=== PATIENT | female | born 1945 | race Caucasian/White ===

== ENCOUNTER 2017-12-23 11:19 | Inpatient (IN) ==
--- OUTSIDE RECORDS SUMMARY | 2017-12-23 11:42 | External Medical Summary | Continuity of Care Document ---
:1945 Author Organization [facility] Phone Unavailable Care Team Providers Name Role Phone AYAZ BLANCAS M.D. Unavailable Insurance Providers Guarantor Amy Kirk Address [address] [place] [address] Payer s Medicare Policy Number [id number] Subscriber's Name Amy Kirk Relationship 01 Self / Same As Patient Effective Date 10 Payer [employer] Plan 65 [employer] Policy Number [id number] Subscriber's Name Amy Kirk Relationship 01 Self / Same As Patient Group Number [id number] Effective Date 09 Problems Active Problems Medical Problem Onset Date Status Bronchitis Unknown Acute CAD (coronary artery disease) 01/19/2015 Acute CORON ATHEROSCLER NOS TYPE VESSEL, [place] OR GRAFT 02/19/2011 Cough Unknown Acute DIAB MADDY WO COMPL, TYPE II OR UNSPEC TYPE, NOT UNCNTRLD 02/19/2011 Degenerative disc disease, lumbar Unknown Acute Dehydration Unknown Acute Facet arthropathy, lumbar Unknown Acute Foraminal stenosis of lumbosacral region Unknown Chronic Hx of coronary artery disease Unknown Acute Hx of coronary artery disease Unknown Acute Hx of diabetes mellitus Unknown Acute Hyperlipemia 01/19/2015 Acute Hypotension Unknown Acute Hypothyroidism, unspecified 02/19/2011 Lumbar spinal stenosis Unknown Acute Nausea & vomiting Unknown Acute OTH SCREEN MAMMO-MALIGN NEOPLASM OF BREAST 11/17/2013 Acute OTH SCREEN MAMMO-MALIGN NEOPLASM OF BREAST 10/18/2014 Acute ROUTINE MEDICAL EXAM Unknown Acute Sacroiliac dysfunction Unknown Acute Sinusitis Unknown Acute Spondylolisthesis at L4-L5 level Unknown Acute Type II diabetes mellitus, uncontrolled 10/13/2014 Acute Unstable angina Unknown Acute Medications Current Home Medications Medication Dose Units Route Directions Days Qty Instructions Start Date Amlodipine 2.5 Mg Oral Daily 30 02/18/ Besylate 2.5 Mg 11 Tab Aspirin (Aspirin 1 Tab Oral Daily ) 81 Mg Tab 14 Clopidogrel 75 Mg Oral Daily 30 02/18/ Bisulfate 11 (Plavix) 75 Mg Tab Glucose Blood 1 Strips Miscellaneous Twice A Day 50 dx: 250.00 11/12/ (Truetest Strips 14 Strips) Comfort Insulin Glargine 67 Unit Subcutaneously Bedtime 1 Pack 11/15/ (Lantus Solostar 17 Nf) 100 Unit/Ml Soln Insulin Lispro 40 Units Subcutaneously Daily 12 06/17/ (Human) (Humalog Units 16 Kwikpen) 100 Unit/Ml Inj Isosorbide 60 Mg Oral Twice A Day 90 07/15/ Mononitrate 13 (Imdur) 60 Mg Tab Levothyroxine 1 Tab Oral Daily 30 10/09/ Sodium Tablet 17 (Levothroid) 75 Mcg Tab Losartan 1 Tab Oral Daily 30 01/04/ Potassium 14 (Cozaar) 50 Mg Tab Meloxicam 7.5 Mg 7.5 Mg Oral Daily 30 Take on full 04/19/ Tab stomach 13 Metoclopramide 10 Mg Oral Every 8 15 10/12/ Hcl (Reglan) 10 Hours As Tablet 16 Mg Tab Needed for Nausea Metoprolol 25 Mg Oral Twice A Day 180 04/01/ Tartrate 25 Mg Tablet 16 Tab Nitroglycerin 1 Tab Sublingual As Needed 25 02/18/ (Nitroquick) 0.4 11 Mg Sub Ondansetron Hcl 4 Mg Oral Every 4 15 10/10/ (Zofran) 4 Mg Hours As Tablet 16 Tab Needed as needed for Nausea And/Or Vomiting Pantoprazole 40 Mg Oral Daily 34 02/18/ Sodium 40 Mg Tab 11 Simvastatin 40 40 Mg Oral Daily 90 07/08/ Mg Tab Tablet 16 Past Home Medications Medication Directions Ordered Status Amlodipine Besylate 2.5 Mg Tab, 2.5 Daily 07/11/10 Discontinued Mg Oral Amoxicillin/Clavulanate [place] Twice A Day 08/24/12 Discontinued (Augmentin 875 Mg) 875 Mg Tab, 875 Mg Oral Amoxicillin/Clavulanate [place] Twice A Day 07/30/12 Discontinued (Augmentin 875 Mg) 875 Mg Tab, 875 Mg Oral Aspirin (Aspir-81) 81 Mg Tab, 81 Mg Daily 05/19/09 Discontinued Oral Azithromycin (Zithromax) 250 Mg Tab, Daily 08/10/15 Discontinued 500 Mg Oral Azithromycin (Zithromax) 250 Mg Tab, As Directed 02/06/15 Discontinued 250 Mg Oral Azithromycin (Zithromax Z-Fantasma) 1 Tab As Directed 06/11/12 Discontinued Tab, 250 Mg Oral Benzonatate (Tessalon Perles) 200 Mg Three Times A Day 08/10/15 Discontinued Cap, 200 Mg Oral Ciprofloxacin Hcl (Cipro) 500 Mg Twice A Day 04/10/15 Discontinued Tab, 500 Mg Oral Ciprofloxacin Hcl (Cipro) 500 Mg Twice A Day 03/13/12 Discontinued Tab, 500 Mg Oral Clopidogrel Bisulfate (Plavix) 75 Mg Daily 05/26/09 Discontinued Tab, Oral Doxycycline Hyclate 100 Mg Cap, 100 Twice A Day 07/03/12 Discontinued Mg Oral Doxycycline Hyclate 100 Mg Cap, 100 Twice A Day 11/27/11 Discontinued Mg Oral Doxycycline Hyclate 100 Mg Cap, 100 Twice A Day 11/19/11 Discontinued Mg Oral Doxycycline Hyclate 100 Mg Cap, 100 Twice A Day 08/23/11 Discontinued Mg Oral Fluconazole (Diflucan) 100 Mg Tab, Daily 09/15/12 Discontinued 100 Mg Oral Fluticasone Propionate (Flonase Daily 12/13/11 Discontinued 0.05% Nasal [place]) 16 Gm Naspr, 2 [place] Nasal Glucose Blood (Truetest Strips) Comfort, Twice A Day 11/12/13 Discontinued 1 Strips Miscellaneous Hydrocodone-Acetaminophen ([place]) 1 Every 4 Hours As Needed 03/13/16 Discontinued Tab Tab, 1 Tab Oral Hydrocodone-Acetaminophen ([place]) 1 Every 4 Hours As Needed 02/16/16 Discontinued Tab Tab, 1 Tab Oral Hydrocodone-Acetaminophen ([place]) 1 Every 4 Hours As Needed 01/30/16 Discontinued Tab Tab, 1 Tab Oral Hydrocodone-Acetaminophen ([place]) 1 Every 4 Hours As Needed 01/09/16 Discontinued Tab Tab, 1 Tab Oral Hydrocodone-Acetaminophen ([place]) 1 Every 4 Hours As Needed 12/14/15 Discontinued Tab Tab, 1 Tab Oral Hydrocodone-Acetaminophen ([place]) 1 Every 4 Hours As Needed 09/22/15 Discontinued Tab Tab, 1 Tab Oral Hydrocodone-Acetaminophen (Lortab Four Times Daily 06/04/09 Discontinued 5/500) Tab, 5 Mg Oral Influenza Virus Vaccine (Fluzone) Onetime 04/30/12 Discontinued 0.5 Ml Inj, 0.5 Ml Intramuscular Influenza Virus Vaccine (Fluzone) Onetime 05/24/11 Discontinued 0.5 Ml Inj, 0.5 Ml Intramuscular Insulin Aspart (Novolog) 100 Mg/Ml 07/11/10 Discontinued Inj, Insulin Aspart, Human Analog Three Times Daily Before 02/18/11 Discontinued (Insulin Novolog) 100 Unit/1 Ml Inj, Meals 12 Un Intramuscular Insulin Glargine (Insulin Lantus) Bedtime 06/10/16 Discontinued 100 Unit/Ml Inj, 65 Un Intramuscular Insulin Glargine (Insulin Lantus) Bedtime 06/19/15 Discontinued 100 Unit/Ml Inj, 65 Un Intramuscular Insulin Glargine (Insulin Lantus) Bedtime 06/23/14 Discontinued 100 Unit/Ml Inj, 65 Un Intramuscular Insulin Glargine (Insulin Lantus) Bedtime 06/07/13 Discontinued 100 Unit/Ml Inj, 65 Un Intramuscular Insulin Glargine (Insulin Lantus) Bedtime 05/07/13 Discontinued 100 Unit/Ml Inj, 65 Un Intramuscular Insulin Glargine (Insulin Lantus) Bedtime 04/08/13 Discontinued 100 Unit/Ml Inj, 65 Un Intramuscular Insulin Glargine (Insulin Lantus) Bedtime 03/11/12 Discontinued 100 Unit/Ml Inj, 65 Un Intramuscular Insulin Glargine (Insulin Lantus) Bedtime 02/10/12 Discontinued 100 Unit/Ml Inj, 65 Un Intramuscular Insulin Glargine (Insulin Lantus) Bedtime 09/25/11 Discontinued 100 Unit/Ml Inj, 65 Un Intramuscular Insulin Glargine (Insulin Lantus) Bedtime 02/18/11 Discontinued 100 Unit/Ml Inj, 55 Un Intramuscular Insulin Glargine (Lantus) 100 Mg/Ml Bedtime 05/19/09 Discontinued Inj, 55 Units Subcutaneously Insulin Isophane (Human) (Novolin N Daily 01/19/13 Discontinued U-100 Penfill) Penfill Inj, 40 Units Subcutaneously Insulin Isophane (Human) (Novolin N Daily 11/06/12 Discontinued U-100 Penfill) Penfill Inj, 40 Units Subcutaneously Insulin Isophane (Human) (Novolin N Daily 11/06/12 Discontinued U-100 Penfill) Penfill Inj, 40 Units Subcutaneously Insulin Lispro (Human) (Humalog) 100 Daily 03/28/14 Discontinued Mg/Ml Inj, 40 Mg Subcutaneously Insulin Lispro (Human) (Humalog Daily 05/19/15 Discontinued Kwikpen) 100 Mg/Ml Inj, 40 Units Subcutaneously Insulin Lispro (Human) (Humalog) 100 Daily 07/15/13 Discontinued Mg/Ml Inj, 40 Mg Subcutaneously Isosorbide Mononitrate (Imdur) 30 Mg Twice A Day 06/23/13 Discontinued Tab, 30 Mg Oral Isosorbide Mononitrate (Imdur) 30 Mg Twice A Day 06/17/12 Discontinued Tab, 30 Mg Oral Isosorbide Mononitrate (Imdur) 30 Mg Twice A Day 02/19/11 Discontinued Tab, 30 Mg Oral Isosorbide Mononitrate (Imdur) 30 Mg Daily 07/11/10 Discontinued Tab, 30 Mg Oral Isosorbide Mononitrate (Imdur-Er Daily 02/18/11 Discontinued *Nf*) 30 Mg Tabcr, 30 Mg Oral Levofloxacin (Levaquin) 750 Mg Tab, Daily 07/24/15 Discontinued 750 Mg Oral Levofloxacin (Levaquin) 500 Mg Tab, Daily 06/13/15 Discontinued 500 Mg Oral Levofloxacin (Levaquin) 500 Mg Tab, Daily 02/13/15 Discontinued 500 Mg Oral Levofloxacin (Levaquin) 500 Mg Tab, Daily 11/21/14 Discontinued 500 Mg Oral Levofloxacin (Levaquin) 500 Mg Tab, Daily 08/22/14 Discontinued 500 Mg Oral Levofloxacin (Levaquin) 500 Mg Tab, Daily 09/06/13 Discontinued 500 Mg Oral Levofloxacin (Levaquin) 500 Mg Tab, Daily 09/25/11 Discontinued 500 Mg Oral Levofloxacin (Levaquin) 500 Mg Tab, Daily 09/20/11 Discontinued 500 Mg Oral Levothyroxine Sodium (Levothroid) 75 Daily 09/28/15 Discontinued Mcg Tab, 1 Tab Oral Levothyroxine Sodium (Levothroid) 75 Daily 08/16/14 Discontinued Mcg Tab, 1 Tab Oral Levothyroxine Sodium (Levothroid) 75 Daily 07/07/13 Discontinued Mcg Tab, 1 Tab Oral Levothyroxine Sodium (Levothroid) 75 Daily 06/26/12 Discontinued Mcg Tab, 1 Tab Oral Levothyroxine Sodium (Levothroid) 75 Daily 06/24/11 Discontinued Mcg Tab, 1 Tab Oral Levothyroxine Sodium (Levothroid) 75 Daily 05/19/09 Discontinued Mcg Tab, 75 Mcg Oral Levothyroxine Sodium (Levothroid) 75 Daily 02/18/11 Discontinued Mcg Tab, 75 Mcg Oral Losartan Potassium (Cozaar) 50 Mg Daily 12/14/12 Discontinued Tab, 1 Tab Oral Losartan Potassium (Cozaar) 50 Mg Daily 11/13/12 Discontinued Tab, 1 Tab Oral Losartan Potassium (Cozaar) 50 Mg Daily 11/12/11 Discontinued Tab, 1 Tab Oral Losartan Potassium (Cozaar) 50 Mg Daily 09/17/11 Discontinued Tab, 1 Tab Oral Methylprednisolone (Medrol Dosepak) Asdirected 07/31/15 Discontinued 4 Mg Fantasma, 4 Mg Oral Methylprednisolone (Medrol Dosepak) Asdirected 08/05/12 Discontinued 4 Mg Fantasma, 4 Mg Oral Methylprednisolone Acetate Onetime 08/10/15 Discontinued (Depo-Medrol) 80 Mg/Ml Inj, 80 Mg Intramuscular Methylprednisolone Acetate Onetime 08/10/15 Discontinued (Depo-Medrol) 40 Mg/Ml Inj, 40 Mg Intramuscular Methylprednisolone Acetate Onetime 02/13/15 Discontinued (Depo-Medrol) 40 Mg/Ml Inj, 40 Mg Intramuscular Methylprednisolone Acetate Onetime 02/13/15 Discontinued (Depo-Medrol) 80 Mg/Ml Inj, 80 Mg Intramuscular Methylprednisolone Acetate Onetime 08/19/12 Discontinued (Depo-Medrol) 40 Mg/Ml Inj, 40 Mg Intramuscular Methylprednisolone Acetate Onetime 08/19/12 Discontinued (Depo-Medrol) 80 Mg/Ml Inj, 80 Mg Intramuscular Metoprolol Tartrate (Lopressor) 25 Twice A Day 02/18/11 Discontinued Mg Tab, 25 Mg Oral Metoprolol Tartrate (Lopressor) 50 Twice A Day 06/04/09 Discontinued Mg Tab, 25 Mg Oral Minocycline Hcl 100 Mg Cap, 100 Mg Twice A Day 07/17/15 Discontinued Oral Miscellaneous (Test Strips) Misc, 1 Three Times A Day 03/13/12 Discontinued Mis Finger Stick Olmesartan Medoxomil (Benicar) 20 Mg Daily 02/26/11 Discontinued Tab, 20 Mg Oral Olmesartan Medoxomil (Benicar) 20 Mg Daily 05/19/09 Discontinued Tab, 20 Mg Oral Oxycodone W/ Acetaminophen Every 4 Hours Prn 07/11/10 Discontinued (Percocet) 1 Tab Tab, 1 - 2 Tab Oral Pantoprazole Sodium (Protonix) 40 Mg Daily 06/04/09 Discontinued Tab, 40 Mg Oral Prednisone 10 Mg Tab, 10 Mg Oral As Directed 11/27/11 Discontinued Prednisone 10 Mg Tab, 10 Mg Oral As Directed 09/25/11 Discontinued Promethazine Hcl/Codeine Four Times Daily 08/05/12 Discontinued (Promethazine/Codeine 6.25/10 Per 5ML) 1 Ml Syp, 5 - 10 Ml Oral Promethazine/Codeine (Phenergan Every 4 Hours As Needed as 02/13/15 Discontinued W/Codeine) 120 Ml Syrp, 5 Ml Oral needed for Cough Ranitidine Hcl (Zantac) 150 Mg Cap, Twice A Day 06/04/09 Discontinued 150 Mg Oral Simvastatin 40 Mg Tab, 40 Mg Oral Daily 07/14/15 Discontinued Simvastatin 40 Mg Tab, 40 Mg Oral Daily 06/15/14 Discontinued Simvastatin 40 Mg Tab, 40 Mg Oral Daily 06/07/13 Discontinued Simvastatin 40 Mg Tab, 40 Mg Oral Daily 03/10/13 Discontinued Simvastatin 40 Mg Tab, 40 Mg Oral Daily 03/02/12 Discontinued Simvastatin 40 Mg Tab, 40 Mg Oral Daily 12/04/11 Discontinued Simvastatin 40 Mg Tab, 40 Mg Oral Daily 02/18/11 Discontinued Simvastatin (Zocor) 40 Mg Tab, 40 Mg Bedtime 06/04/09 Discontinued Oral Valsartan (Diovan) 80 Mg Tab, 80 Mg Daily 06/24/11 Discontinued Oral Valsartan (Diovan) 80 Mg Tab, 80 Mg Daily 05/07/11 Discontinued Oral Social History Social History Problem Response Recorded Date/Time Onset Date Status Hx Alcohol Use No 12/27/2011 8:39am Not Applicable Not Applicable Hx Tobacco Use No 05/24/2011 9:00am Not Applicable Not Applicable Smoking Status Former smoker 10/12/2015 7:23pm Not Applicable Not Applicable Query Response Start Date Stop Date Smoking Status Former smoker Hospital Discharge Instructions No hospital discharge instructions. Plan of Care Discharge Date 11/21/16 8:51am Instructions/Education Provided Instructions from visit on: 07/30/16 Lab results reviewed and a copy given to patient. She will continue to work towards maintaining better sugar control but it sounds like this is are this started happening.Continue current medications.We will followup in 4 months with a prior fasting lipid panel, CMP, hemoglobin A1c, free T4, TSH. Prescriptions See Medication Section Functional Status No functional status results. Allergies, Adverse Reactions, Alerts No known allergies. 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Cut Order Hand Reason Number Influenza 05/24/11 Administered 1 [id number] SANOFI Vaccine, Inactivated Influenza 04/30/12 Administered 2 [id number] [employer] Pasteur Vaccine, Inactivated Influenza 06/01/14 Administered 3 Vaccine, Inactivated Influenza 06/01/15 Administered 4 Vaccine, Inactivated Influenza 05/13/16 Administered 5 Vaccine, Inactivated Zoster Vaccine 02/01/15 Administered 1 Vital Signs Acute Vital Signs Vital Response Date/Time Blood Pressure 138/78 mm Hg 05/23/2016 12:28pm Blood Pressure Mean 58 mm Hg 10/13/2015 3:21am Temperature (Fahrenheit) 98.0 degrees F (96.0 - 99.9) 10/12/2015 7:23pm Temperature (Calculated Celsius) 36.19162 degrees C 10/12/2015 7:23pm Temperature Source Oral 10/12/2015 7:23pm Pulse Pulse Rate (adult) 91 bpm (60 - 100) 05/23/2016 12:28pm Pulse Rate: ED 72 bpm 10/13/2015 3:21am Respiratory Rate 16 breaths per minute (10 - 20) 10/13/2015 3:21am Height (Feet) 5 ft 10/12/2015 7:23pm Height (Inches) 4 in. 10/12/2015 7:23pm Weight (Pounds) 225 lbs 10/12/2015 7:23pm Ambulatory Vital Signs Vital Response Date/Time Height 5 ft 4 in 09/19/2016 10:16am Weight 228 lbs 09/19/2016 10:16am Blood Pressure 141/75 mm Hg 09/19/2016 10:16am Pulse Rate 73 bpm 09/19/2016 10:16am Body Surface Area 2.21 m2 09/19/2016 10:16am Body Mass Index 39.1 kg/m2 09/19/2016 10:16am Pulse Oximetry Pulse Oximetry 09/19/2016 10:16am Results Laboratory Results Test Name Result Units Flags Reference Collection Result Comments Date/Time Date/Time Prothrombin Time 10.3 SECONDS 9.0-12.0 07/17/2014 07/17/2014 7:30pm 8:03pm Prothromb Time 0.96 L 2.0-3.0 07/17/2014 07/17/2014 International 7:30pm 8:03pm Ratio Activated Partial 30.1 SECONDS 24.0-37.0 07/17/2014 07/17/2014 Thromboplast Time 7:30pm 8:03pm White Blood Count 11.8 K/uL H 5.0-10.0 10/12/2015 10/12/2015 7:25pm 7:48pm Red Blood Count 4.34 M/uL 4.20-5.40 10/12/2015 10/12/2015 7:25pm 7:48pm Hemoglobin 13.9 g/dL 12.0-16.0 10/12/2015 10/12/2015 7:25pm 7:48pm Hematocrit 39.7 % 38.0-47.0 10/12/2015 10/12/2015 7:25pm 7:48pm Mean Corpuscular 91.5 fL 82.0-100.0 10/12/2015 10/12/2015 Volume 7:25pm 7:48pm Mean Corpuscular 32.0 pg 26.0-33.0 10/12/2015 10/12/2015 Hemoglobin 7:25pm 7:48pm Mean Corpuscular 35.0 g/dL 31.0-36.0 10/12/2015 10/12/2015 Hemoglobin Concent 7:25pm 7:48pm Red Cell 13.7 % 11.5-14.5 10/12/2015 10/12/2015 Distribution Width 7:25pm 7:48pm RDW Standard 46.5 fL H 36.4-46.3 10/12/2015 10/12/2015 Deviation 7:25pm 7:48pm Platelet Count 306 K/uL 130-400 10/12/2015 10/12/2015 7:25pm 7:48pm Mean Platelet 9.3 fL 7.0-11.0 10/12/2015 10/12/2015 Volume 7:25pm 7:48pm Neutrophils (%) 62.7 % 42.0-75.0 10/12/2015 10/12/2015 (Auto) 7:25pm 7:48pm Lymphocytes (%) 29.4 % 16.0-44.0 10/12/2015 10/12/2015 (Auto) 7:25pm 7:48pm Monocytes (%) 6.4 % 2.0-9.0 10/12/2015 10/12/2015 (Auto) 7:25pm 7:48pm Eosinophils (%) 0.7 % 0-7.0 10/12/2015 10/12/2015 (Auto) 7:25pm 7:48pm Basophils (%) 0.3 % 0-1 10/12/2015 10/12/2015 (Auto) 7:25pm 7:48pm Immature 0.5 % 0-0.5 10/12/2015 10/12/2015 Granulocyte % 7:25pm 7:48pm (Auto) Nucleated Red 0.0 /100WBC 0-0 10/12/2015 10/12/2015 Blood Cells % 7:25pm 7:48pm Neutrophils # 7.4 K/uL 1.9-8.0 10/12/2015 10/12/2015 (Auto) 7:25pm 7:48pm Lymphocytes # 3.5 K/uL 0.9-5.2 10/12/2015 10/12/2015 (Auto) 7:25pm 7:48pm Monocytes # (Auto) 0.8 K/uL 0.16-1.0 10/12/2015 10/12/2015 7:25pm 7:48pm Eosinophils # 0.1 K/uL 0-0.8 10/12/2015 10/12/2015 (Auto) 7:25pm 7:48pm Basophils # (Auto) 0.0 K/uL 0-0.2 10/12/2015 10/12/2015 7:25pm 7:48pm Immature 0.06 K/uL 0-0.40 10/12/2015 10/12/2015 Granulocyte # 7:25pm 7:48pm (Auto) Nucleated Red 0.00 K/uL 0.0-0.012 10/12/2015 10/12/2015 Blood Cells # 7:25pm 7:48pm Random Glucose 155 mg/dL H 65-115 10/12/2015 10/12/2015 7:25pm 8:10pm Blood Urea 36 mg/dL H 8-25 10/12/2015 10/12/2015 Nitrogen 7:25pm 8:10pm Creatinine 1.43 mg/dL 0.9-1.6 10/12/2015 10/12/2015 7:25pm 8:10pm Glomerular 36.28 mL/min 10/12/2015 10/12/2015 MULTIPLY RESULT BY 1.210 IF THE PATIENT IS -MALAWIAN
Filtration Rate 7:25pm 8:10pm Units are mL/min/1.73 m2
Calc
> 60 Normal kidney function
30-59 Moderately decreased kidney function
15-29 Severely decreased kidney function
<15 End-stage kidney failure
BUN/Creatinine 25.2 10/12/2015 10/12/2015 Ratio 7:25pm 8:10pm Sodium Level 136 mEq/L 133-145 10/12/2015 10/12/2015 7:25pm 8:10pm Potassium Level 3.5 mEq/L 3.5-5.1 10/12/2015 10/12/2015 7:25pm 8:10pm Chloride Level 105 mEq/L 98-116 10/12/2015 10/12/2015 7:25pm 8:10pm Carbon Dioxide 21 mEq/L L 22-34 10/12/2015 10/12/2015 Level 7:25pm 8:10pm Anion Gap 13.5 H 6-13 10/12/2015 10/12/2015 7:25pm 8:10pm Calcium Level 8.9 mg/dL 8.2-10.6 10/12/2015 10/12/2015 7:25pm 8:10pm Total Protein 6.5 gm/dL 6.0-8.4 10/12/2015 10/12/2015 7:25pm 8:10pm Albumin 3.4 gm/dL 3.2-5.0 10/12/2015 10/12/2015 7:25pm 8:10pm Globulin 3.1 gm/dL H 2.0-3.0 10/12/2015 10/12/2015 7:25pm 8:10pm Albumin/Globulin 1.1 L 1.4-2.4 10/12/2015 10/12/2015 Ratio 7:25pm 8:10pm Total Bilirubin 0.7 mg/dL 0.1-1.3 10/12/2015 10/12/2015 7:25pm 8:10pm Alkaline 73 U/L 35-125 10/12/2015 10/12/2015 Phosphatase 7:25pm 8:10pm Aspartate Amino 30 U/L 5-40 10/12/2015 10/12/2015 Transf (AST/SGOT) 7:25pm 8:10pm Alanine 28 U/L 5-40 10/12/2015 10/12/2015 Aminotransferase 7:25pm 8:10pm (ALT/SGPT) Troponin I 0.02 ng/mL 0.0-0.02 10/12/2015 10/12/2015 7:25pm 8:10pm Lipase 29 U/L 8-57 10/12/2015 10/12/2015 7:25pm 8:10pm Free Thyroxine 1.27 ng/dL 0.82-1.77 03/27/2016 03/28/2016 (T4) Calculated 8:15am 7:20am Thyroid 2.970 uIU/mL 0.450-4.50 03/27/2016 03/28/2016 Performed at: DA - [facility] [place]
Stimulating 0 8:15am 7:20am [address] [phone]
Hormone (TSH) Vice President And Portfolio Manager: MUMTAZ Remy MD, Phone: [phone]
White Blood Count 7.2 x10E3/uL 3.4-10.8 03/27/2016 03/28/2016 8:15am 6:20am Red Blood Count 4.30 x10E6/uL 3.77-5.28 03/27/2016 03/28/2016 8:15am 6:20am Hemoglobin 13.5 g/dL 11.1-15.9 03/27/2016 03/28/2016 8:15am 6:20am Hematocrit 41.0 % 34.0-46.6 03/27/2016 03/28/2016 8:15am 6:20am Mean Corpuscular 95 fL 79-97 03/27/2016 03/28/2016 Volume 8:15am 6:20am Mean Corpuscular 31.4 pg 26.6-33.0 03/27/2016 03/28/2016 Hemoglobin 8:15am 6:20am Mean Corpuscular 32.9 g/dL 31.5-35.7 03/27/2016 03/28/2016 Hemoglobin Concent 8:15am 6:20am Red Cell 14.4 % 12.3-15.4 03/27/2016 03/28/2016 Distribution Width 8:15am 6:20am Platelet Count 267 x10E3/uL 150-379 03/27/2016 03/28/2016 8:15am 6:20am Neutrophils % 53 % . 03/27/2016 03/28/2016 (Send Out) 8:15am 6:20am Lymphocytes 37 % . 03/27/2016 03/28/2016 8:15am 6:20am Monocytes 7 % . 03/27/2016 03/28/2016 8:15am 6:20am Eosinophils 3 % . 03/27/2016 03/28/2016 8:15am 6:20am Basophils 0 % . 03/27/2016 03/28/2016 8:15am 6:20am Absolute 3.8 x10E3/uL 1.4-7.0 03/27/2016 03/28/2016 Neutrophils (auto) 8:15am 6:20am Absolute 2.7 x10E3/uL 0.7-3.1 03/27/2016 03/28/2016 Lymphocytes (auto) 8:15am 6:20am Absolute Monocytes 0.5 x10E3/uL 0.1-0.9 03/27/2016 03/28/2016 (auto) 8:15am 6:20am Absolute 0.2 x10E3/uL 0.0-0.4 03/27/2016 03/28/2016 Eosinophils (auto) 8:15am 6:20am Absolute Basophils 0.0 x10E3/uL 0.0-0.2 03/27/2016 03/28/2016 (auto) 8:15am 6:20am Immature 0 % . 03/27/2016 03/28/2016 Granulocytes 8:15am 6:20am Absolute Immature 0.0 x10E3/uL 0.0-0.1 03/27/2016 03/28/2016 [facility]
Granulocyte (auto 8:15am 6:20am [id number], [place], [place] [id number]
Vice President And Portfolio Manager: MUMTAZ Remy MD, Phone: [phone]
Urine Microalbumin 16.7 ug/mL Not Estab. 03/27/2016 03/28/2016 [facility]
8:15am 9:11am [address] [address], [place], [place] [phone];
Vice President And Portfolio Manager: MUMTAZ Remy MD, Phone: [phone]
Urine Specific 1.019 1.005-1.03 03/27/2016 03/28/2016 [place] 0 8:15am 7:20am Urine pH 5.5 5.0-7.5 03/27/2016 03/28/2016 8:15am 7:20am Urine Color Yellow Yellow 03/27/2016 03/28/2016 8:15am 7:20am Urine Appearance Clear Clear 03/27/2016 03/28/2016 8:15am 7:20am Urine Leukocyte Negative Negative 03/27/2016 03/28/2016 Esterase 8:15am 7:20am Urine Protein Negative 03/27/2016 03/28/2016 Reference 8:15am 7:20am Range: Negative/Tra ce
Urine Glucose Negative Negative 03/27/2016 03/28/2016 8:15am 7:20am Urine Ketones Negative Negative 03/27/2016 03/28/2016 8:15am 7:20am Urine Occult Blood Trace H Negative 03/27/2016 03/28/2016 8:15am 7:20am Urine Bilirubin Negative Negative 03/27/2016 03/28/2016 8:15am 7:20am Urine Urobilinogen 0.2 mg/dL 0.2-1.0 03/27/2016 03/28/2016 8:15am 7:20am Urine Nitrite Negative Negative 03/27/2016 03/28/2016 8:15am 7:20am Direct Microscopic See below: . 03/27/2016 03/28/2016 Microscopic Examination (LAB 8:15am 7:20am was indicated and was performed.&# 13;
Urine Microscopic 0-5 /hpf 0 - 5 03/27/2016 03/28/2016 WBC 8:15am 9:11am Urine Microscopic 0-2 /hpf 0 - 2 03/27/2016 03/28/2016 RBC 8:15am 9:11am Urine Epithelial 0-10 /hpf 0 - 10 03/27/2016 03/28/2016 Cells 8:15am 9:11am Urine Mucus Present Not Estab. 03/27/2016 03/28/2016 8:15am 9:11am Urine Bacteria None seen None 03/27/2016 03/28/2016 seen/Few 8:15am 9:11am URINALYSIS REFLEX This . 03/27/2016 03/28/2016 specimen 8:15am 9:11am will not reflex to a Urine Culture.&# 13;
Hemoglobin A1c 8.9 % H 4.8-5.6 07/25/2016 07/27/2016 Performed at: DA - [facility]
8:10am 3:26am [address] [address], [place], [place] [phone]&# 13;
Vice President And Portfolio Manager: MUMTAZ Remy MD, Phone: [phone]
Glucose Level 124 mg/dL H 65-99 07/25/2016 07/26/2016 8:10am 8:12am Blood Urea 19 mg/dL 8-07/25/2016 07/26/2016 Nitrogen 8:10am 8:12am Creatinine 0.82 mg/dL 0.57-1.00 07/25/2016 07/26/2016 8:10am 8:12am BUN/Creatinine 23 11-26 07/25/2016 07/26/2016 Ratio 8:10am 8:12am Sodium Level 142 mmol/L 136-144 07/25/2016 07/26/2016 Effective August 05, 2016 the reference interval
8:10am 7:42am for Sodium, Serum will be changing to:
134 - 144
Potassium Level 4.3 mmol/L 3.5-5.2 07/25/2016 07/26/2016 8:10am 7:42am Chloride Level 102 mmol/L 97-106 07/25/2016 07/26/2016 Effective August 05, 2016 the reference interval
8:10am 7:42am for Chloride, Serum will be changing to:
96 - 106
Performed at: - [facility]
[address] [address], [place], [place] [id number]
Vice President And Portfolio Manager: MUMTAZ Remy MD, Phone: [phone]
Carbon Dioxide 24 mmol/L 18-29 07/25/2016 07/26/2016 Level 8:10am 8:12am Calcium Level 9.1 mg/dL 8.7-10.3 07/25/2016 07/26/2016 8:10am 8:12am Serum Total 6.8 g/dL 6.0-8.5 07/25/2016 07/26/2016 Protein 8:10am 8:12am Albumin 4.1 g/dL 3.5-4.8 07/25/2016 07/26/2016 8:10am 8:12am Globulin 2.7 g/dL 1.5-4.5 07/25/2016 07/26/2016 8:10am 8:12am Albumin/Globulin 1.5 1.1-2.5 07/25/2016 07/26/2016 Ratio 8:10am 8:12am Total Bilirubin 0.5 mg/dL 0.0-1.2 07/25/2016 07/26/2016 8:10am 8:12am Alkaline 97 IU/L 39-117 07/25/2016 07/26/2016 Phosphatase 8:10am 8:12am Aspartate Amino 15 IU/L 0-40 07/25/2016 07/26/2016 Transf (AST/SGOT) 8:10am 8:12am Alanine 11 IU/L 0-32 07/25/2016 07/26/2016 Aminotransferase 8:10am 8:12am (ALT/SGPT) EGFR IF NONAFRICN 73 >59 07/25/2016 07/26/2016 Result AM 8:10am 8:12am Units: mL/min/1.73& #13;
EGFR IF AFRICN AM 84 >59 07/25/2016 07/26/2016 Result 8:10am 8:12am Units: mL/min/1.73& #13;
Total Cholesterol 154 mg/dL 100-199 07/25/2016 07/26/2016 8:10am 8:12am Triglycerides 157 mg/dL H 0-149 07/25/2016 07/26/2016 Level 8:10am 8:12am HDL Cholesterol 48 mg/dL >39 07/25/2016 07/26/2016 8:10am 8:12am VLDL Cholesterol, 31 mg/dL 5-40 07/25/2016 07/26/2016 Calculated 8:10am 8:12am LDL Cholesterol, 75 mg/dL 0-99 07/25/2016 07/26/2016 Performed at: [facility]
Calculated 8:10am 8:12am [address] [address], [place], [place] [phone]
Vice President And Portfolio Manager: MUMTAZ Remy MD, Phone: [phone]
Procedures No known history of procedures. Encounters Encounter Location Arrival/Admit Date Discharge/Depart Date Attending Provider Departed Clinic Mary Bales 11/21/16 7:51am 11/21/16 8:51am [facility] Mary Bales 09/25/16 1:03pm 09/25/16 1:15pm [facility] Office Visit PHI 09/19/16 10:15am YOLY PAINTER ORTHOPAEDICS LORELEI Registered Phi 09/19/16 10:15am YOLY [facility]INTER [facility] LORELEI Registered Mary Bales 09/19/16 10:15am YOLY PAINTER [facility] LORELEI Office Visit AYAZ BLANCAS 07/30/16 10:30am AYAZ BLANCAS M.D. Registered Ayaz Blancas 07/30/16 10:30am AYAZ BLANCASChico Andino Registered Mary Bales 07/25/16 8:21am AYAZ BLANCAS [facility] Departed Clinic Mary Bales 07/05/16 1:20pm 07/05/16 1:59pm [facility] RHONDA Rush M.D. Departed Clinic Mary Bales 05/23/16 8:30am 05/23/16 12:53pm BEV KWAN [facility] Office Visit [facility] 05/15/16 10:45am YOLY PAINTER ORTHOPAEDIC MANDO-Diane Registered Mary Bales 05/15/16 10:45am YOLY PAINTER [facility] PAC Registered Mary Bales 05/01/16 2:45pm [facility] RHONDA Rush M.D. Registered Mary Bales 04/16/16 9:52am AYAZ BLANCAS [facility] 04/12/16 10:30am YOLY PAINTER ORTHOPAEDIC LORELEI Registered Mary Bales 04/12/16 10:30am YOLY PAINTER [facility] PAC Office Visit AYAZ BLANCAS 04/01/16 9:30am AYAZ BLANCAS M.D. Registered Mary Bales 03/27/16 11:26am AYAZ BLANCAS [facility] Leonora Registered Mary Bales 02/28/16 2:08pm [facility] RHONDA Thu Office Visit [facility] 02/16/16 10:15am Diane NIELSEN [facility] LORELEI Bales 02/16/16 10:15am Diane [facility] Departed Clinic Mary Bales 02/02/16 1:21pm 02/02/16 1:35pm LIBRODO, [facility] RHONDA Bales 01/25/16 10:21am [facility] 01/25/16 9:45am TOY [facility] RHONDA Rush M.D. Registered Mary Bales 01/25/16 9:45am LIBROSCAR, [facility]. [facility] RHONDA Rush M.D. Office Visit AYAZ BLANCAS 12/01/15 10:00am AYAZ BLANCAS M.D. Registered Mary Bales 11/27/15 9:20am DOMOAYAZ OCULTER [facility] 11/01/15 8:45am Diane NIELSEN ORTHOPAEDICS SVEN MOSELEY Registered Mary Bales 11/01/15 8:45am Diane NIELSEN [facility]. [facility] LORELEI Departed Clinic Mary Bales 10/18/15 12:47pm 10/18/15 1:23pm TOY, [facility] RHONDA Rush M.D. Office Visit MISORINMAPAWEL 10/17/15 9:30am Diane NIELSEN ORTHOPAEDIC SVEN MOSELEY Registered Mary Bales 10/17/15 9:30am Diane NIELSEN [facility]. [facility] LORELEI Departed Mary Bales 10/12/15 7:22pm 10/12/15 10:40pm EVERTON GAMEZ [facility] Mary Bales 10/05/15 7:42am BEV KWAN [facility]erred [facility] Dep[facility] Clinic Mary Bales 09/27/15 2:43pm 09/27/15 3:02pm TOY [facility]. [facility] RHONDA Rush M.D. Registered Mary Bales 09/22/15 9:15am AYAZ BLANCAS [facility] Aristeo Andino Office Visit MISORINMAPAWEL 09/20/15 9:30am YOLY PAINTER ORTHOPAEDIC LORELEI Bales 09/20/15 9:30am YOLY PAINTER [facility] LORELEI Registered Mary Bales 09/15/15 7:44am TOY Referred [facility]. [facility] RHONDA Rush M.D. [facility] 09/13/15 10:00am YOLY PAINTER ORTHOPAEDICS MANDO-Diane Registered Mary Bales 09/13/15 10:00am YOLY PAINTER [facility] PA-C Office Visit AYAZ Adri DOMO 08/16/15 9:00am AYAZ BLANCAS M.D. Registered Mary Bales 08/10/15 8:17am AYAZ BLANCAS [facility] M.D. Office Visit AYAZ BLANCAS 08/10/15 8:05am AYAZ BLANCAS M.D. Registered Mary Bales 07/31/15 11:31am AYAZ BLANCAS [facility]. M.D. Office Visit YAAZ BLANCAS 07/17/15 10:15am AYAZ BLANCAS M.D. Departed Clinic Mary Bales 07/06/15 7:56am 07/06/15 8:42am BEV KWAN [facility] M.D. Office Visit AYAZ BLANCAS 06/13/15 10:45am AYAZ BLANCAS M.D. Office Visit AYAZ BLANCAS 05/09/15 10:30am AYAZ BLANCAS M.D. Registered Mary Bales 05/04/15 11:47am AYAZ BLANCAS [facility] M.D. Registered Mary Bales 02/13/15 10:21am AYAZ BLANCAS [facility]. M.D. Office Visit AYAZ BLANCAS 02/13/15 10:00am AYAZ BLANCAS M.D. Office Visit AYAZ BLANCAS 01/24/15 10:00am AYAZ BLANCAS M.D. Registered Mary Bales 01/19/15 8:33am AYAZ BLANCAS [facility] M.D. Departed Clinic Mary Bales 12/29/14 10:44am 12/29/14 12:02pm BEV KWAN [facility] M.D. Registered Mary Bales 11/30/14 7:56am AYAZ BLANCAS [facility]. M.D. Office Visit AYAZ BLANCAS 11/21/14 11:30am AYAZ BLANCAS M.D. Office Visit AYAZ BLANCAS 10/18/14 9:30am AYAZ BLANCAS M.D. Registered Mary Bales 10/13/14 8:54am AYAZ BLANCAS [facility] Aristeo Andino Departed Mary Bales 07/17/14 7:26pm 07/17/14 9:26pm LICONA, Emergency Room [facility] Thu Office Visit AYAZ BLANCAS 07/12/14 10:00am AYAZ BLANCAS M.D. Departed [facility] Mary Bales 07/07/14 8:03am 07/07/14 9:09am BEV KWAN [facility] Office Visit AYAZ BLANCAS 03/17/14 10:30am AYAZ BLANCAS M.D.
--- OUTSIDE RECORDS SUMMARY | 2017-12-23 11:43 | External Medical Summary | Continuity of Care Document ---
:1945 Author Organization Mary BChico Bales [employer] Phone Unavailable Care Team Providers Name Role Phone AYAZ BLANCAS M.D. Unavailable Insurance Providers Guarantor Amy Kirk Address [address] [place] [address] Payer s Medicare Policy Number [id number] Subscriber's Name Amy Kirk Relationship 01 Self / Same As Patient Effective Date 10 Payer [employer] Plan 65 Select Policy Number [id number] Subscriber's Name Amy Kirk Relationship 01 Self / Same As Patient Group Number [id number] Effective Date 09 Problems Active Problems Medical Problem Onset Date Status Bronchitis Unknown Acute CAD (coronary artery disease) 01/19/2015 Acute CORON ATHEROSCLER NOS TYPE VESSEL, CHIGNIK LAGOON OR GRAFT 02/19/2011 Cough Unknown Acute DIAB [...] (Truetest Strips 14 Strips) Comfort Insulin Glargine 65 Un Intramuscular Bedtime 20 Use up to 67 06/10/ (Insulin Lantus) Units U at HS 16 100 Unit/Ml Inj Insulin Lispro 40 Units Subcutaneously Daily 12 06/17/ (Human) (Humalog Units 16 Kwikpen) 100 Unit/Ml Inj Isosorbide 60 Mg Oral Twice A Day 90 07/15/ Mononitrate 13 (Imdur) 60 Mg Tab Levothyroxine 1 Tab Oral Daily 30 09/28/ Sodium Tablet 16 (Levothroid) 75 Mcg Tab Losartan 1 Tab [...] Simvastatin 40 40 Mg Oral Daily 90 07/14/ Mg Tab Tablet 15 Past Home Medications Medication Directions Ordered Status [...] Propionate (Flonase Daily 12/13/11 Discontinued 0.05% Nasal [place]) 16 Gm Naspr, 2 [place] Nasal Glucose Blood (Truetest Strips) Comfort, Twice A Day 11/12/13 Discontinued 1 Strips Miscellaneous Hydrocodone-Acetaminophen (Mobile Every 4 Hours As Needed 03/13/16 Discontinued 5/325) 1 Tab Tab, 1 Tab Oral Hydrocodone-Acetaminophen (Mobile Every 4 Hours As Needed 02/16/16 Discontinued 5/325) 1 Tab Tab, 1 Tab Oral Hydrocodone-Acetaminophen (Mobile Every 4 Hours As Needed 01/30/16 Discontinued 5/325) 1 Tab Tab, 1 Tab Oral Hydrocodone-Acetaminophen (Mobile Every 4 Hours As Needed 01/09/16 Discontinued 5/325) 1 Tab Tab, 1 Tab Oral Hydrocodone-Acetaminophen (Mobile Every 4 Hours As Needed 12/14/15 Discontinued 5/325) 1 Tab Tab, 1 Tab Oral Hydrocodone-Acetaminophen (Mobile Every 4 Hours As Needed 09/22/15 Discontinued 5/325) 1 Tab Tab, 1 Tab Oral Hydrocodone-Acetaminophen (Lortab [...] Mg Oral Levothyroxine Sodium (Levothroid) 75 Daily 08/16/14 [...] Tab, 20 Mg Oral Oxycodone W/ Acetaminophen (Percocet Every 4 Hours Prn 07/11/10 Discontinued 2.5/325) 1 Tab Tab, 1 - 2 Tab [...] discharge instructions. Plan of Care Discharge Date 07/05/16 1:59pm Instructions/Education Provided Instructions from visit on: 04/01/16 Lab results reviewed and a copy given to patient. Discussed increasing A1c. Congratulated on maintaining lipid panel levels.Followup in 4 months with a prior fasting CMP, lipid panel, hemoglobin A1c. Prescriptions See Medication Section Functional Status No functional status results. Allergies, Adverse Reactions, Alerts No known allergies. 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 Reason Number Influenza 05/24/11 Administered 1 [id number] SANOFI Vaccine, Inactivated Influenza 04/30/12 Administered 2 [id number] Sanofi Pasteur Vaccine, Inactivated Influenza 06/01/14 Administered 3 Vaccine, Inactivated Influenza 06/01/15 Administered 4 Vaccine, Inactivated Influenza 05/13/16 Administered 5 Vaccine, Inactivated Zoster Vaccine 02/01/15 Administered 1 Vital Signs Acute Vital Signs Vital Response Date/Time Blood Pressure 138/78 mm Hg 05/23/2016 12:28pm Blood Pressure Mean 58 mm Hg 10/13/2015 3:21am Temperature (Fahrenheit) 98.0 degrees F (96.0 - 99.9) 10/12/2015 7:23pm Temperature (Calculated Celsius) 36.51294 degrees C 10/12/2015 7:23pm Temperature Source Oral [...] Response Date/Time Height 5 ft 4 in 05/15/2016 10:58am Weight 217 lbs 05/15/2016 10:58am Blood Pressure 141/81 mm Hg 05/15/2016 10:58am Pulse Rate 73 bpm 05/15/2016 10:58am Body Surface Area 2.15 m2 05/15/2016 10:58am Body Mass Index 37.2 kg/m2 05/15/2016 10:58am Pulse Oximetry Pulse Oximetry 05/15/2016 10:58am Results Laboratory Results Test Name Result Units [...] RESULT BY 1.210 IF THE PATIENT IS -KAZAKH
Filtration Rate 7:25pm 8:10pm Units are mL/min/1.73 [...] 29 U/L 8-57 10/12/2015 10/12/2015 7:25pm 8:10pm Hemoglobin A1c 8.6 % H 4.8-5.6 03/27/2016 03/28/2016 Performed at: [facility]
8:15am 10:21am [address] [place] [phone]&# 13;
Cage Maker: MUMTAZ Remy MD, Phone: [phone]
Free Thyroxine 1.27 ng/dL 0.82-1.77 03/27/2016 03/28/2016 (T4) Calculated 8:15am 7:20am Thyroid 2.970 uIU/mL 0.450-4.50 03/27/2016 03/28/2016 Performed at: [facility]
Stimulating 0 8:15am 7:20am [address] [place] [phone]
Hormone (TSH) Cage Maker: MUMTAZ Remy MD, Phone: [phone]
White Blood Count 7.2 x10E3/uL 3.4-10.8 03/27/2016 [...] 0.0 x10E3/uL 0.0-0.1 03/27/2016 03/28/2016 [facility]
Granulocyte (auto 8:15am 6:20am [address] [address], [place], [place] [phone]
Cage Maker: MUMTAZ Remy MD, Phone: [phone]
Urine Microalbumin 16.7 ug/mL Not Estab. 03/27/2016 03/28/2016 [facility]formed at: [facility]
8:15am 9:11am [address] [address], [place], [place] [phone]&# 13;
Cage Maker: MUMTAZ Remy MD, Phone: [phone]
Glucose Level 92 mg/dL 65-99 03/27/2016 03/28/2016 8:15am 7:20am Blood Urea 17 mg/dL 8-27 03/27/2016 03/28/2016 Nitrogen 8:15am 7:20am Creatinine 0.72 mg/dL 0.57-1.00 03/27/2016 03/28/2016 8:15am 7:20am BUN/Creatinine 24 11-03/27/2016 03/28/2016 Ratio 8:15am 7:20am Sodium Level 143 mmol/L 134-144 03/27/2016 03/28/2016 8:15am 7:20am Potassium Level 4.2 mmol/L 3.5-5.2 03/27/2016 03/28/2016 8:15am 7:20am Chloride Level 102 mmol/L 97-108 03/27/2016 03/28/2016 8:15am 7:20am Carbon Dioxide 20 mmol/L 18-29 03/27/2016 03/28/2016 Level 8:15am 7:20am Calcium Level 9.1 mg/dL 8.7-10.3 03/27/2016 03/28/2016 8:15am 7:20am Serum Total 6.6 g/dL 6.0-8.5 03/27/2016 03/28/2016 Protein 8:15am 7:20am Albumin 4.1 g/dL 3.5-4.8 03/27/2016 03/28/2016 8:15am 7:20am Globulin 2.5 g/dL 1.5-4.5 03/27/2016 03/28/2016 8:15am 7:20am Albumin/Globulin 1.6 1.1-2.5 03/27/2016 03/28/2016 Ratio 8:15am 7:20am Total Bilirubin 0.4 mg/dL 0.0-1.2 03/27/2016 03/28/2016 8:15am 7:20am Alkaline 89 IU/L 39-117 03/27/2016 03/28/2016 Phosphatase 8:15am 7:20am Aspartate Amino 16 IU/L 0-40 03/27/2016 03/28/2016 Transf (AST/SGOT) 8:15am 7:20am Alanine 14 IU/L 0-32 03/27/2016 03/28/2016 Aminotransferase 8:15am 7:20am (ALT/SGPT) EGFR IF NONAFRICN 85 >59 03/27/2016 03/28/2016 Result AM 8:15am 7:20am Units: mL/min/1.73& #13;
EGFR IF AFRICN AM 98 >59 03/27/2016 03/28/2016 Result 8:15am 7:20am Units: mL/min/1.73& #13;
Total Cholesterol 144 mg/dL 100-199 03/27/2016 03/28/2016 8:15am 7:20am Triglycerides 119 mg/dL 0-149 03/27/2016 03/28/2016 Level 8:15am 7:20am HDL Cholesterol 56 mg/dL >39 03/27/2016 03/28/2016 8:15am 7:20am VLDL Cholesterol, 24 mg/dL 5-40 03/27/2016 03/28/2016 Calculated 8:15am 7:20am LDL Cholesterol, 64 mg/dL 0-99 03/27/2016 03/28/2016 Calculated 8:15am 7:20am Urine Specific 1.019 1.005-1.03 03/27/2016 03/28/2016 [place] 0 8:15am 7:20am Urine pH 5.5 5.0-7.5 [...] not reflex to a Urine Culture.&# 13;
Procedures No known history of procedures. Encounters Encounter Location Arrival/Admit Date Discharge/Depart Date Attending Provider Departed Clinic Mary Bales 07/05/16 1:20pm 07/05/16 1:59pm TOY [facility] RHONDA Rush M.D. Departed Clinic Mary Bales 05/23/16 8:30am 05/23/16 12:53pm [facility] 05/15/16 10:45am YLOY PAINTER ORTHOPAEDICS LORELEI [facility] LORELEI Registered Mary Bales 05/15/16 10:45am [facility] Registered Mary Bales 04/16/16 9:52am A[facility]AZ [facility]ANCAS [facility] 04/12/16 10:30am YOLY PAINTER ORTHOPAEDICMatthew MOSELEY Registered Mary Bales 04/12/16 10:30am YOLY PAINTER [facility] PAC Office Visit AYAZ BLANCAS 04/01/16 9:30am AYAZ BLANCAS M.D. Registered Ayaz Blancas 04/01/16 9:30am AYAZ BLANCAS M.D. Registered Mary Bales 03/27/16 11:26am AYAZ BLANCAS [facility] Aristeo Andino Registered Mary Bales 02/28/16 2:08pm [facility] 02/16/16 10:15am Diane [facility] Registered Mary Bales 02/16/16 10:15am Diane NIELSEN [facility] LORELEI Departed Clinic Mary Bales 02/02/16 1:21pm 02/02/16 1:35pm TOY [facility] RH[facility]DA Rush M.D. Registered Mary Bales 01/25/16 10:21am LIBRODO, Referred [facility] RH[facility] Rush M.D. [facility] 01/25/16 9:45am [facility] RHONDA Rush M.D. Registered Mary Bales 01/25/16 9:45am LIBRODO, [facility] RH[facility]DA Rush M.D. Office Visit AYAZ BLANCAS 12/01/15 10:00am AYAZ BLANCAS M.D. Registered Mary Bales 11/27/15 9:20am GRE[facility] FORKAYAZ [facility] 11/01/15 8:45am Diane NIELSEN ORTHOPAEDICS SVEN MOSELEY Registered Mary Bales 11/01/15 8:45am Diane NIELSEN [facility] LORELEI Departed Clinic Mary Bales 10/18/15 12:47pm 10/18/15 1:23pm LIBROGO, [facility] RHONDA Rush M.D. Office [facility] 10/17/15 9:30am Diane NIELSEN ORTHOPAEDIC SVEN Bales 10/17/15 9:30am Diane NIELSEN [facility] LORELEI Departed Mary Bales 10/12/15 7:22pm 10/12/15 10:40pm EVERTON GAMEZ [facility] Registered Mary Bales 10/05/15 7:42am BEV KWAN Referred [facility] Thu Departed Clinic Mary Bales 09/27/15 2:43pm 09/27/15 3:02pm LIBRODO, [facility] RH[facility]DA Rush M.D. Registered Mary Bales 09/22/15 9:15am [facility]AZ [facility] 09/20/15 9:30am YOLY PAINTER ORTHOPAEDICMatthew Bales 09/20/15 9:30am YOLY PAINTER [facility] LORELEI Registered Mary Bales 09/15/15 7:44am LIBRODO, Referred [facility] Thu Office Visit PHI 09/13/15 10:00am YOLY PAINTER ORTHOPAEDICS ND-C Registered Mary Bales 09/13/15 10:00am YOLY PAINTER [facility] PA-C Office Visit AYAZ BLANCAS 08/16/15 9:00am AYAZ BLANCAS M.D. Registered Mary Bales 08/10/15 8:17am AYAZ BLANCAS [facility]. M.D. Office Visit AYAZ Adri DOMO 08/10/15 8:05am AYAZ BLANCAS M.D. Registered Mary Bales 07/31/15 11:31am AYAZ BLANCAS [facility]. M.D. Office Visit AYAZ Adri DOMO 07/17/15 10:15am AYAZ BLANCAS M.D. Departed Clinic Mary Bales 07/06/15 7:56am 07/06/15 8:42am BEV KWAN [facility] M.D. Office Visit AYAZ Adri DOMO 06/13/15 10:45am AYAZ BLANCAS M.D. Office Visit AYAZ Adri DOMO 05/09/15 10:30am AYAZ BLANCAS M.D. Registered Mary Bales 05/04/15 11:47am AYAZ BLANCAS [facility]. M.D. Registered Mary Bales 02/13/15 10:21am AYAZ BLANCAS [facility]. M.D. Office Visit AYAZ M DOMO 02/13/15 10:00am AYAZ BLANCAS M.D. Office Visit AYAZ Adri DOMO 01/24/15 10:00am AYAZ BLANCAS M.D. Registered Mary Bales 01/19/15 8:33am AYAZ BLANCAS [facility]. M.D. Departed Clinic Mary Bales 12/29/14 10:44am 12/29/14 12:02pm BEV KWAN [facility].D. Registered Mary Bales 11/30/14 7:56am DOMO, AYAZ [facility] Aristeo Andino Office Visit AYAZ BLANCAS 11/21/14 11:30am AYAZ BLANCAS M.D. Office Visit AYZA BLANCAS 10/18/14 9:30am AYAZ BLANCAS M.D. Registered Mary Bales 10/13/14 8:54am AYAZ BLANCAS [facility] Aristeo Andino Departed Mary Bales 07/17/14 7:26pm 07/17/14 9:26pm LICONA, Emergency Room [facility] Thu Office Visit AYAZ BLANCAS 07/12/14 10:00am AYAZ BLANCAS M.D. Departed Clinic Mary Bales 07/07/14 8:03am 07/07/14 9:09am BEV KWAN [facility]Ted Office Visit AYAZ BLANCAS 03/17/14 10:30am AYAZ BLANCAS M.D. Departed Clinic Mary Bales 01/06/14 8:49am 01/06/14 10:09am BEV KWAN [facility] Registered Mary Bales 11/30/13 2:08pm AYAZ BLANCAS [facility] Office Visit AYAZ BLANCAS 11/17/13 10:00am AYAZ BLANCAS M.D.
--- OUTSIDE RECORDS SUMMARY | 2017-12-23 11:43 | External Medical Summary | Continuity of Care Document ---
:1945 Author Organization [facility] Care Team Providers Name Role Phone AYAZ OLIVEROS M.D. Unavailable Unavailable Insurance Providers Payer Name Policy Number Subscriber Name Relationship [employer] Medicare [id number] Izzy Kirk Self / Same As Patient Blue Cross Plan [id number] [employer] [id number] Izzy Kirk Self / Same As Patient Problems Medical Problems Problem Onset Date Status CORON ATHEROSCLER NOS TYPE VESSEL, SOBOBA OR GRAFT 02/19/2011 Active DIAB MADDY WO COMPL, TYPE II OR UNSPEC TYPE, NOT UNCNTRLD 02/19/2011 Active HYPOTHYROIDISM NOS 02/19/2011 Active ROUTINE MEDICAL EXAM Unknown Active OTH SCREEN MAMMO-MALIGN NEOPLASM OF BREAST 11/17/2013 Active Hx of coronary artery disease Unknown Active Hx of diabetes mellitus Unknown Active Unstable angina Unknown Active Hx of coronary artery disease Unknown Active Type II diabetes mellitus, uncontrolled 10/13/2014 Active OTH SCREEN MAMMO-MALIGN NEOPLASM OF BREAST 10/18/2014 Active Sinusitis Unknown Active Medications Medication Dose Route Sig Days/Qty Instructions Order Discontinued Status Date Date Aspirin 81 Mg PO DAILY 12/27/11 Discontinu 09 ed Olmesartan 20 Mg PO DAILY 05/19/ 02/26/11 Discontinu Medoxomil 09 ed Insulin 55 SC BEDTIME 08/29/11 Discontinu Glargine Units 09 ed Levothyroxine 75 Mcg PO DAILY 08/29/11 Discontinu Sodium 09 ed Clopidogrel PO DAILY 08/29/11 Discontinu Bisulfate 09 ed Metoprolol 25 Mg PO TWICE A 08/29/11 Discontinu Tartrate DAY 09 ed Hydrocodone-Ac 5 Mg PO FOUR 12/27/11 Discontinu etaminophen TIMES 09 ed DAILY Simvastatin 40 Mg PO BEDTIME 08/29/11 Discontinu 09 ed Ranitidine Hcl 150 Mg PO TWICE A 60 Qty 06/14/11 Discontinu DAY 09 ed Pantoprazole 40 Mg PO DAILY 20 Qty 06/14/11 Discontinu Sodium 09 ed Isosorbide 30 Mg PO DAILY 08/29/11 Discontinu Mononitrate 10 ed Insulin Aspart 08/29/11 Discontinu 10 ed Amlodipine 2.5 Mg PO DAILY 08/29/11 Discontinu Besylate 10 ed Oxycodone W/ 1 - 2 PO EVERY 4 20 Qty For pain 06/14/11 Discontinu Acetaminophen Tab HOURS 10 ed PRN Amlodipine 2.5 Mg PO DAILY 30 Qty 02/18/ Active Besylate 11 Pantoprazole 40 Mg PO DAILY 34 Qty 02/18/ Active Sodium 11 Insulin 55 Un IM BEDTIME 20 Qty 09/25/11 Discontinu Glargine 11 ed Levothyroxine 75 Mcg PO DAILY 30 Qty 06/24/11 Discontinu Sodium 11 ed Isosorbide 30 Mg PO DAILY 30 Qty 02/18/ 02/19/11 Discontinu Mononitrate 11 ed Simvastatin 40 Mg PO DAILY 60 Qty 02/18/ 12/04/11 Discontinu 11 ed Clopidogrel 75 Mg PO DAILY 30 Qty 02/18/ Active Bisulfate 11 Metoprolol 25 Mg PO TWICE A 68 Qty 02/18/ Active Tartrate DAY 11 Insulin 12 Un IM THREE 30 Qty 08/29/11 Discontinu Aspart, Human TIMES 11 ed Analog DAILY BEFORE MEALS Nitroglycerin 1 Tab SL 25 Qty 02/18/ Active NEEDED 11 Isosorbide 30 Mg OR TWICE A 180 Qty 02/19/ 06/17/12 Discontinu Mononitrate DAY 11 ed Olmesartan 20 Mg PO DAILY 30 Qty 09/25/11 Discontinu Medoxomil 11 ed Valsartan 80 Mg PO DAILY 30 Qty 09/13/ 06/24/11 Discontinu 11 ed Influenza 0.5 Ml IM ONETIME 1 Qty 05/24/ 05/24/11 Discontinu Virus Vaccine 11 ed Valsartan 80 Mg PO DAILY 30 Qty 09/25/11 Discontinu 11 ed Levothyroxine 1 Tab PO DAILY 30 Qty 06/26/12 Discontinu Sodium 11 ed Doxycycline 100 Mg PO TWICE A 20 Qty 09/25/11 Discontinu Hyclate DAY 11 ed Losartan 1 Tab PO DAILY 30 Qty 11/12/11 Discontinu Potassium 12 ed Levofloxacin 500 Mg PO DAILY 15 Qty 09/20/ 09/25/11 Discontinu 12 ed Levofloxacin 500 Mg PO DAILY 15 Qty 11/27/11 Discontinu 12 ed Prednisone 10 Mg PO 30 Qty for 3 days, 11/27/11 Discontinu DIRECTE 10mg daily 12 ed D for 3 days then DC Insulin 65 Un IM BEDTIME 20 Qty 02/10/12 Discontinu Glargine 12 ed Losartan 1 Tab PO DAILY 30 Qty 11/11/ 11/13/12 Discontinu Potassium 12 ed Doxycycline 100 Mg PO TWICE A 20 Qty 11/18/ 11/27/11 Discontinu Hyclate DAY 12 ed Prednisone 10 Mg PO 30 Qty 12/27/11 Discontinu DIRECTE 12 ed D Doxycycline 100 Mg PO TWICE A 60 Qty 12/27/11 Discontinu Hyclate DAY 12 ed Simvastatin 40 Mg PO DAILY 90 Qty 03/02/12 Discontinu 12 ed Fluticasone 2 [place] NA DAILY 1 Qty 2 squirts 12/12/ 12/13/12 Discontinu Propionate each nostril 12 ed daily. Insulin 65 Un IM BEDTIME 20 Qty 02/09/ 03/11/12 Discontinu Glargine 12 ed Simvastatin 40 Mg PO DAILY 90 Qty 03/10/13 Discontinu 12 ed Insulin 65 Un IM BEDTIME 20 Qty Use up to 67 / Discontinu Glargine U at HS 12 ed Ciprofloxacin 500 Mg PO TWICE A 20 Qty 03/13/ 03/25/12 Discontinu Hcl DAY 12 ed Miscellaneous 1 Mis FS THREE 100 Qty 03/13/ / Discontinu TIMES A 12 ed DAY Influenza 0.5 Ml IM ONETIME 1 Qty 04/30/ 04/30/12 Discontinu Virus Vaccine 12 ed Azithromycin 250 Mg PO 6 Qty 06/11/ 07/03/12 Discontinu DIRECTE 12 ed D Isosorbide 30 Mg OR TWICE A 180 Qty 06/23/13 Discontinu Mononitrate DAY 12 ed Levothyroxine 1 Tab PO DAILY 30 Qty 07/07/13 Discontinu Sodium 12 ed Doxycycline 100 Mg PO TWICE A 45 Qty 08/19/12 Discontinu Hyclate DAY 12 ed Amoxicillin/Cl 875 Mg PO TWICE A 20 Qty 08/19/12 Discontinu avulanate DAY 12 ed Potas Promethazine 5 - 10 PO FOUR 4 Qty 10/02/12 Discontinu HCl/Codeine Ml TIMES 12 ed DAILY Methylpredniso 4 Mg PO ASDIREC 21 Qty 08/19/12 Discontinu lone YRIS 12 ed Methylpredniso 40 Mg IM ONETIME 1 Qty 08/19/12 Discontinu lone Acetate 12 ed Methylpredniso 80 Mg IM ONETIME 1 Qty 08/19/12 Discontinu lone Acetate 12 ed Amoxicillin/Cl 875 Mg PO TWICE A 28 Qty 10/02/12 Discontinu avulanate DAY 12 ed Potas Fluconazole 100 Mg PO DAILY 7 Qty 09/15/ 10/02/12 Discontinu 13 ed Insulin 40 SC DAILY 15 Qty 11/06/ 11/06/12 Discontinu Isophane Units 13 ed (Human) Insulin 40 SC DAILY 15 Qty 11/06/ 01/19/13 Discontinu Isophane Units 13 ed (Human) Losartan 1 Tab PO DAILY 30 Qty 12/14/12 Discontinu Potassium 13 ed Losartan 1 Tab PO DAILY 30 Qty 12/14/ 01/04/14 Discontinu Potassium 13 ed Insulin 40 SC DAILY 15 Qty 01/19/ 07/15/13 Discontinu Isophane Units 13 ed (Human) Simvastatin 40 Mg PO DAILY 90 Qty 03/10/ 06/07/13 Discontinu 13 ed Insulin 65 Un IM BEDTIME 20 Qty Use up to 67 05/07/13 Discontinu Glargine U at HS 13 ed Meloxicam 7.5 Mg PO DAILY 30 Qty 04/19/ Active 13 Insulin 65 Un IM BEDTIME 20 Qty Use up to 67 05/07/ 06/07/13 Discontinu Glargine U at HS 13 ed Insulin 65 Un IM BEDTIME 20 Qty 06/07/ 06/23/14 Discontinu Glargine 13 ed Simvastatin 40 Mg PO DAILY 90 Qty 06/07/ 06/15/14 Discontinu 13 ed Isosorbide 30 Mg OR TWICE A 180 Qty 06/23/ 07/15/13 Discontinu Mononitrate DAY 13 ed Levothyroxine 1 Tab PO DAILY 30 Qty 07/07/ 08/16/14 Discontinu Sodium 13 ed Isosorbide 60 Mg PO TWICE A 90 Qty 07/15/ Active Mononitrate DAY 13 Insulin Lispro 40 Mg SC DAILY 90 Days 07/15/ 03/28/14 Discontinu (Human) 13 ed Levofloxacin 500 Mg PO DAILY 10 Qty PLEASE 09/06/ 11/17/13 Discontinu DELIVER TO 14 ed PATIENT Glucose Blood 1 MISC TWICE A 50 Qty 11/12/ 11/12/13 Discontinu Strips DAY 14 ed Glucose Blood 1 MISC TWICE A 50 Qty dx: 250.00 11/12/ Active Strips DAY 14 Losartan 1 Tab PO DAILY 30 Qty 01/04/ Active Potassium 14 Insulin Lispro 40 Mg SC DAILY 90 Qty 03/28/ Active (Human) 14 Simvastatin 40 Mg PO DAILY 90 Qty 06/15/ 14 Insulin 65 Un IM BEDTIME 20 Qty 06/23/ Active Glargine 14 Aspirin 1 Tab PO DAILY 07/17/ 14 Levothyroxine 1 Tab PO DAILY 30 Qty 08/16/ Active Sodium 14 Levofloxacin 500 Mg PO DAILY 10 Qty 08/22/ 10/18/14 Discontinu 14 ed Levofloxacin 500 Mg PO DAILY 10 Qty 11/21/ Active 15 Social History Social History Problem Response Recorded Date/Time Hx Alcohol Use No 12/27/2011 8:39am Hx Tobacco Use No 05/24/2011 9:00am Smoking Status Former smoker 07/17/2014 7:31pm Query Response Start Date Stop Date Smoking Status Former smoker Hospital Discharge Instructions No hospital discharge instructions. Plan of Care Prescriptions See Medications Section Follow-up Orders Mammogram Screen [facility] Chest [address] Sinuses W/O Contr Chest 2 Views Chest [address] Chest W/ Cont Mammogram Screen [facility] Chest 2 Views BNP CBC BMP Ct Sinuses W/O Contr Chest 2 Views Mammogram Screen [facility] LC HGBA1C Mammogram Screen [facility] Functional Status No functional status results. Allergies, Adverse Reactions, Alerts Allergen Type Severity Reaction Status Last Updated No Known Allergies Active 07/17/14 Immunizations Name Given Type Influenza Vaccine, Inactivated 06/01/14 Administered Vital Signs Acute Vital Signs Vital Response Date/Time Blood Pressure 125/58 mm Hg Blood Pressure Mean 107 mm Hg Temperature (Fahrenheit) 98.3 degrees F (96.0 - 99.9) Temperature (Calculated Celsius) 36.13255 degrees C Temperature Source Oral Pulse Pulse Rate (adult) 60 bpm (60 - 100) Pulse Rate: ED 74 bpm Respiratory Rate 18 breaths per minute (10 - 20) Height (Feet) 5 ft Height (Inches) 4 in. Weight (Pounds) 226 lbs Ambulatory Vital Signs Vital Response Date/Time Height 5 ft 4 in 11/21/2014 11:35am Weight 221 lbs 11/21/2014 11:35am Blood Pressure 130/80 mm Hg 11/21/2014 11:35am Body Surface Area 2.18 m2 11/21/2014 11:35am Body Mass Index 37.9 kg/m2 11/21/2014 11:35am Results Test Source Date Result Interp. Ref. Range Comments Hemoglobin A1c September 6.9 % H 4.8-5.6 Increased risk for diabetes: 5.7 - 6.4 Diabetes: >6.4 2014 Glycemic control for adults with diabetes: <7.0 8:15am Performed at: DA - [facility] [address] [id number], [place], [place] [id number] Mine Safety Engineer: MUMTAZ Remy MD, Phone: [phone] Activated Partial June 30.1 SECONDS N 24.0-37.0 Thromboplast Time 2013 7:30pm Alanine June 19 U/L N 5-40 Aminotransferase 2013 (ALT/SGPT) 7:30pm Albumin June 4.2 gm/dL N 3.2-5.0 2013 7:30pm Albumin/Globulin June 1.1 L 1.4-2.4 Ratio 2013 7:30pm Alkaline June 105 U/L N 35-125 Phosphatase 2013 7:30pm Amylase Level May 33 U/L N 16-108 COMMENTS 2008 ROOM 2 8:15am Anion Gap June 12.3 N 6-13 2013 7:30pm Aspartate Amino June 26 U/L N 5-40 Transf (AST/SGOT) 2013 7:30pm B-Type Natriuretic July 15.3 pg/mL N 5-100 REASON FOR EXAM: Chronic coughDx Code 786.2 Peptide 2011 Comments COUGH 1:10pm BUN/Creatinine June 21.9 Ratio 2013 7:30pm Basophils # (Auto) June 0.0 K/uL N 0-0.2 2013 7:30pm Basophils (%) June 0.4 % N 0-1 (Auto) 2013 7:30pm Bedside Glucose May 245 mg/dL H 70-120 0 2010 12:22pm Bedside Troponin I May 0.00 ng/mL N 0.0-0.03 <0.03 ng/mL= NORMAL0.04 - 0.50 ng/mL=CARDIAC CONDITION 2008 >0.50 ng/mL=SUGGESTS AMI 7:57am Blood Urea Nitrogen June 25 mg/dL N 8-25 2013 7:30pm Calcium Level June 9.6 mg/dL N 8.2-10.6 2013 7:30pm Carbon Dioxide June 25 mEq/L N 22-34 Level 2013 7:30pm Chloride Level June 106 mEq/L N 98-116 2013 7:30pm Cholesterol Level November 17, 205 mg/dL H 517-529 9547 8:48am Creatine Kinase MB May 2.4 ng/mL N 0.0-6.0 2008 6:05am Creatine Kinase MB May Not Performed 0.0-2.2 Relative Index 2008 6:05am Creatinine June 1.14 mg/dL N 0.9-1.6 2013 7:30pm Eosinophils # June 0.1 K/uL N 0-0.8 (Auto) 2013 7:30pm Eosinophils (%) June 1.0 % N 0-7.0 (Auto) 2013 7:30pm Free Thyroxine March 26, 1.0 ng/dL N 0.58-1.64 2007 8:48am Globulin June 3.7 gm/dL H 2.0-3.0 2013 7:30pm Glomerular November 47.40 mL/min MULTIPLY RESULT BY 1.210 IF THE PATIENT IS -AMERICANUnits are mL/min/1.73 m2 Filtration Rate 2013 > 60 Normal kidney function Calc 7:30pm 30-59 Moderately decreased kidney function 15-29 Severely decreased kidney function <15 End-stage kidney failure Glycated Hemoglobin November 17, 7.8 % H 4.0-6.0 2007 8:48am HDL Cholesterol November 17, 41 mg/dL N 40-80 2007 8:48am Hematocrit June 39.7 % N 38.0-47.0 2013 7:30pm Hemoglobin June 13.6 g/dL N 12.0-16.0 2013 7:30pm Immature Blood July 0.2 K/uL N 0-0.4 REASON FOR EXAM: Chronic coughDx Code 786.2 Cells 2011 Comments COUGH 1:10pm Immature November 0.04 K/uL N 0-0.40 Granulocyte # 2013 (Auto) 7:30pm Immature June 0.4 % N 0-0.5 Granulocyte % 2013 (Auto) 7:30pm LDL Cholesterol November 17, 140 mg/dL H 25-100 2007 8:48am Lab Scanned Report June Lab Scanned 2013 Report 8:48am [id number] Lipase June 21 U/L N 8-57 2013 7:30pm Lymphocytes # June 3.8 K/uL N 0.9-5.2 (Auto) 2013 7:30pm Lymphocytes (%) June 33.4 % N 16.0-44.0 (Auto) 2013 7:30pm Mean Corpuscular June 31.6 pg N 26.0-33.0 Hemoglobin 2013 7:30pm Mean Corpuscular June 34.3 g/dL N 31.0-36.0 Hemoglobin Concent 2013 7:30pm Mean Corpuscular June 92.1 fL N 82.0-100.0 Volume 2013 7:30pm Mean Platelet June 9.4 fL N 7.0-11.0 Volume 2013 7:30pm Monocytes # (Auto) June 0.7 K/uL N 0.16-1.0 2013 7:30pm Monocytes (%) June 6.1 % N 2.0-9.0 (Auto) 2013 7:30pm Neutrophils # June 6.7 K/uL N 1.9-8.0 (Auto) 2013 7:30pm Neutrophils (%) June 58.7 % N 42.0-75.0 (Auto) 2013 7:30pm Nucleated Red Blood June 0.00 K/uL N 0.0-0.012 Cells # 2013 7:30pm Nucleated Red Blood June 0.0 /100WBC N 0-0 Cells % 2013 7:30pm Platelet Count June 275 K/uL N 130-400 2013 7:30pm Potassium Level June 4.3 mEq/L N 3.5-5.1 2013 7:30pm Prothromb Time June 0.96 L 2.0-3.0 International Ratio 2013 7:30pm Prothrombin Time June 10.3 SECONDS N 9.0-12.0 Patient/Contrl Mix 2013 7:30pm RDW Standard June 43.0 fL N 36.4-46.3 Deviation 2013 7:30pm Random Glucose June 254 mg/dL H 65-115 2013 7:30pm Red Blood Count June 4.31 M/uL N 4.20-5.40 2013 7:30pm Red Cell June 12.8 % N 11.5-14.5 Distribution Width 2013 7:30pm Sodium Level June 139 mEq/L N 133-145 2013 7:30pm Thyroid Stimulating November 17, 0.93 uIU/ml N 0.34-5.60 Hormone (TSH) 2007 8:48am Total Bilirubin June 0.6 mg/dL N 0.1-1.3 2013 7:30pm Total Creatine May 106 U/L N 10-180 Kinase 2008 6:05am Total Protein June 7.9 gm/dL N 6.0-8.4 2013 7:30pm Triglycerides Level November 17, 118 mg/dL N 45-150 2007 8:48am Troponin I June 0.00 ng/mL N 0.0-0.02 2013 7:30pm Urine Amorphous May 3+ Sediment 2005 10:15am Urine Appearance May Clear 2005 10:15am Urine Bacteria May Trace NEGATIVE 2005 10:15am Urine Bilirubin May Negative NEGATIVE 2005 10:15am Urine Color May Yellow 2005 10:15am Urine Glucose (UA) May Negative NEGATIVE 2005 10:15am Urine Ketones May Negative NEGATIVE 2005 10:15am Urine Leukocyte May Trace NEGATIVE Esterase 2005 10:15am Urine Nitrate May Negative NEGATIVE 2005 10:15am Urine Occult Blood May 1+ NEGATIVE 2005 10:15am Urine Protein May Negative NEGATIVE 2005 10:15am Urine RBC May 1-3 /hpf NONE 2005 10:15am Urine Specific October >=1.030 Edna 2005 10:15am Urine Urobilinogen May 0.2 E.U./dL 0.2-1.0 2005 10:15am Urine WBC May 10-20 /hpf NONE 2005 10:15am Urine pH May 5.0 2005 10:15am VLDL Cholesterol November 17, 23.6 N 5-40 2007 8:48am White Blood Count June 11.4 K/uL H 5.0-10.0 2013 7:30pm MRSA Screen Nose And October METHICILLIN Underarm 2008 RESISTANT 12:40am STAPHYLOCOCCUS ... Urine Culture Urine,[place] May 2005 10:15am Procedures Procedure Status Date Provider(s) THER/PROPH/DIAG IV INF INIT completed 07/17/14 SLICK LICONA M.D. THER/PROPH/DIAG IV INF INIT completed 07/17/14 SLICK LICONA M.D. [place]/PRO/DX INJ NEW DRUG ADDON completed 07/17/14 SLICK LICONA M.D. Encounters Encounter Location Date/Time Registered Clinic [facility] 12/29/14 10:44am Office Visit [facility] [place] 11/21/14 11:30am Office Visit [facility] [place] 10/18/14 9:30am Registered Clinic [facility] 10/13/14 8:54am [facility]14 7:26pm Office Visit A[facility] Rush [place] 07/12/14 10:00am Registered Clinic [facility] 07/07/14 8:03am Office Visit AYAZ [facility] 03/17/14 10:30am Registered Clinic [facility] 01/06/14 8:49am
--- OUTSIDE RECORDS SUMMARY | 2017-12-23 11:43 | External Medical Summary | Continuity of Care Document ---
:1945 Author Organization [facility] true[employer]them Phone Unavailable Care Team Providers Name Role Phone AYAZ BLANCAS M.D. Unavailable Insurance Providers Guarantor Amy Kirk Address [address] [place] [address] Payer s Medicare Policy Number [id number] Subscriber's Name Amy Kirk Relationship 01 Self / Same As Patient Effective Date 10 Payer Buku Sisa KIta Social Campaign Plan [id number] [employer] Policy Number [id number] Subscriber's Name Amy Kirk Relationship 01 Self / Same As Patient Group Number [id number] Effective Date 09 Problems Active Problems Medical Problem Onset Date Status Bronchitis Unknown Acute CAD (coronary artery disease) 01/19/2015 Acute CORON ATHEROSCLER NOS TYPE VESSEL, MENOMINEE OR GRAFT 02/19/2011 Cough Unknown Acute DIAB [...] Hypothyroidism, unspecified 02/19/2011 Lumbar spinal stenosis Unknown Nausea & vomiting Unknown Acute OTH SCREEN MAMMO-MALIGN NEOPLASM OF BREAST 11/17/2013 Acute OTH SCREEN MAMMO-MALIGN NEOPLASM OF BREAST 10/18/2014 Acute ROUTINE MEDICAL EXAM Unknown Acute Sacroiliac dysfunction Unknown Acute Sinusitis Unknown Acute Spondylolisthesis at L4-L5 level Unknown Type II diabetes mellitus, uncontrolled 10/13/2014 Acute Unstable angina Unknown Acute Medications Current Home Medications Medication Dose Units Route Directions Days Qty Instructions Start Date Amlodipine 2.5 Mg Oral Daily 30 02/18/ Besylate 2.5 Mg 11 Tab Aspirin 1 Tab Oral Daily 07/17/ (Aspirin 81) 81 14 Mg Tab Clopidogrel 75 Mg Oral Daily 30 02/18/ Bisulfate 11 (Plavix) 75 Mg Tab Glucose Blood 1 Strips Miscellaneous Twice A Day 50 dx: 250.00 11/12/ (Truetest Strips 14 Strips) Comfort Hydrocodone-Alejo 1 Tab Oral Every 4 40 for pain 01/29/ taminophen Hours As Tablet 16 (Hampton 5/325) 1 Needed Tab Tab Insulin 65 Un Intramuscular Bedtime 20 Units Use up to 06/19/ Glargine U at HS 15 (Insulin Lantus) 100 Unit/Ml Inj Insulin Lispro 40 Mg Subcutaneously Daily 90 03/28/ (Human) Syringe 14 (Humalog) 100 Mg/Ml Inj Insulin Lispro 40 Units Subcutaneously Daily 12 Inj 05/19/ (Human) 15 (Humalog Kwikpen) 100 Mg/Ml Inj Insulin Lispro 40 Units Subcutaneously Daily 12 Inj 05/19/ (Human) 15 (Humalog Kwikpen) 100 Mg/Ml Inj Isosorbide 60 Mg Oral Twice A Day 90 07/15/ Mononitrate 13 (Imdur) 60 Mg Tab Levothyroxine 1 Tab Oral Daily 30 09/28/ Sodium Tablet 16 (Levothroid) 75 Mcg Tab Losartan 1 Tab Oral Daily 30 01/04/ Potassium 14 (Cozaar) 50 Mg Tab Meloxicam 7.5 7.5 Mg Oral Daily 30 Take on full 04/19/ Mg Tab stomach 13 Metoclopramide 10 Mg Oral Every 8 15 10/12/ Hcl (Reglan) 10 Hours As Tablet 16 Mg Tab Needed for Nausea Metoprolol 25 Mg Oral Twice A Day 68 02/18/ Tartrate 11 (Lopressor) 25 Mg Tab Nitroglycerin 1 Tab Sublingual As Needed 02/18/ (Nitroquick) 11 0.4 Mg Sub Ondansetron Hcl 4 Mg Oral Every 4 15 10/10/ (Zofran) 4 Mg Hours As Tablet 16 Tab Needed as needed for Nausea And/Or Vomiting Pantoprazole 40 Mg Oral Daily 34 02/18/ Sodium 40 Mg 11 Tab Simvastatin 40 40 Mg Oral Daily 90 11/20/ Mg Tab Tablet 15 Past Home Medications [...] Propionate (Flonase Daily 12/13/11 Discontinued 0.05% Nasal Tamiment) 16 Gm Naspr, 2 Tamiment Nasal Glucose Blood (Truetest Strips) Comfort, Twice A Day 11/12/13 Discontinued 1 Strips Miscellaneous Hydrocodone-Acetaminophen (Hampton Every 4 Hours As Needed 01/09/16 Discontinued 5/325) 1 Tab Tab, 1 Tab Oral Hydrocodone-Acetaminophen (Hampton Every 4 Hours As Needed 12/14/15 Discontinued 5/325) 1 Tab Tab, 1 Tab Oral Hydrocodone-Acetaminophen (Hampton Every 4 Hours As Needed 09/22/15 Discontinued [...] Inj, 80 Mg Intramuscular Metoprolol Tartrate (Lopressor) 50 Twice A Day [...] discharge instructions. Plan of Care Discharge Date 02/02/16 1:35pm Instructions/Education Provided Instructions from visit on: 12/01/15 Lab results reviewed and a copy given to patient. Congratulated on bringing down her A1c.No change in medications.We will f/u here in 4 months for 30" for annual exam with prior fasting annual lab. Prescriptions See Medication Section Functional Status No functional status results. Allergies, Adverse Reactions, Alerts No known allergies. 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Legal Consultant Reason Number Influenza 05/24/11 Administered 1 [id number] SANOFI Vaccine, Inactivated Influenza 04/30/12 Administered 2 [id number] Sanofi Pasteur Vaccine, Inactivated Influenza 06/01/14 Administered 3 Vaccine, Inactivated Influenza 06/01/15 Administered 4 Vaccine, Inactivated Zoster Vaccine 02/01/15 Administered 1 Vital Signs Acute Vital Signs Vital Response Date/Time Blood Pressure 79/47 mm Hg 10/13/2015 3:21am Blood Pressure Mean 58 mm Hg 10/13/2015 3:21am Temperature (Fahrenheit) 98.0 degrees F (96.0 - 99.9) 10/12/2015 7:23pm Temperature (Calculated Celsius) 36.05209 degrees C 10/12/2015 7:23pm Temperature Source Oral 10/12/2015 7:23pm Pulse Pulse Rate (adult) 69 bpm (60 - 100) 07/06/2015 7:59am Pulse Rate: ED 72 bpm 10/13/2015 3:21am Respiratory Rate 16 breaths per minute (10 - 20) 10/13/2015 3:21am Height (Feet) 5 ft 10/12/2015 7:23pm Height (Inches) 4 in. 10/12/2015 7:23pm Weight (Pounds) 225 lbs 10/12/2015 7:23pm Ambulatory Vital Signs Vital Response Date/Time Height 5 ft 4 in 01/25/2016 10:15am Weight 223 lbs 01/25/2016 10:15am Body Surface Area 2.19 m2 01/25/2016 10:15am Body Mass Index 38.3 kg/m2 01/25/2016 10:15am Pulse Oximetry Pulse Oximetry 01/25/2016 10:15am Results Laboratory Results Test Name Result Units Flags Reference Collection Result Comments Date/Time Date/Time Prothrombin Time 10.3 SECONDS 9.0-12.0 07/17/2014 07/17/2014 7:30pm 8:03pm Prothromb Time 0.96 L 2.0-3.0 07/17/2014 07/17/2014 International 7:30pm 8:03pm Ratio Activated Partial 30.1 SECONDS 24.0-37.0 07/17/2014 07/17/2014 Thromboplast Time 7:30pm 8:03pm Urine Microalbumin 19.3 ug/mL H 0.0-17.0 01/19/2015 01/20/2015 [facility]
8:05am 9:14am [address] [place] [address], [place], [place] [id number]&# 13;
Rn Chronic: MUMTAZ Remy MD, Phone: [phone]
Urine Specific 1.020 1.005-1.03 01/19/2015 01/20/2015 Benavides 0 8:05am 6:23am Urine pH 6.5 5.0-7.5 01/19/2015 01/20/2015 8:05am 6:23am Urine Color Yellow Yellow 01/19/2015 01/20/2015 8:05am 6:23am Urine Appearance Clear Clear 01/19/2015 01/20/2015 8:05am 6:23am Urine Leukocyte Negative Negative 01/19/2015 01/20/2015 Esterase 8:05am 6:23am Urine Protein Negative () 01/19/2015 01/20/2015 Reference 8:05am 6:23am Range: Negative/Tra ce
Urine Glucose Negative Negative 01/19/2015 01/20/2015 8:05am 6:23am Urine Ketones Negative Negative 01/19/2015 01/20/2015 8:05am 6:23am Urine Occult Blood Trace H Negative 01/19/2015 01/20/2015 8:05am 6:23am Urine Bilirubin Negative Negative 01/19/2015 01/20/2015 8:05am 6:23am Urine Urobilinogen 0.2 mg/dL 0.0-1.9 01/19/2015 01/20/2015 8:05am 6:23am Urine Nitrite Negative Negative 01/19/2015 01/20/2015 8:05am 6:23am Direct Microscopic See below: . 01/19/2015 01/20/2015 Microscopic Examination (LAB 8:05am 6:23am was indicated and was performed.&# 13;
Urine Microscopic 0-5 /hpf 0 - 5 01/19/2015 01/20/2015 WBC 8:05am 8:13am Urine Microscopic 0-2 /hpf 0 - 2 01/19/2015 01/20/2015 RBC 8:05am 8:13am Urine Epithelial 0-10 /hpf 0 - 10 01/19/2015 01/20/2015 Cells 8:05am 8:13am Urine Mucus Present Not Estab. 01/19/2015 01/20/2015 8:05am 8:13am Urine Bacteria Few None 01/19/2015 01/20/2015 seen/Few 8:05am 8:13am URINALYSIS REFLEX This specimen will not reflex to a Urine Culture.
. 01/19/2015 01/20/2015 Performed at: DA - [facility] [place]
8:05am 8:13am [id number], [place], [place] [id number]
Rn Chronic: MUMTAZ Remy MD, Phone: [phone]
White Blood Count 10.7 x10E3/uL 3.4-10.8 08/10/2015 08/11/2015 8:02am 4:08am Red Blood Count 4.46 x10E6/uL 3.77-5.28 08/10/2015 08/11/2015 8:02am 4:08am Hemoglobin 13.7 g/dL 11.1-15.9 08/10/2015 08/11/2015 8:02am 4:08am Hematocrit 41.7 % 34.0-46.6 08/10/2015 08/11/2015 8:02am 4:08am Mean Corpuscular 94 fL 79-97 08/10/2015 08/11/2015 Volume 8:02am 4:08am Mean Corpuscular 30.7 pg 26.6-33.0 08/10/2015 08/11/2015 Hemoglobin 8:02am 4:08am Mean Corpuscular 32.9 g/dL 31.5-35.7 08/10/2015 08/11/2015 Hemoglobin Concent 8:02am 4:08am Red Cell 13.7 % 12.3-15.4 08/10/2015 08/11/2015 Distribution Width 8:02am 4:08am Platelet Count 241 x10E3/uL 150-379 08/10/2015 08/11/2015 8:02am 4:08am Neutrophils % 57 % . 08/10/2015 08/11/2015 (Send Out) 8:02am 4:08am Lymphocytes 34 % . 08/10/2015 08/11/2015 8:02am 4:08am Monocytes 6 % . 08/10/2015 08/11/2015 8:02am 4:08am Eosinophils 3 % . 08/10/2015 08/11/2015 8:02am 4:08am Basophils 0 % . 08/10/2015 08/11/2015 8:02am 4:08am Absolute 6.0 x10E3/uL 1.4-7.0 08/10/2015 08/11/2015 Neutrophils (auto) 8:02am 4:08am Absolute 3.6 x10E3/uL H 0.7-3.1 08/10/2015 08/11/2015 Lymphocytes (auto) 8:02am 4:08am Absolute Monocytes 0.7 x10E3/uL 0.1-0.9 08/10/2015 08/11/2015 (auto) 8:02am 4:08am Absolute 0.3 x10E3/uL 0.0-0.4 08/10/2015 08/11/2015 Eosinophils (auto) 8:02am 4:08am Absolute Basophils 0.0 x10E3/uL 0.0-0.2 08/10/2015 08/11/2015 (auto) 8:02am 4:08am Immature 0 % . 08/10/2015 08/11/2015 Granulocytes 8:02am 4:08am Absolute Immature 0.0 x10E3/uL 0.0-0.1 08/10/2015 08/11/2015 Performed at: DA - [facility]
Granulocyte (auto 8:02am 4:08am [address] [phone]
Rn Chronic: MUMTAZ Remy MD, Phone: [phone]
White Blood Count 11.8 K/uL H 5.0-10.0 [...] RESULT BY 1.210 IF THE PATIENT IS -WELSH
Filtration Rate 7:25pm 8:10pm Units are mL/min/1.73 [...] 8-57 10/12/2015 10/12/2015 7:25pm 8:10pm Hemoglobin A1c 8.0 % H 4.8-5.6 11/27/2015 11/28/2015 [facility]
8:06am 9:09am [address] [address], [place], [place] [phone]&# 13;
Rn Chronic: MUMTAZ Remy MD, Phone: [phone]
Free Thyroxine 1.29 ng/dL 0.82-1.77 11/27/2015 11/28/2015 (T4) Calculated 8:06am 7:15am Thyroid 2.720 uIU/mL 0.450-4.50 11/27/2015 11/28/2015 Performed at: DA - [facility]
Stimulating 0 8:06am 7:15am [address] [facility] [address], [place], [place] [id number]
Hormone (TSH) Rn Chronic: MUMTAZ Remy MD, Phone: [phone]
Glucose Level 91 mg/dL 65-99 11/27/2015 11/28/2015 8:06am 7:15am Blood Urea 20 mg/dL 8-27 11/27/2015 11/28/2015 Nitrogen 8:06am 7:15am Creatinine 0.79 mg/dL 0.57-1.00 11/27/2015 11/28/2015 8:06am 7:15am BUN/Creatinine 25 11-26 11/27/2015 11/28/2015 Ratio 8:06am 7:15am Sodium Level 144 mmol/L 134-144 11/27/2015 11/28/2015 8:06am 7:15am Potassium Level 4.2 mmol/L 3.5-5.2 11/27/2015 11/28/2015 8:06am 7:15am Chloride Level 103 mmol/L 97-108 11/27/2015 11/28/2015 8:06am 7:15am Carbon Dioxide 21 mmol/L 18-29 11/27/2015 11/28/2015 Level 8:06am 7:15am Calcium Level 9.3 mg/dL 8.7-10.3 11/27/2015 11/28/2015 8:06am 7:15am Serum Total 7.2 g/dL 6.0-8.5 11/27/2015 11/28/2015 Protein 8:06am 7:15am Albumin 4.3 g/dL 3.5-4.8 11/27/2015 11/28/2015 8:06am 7:15am Globulin 2.9 g/dL 1.5-4.5 11/27/2015 11/28/2015 8:06am 7:15am Albumin/Globulin 1.5 1.1-2.5 11/27/2015 11/28/2015 Ratio 8:06am 7:15am Total Bilirubin 0.3 mg/dL 0.0-1.2 11/27/2015 11/28/2015 8:06am 7:15am Alkaline 97 IU/L 39-117 11/27/2015 11/28/2015 Phosphatase 8:06am 7:15am Aspartate Amino 20 IU/L 0-40 11/27/2015 11/28/2015 Transf (AST/SGOT) 8:06am 7:15am Alanine 15 IU/L 0-32 11/27/2015 11/28/2015 Aminotransferase 8:06am 7:15am (ALT/SGPT) EGFR IF NONAFRICN 76 >59 11/27/2015 11/28/2015 Result AM 8:06am 7:15am Units: mL/min/1.73& #13;
EGFR IF AFRICN AM 88 >59 11/27/2015 11/28/2015 Result 8:06am 7:15am Units: mL/min/1.73& #13;
Total Cholesterol 149 mg/dL 100-199 11/27/2015 11/28/2015 8:06am 7:15am Triglycerides 119 mg/dL 0-149 11/27/2015 11/28/2015 Level 8:06am 8:10am HDL Cholesterol 53 mg/dL >39 11/27/2015 11/28/2015 8:06am 8:10am VLDL Cholesterol, 24 mg/dL 5-40 11/27/2015 11/28/2015 Calculated 8:06am 8:10am LDL Cholesterol, 72 mg/dL 0-99 11/27/2015 11/28/2015 [facility]
Calculated 8:06am 8:10am [id number], [place], [place] [phone]
Rn Chronic: MUMTAZ Remy MD, Phone: [phone]
Procedures No known history of procedures. Encounters Encounter Location Arrival/Admit Date Discharge/Depart Date Attending Provider Departed Clinic [facility] 02/02/16 1:21pm 02/02/16 1:35pm Mem. Jaya YEAGER M.D. Registered [facility] 01/25/16 10:21am Ben YEAGER [facility] Jaya Rush M.D. Office Visit [facility] 01/25/16 9:45am JENNIFER YEAGER M.D. Registered [facility]; 01/25/16 9:45am TOY, [facility] RHONDA Rush M.D. Registered [facility] 01/25/16 9:45am TOY Clinic [facility]. Jaya Rush M.D. Office Visit AYAZ BLANCAS 12/01/15 10:00am AYAZ BLANCAS M.D. Registered Ayaz Blancsa 12/01/15 10:00am AYAZ BLANCAS M.D. Registered [facility] 11/27/15 9:20am AYAZ BLANCAS [facility] Aristeo [place] Office Visit [facility] 11/01/15 8:45am Diane NIELSEN ORTHOPAEDICMatthew MACHUCA PA-C Registered [facility] 11/01/15 8:45am Diane NIELSEN [facility] SVEN MOSELEY Departed Clinic [facility] 10/18/15 12:47pm 10/18/15 1:23pm Mem. Jaya YEAGER M.D. Office Visit [facility] 10/17/15 9:30am Diane NIELSEN PA-C 10/17/15 9:30am Diane NIELSEN Clinic [facility] LORELEI Departed [facility] 10/12/15 7:22pm 10/12/15 10:40pm EVERTON GAMEZ Emergency Room [facility] Thu Registered [facility] 10/05/15 7:42am BEV KWAN Referred [facility] Thu Departed Clinic [facility] 09/27/15 2:43pm 09/27/15 3:02pm SHAKIRAO, [facility] M.Ted Registered [facility] 09/22/15 9:15am AYAZ BLANCAS [facility]. M.D. Office Visit [facility] 09/20/15 9:30am [facility] ORTHOPAEDICS LORELEI Registered [facility] 09/20/15 9:30am [facility] PA-C Registered [facility] 09/15/15 7:44am [facility] Visit [facility] 09/13/15 10:00am [facility] ORTHOP[facility]EDICS LORELEI Registered [facility] 09/13/15 10:00am [place] PA-C Office Visit AYAZ BLANCAS 08/16/15 9:00am AYAZ BLANCAS M.D. Registered [facility] 08/10/15 8:17am AYAZ BLANCAS [facility] M. M.D. Office Visit AYAZ BLANCAS 08/10/15 8:05am AYAZ BLANCAS M.D. Registered [facility] 07/31/15 11:31am AYAZ BLANCAS [facility] M. M.D. Office Visit AYAZ BLANCAS 07/17/15 10:15am AYAZ BLANCAS M.D. Departed Clinic [facility] 07/06/15 7:56am 07/06/15 8:42am BEV KWAN [facility] M.D. Office Visit AYAZ BLANCAS 06/13/15 10:45am AYAZ BLANCAS M.D. Office Visit AYAZ BLANCAS 05/09/15 10:30am AYAZ BLANCAS M.D. 05/04/15 11:47am AYAZ BLANCAS [facility]. M.D. Registered [facility] 02/13/15 10:21am AYAZ BLANCAS [facility]. M.D. Office Visit AYAZ BLANCAS 02/13/15 10:00am AYAZ BLANCAS M.D. Office Visit AYAZ Adri DOMO 01/24/15 10:00am AYAZ BLANCAS M.D. Registered [facility] 01/19/15 8:33am AYAZ BLANCAS [facility] M. M.D. Departed Clinic [facility] 12/29/14 10:44am 12/29/14 12:02pm [facility] M.D. Registered [facility] 11/30/14 7:56am AYAZ BLANCAS [facility] M. M.D. Office Visit AYAZ Adri DOMO 11/21/14 11:30am AYAZ BLANCAS M.D. Office Visit AYAZ Adri DOMO 10/18/14 9:30am AYAZ BLANCAS M.D. Registered [facility] 10/13/14 8:54am AYAZ BLANCAS [facility]. M.D. Departed [facility] 07/17/14 7:26pm 07/17/14 9:26pm LICONA, Emergency Room [facility] [place] Office Visit AYAZ Adri DOMO 07/12/14 10:00am AYAZ BLANCAS M.D. Departed Clinic [facility] 07/07/14 8:03am 07/07/14 9:09am [facility] M.D. Office Visit AYAZ Adri DOMO 03/17/14 10:30am AYAZ BLANCAS M.D. Departed Clinic [facility] 01/06/14 8:49am 01/06/14 10:09am [facility] M.D. Registered [facility] 11/30/13 2:08pm AYAZ BLANCAS [facility] M. M.D. Office Visit AYAZ Rush DOMO 11/17/13 10:00am AYAZ BLANCAS M.D. Office Visit AYAZ Adri DOMO 07/15/13 10:30am AYAZ BLANCAS M.D. Departed Clinic [facility] 07/08/13 9:01am 07/08/13 10:01am BEV KWAN [facility] Thu Registered [facility] 06/03/13 10:10am AYAZ BLANCAS [facility] Aristeo Andino Office Visit AYAZ BLANCAS 05/21/13 1:50pm AYAZ BLANCAS M.D.
--- OUTSIDE RECORDS SUMMARY | 2017-12-23 11:44 | External Medical Summary | Continuity of Care Document ---
:1945 Author Organization [employer] Phone Unavailable Care Team Providers Name Role Phone AYAZ BLANCAS M.D. Primary Care Physician Insurance Providers Guarantor Amy Quintanilla Address [address] [place] [address] Payer [facility] Medicare Policy Number [id number] Subscriber's Name Amy Quintanilla Relationship 01 Self / Same As Patient Effective Date 10 Payer Blue Cross Plan [facility] Policy Number [id number] Subscriber's Name Amy Quintanilla R Relationship 01 Self / Same As Patient Group Number [id number] Effective Date 09 Advance Directives Directive Response Recorded Date/Time Patient Resuscitation Status Full Code 10/22/17 12:58pm Advance Directives Yes 10/22/17 12:58pm Living Will Yes 10/22/17 12:58pm Health Care Power of Dust Mop Maker Yes 10/22/17 12:58pm Chief Complaint and Reason for Visit Chief Complaint CONSTIPATION Reason for Visit Dehydration Constipation Cough DIAB MADDY WO COMPL, TYPE II OR UNSPEC TYPE, NOT UNCNTRLD Degenerative disc disease, lumbar Generalized abdominal pain Constipation Gastroparesis due to DM Problems Medical Problem Onset Date Status CAD (coronary artery disease) 01/19/2015 Acute CORON ATHEROSCLER NOS TYPE VESSEL, [place] OR GRAFT 02/19/2011 Constipation Unknown Cough Unknown Acute DIAB MADDY WO COMPL, TYPE II OR UNSPEC TYPE, NOT UNCNTRLD 02/19/2011 Degenerative disc disease, lumbar Unknown Acute Dehydration Unknown Acute Facet arthropathy, lumbar Unknown Acute Foraminal stenosis of lumbosacral region Unknown Chronic Gastroparesis due to DM Unknown Generalized abdominal pain Unknown Hx of coronary artery disease Unknown Acute Hx of coronary artery disease Unknown Acute Hx of diabetes mellitus Unknown Acute Hyperlipemia 01/19/2015 Acute Hypotension Unknown Acute Hypothyroidism, unspecified 02/19/2011 Lumbar spinal stenosis Unknown Acute Nausea & vomiting Unknown Acute OTH SCREEN MAMMO-MALIGN NEOPLASM OF BREAST 11/17/2013 Acute OTH SCREEN MAMMO-MALIGN NEOPLASM OF BREAST 10/18/2014 Acute Orthostatic hypotension Unknown ROUTINE MEDICAL EXAM Unknown Acute Sacroiliac dysfunction Unknown Acute Seasonal allergies Unknown Sinusitis Unknown Acute Spondylolisthesis at L4-L5 level Unknown Acute Type II diabetes mellitus, uncontrolled 10/13/2014 Acute Unstable angina Unknown Acute Past Problems Medical Problem Onset Date Status Bronchitis Unknown Acute Chest pain at rest Unknown Acute Chronic abdominal pain Unknown Acute Constipation Unknown Acute Diabetic gastroparesis Unknown Acute Elevated troponin Unknown Acute Exertional dyspnea Unknown Acute Non-ST elevation SC (NSTEMI) Unknown Acute Palpitations Unknown Acute Medications Current Home Medications Medication Dose Units Route Directions Days Qty Instructions Start Date Clopidogrel 75 Mg Oral Daily 02/18/ Bisulfate 11 (Plavix) 75 Mg Tab Insulin Detemir 5 Subcutaneousl Bedtime for (Levemir y Hyperglycemia Flextouch) 100 Unit/Ml Inj Isosorbide 30 Mg Oral Daily for Not Mononitrate Specified (Isosorbide Mononitrate Er) 60 Mg Tabcr Lactulose 30 Oral Twice A Day (Encephalopathy for Not ) (Lactulose) Written On 10 Gm/15 Ml Martha Chart Levothyroxine 1 Tab Oral Daily 10/21/ Sodium Tablet 18 (Levothroid) 75 Mcg Tab Metoclopramide 5 Mg Oral Three Times 30 90 Hcl (Reglan) 5 Daily Before Days Mg Tab Meals for Nausea Ondansetron Hcl 4 Mg Oral Every 6 Hours 10/17/ (Zofran) 4 Mg As Needed as Tablet 18 Tab needed for Nausea Pantoprazole 40 Mg Oral Daily for Not (Pantoprazole Specified Sodium) 40 Mg Tab Potassium 20 Meq Oral Twice A Day 30 60 Chloride for Days (Potassium Hypokalemia Chloride Er) 20 Meq Tab Simvastatin 40 40 Mg Oral Daily 90 07/11/ Mg Tab Tablet 17 Tramadol Hcl 50 Mg Oral Every 6 Hours 60 (Ultram) 50 Mg As Needed for Tablet Tab Pain Venlafaxine Hcl 150 Mg Oral Daily 30 10/17/ (Venlafaxine Capsule 18 Hcl Er) 150 Mg Cap Past Home Medications Medication Directions Ordered Status Amlodipine Besylate (Norvasc) 2.5 Daily for Not Specified Discontinued Mg Tab, 2.5 Mg Oral Amlodipine Besylate 2.5 Mg Tab, Daily 02/18/11 Discontinued 2.5 Mg Oral Amlodipine Besylate 2.5 Mg Tab, Daily Discontinued 2.5 Mg Oral Amoxicillin/Clavulanate [place] Twice A Day 08/24/12 Discontinued (Augmentin 875 Mg) 875 Mg Tab, 875 Mg Oral Amoxicillin/Clavulanate [place] Twice A Day 07/30/12 Discontinued (Augmentin 875 Mg) 875 Mg Tab, 875 Mg Oral Aspirin (Aspirin 81) 81 Mg Tab, 1 Daily 10/21/17 Discontinued Tab Oral Aspirin (Aspir-81) 81 Mg Tab, 81 Daily Discontinued Mg Oral Azithromycin (Zithromax) 250 Mg Daily 08/10/15 Discontinued Tab, 500 Mg Oral Azithromycin (Zithromax) 250 Mg As Directed 02/06/15 Discontinued Tab, 250 Mg Oral Azithromycin (Zithromax Z-Fantasma) 1 As Directed 06/11/12 Discontinued Tab Tab, 250 Mg Oral Benzonatate (Tessalon Perles) 200 Three Times A Day as needed 12/17/16 Discontinued Mg Cap, 200 Mg Oral for Cough Benzonatate (Tessalon Perles) 200 Three Times A Day 08/10/15 Discontinued Mg Cap, 200 Mg Oral Ciprofloxacin Hcl (Cipro) 500 Mg Twice A Day 04/10/15 Discontinued Tab, 500 Mg Oral Ciprofloxacin Hcl (Cipro) 500 Mg Twice A Day 03/13/12 Discontinued Tab, 500 Mg Oral Clopidogrel Bisulfate (Plavix) 75 Daily Discontinued Mg Tab, Oral Docusate Sodium 100 Mg Cap, 100 Mg Twice A Day for Not Specified Discontinued Oral Doxycycline Hyclate 100 Mg Cap, Twice A Day 07/03/12 Discontinued 100 Mg Oral Doxycycline Hyclate 100 Mg Cap, Twice A Day 11/27/11 Discontinued 100 Mg Oral Doxycycline Hyclate 100 Mg Cap, Twice A Day 11/19/11 Discontinued 100 Mg Oral Doxycycline Hyclate 100 Mg Cap, Twice A Day 08/23/11 Discontinued 100 Mg Oral Fluconazole (Diflucan) 100 Mg Tab, Daily 09/15/12 Discontinued 100 Mg Oral Fluoxetine Hcl (Pmdd) (Fluoxetine) Daily 04/16/17 Discontinued 10 Mg Cap, 10 Mg Oral Fluticasone Propionate (Flonase Daily 12/13/11 Discontinued 0.05% Nasal [place]) 16 Gm Naspr, 2 [place] Nasal Furosemide 20 Mg Tab, 20 Mg Oral Daily 05/23/17 Discontinued Glucose Blood (Truetest Strips) Twice A Day 11/12/13 Discontinued Comfort, 1 Strips Miscellaneous Glucose Blood (Truetest Strips) Twice A Day 11/12/13 Discontinued Comfort, 1 Strips Miscellaneous Hydrocodone-Acetaminophen ([place]) Every 4 Hours As Needed for 10/17/17 Discontinued 5/325 Tab, 1 Tab Oral Pain Hydrocodone-Acetaminophen ([place]) Every 4 Hours As Needed for 10/08/17 Discontinued 5/325 Tab, 1 Tab Oral Pain Hydrocodone-Acetaminophen ([place]) Every 4 Hours As Needed for 09/24/17 Discontinued 5/325 Tab, 1 Tab Oral Pain Hydrocodone-Acetaminophen ([place]) Every 4 Hours As Needed for 09/11/17 Discontinued 5/325 Tab, 1 Tab Oral Pain Hydrocodone-Acetaminophen ([place]) Every 4 Hours As Needed for 08/27/17 Discontinued 5/325 Tab, 1 Tab Oral Pain Hydrocodone-Acetaminophen ([place]) Every 4 Hours As Needed 03/13/16 Discontinued 1 Tab Tab, 1 Tab Oral Hydrocodone-Acetaminophen ([place]) Every 4 Hours As Needed 02/16/16 Discontinued 1 Tab Tab, 1 Tab Oral Hydrocodone-Acetaminophen ([place]) Every 4 Hours As Needed 01/30/16 Discontinued 1 Tab Tab, 1 Tab Oral Hydrocodone-Acetaminophen ([place]) Every 4 Hours As Needed 01/09/16 Discontinued 1 Tab Tab, 1 Tab Oral Hydrocodone-Acetaminophen ([place]) Every 4 Hours As Needed 12/14/15 Discontinued 1 Tab Tab, 1 Tab Oral Hydrocodone-Acetaminophen ([place]) Every 4 Hours As Needed 09/22/15 Discontinued 1 Tab Tab, 1 Tab Oral Hydrocodone-Acetaminophen (Lortab Four Times Daily Discontinued 5/500) Tab, 5 Mg Oral Influenza Virus Vaccine (Fluzone) Onetime 04/30/12 Discontinued 0.5 Ml Inj, 0.5 Ml Intramuscular Influenza Virus Vaccine (Fluzone) Onetime 05/24/11 Discontinued 0.5 Ml Inj, 0.5 Ml Intramuscular Insulin Aspart (Novolog) 100 Mg/Ml Discontinued Inj, Insulin Aspart, Human Analog Three Times Daily Before 02/18/11 Discontinued (Insulin Novolog) 100 Unit/1 Ml Meals Inj, 12 Un Intramuscular Insulin Glargine (Lantus Solostar Bedtime 08/20/17 Discontinued Nf) 100 Unit/Ml Soln, 67 Unit Subcutaneously Insulin Glargine (Lantus Solostar Bedtime 11/27/16 Discontinued Nf) 100 Unit/Ml Soln, 67 Unit Subcutaneously Insulin Glargine (Lantus Solostar Bedtime 11/15/16 Discontinued Nf) 100 Unit/Ml Soln, 67 Unit Subcutaneously Insulin Glargine (Insulin Lantus) Bedtime 06/10/16 Discontinued [...] 55 Un Intramuscular Insulin Glargine (Lantus) 100 Bedtime Discontinued Mg/Ml Inj, 55 Units Subcutaneously Insulin Isophane (Human) (Novolin Daily 01/19/13 Discontinued N U-100 Penfill) Penfill Inj, 40 Units Subcutaneously Insulin Isophane (Human) (Novolin Daily 11/06/12 Discontinued N U-100 Penfill) Penfill Inj, 40 Units Subcutaneously Insulin Isophane (Human) (Novolin Daily 11/06/12 Discontinued N U-100 Penfill) Penfill Inj, 40 Units Subcutaneously Insulin Lispro (Human) (Humalog Daily 07/11/17 Discontinued Kwikpen) 100 Unit/Ml Inj, 40 Units Subcutaneously Insulin Lispro (Human) (Humalog Daily 06/17/16 Discontinued Kwikpen) 100 Unit/Ml Inj, 40 Units Subcutaneously Insulin Lispro (Human) (Humalog) Daily 03/28/14 Discontinued 100 Mg/Ml Inj, 40 Mg Subcutaneously Insulin Lispro (Human) (Humalog Daily 05/19/15 Discontinued Kwikpen) 100 Mg/Ml Inj, 40 Units Subcutaneously Insulin Lispro (Human) (Humalog) Daily 07/15/13 Discontinued 100 Mg/Ml Inj, 40 Mg Subcutaneously Isosorbide Mononitrate (Imdur) 30 Twice A Day 06/23/13 Discontinued Mg Tab, 30 Mg Oral Isosorbide Mononitrate (Imdur) 30 Twice A Day 06/17/12 Discontinued Mg Tab, 30 Mg Oral Isosorbide Mononitrate (Imdur) 30 Twice A Day 02/19/11 Discontinued Mg Tab, 30 Mg Oral Isosorbide Mononitrate (Imdur) 30 Daily Discontinued Mg Tab, 30 Mg Oral Isosorbide Mononitrate (Imdur-Er Daily 02/18/11 Discontinued *Nf*) 30 Mg Tabcr, 30 Mg Oral Levofloxacin (Levaquin) 500 Mg Daily 01/23/17 Discontinued Tab, 500 Mg Oral Levofloxacin (Levaquin) 500 Mg Daily 01/21/17 Discontinued Tab, 500 Mg Oral Levofloxacin (Levaquin) 750 Mg Daily 07/24/15 Discontinued Tab, 750 Mg Oral Levofloxacin (Levaquin) 500 Mg Daily 06/13/15 Discontinued Tab, 500 Mg Oral Levofloxacin (Levaquin) 500 Mg Daily 02/13/15 Discontinued Tab, 500 Mg Oral Levofloxacin (Levaquin) 500 Mg Daily 11/21/14 Discontinued Tab, 500 Mg Oral Levofloxacin (Levaquin) 500 Mg Daily 08/22/14 Discontinued Tab, 500 Mg Oral Levofloxacin (Levaquin) 500 Mg Daily 09/06/13 Discontinued Tab, 500 Mg Oral Levofloxacin (Levaquin) 500 Mg Daily 09/25/11 Discontinued Tab, 500 Mg Oral Levofloxacin (Levaquin) 500 Mg Daily 09/20/11 Discontinued Tab, 500 Mg Oral Levothyroxine Sodium (Levothroid) Daily 10/09/16 Discontinued 75 Mcg Tab, 1 Tab Oral Levothyroxine Sodium (Levothroid) Daily 09/28/15 Discontinued 75 Mcg Tab, 1 Tab Oral Levothyroxine Sodium (Levothroid) Daily 08/16/14 Discontinued 75 Mcg Tab, 1 Tab Oral Levothyroxine Sodium (Levothroid) Daily 07/07/13 Discontinued 75 Mcg Tab, 1 Tab Oral Levothyroxine Sodium (Levothroid) Daily 06/26/12 Discontinued 75 Mcg Tab, 1 Tab Oral Levothyroxine Sodium (Levothroid) Daily 06/24/11 Discontinued 75 Mcg Tab, 1 Tab Oral Levothyroxine Sodium (Levothroid) Daily Discontinued 75 Mcg Tab, 75 Mcg Oral Levothyroxine Sodium (Levothroid) Daily 02/18/11 Discontinued 75 Mcg Tab, 75 Mcg Oral Losartan Potassium (Cozaar) 50 Mg Daily 09/01/17 Discontinued Tab, 0.5 Tab Oral Losartan Potassium (Cozaar) 50 Mg Daily 01/04/14 Discontinued Tab, 1 Tab Oral Losartan Potassium (Cozaar) 50 Mg Daily 12/14/12 Discontinued Tab, 1 Tab Oral Losartan Potassium (Cozaar) 50 Mg Daily 11/13/12 Discontinued Tab, 1 Tab Oral Losartan Potassium (Cozaar) 50 Mg Daily 11/12/11 Discontinued Tab, 1 Tab Oral Losartan Potassium (Cozaar) 50 Mg Daily 09/17/11 Discontinued Tab, 1 Tab Oral Methylprednisolone (Medrol Daily 01/23/17 Discontinued Dosepak) 4 Mg Fantasma, 4 Mg Oral Methylprednisolone (Medrol Asdirected 07/31/15 Discontinued Dosepak) 4 Mg Fantasma, 4 Mg Oral Methylprednisolone (Medrol Asdirected 08/05/12 Discontinued Dosepak) 4 Mg Fantasma, 4 Mg Oral Methylprednisolone [...] (Depo-Medrol) 80 Mg/Ml Inj, 80 Mg Intramuscular Metoclopramide Hcl (Reglan) 10 Mg Three Times A Day for 10/21/17 Discontinued Tab, 10 Mg Oral Gastroparesis Metoclopramide Hcl (Reglan) 10 Mg Three Times A Day for 10/17/17 Discontinued Tab, 10 Mg Oral Gastroparesis Metoprolol Tartrate 25 Mg Tab, 25 Twice A Day for Not Specified Discontinued Mg Oral Metoprolol Tartrate 25 Mg Tab, 25 Twice A Day 04/24/17 Discontinued Mg Oral Metoprolol Tartrate 25 Mg Tab, 25 Twice A Day 04/23/17 Discontinued Mg Oral Metoprolol Tartrate 25 Mg Tab, 25 Twice A Day 04/01/16 Discontinued Mg Oral Metoprolol Tartrate (Lopressor) 25 Twice A Day 02/18/11 Discontinued Mg Tab, 25 Mg Oral Metoprolol Tartrate (Lopressor) 50 Twice A Day Discontinued Mg Tab, 25 Mg Oral Minocycline Hcl 100 Mg Cap, 100 Mg Twice A Day 07/17/15 Discontinued Oral Miscellaneous (Test Strips) Misc, Three Times A Day 03/13/12 Discontinued 1 Mis Finger Stick Olmesartan Medoxomil (Benicar) 20 Daily 02/26/11 Discontinued Mg Tab, 20 Mg Oral Olmesartan Medoxomil (Benicar) 20 Daily Discontinued Mg Tab, 20 Mg Oral Oxycodone W/ Acetaminophen Every 4 Hours Prn 07/11/10 Discontinued (Percocet) 1 Tab Tab, 1 - 2 Tab Oral Pantoprazole Sodium 40 Mg Tab, 40 Daily 02/18/11 Discontinued Mg Oral Pantoprazole Sodium (Protonix) 40 Daily 06/04/09 Discontinued Mg Tab, 40 Mg Oral Prednisone 10 Mg Tab, 10 Mg Oral As Directed 11/27/11 Discontinued Prednisone 10 Mg Tab, 10 Mg Oral As Directed 09/25/11 Discontinued Promethazine Hcl/Codeine Four Times Daily 08/05/12 Discontinued (Promethazine/Codeine 6.25/10 Per 5ML) 1 Ml Syp, 5 - 10 Ml Oral Promethazine/Codeine (Phenergan Every 4 Hours As Needed as 07/04/17 Discontinued W/Codeine) 120 Ml Syrp, 120 Ml needed for Cough Oral Promethazine/Codeine (Phenergan Every 4 Hours As Needed as 11/22/16 Discontinued W/Codeine) 120 Ml Syrp, 120 Ml needed for Cough Oral Promethazine/Codeine (Phenergan Every 6 Hours As Needed 01/23/17 Discontinued W/Codeine) 120 Ml Syrp, 5 Ml Oral Promethazine/Codeine (Phenergan Every 6 Hours As Needed 12/17/16 Discontinued W/Codeine) 120 Ml Syrp, 5 Ml Oral Promethazine/Codeine (Phenergan Every 4 Hours As Needed as 02/13/15 Discontinued W/Codeine) 120 Ml Syrp, 5 Ml Oral needed for Cough Ranitidine Hcl (Zantac) 150 Mg Twice A Day 06/04/09 Discontinued Cap, 150 Mg Oral Simvastatin 40 Mg Tab, 40 Mg Oral Daily 07/08/16 Discontinued Simvastatin 40 Mg Tab, 40 Mg [...] Discontinued Simvastatin (Zocor) 40 Mg Tab, 40 Bedtime Discontinued Mg Oral Valsartan (Diovan) 80 Mg Tab, 80 Daily 06/24/11 Discontinued Mg Oral Valsartan (Diovan) 80 Mg Tab, 80 Daily 05/07/11 Discontinued Mg Oral Social History Social History Problem Response Recorded Date/Time Onset Date Status Hx Alcohol Use No 12/27/2011 8:39am Not Applicable Not Applicable Hx Tobacco Use No 05/24/2011 9:00am Not Applicable Not Applicable Smoking Status Former smoker 10/28/2017 11:36am Not Applicable Not Applicable Smoking Status Start Date Stop Date Former smoker Hospital Discharge Instructions No hospital discharge instruction information available. Plan of Care Discharge Date 10/28/17 11:55am Disposition 01 HOME, SELF-CARE Prescriptions See Medication Section Functional Status Query Response Date Recorded FUNCTIONAL ACTIVITIES: Supine to 6/7 Modified [place] October 28, 2017 9: 05am Sit Ability Overall Activities Daily Living Independ/No setup help October 22, 2017 2: 44pm Ability/Staff Support Toileting Ability/Staff Support Independ/Setup help only October 28, 2017 7:50am Oral Care Ability/Staff Support Independ/No setup help October 28, 2017 7:50am Upper Body Dressing Ability/Staff Activity did not occur October 28, 2017 7:50am Support Lower Body Dressing Ability/Staff Activity did not occur October 28, 2017 7:50am Support Bed Mobility Ability (general) 6/7 Modified [place] October 23, 2017 1:12pm Bed Mobility Sit to Supine Ability 6/7 Modified [place] October 23, 2017 1: 12pm Bed Mobility Supine to Sit Ability 6/7 Modified [place] October 23, 2017 1: 12pm Bed Transfer Ability 5/7 Supervision/Set-up October 23, 2017 1:12pm Chair Transfer Ability 6/7 Modified [place] October 23, 2017 1:09pm Memory Description Short term intact October 28, 2017 8: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Home Hospice Aide Reason Number Influenza 05/24/11 Administered 1 [id number] SANOFI Vaccine, Inactivated Influenza 04/30/12 Administered 2 [id number] [employer] Paste[employer] Vaccine, Inactivated Influenza 06/01/14 Administered 3 Vaccine, Inactivated Influenza 06/01/15 Administered 4 Vaccine, Inactivated Influenza 05/13/16 Administered 5 Vaccine, Inactivated Influenza 05/28/17 Administered 6 Vaccine, Inactivated Influenza 06/12/17 Administered 7 Vaccine, Inactivated Zoster Vaccine 02/01/15 Administered 1 Query Response on File Recorded Date/Time Pneumonia Vaccine Received 201610/22/17 12:59pm Had a Tetanus Toxoid Vaccination less than 10yrs Yes 10/22/17 2:45pm ago Vital Signs Acute Vital Signs Vital Response Date/Time Blood Pressure 106/77 mm Hg 10/28/2017 7:50am Blood Pressure Mean 66 mm Hg 08/22/2017 9:55am Blood Pressure Mean 87 mm Hg 10/28/2017 7:50am Temperature (Fahrenheit) 97.7 degrees F (96.0 - 99.9) 10/28/2017 7:50am Temperature (Calculated Celsius) 36.74804 degrees C 10/28/2017 7:50am Temperature Source Oral 10/28/2017 7:50am Temperature Source Oral 10/22/2017 8:54am Temp 97.5 degrees F (96.0 - 99.9) 08/22/2017 9:19am Temperature (Calculated Celsius) 36.89562 degrees C 08/22/2017 9:19am Pulse Pulse Rate (adult) 88 bpm (60 - 100) 10/28/2017 7:50am Pulse Rate (adult) 60 bpm (60 - 100) 08/22/2017 9:55am Pulse Rate: ED 98 bpm 10/22/2017 12:23pm Respiratory Rate 14 breaths per minute (10 - 20) 10/28/2017 8:59am Respiratory Rate 14 bpm (10 - 20) 08/22/2017 9:55am Height (Feet) 5 ft 10/22/2017 1:00pm Height (Inches) 4.0 in. 10/22/2017 1:00pm Weight (Pounds) 158.7 lbs 10/24/2017 5:49am Height 5 ft 4 in 10/22/2017 8:54am Weight 158.70 lb 10/24/2017 5:49am Body Mass Index 27.2 kg/m^2 10/24/2017 5:49am Ambulatory Vital Signs Vital Response Date/Time Height 5 ft 4 in 10/17/2017 2:35pm Weight 159 lbs 10/17/2017 2:35pm Temperature, Oral 97.5 degrees F 10/17/2017 2:35pm Blood Pressure, Sitting, Left Arm 107/81 mm Hg 10/17/2017 2:35pm Pulse Rate 94 bpm 10/17/2017 2:35pm Respiration Rate 16 bpm 10/17/2017 2:35pm Body Surface Area 1.82 m2 10/17/2017 2:35pm Body Mass Index 27.3 kg/m2 10/17/2017 2:35pm Pulse Oximetry Pulse Oximetry 10/17/2017 2:35pm Results Laboratory Results Test Name Result Units Flags Reference Collection Result Comments Date/Time Date/Time Lipase 29 U/L 8-57 10/12/2015 10/12/2015 7:25pm 8:10pm Urine Color YELLOW 01/22/2017 01/22/2017 2:47pm 3:10pm Urine Appearance SL CLOUDY 01/22/2017 01/22/2017 2:47pm 3:10pm Urine Glucose NEGATIVE NEGATIVE 01/22/2017 01/22/2017 (UA) 2:47pm 3:10pm Urine Bilirubin NEGATIVE NEGATIVE 01/22/2017 01/22/2017 2:47pm 3:10pm Urine Ketones TRACE NEGATIVE 01/22/2017 01/22/2017 2:47pm 3:10pm Urine Specific >=1.030 1.005-1.03 01/22/2017 01/22/2017 [place] 0 2:47pm 3:10pm Urine Occult 1+ H NEGATIVE 01/22/2017 01/22/2017 Blood 2:47pm 3:10pm Urine pH 5.0 4.5-8.0 01/22/2017 01/22/2017 2:47pm 3:10pm Urine Protein 1+ H NEGATIVE 01/22/2017 01/22/2017 2:47pm 3:10pm Urine 0.2 E.U./d 0.2-1.0 01/22/2017 01/22/2017 Urobilinogen L 2:47pm 3:10pm Urine Nitrate NEGATIVE NEGATIVE 01/22/2017 01/22/2017 2:47pm 3:10pm Urine Leukocyte TRACE H NEGATIVE 01/22/2017 01/22/2017 Esterase 2:47pm 3:10pm Urine RBC 3-5 /hpf H NONE 01/22/2017 01/22/2017 2:47pm 3:15pm Urine WBC 5-10 /hpf H NONE 01/22/2017 01/22/2017 THIS SPECIMEN MEETS MEDICAL STAFF CRITERIA 2:47pm 3:15pm FOR A URINE CULTURE. A CULTURE HAS BEEN SET. Urine Epithelial 10-25 /lpf 01/22/2017 01/22/2017 Cells 2:47pm 3:15pm Urine Bacteria 2+ /hpf H NONE 01/22/2017 01/22/2017 THIS SPECIMEN MEETS MEDICAL STAFF CRITERIA 2:47pm 3:15pm FOR A URINE CULTURE. A CULTURE HAS BEEN SET. Urine Casts 3-5 /lpf NONE 01/22/2017 01/22/2017 HYALINE CASTS 2:47pm 3:15pm SEEN Urine Mucus 1+ /lpf NONE 01/22/2017 01/22/2017 2:47pm 3:15pm Urine Amorphous 1+ 01/22/2017 01/22/2017 Sediment 2:47pm 3:15pm D-Dimer 1076 ng/mL H 0-230 03/27/2017 03/27/2017 Results <230 ng/mL yeild a negative Quantitative 9:10am 9:39am predictability for DVT or PE (PE/DVT) Bedside Troponin < 0.05 ng/mL 0.00-0.05 03/27/2017 03/27/2017 <0.05 ng/mL=NORMAL I 9:10am 9:53am 0.05 - 0.40 ng/mL=CARDIAC CONDITION >0.40 ng/mL=SUGGESTS AMI Hematology Note: . 04/09/2017 04/10/2017 Verified by microscopic examination. Comments 8:00am 6:12pm Performed at: DA - [facility] [address] [id number] Pet Training Instructor: MUMTAZ Remy MD, Phone: [phone] Urine 93.1 ug/mL Not Estab. 04/09/2017 04/10/2017 Performed at: [facility] Microalbumin 8:00am 10:10am [address] [place] [id number] Pet Training Instructor: MUMTAZ Remy MD, Phone: [phone] Globulin 3.0 g/dL 1.5-4.5 04/09/2017 04/10/2017 8:00am 8:19am Albumin/Globulin 1.3 1.2-2.2 04/09/2017 04/10/2017 Ratio 8:00am 8:19am Total 177 mg/dL 100-199 04/09/2017 04/10/2017 Cholesterol 8:00am 8:19am Triglycerides 107 mg/dL 0-149 04/09/2017 04/10/2017 Level 8:00am 8:19am HDL Cholesterol 60 mg/dL >39 04/09/2017 04/10/2017 8:00am 8:19am VLDL 21 mg/dL 5-40 04/09/2017 04/10/2017 Cholesterol, 8:00am 8:19am Calculated LDL Cholesterol, 96 mg/dL 0-99 04/09/2017 04/10/2017 Performed at: [facility] Calculated 8:00am 8:19am [id number] [id number] Pet Training Instructor: MUMTAZ Remy MD, Phone: [phone] Free Thyroxine 1.16 ng/dL 0.58-1.64 05/23/2017 05/23/2017 2:09pm 4:20pm Thyroxine (T4) 9.4 ug/dl 4.7-11.5 05/23/2017 05/23/2017 2:09pm 4:20pm B-Type 630 pg/mL H 15-100 05/23/2017 05/23/2017 Natriuretic 2:09pm 3:14pm Peptide Lipase 15 U/L 14-85 07/25/2017 07/26/2017 [facility]formed at: [facility] 2:55pm 5:10pm [address] [address], [place], [place] [id number] Pet Training Instructor: MUMTAZ Remy MD, Phone: [phone] Hemoglobin A1c 5.9 % H 4.8-5.6 07/25/2017 07/26/2017 2:55pm 5:10pm Free Thyroxine 1.31 ng/dL 0.82-1.77 07/25/2017 07/26/2017 (T4) Calculated 2:55pm 9:00am Thyroid 3.480 uIU/mL 0.450-4.50 07/25/2017 07/26/2017 Stimulating 0 2:55pm 9:00am Hormone (TSH) White Blood 11.1 x10E3/ H 3.4-10.8 07/25/2017 07/26/2017 Count uL 2:55pm 9:00am Red Blood Count 4.27 x10E6/ 3.77-5.28 07/25/2017 07/26/2017 uL 2:55pm 9:00am Hemoglobin 13.1 g/dL 11.1-15.9 07/25/2017 07/26/2017 Effective July 28, 2017 the reference interval 2:55pm 9:00am for Hemoglobin MALES only will be changing to: Males 13-15 years: 12.6 - 17.7 Males >15 years: 13.0 - 17.7 Hematocrit 40.1 % 34.0-46.6 07/25/2017 07/26/2017 2:55pm 9:00am Mean Corpuscular 94 fL 79-97 07/25/2017 07/26/2017 Volume 2:55pm 9:00am Mean Corpuscular 30.7 pg 26.6-33.0 07/25/2017 07/26/2017 Hemoglobin 2:55pm 9:00am Mean Corpuscular 32.7 g/dL 31.5-35.7 07/25/2017 07/26/2017 Hemoglobin 2:55pm 9:00am Concent Red Cell 14.8 % 12.3-15.4 07/25/2017 07/26/2017 Distribution 2:55pm 9:00am Width Platelet Count 284 x10E3/ 150-379 07/25/2017 07/26/2017 uL 2:55pm 9:00am Neutrophils % 60 % Not Estab. 07/25/2017 07/26/2017 (Send Out) 2:55pm 9:00am Lymphocytes 34 % Not Estab. 07/25/2017 07/26/2017 2:55pm 9:00am Monocytes 5 % Not Estab. 07/25/2017 07/26/2017 2:55pm 9:00am Eosinophils 1 % Not Estab. 07/25/2017 07/26/2017 2:55pm 9:00am Basophils 0 % Not Estab. 07/25/2017 07/26/2017 2:55pm 9:00am Absolute 6.6 x10E3/ 1.4-7.0 07/25/2017 07/26/2017 Neutrophils uL 2:55pm 9:00am (auto) Absolute 3.7 x10E3/ H 0.7-3.1 07/25/2017 07/26/2017 Lymphocytes uL 2:55pm 9:00am (auto) Absolute 0.6 x10E3/ 0.1-0.9 07/25/2017 07/26/2017 Monocytes (auto) uL 2:55pm 9:00am Absolute 0.2 x10E3/ 0.0-0.4 07/25/2017 07/26/2017 Eosinophils uL 2:55pm 9:00am (auto) Absolute 0.0 x10E3/ 0.0-0.2 07/25/2017 07/26/2017 Basophils (auto) uL 2:55pm 9:00am Immature 0 % Not Estab. 07/25/2017 07/26/2017 Granulocytes 2:55pm 9:00am Absolute 0.0 x10E3/ 0.0-0.1 07/25/2017 07/26/2017 Immature uL 2:55pm 9:00am Granulocyte (auto Sedimentation 37 mm/hr 0-40 07/25/2017 07/26/2017 Performed at: [facility] Richard Rate, [place] 2:55pm 9:00am [address] [place] [address] [id number] Pet Training Instructor: MUMTAZ Remy MD, Phone: [phone] C-Reactive 6.5 mg/L H 0.0-4.9 07/25/2017 07/27/2017 Performed at: [facility] Richard Protein, 2:55pm 2:08pm [address] [place] [address] [id number] Quantitative Pet Training Instructor: MUMTAZ Remy MD, Phone: [phone] B-Type 493.5 pg/mL H 0.0-100.0 07/25/2017 07/26/2017 Performed at: [facility] Richard Natriuretic 2:55pm 1:50pm [address] [place] [address] [id number] Peptide Pet Training Instructor: MUMTAZ Remy MD, Phone: [phone] Glucose Level 65 mg/dL 65-99 07/25/2017 07/26/2017 2:55pm 5:10pm Blood Urea 19 mg/dL 8-27 07/25/2017 07/26/2017 Nitrogen 2:55pm 5:10pm Creatinine 0.91 mg/dL 0.57-1.00 07/25/2017 07/26/2017 2:55pm 5:10pm BUN/Creatinine 21 12-07/25/2017 07/26/2017 Ratio 2:55pm 5:10pm Sodium Level 145 mmol/L H 134-144 07/25/2017 07/26/2017 2:55pm 5:10pm Potassium Level 3.6 mmol/L 3.5-5.2 07/25/2017 07/26/2017 2:55pm 5:10pm Chloride Level 100 mmol/L 96-106 07/25/2017 07/26/2017 2:55pm 5:10pm Carbon Dioxide 28 mmol/L 18-29 07/25/2017 07/26/2017 Level 2:55pm 5:10pm Calcium Level 9.8 mg/dL 8.7-10.3 07/25/2017 07/26/2017 2:55pm 5:10pm Serum Total 7.0 g/dL 6.0-8.5 07/25/2017 07/26/2017 Protein 2:55pm 5:10pm Albumin 4.0 g/dL 3.5-4.8 07/25/2017 07/26/2017 2:55pm 5:10pm Total Bilirubin 0.4 mg/dL 0.0-1.2 07/25/2017 07/26/2017 2:55pm 5:10pm Direct Bilirubin 0.14 mg/dL 0.00-0.40 07/25/2017 07/26/2017 2:55pm 5:10pm Alkaline 125 IU/L H 39-117 07/25/2017 07/26/2017 Phosphatase 2:55pm 5:10pm Aspartate Amino 19 IU/L 0-40 07/25/2017 07/26/2017 Transf 2:55pm 5:10pm (AST/SGOT) Alanine 9 IU/L 0-32 07/25/2017 07/26/2017 Aminotransferase 2:55pm 5:10pm (ALT/SGPT) EGFR IF 64 >59 07/25/2017 07/26/2017 Result Units: NONAFRICN AM 2:55pm 5:10pm mL/min/1.73 EGFR IF AFRICN 73 >59 07/25/2017 07/26/2017 Result Units: AM 2:55pm 5:10pm mL/min/1.73 Urine Specific 1.025 1.005-1.03 07/25/2017 07/26/2017 [place] 0 2:55pm 9:00am Urine pH 5.0 5.0-7.5 07/25/2017 07/26/2017 2:55pm 9:00am Urine Color Yellow Yellow 07/25/2017 07/26/2017 2:55pm 9:00am Urine Appearance Turbid H Clear 07/25/2017 07/26/2017 2:55pm 9:00am Urine Leukocyte Trace H Negative 07/25/2017 07/26/2017 Esterase 2:55pm 9:00am Urine Protein 2+ H 07/25/2017 07/26/2017 Reference Range: Negative/ Trace 2:55pm 9:00am Abnormal Flag: A Urine Glucose Negative Negative 07/25/2017 07/26/2017 2:55pm 9:00am Urine Ketones Trace H Negative 07/25/2017 07/26/2017 2:55pm 9:00am Urine Occult 1+ H Negative 07/25/2017 07/26/2017 Blood 2:55pm 9:00am Urine Bilirubin Negative Negative 07/25/2017 07/26/2017 2:55pm 9:00am Urine 0.2 mg/dL 0.2-1.0 07/25/2017 07/26/2017 Urobilinogen 2:55pm 9:00am Urine Nitrite Negative Negative 07/25/2017 07/26/2017 2:55pm 9:00am Direct See below: . 07/25/2017 07/26/2017 Microscopic was Microscopic 2:55pm 9:00am indicated and Examination (LAB was performed. Urine 6-10 /hpf H 0 - 5 07/25/2017 07/26/2017 Microscopic WBC 2:55pm 10:55am Urine 3-10 /hpf H 0 - 2 07/25/2017 07/26/2017 Microscopic RBC 2:55pm 10:55am Urine Epithelial 0-10 /hpf 0 - 10 07/25/2017 07/26/2017 Cells 2:55pm 10:55am Urine Crystals Present H N/A 07/25/2017 07/26/2017 2:55pm 10:55am Urine Crystal Calcium N/A 07/25/2017 07/26/2017 Identification Oxalate 2:55pm 10:55am Urine Mucus Present Not Estab. 07/25/2017 07/26/2017 2:55pm 10:55am Urine Bacteria Moderate H None 07/25/2017 07/26/2017 seen/Few 2:55pm 10:55am URINALYSIS This specimen has reflexed to a Urine Culture. . 07/25/2017 07/28/2017 REFLEX Performed at: DA - [facility] [place] 2:55pm 1:38pm [address] [facility] [address], [place], [place] [id number] Pet Training Instructor: MUMTAZ Remy MD, Phone: [phone] This specimen has reflexed to a Urine Culture. --- 07/28/17 1338 --- URINALYSIS REFL previously reported as: This specimen has reflexed to a Urine Culture. Performed at: [address] [id number] Pet Training Instructor: MUMTAZ Remy MD, Phone: [phone] Urine Culture Final . 07/25/2017 07/28/2017 Reflexed report 2:55pm 1:38pm Urine Culture Mixed urogenital jarrett . 07/25/2017 07/28/2017 Result 1 10,000-25,000 colony forming units per mL 2:55pm 1:38pm Performed at: [address] [address], [place], [place] [id number] Pet Training Instructor: MUMTAZ Remy MD, Phone: [phone] White Blood 10.6 K/uL H 5.0-10.0 10/24/2017 10/24/2017 Count 11:07am 11:14am Red Blood Count 4.13 M/uL L 4.20-5.40 10/24/2017 10/24/2017 11:07am 11:14am Hemoglobin 13.2 g/dL # 12.0-16.0 10/24/2017 10/24/2017 11:07am 11:14am Hematocrit 40.4 % 38.0-47.0 10/24/2017 10/24/2017 11:07am 11:14am Mean Corpuscular 97.8 fL 82.0-100.0 10/24/2017 10/24/2017 Volume 11:07am 11:14am Mean Corpuscular 32.0 pg 26.0-33.0 10/24/2017 10/24/2017 Hemoglobin 11:07am 11:14am Mean Corpuscular 32.7 g/dL 31.0-36.0 10/24/2017 10/24/2017 Hemoglobin 11:07am 11:14am Concent Red Cell 16.9 % H 11.5-14.5 10/24/2017 10/24/2017 Distribution 11:07am 11:14am Width RDW Standard 61.3 fL H 36.4-46.3 10/24/2017 10/24/2017 Deviation 11:07am 11:14am Platelet Count 185 K/uL 130-400 10/24/2017 10/24/2017 11:07am 11:14am Mean Platelet 10.3 fL 7.0-11.0 10/24/2017 10/24/2017 Volume 11:07am 11:14am Neutrophils (%) 68.1 % 42.0-75.0 10/24/2017 10/24/2017 (Auto) 11:07am 11:14am Lymphocytes (%) 24.1 % 16.0-44.0 10/24/2017 10/24/2017 (Auto) 11:07am 11:14am Monocytes (%) 5.7 % 2.0-9.0 10/24/2017 10/24/2017 (Auto) 11:07am 11:14am Eosinophils (%) 1.4 % 0-7.0 10/24/2017 10/24/2017 (Auto) 11:07am 11:14am Basophils (%) 0.4 % 0-1 10/24/2017 10/24/2017 (Auto) 11:07am 11:14am Immature 0.3 % 0-0.5 10/24/2017 10/24/2017 Granulocyte % 11:07am 11:14am (Auto) Nucleated Red 0.0 /100WB 0-0 10/24/2017 10/24/2017 Blood Cells % C 11:07am 11:14am Neutrophils # 7.2 K/uL 1.9-8.0 10/24/2017 10/24/2017 (Auto) 11:07am 11:14am Lymphocytes # 2.6 K/uL 0.9-5.2 10/24/2017 10/24/2017 (Auto) 11:07am 11:14am Monocytes # 0.6 K/uL 0.16-1.0 10/24/2017 10/24/2017 (Auto) 11:07am 11:14am Eosinophils # 0.2 K/uL 0-0.8 10/24/2017 10/24/2017 (Auto) 11:07am 11:14am Basophils # 0.0 K/uL 0-0.2 10/24/2017 10/24/2017 (Auto) 11:07am 11:14am Immature 0.03 K/uL 0-0.40 10/24/2017 10/24/2017 Granulocyte # 11:07am 11:14am (Auto) Nucleated Red 0.00 K/uL 0.0-0.012 10/24/2017 10/24/2017 Blood Cells # 11:07am 11:14am Random Glucose 91 mg/dL 65-115 10/27/2017 10/27/2017 5:46am 6:29am Bedside Glucose 125 mg/dL H 70-120 10/28/2017 10/28/2017 Notify Nurse 10:29am 10:31am Blood Urea 17 mg/dL 8-25 10/27/2017 10/27/2017 Nitrogen 5:46am 6:29am Creatinine 0.62 mg/dL L 0.9-1.6 10/27/2017 10/27/2017 5:46am 6:29am Glomerular 94.62 mL/min 10/27/2017 10/27/2017 MULTIPLY RESULT BY 1.210 IF THE PATIENT IS -SCOTTISH Filtration Rate 5:46am 6:29am Units are mL/min/1.73 m2 Calc > 60 Normal kidney function 30-59 Moderately decreased kidney function 15-29 Severely decreased kidney function <15 End-stage kidney failure BUN/Creatinine 27.4 10/27/2017 10/27/2017 Ratio 5:46am 6:29am Sodium Level 136 mEq/L 133-145 10/27/2017 10/27/2017 5:46am 6:29am Potassium Level 3.5 mEq/L 3.5-5.1 10/28/2017 10/28/2017 5:46am 6:47am Potassium Level 3.3 mEq/L L 3.5-5.1 10/27/2017 10/27/2017 5:46am 6:29am Chloride Level 99 mEq/L 98-116 10/27/2017 10/27/2017 5:46am 6:29am Carbon Dioxide 29 mEq/L 22-34 10/27/2017 10/27/2017 Level 5:46am 6:29am Anion Gap 11.3 6-13 10/27/2017 10/27/2017 5:46am 6:29am Calcium Level 8.7 mg/dL 8.2-10.6 10/27/2017 10/27/2017 5:46am 6:29am Total Protein 6.1 gm/dL 6.0-8.4 10/24/2017 10/24/2017 11:07am 11:34am Albumin 3.1 gm/dL L 3.2-5.0 10/24/2017 10/24/2017 11:07am 11:34am Globulin 3.0 gm/dL 2.0-3.0 10/24/2017 10/24/2017 11:07am 11:34am Albumin/Globulin 1.0 L 1.4-2.4 10/24/2017 10/24/2017 Ratio 11:07am 11:34am Total Bilirubin 1.2 mg/dL 0.1-1.3 10/24/2017 10/24/2017 11:07am 11:34am Alkaline 117 U/L # 35-125 10/24/2017 10/24/2017 Phosphatase 11:07am 11:34am Aspartate Amino 61 U/L # H 5-40 10/24/2017 10/24/2017 Transf 11:07am 11:34am (AST/SGOT) Alanine 35 U/L # 5-40 10/24/2017 10/24/2017 Aminotransferase 11:07am 11:34am (ALT/SGPT) Troponin I 0.38 ng/mL *H 0.0-0.02 10/23/2017 10/23/2017 CRITICAL RESULT VERIFIED AND CALLED TO LAUREN/JORGE AT 0914, 8:13am 9:14am 10/23/17 BY [id number]. Total Creatine 63 U/L 10-180 10/23/2017 10/23/2017 Kinase 8:13am 9:11am Creatine Kinase 4.0 ng/mL 0.0-6.0 10/23/2017 10/23/2017 MB 8:13am 9:14am Lactic Acid 1.1 mmol/L 0.5-1.9 10/24/2017 10/24/2017 REPORT CALLED Level 5:01pm 5:24pm TO DR Luz Maria MACIEL AT 1724 BY [id number]. MRSA MRSA NEGATIVE 10/22/2017 10/22/2017 Surveillance NEGATIVE 12:50pm 4:16pm Screen Procedures Procedure Status Date Provider(s) INJECT SPINE LUMBAR/SACRAL Completed 09/27/15 RHONDA YEAGER M.D. THER/PROPH/DIAG INJ IV PUSH Completed 10/12/15 EVERTON GAMEZ M.D. HYDRATE IV INFUSION ADD-ON Completed 10/12/15 EVERTON GAMEZ M.D. INJ FOR SACROILIAC JOINT;PROVISION OF Completed 10/18/15 RHONDA YEAGER M.D. ANESTH,STEROID/THER AG INJECT SPINE LUMBAR/SACRAL Completed 02/02/16 RHONDA YEAGER M.D. INJECT SPINE LUMBAR/SACRAL Completed 02/28/16 RHONDA YEAGER M.D. INJECT SPINE LUMBAR/SACRAL Completed 05/01/16 RHONDA YEAGER M.D. INJECT SPINE LUMBAR/SACRAL Completed 07/05/16 RHONDA YEAGER M.D. INJ DX/RX SUBSTANCE, LUMBAR OR SACRAL, W/O Completed 09/25/16 RHONDA YEAGER M.D. IMAGING GUIDANCE INJ DX/RX SUBSTANCE, LUMBAR OR SACRAL, W/O Completed 12/06/16 RHONDA YEAGER M.D. IMAGING GUIDANCE THER/PROPH/DIAG INJ IV PUSH Completed 01/22/17 SELINA BELLE M.D. HYDRATE IV INFUSION ADD-ON Completed 01/22/17 SELINA BELLE M.D. INJ DX/RX SUBSTANCE, LUMBAR OR SACRAL, W/O Completed 03/24/17 RHONDA YEAGER M.D. IMAGING GUIDANCE COLONOSCOPY W/LESION REMOVAL Completed 08/22/17 FAUSTO MACIEL M.D. EGD DIAGNOSTIC BRUSH WASH Completed 08/22/17 FAUSTO MACIEL M.D. THER/PROPH/DIAG IV INF INIT Completed 10/01/17 SELINA BELLE M.D. TX/PRO/DX INJ NEW DRUG ADDON Completed 10/01/17 SELINA BELLE M.D. Encounters Encounter Location Arrival/Admit Date Discharge/Depart Date Attending Provider Discharged Mary Bales 10/23/17 7:52am 10/28/17 11:55am AYAZ BLANCAS [facility] Aristeo Andino Registered Fausto Maciel 10/17/17 2:30pm FAUSTO MACIEL M.D. Registered Ayaz Blancas 10/17/17 2:15pm AYAZ BLANCAS M.D. Departed Mary Bales 10/01/17 10:07am 10/01/17 12:26pm SELINA BELLE [facility] 09/09/17 10:19am DOMOAYAZ Recurring [facility]. [facility] Registered Mary Bales 08/28/17 9:16am FAUSTO MACIEL Referred [facility]. [facility] Departed Mary Bales 08/22/17 7:36am 08/22/17 10:28am FAUSTO MACIEL Surgical Day [facility]. [facility] Care Registered Mary Bales 08/05/17 1:31pm DOMOAYAZ COULTER Referred [facility]. [facility] Registered Mary Bales 07/31/17 9:00am DOMOAYAZ COULTER Referred [facility]. [facility] Registered Mary Bales 07/[facility] Reg[facility] Mary Bales 06/02/17 11:09[facility] Registered Mary Bales 05/23/17 1:46pm DOMOAYAZ COULTER Referred [facility]. [facility] Registered Mary Bales 04/24/17 9:49am AYAZ BLANCAS Referred [facility]. [facility] Registered Mary Bales 04/17/17 6:57am BEV KWAN Referred [facility]. [facility] Registered Mary Balse 04/09/17 8:14[facility] Departed Mary Bales 03/27/17 9:05am 03/27/17 12:31pm SELINA BELLE [facility] Mary Bales 03/24/17 2:05pm 03/24/17 2:42pm TOY [facility] 01/22/17 1:25pm 01/22/17 3:55pm [facility]ELINA [facility] Ronit Posada 12/17/16 9:18am RONIT POSADA Chemo Johnson M.D. Departed Clinic Mary Bales 12/06/16 1:45pm 12/06/16 2:33pm [facility] RH[facility]DA Rush M.D. Registered Mary Bales 11/22/16 8:26am [place] [facility] Mary Bales 11/21/16 7:51am 11/21/16 8:51am [facility] Leonora Departed Clinic Mary Bales 09/25/16 1:03pm 09/25/16 1:15pm [facility] RHONDA Rush M.D. Registered Mary Balse 09/19/16 10:15am YOLY PAINTER [facility] LORELEI Registered Danika 09/19/16 10:15am YOLY PAINTER [facility] LORELEI Registered Mary Bales 07/25/16 8:21am [place] [facility] Clinic Mary Bales 07/05/16 1:20pm 07/05/16 1:59pm [facility] RH[facility]DA Rush M.[facility] Departed Clinic Mary Bales 05/23/16 8:30am 05/23/16 12:53pm ROBERTREINA [facility].Ted Registered Mary Bales 05/15/16 10:45am YOLY PAINTER [facility] MANDO-C Registered Mary Bales 05/01/16 2:45pm [facility] Thu Registered Mary Bales 04/16/16 9:52am [place] [facility]ed Registered Mary Bales 04/12/16 10:30am YOLY PAINTER [facility] LORELEI Bales 03/27/16 11:26am [place] [facility].Ted Registered Mary Bales 02/28/16 2:08pm [facility] Mary Bales 02/16/16 10:15am GIA C [facility]. [facility] Departed Clinic Mary Bales 02/02/16 1:21pm 02/02/16 1:35pm [facility], Mem. Hospital RHONDA Rush M.D. Registered Mary Bales 01/25/16 10:21am LIBRODO, Referred [facility]. [facility] Registered Mary Bales 01/25/16 9:45am LIBRODO, Clinic [facility]. [facility] RHONDA Thu Registered Mary Bales 11/27/15 9:20[facility] Bales 11/01/15 8:45am GIA C [facility]. [facility] Departed Clinic Mary Bales 10/18/15 12:47pm 10/18/15 1:23pm LIBRODO, Mem. [facility] RHONDA Rush M.D. Registered Mary Bales 10/17/15 9:30am Diane NIELSEN [facility]. [facility] Departed Mary Bales 10/12/15 7:22pm 10/12/15 10:40pm EV[facility]ON [facility]Z [facility] 10/05/15 7:42am [facility]EV [facility]WAN [facility] 09/27/15 2:43pm 09/27/15 3:02pm [facility], [facility] RHONDA Rush M.D. Registered Mary Bales 09/22/15 9:15am [place] [facility] Reg[facility] Mary Bales 09/20/15 9:30am YOLY PAINTER [facility] Registered Mary Bales 09/15/15 7:44am LIBRODO, Referred [facility]. [facility] RHONDA Thu Registered Mary Bales 09/13/15 10:00am YOLY PAINTER [facility] Registered Mary Bales 08/10/15 8:17am [facility] Mary Bales 07/31/15 11:31am AYAZ BLANCAS [facility] Mary Bales 07/06/15 7:56am 07/06/15 8:42am [facility] Mary Bales 05/04/15 11:47am [facility]AZ [facility]AS [facility] Mary Bales 02/13/15 10:21am AYAZ BLANCAS [facility] Recent Diagnosis Dehydration Constipation Cough DIAB MADDY WO COMPL, TYPE II OR UNSPEC TYPE, NOT UNCNTRLD Degenerative disc disease, lumbar Generalized abdominal pain Constipation Gastroparesis due to DM
--- OUTSIDE RECORDS SUMMARY | 2017-12-23 11:44 | External Medical Summary | Continuity of Care Document ---
:1945 Author Organization [facility] Care Team Providers Name Role Phone AYAZ BLANCAS M.D. Unavailable Unavailable Insurance Providers Payer Name Policy Number Subscriber Name Relationship Wps Medicare [id number] Izzy Kirk R 01 Self / Same As Patient [employer] [place] [id number] Izzy Kirk R 01 Self / Same As Patient Problems Active Problems Medical Problem Onset Date Status Bronchitis Unknown Acute CAD (coronary artery disease) 01/19/2015 Acute CORON ATHEROSCLER NOS TYPE VESSEL, DOUGLAS OR GRAFT 02/19/2011 Cough Unknown Acute DIAB MADDY WO COMPL, TYPE II OR UNSPEC TYPE, NOT UNCNTRLD 02/19/2011 HYPOTHYROIDISM NOS 02/19/2011 Hx of coronary artery disease Unknown Acute Hx of coronary artery disease Unknown Acute Hx of diabetes mellitus Unknown Acute Hyperlipemia 01/19/2015 Acute OTH SCREEN MAMMO-MALIGN NEOPLASM OF BREAST 11/17/2013 Acute OTH SCREEN MAMMO-MALIGN NEOPLASM OF BREAST 10/18/2014 Acute ROUTINE MEDICAL EXAM Unknown Acute Sinusitis Unknown Acute Type II diabetes mellitus, uncontrolled 10/13/2014 Acute Unstable angina Unknown Acute Medications Current Home Medications Medication Dose Units Route Directions Days/Qty Instructions Start Date Amlodipine 2.5 Mg Oral Daily 30 Besylate 2.5 Mg 1 Pantoprazole 40 Mg Oral Daily 34 Sodium 40 Mg 1 Clopidogrel 75 Mg Oral Daily 30 Bisulfate 75 Mg 1 Metoprolol 25 Mg Oral Twice A Day 68 Tartrate 25 Mg 1 Nitroglycerin 1 Tab Sublingual As Needed 0.4 Mg 1 Meloxicam 7.5 Mg 7.5 Mg Oral Daily 30 Take on full stomach 3 Isosorbide 60 Mg Oral Twice A Day Mononitrate 60 3 Mg Glucose Blood 1 Strips Miscellaneous Twice A Day 50 dx: 250.00 4 Losartan 1 Tab Oral Daily 30 Potassium 50 Mg 4 Insulin Lispro 40 Mg Subcutaneously Daily (Human) 100 4 Mg/Ml Simvastatin 40 40 Mg Oral Daily Mg 4 Aspirin 81 Mg 1 Tab Oral Daily 4 Levothyroxine 1 Tab Oral Daily Sodium 75 Mcg 4 Insulin Lispro 40 Units Subcutaneously Daily (Human) 100 5 Mg/Ml Insulin Lispro 40 Units Subcutaneously Daily (Human) 100 5 Mg/Ml Levofloxacin 500 500 Mg Oral Daily Mg 5 Insulin Glargine 65 Un Intramuscular Bedtime 20 Use up to 67 U 100 Unit/Ml at HS 5 Past Home Medications Medication Directions Ordered Status Aspirin 81 Mg Tab, 81 Mg Oral Daily 05/19/09 Discontinued Olmesartan Medoxomil 20 Mg Tab, 20 Daily 05/19/09 Discontinued Mg Oral Insulin Glargine 100 Mg/Ml Inj, 55 Bedtime 05/19/09 Discontinued Units Subcutaneously Levothyroxine Sodium 75 Mcg Tab, 75 Daily 05/19/09 Discontinued Mcg Oral Clopidogrel Bisulfate 75 Mg Tab, Daily 05/26/09 Discontinued Oral Metoprolol Tartrate 50 Mg Tab, 25 Mg Twice A Day 06/04/09 Discontinued Oral Hydrocodone-Acetaminophen Tab, 5 Mg Four Times Daily 06/04/09 Discontinued Oral Simvastatin 40 Mg Tab, 40 Mg Oral Bedtime 06/04/09 Discontinued Ranitidine Hcl 150 Mg Cap, 150 Mg Twice A Day 06/04/09 Discontinued Oral Pantoprazole Sodium 40 Mg Tab, 40 Mg Daily 06/04/09 Discontinued Oral Isosorbide Mononitrate 30 Mg Tab, 30 Daily 07/11/10 Discontinued Mg Oral Insulin Aspart 100 Mg/Ml Inj, 07/11/10 Discontinued Amlodipine Besylate 2.5 Mg Tab, 2.5 Daily 11/17/10 Discontinued Mg Oral Oxycodone W/ Acetaminophen 1 Tab Every 4 Hours Prn 07/11/10 Discontinued Tab, 1 - 2 Tab Oral Insulin Glargine 100 Unit/Ml Inj, 55 Bedtime 02/18/11 Discontinued Un Intramuscular Levothyroxine Sodium 75 Mcg Tab, 75 Daily 02/18/11 Discontinued Mcg Oral Isosorbide Mononitrate 30 Mg Tabcr, Daily 02/18/11 Discontinued 30 Mg Oral Simvastatin 40 Mg Tab, 40 Mg Oral Daily 02/18/11 Discontinued Insulin Aspart, Human Analog 100 Three Times Daily Before 02/18/11 Discontinued Unit/1 Ml Inj, 12 Un Intramuscular Meals Isosorbide Mononitrate 30 Mg Tab, 30 Twice A Day 02/19/11 Discontinued Mg Oral Olmesartan Medoxomil 20 Mg Tab, 20 Daily 02/26/11 Discontinued Mg Oral Valsartan 80 Mg Tab, 80 Mg Oral Daily 05/07/11 Discontinued Influenza Virus Vaccine 0.5 Ml Inj, Onetime 05/24/11 Discontinued 0.5 Ml Intramuscular Valsartan 80 Mg Tab, 80 Mg Oral Daily 06/24/11 Discontinued Levothyroxine Sodium 75 Mcg Tab, 1 Daily 06/24/11 Discontinued Tab Oral Doxycycline Hyclate 100 Mg Cap, 100 Twice A Day 08/23/11 Discontinued Mg Oral Losartan Potassium 50 Mg Tab, 1 Tab Daily 09/17/11 Discontinued Oral Levofloxacin 500 Mg Tab, 500 Mg Oral Daily 09/20/11 Discontinued Levofloxacin 500 Mg Tab, 500 Mg Oral Daily 09/25/11 Discontinued Prednisone 10 Mg Tab, 10 Mg Oral As Directed 09/25/11 Discontinued Insulin Glargine 100 Unit/Ml Inj, 65 Bedtime 09/25/11 Discontinued Un Intramuscular Losartan Potassium 50 Mg Tab, 1 Tab Daily 11/12/11 Discontinued Oral Doxycycline Hyclate 100 Mg Cap, 100 Twice A Day 11/19/11 Discontinued Mg Oral Prednisone 10 Mg Tab, 10 Mg Oral As Directed 11/27/11 Discontinued Doxycycline Hyclate 100 Mg Cap, 100 Twice A Day 11/27/11 Discontinued Mg Oral Simvastatin 40 Mg Tab, 40 Mg Oral Daily 12/04/11 Discontinued Fluticasone Propionate 16 Gm Naspr, Daily 12/13/11 Discontinued 2 [place] Nasal Insulin Glargine 100 Unit/Ml Inj, 65 Bedtime 02/10/12 Discontinued Un Intramuscular Simvastatin 40 Mg Tab, 40 Mg Oral Daily 03/02/12 Discontinued Insulin Glargine 100 Unit/Ml Inj, 65 Bedtime 03/11/12 Discontinued Un Intramuscular Ciprofloxacin Hcl 500 Mg Tab, 500 Mg Twice A Day 03/13/12 Discontinued Oral Miscellaneous Misc, 1 Mis Finger Three Times A Day 03/13/12 Discontinued Stick Influenza Virus Vaccine 0.5 Ml Inj, Onetime 04/30/12 Discontinued 0.5 Ml Intramuscular Azithromycin 1 Tab Tab, 250 Mg Oral As Directed 06/11/12 Discontinued Isosorbide Mononitrate 30 Mg Tab, 30 Twice A Day 06/17/12 Discontinued Mg Oral Levothyroxine Sodium 75 Mcg Tab, 1 Daily 06/26/12 Discontinued Tab Oral Doxycycline Hyclate 100 Mg Cap, 100 Twice A Day 07/03/12 Discontinued Mg Oral Amoxicillin/Clavulanate Potas 875 Mg Twice A Day 07/30/12 Discontinued Tab, 875 Mg Oral Promethazine Hcl/Codeine 1 Ml Syp, 5 Four Times Daily 08/05/12 Discontinued - 10 Ml Oral Methylprednisolone 4 Mg Fantasma, 4 Mg Asdirected 08/05/12 Discontinued Oral Methylprednisolone Acetate 40 Mg/Ml Onetime 08/19/12 Discontinued Inj, 40 Mg Intramuscular Methylprednisolone Acetate 80 Mg/Ml Onetime 08/19/12 Discontinued Inj, 80 Mg Intramuscular Amoxicillin/Clavulanate Potas 875 Mg Twice A Day 08/24/12 Discontinued Tab, 875 Mg Oral Fluconazole 100 Mg Tab, 100 Mg Oral Daily 09/15/12 Discontinued Insulin Isophane (Human) Penfill Daily 11/06/12 Discontinued Inj, 40 Units Subcutaneously Insulin Isophane (Human) Penfill Daily 11/06/12 Discontinued Inj, 40 Units Subcutaneously Losartan Potassium 50 Mg Tab, 1 Tab Daily 11/13/12 Discontinued Oral Losartan Potassium 50 Mg Tab, 1 Tab Daily 12/14/12 Discontinued Oral Insulin Isophane (Human) Penfill Daily 01/19/13 Discontinued Inj, 40 Units Subcutaneously Simvastatin 40 Mg Tab, 40 Mg Oral Daily 03/10/13 Discontinued Insulin Glargine 100 Unit/Ml Inj, 65 Bedtime 04/08/13 Discontinued Un Intramuscular Insulin Glargine 100 Unit/Ml Inj, 65 Bedtime 05/07/13 Discontinued Un Intramuscular Insulin Glargine 100 Unit/Ml Inj, 65 Bedtime 06/07/13 Discontinued Un Intramuscular Simvastatin 40 Mg Tab, 40 Mg Oral Daily 06/07/13 Discontinued Isosorbide Mononitrate 30 Mg Tab, 30 Twice A Day 06/23/13 Discontinued Mg Oral Levothyroxine Sodium 75 Mcg Tab, 1 Daily 07/07/13 Discontinued Tab Oral Insulin Lispro (Human) 100 Mg/Ml Daily 07/15/13 Discontinued Inj, 40 Mg Subcutaneously Levofloxacin 500 Mg Tab, 500 Mg Oral Daily 09/06/13 Discontinued Glucose Blood Comfort, 1 Strips Twice A Day 11/12/13 Discontinued Miscellaneous Insulin Glargine 100 Unit/Ml Inj, 65 Bedtime 06/23/14 Discontinued Un Intramuscular Levofloxacin 500 Mg Tab, 500 Mg Oral Daily 08/22/14 Discontinued Levofloxacin 500 Mg Tab, 500 Mg Oral Daily 11/21/14 Discontinued Azithromycin 250 Mg Tab, 250 Mg Oral As Directed 02/06/15 Discontinued Levofloxacin 500 Mg Tab, 500 Mg Oral Daily 02/13/15 Discontinued Promethazine/Codeine 120 Ml Syrp, 5 Every 4 Hours As Needed as 02/13/15 Discontinued Ml Oral needed for Cough Methylprednisolone Acetate 40 Mg/Ml Onetime 02/13/15 Discontinued Inj, 40 Mg Intramuscular Methylprednisolone Acetate 80 Mg/Ml Onetime 02/13/15 Discontinued Inj, 80 Mg Intramuscular Ciprofloxacin Hcl 500 Mg Tab, 500 Mg Twice A Day 04/10/15 Discontinued Oral Social History Social History Problem Response Recorded Date/Time Hx Alcohol Use No 12/27/2011 8:39am Hx Tobacco Use No 05/24/2011 9:00am Smoking Status Former smoker 07/17/2014 7:31pm Query Response Start Date Stop Date Smoking Status Former smoker Hospital Discharge Instructions No hospital discharge instructions. Plan of Care Discharge Date 07/06/15 8:42am Prescriptions See Medication Section Functional Status No functional status results. Allergies, Adverse Reactions, Alerts No known allergies. Immunizations Name Given Type Influenza Vaccine, Inactivated 06/01/15 Administered Zoster Vaccine 02/01/15 Administered Vital Signs Acute Vital Signs Vital Response Date/Time Blood Pressure 140/82 mm Hg 07/06/2015 7:59am Blood Pressure Mean 107 mm Hg 07/17/2014 9:15pm Temperature (Fahrenheit) 98.3 degrees F (96.0 - 99.9) 07/17/2014 7:27pm Temperature (Calculated Celsius) 36.22198 degrees C 07/17/2014 7:27pm Temperature Source Oral 07/17/2014 7:27pm Pulse Pulse Rate (adult) 69 bpm (60 - 100) 07/06/2015 7:59am Pulse Rate: ED 74 bpm 07/17/2014 9:15pm Respiratory Rate 18 breaths per minute (10 - 20) 07/17/2014 9:15pm Height (Feet) 5 ft 07/17/2014 7:27pm Height (Inches) 4 in. 07/17/2014 7:27pm Weight (Pounds) 226 lbs 07/17/2014 7:27pm Ambulatory Vital Signs Vital Response Date/Time Height 5 ft 4 in 06/13/2015 10:29am Weight 232 lbs 06/13/2015 10:29am Blood Pressure 120/70 mm Hg 06/13/2015 10:29am Body Surface Area 2.23 m2 06/13/2015 10:29am Body Mass Index 39.8 kg/m2 06/13/2015 10:29am Pulse Oximetry Pulse Oximetry 06/13/2015 10:29am Results Pending Laboratory Results Test Name Collection Date/Time Procedures Procedure Status Date Provider(s) THER/PROPH/DIAG IV INF INIT Completed 07/17/14 SLICK LICONA M.D. THER/PROPH/DIAG IV INF INIT Completed 07/17/14 SLICK LICONA M.D. TX/PRO/DX INJ NEW DRUG ADDON Completed 07/17/14 SLICK LICONA M.D. Encounters Encounter Location Arrival/Admit Date Discharge/Depart Date Attending Provider Departed Clinic [facility] 07/06/15 7:56am 07/06/15 8:42am B[facility] Office Visit AYAZ BLANCAS 06/13/15 10:45am AYAZ BLANCAS M.D. Registered Ayaz Blancas 06/13/15 10:45am AYAZ BLANCAS [facility] [place] Office Visit AYAZ BLANCAS 05/09/15 10:30am AYAZ BLANCAS M.D. Registered [facility] 05/04/15 11:47am AYAZ BLANCAS [facility] [place] Registered [facility] 02/13/15 10:21am AYAZ BLANCAS [facility] [place] Office Visit AYAZ BLANCAS 02/13/15 10:00am AYAZ BLANCAS M.D. Office Visit AYAZ BLANCAS 01/24/15 10:00am AYAZ BLANCAS M.D. Registered [facility] 01/19/15 8:33am AYAZ BLANCAS [facility] [place] Departed Clinic [facility] 12/29/14 10:44am 12/29[facility]14 12:[facility] 11/30/14 7:56am AYAZ BLANCAS [facility] [place] Office Visit AYAZ BLANCAS 11/21/14 11:30am AYAZ BLANCAS M.D. Office Visit AYAZ BLANCAS 10/18/14 9:30am AYAZ BLANCAS M.D. Registered [facility] 10/13/14 8:54am AYAZ BLANCAS [facility] [place] [place] Departed [facility] 07/17/14 7:26pm 07/17/14 9:26pm [facility] Office Visit AYAZ BLANCAS 07/12/14 10:00am AYAZ BLANCAS M.D. Departed Clinic [facility] 07/07/14 8:03am 07/07/14 9:09am [facility]
--- OUTSIDE RECORDS SUMMARY | 2017-12-23 11:45 | External Medical Summary | Continuity of Care Document ---
:1945 Author Organization [facility] Phone Unavailable Care Team Providers Name Role Phone AYAZ BLANCAS M.D. Primary Care Physician Insurance Providers Guarantor Amy Quintanilla Address [address] [place] [address] Payer [employer] Medicare Policy Number [id number] Subscriber's Name Amy Quintanilla Relationship 01 Self / Same As Patient Effective Date 10 Payer Blue Cross Plan 65 [facility] Policy Number [id number] Subscriber's Name Amy Quintanilla Relationship 01 Self / Same As Patient Group Number [id number] Effective Date 09 Problems Active Problems Medical Problem Onset Date Status CAD (coronary artery disease) 01/19/2015 Acute CORON ATHEROSCLER NOS TYPE VESSEL, [place] OR GRAFT 02/19/2011 Cough Unknown Acute DIAB [...] Acute Past Problems Medical Problem Onset Date Bronchitis Unknown Medications Current Home Medications Medication Dose Units Route Directions Days Qty Instructions Start Date Amlodipine 2.5 Mg Oral Daily 30 02/18/ Besylate 2.5 Mg 11 Tab Aspirin (Aspirin 1 Tab Oral Daily ) 81 Mg Tab 14 Benzonatate 200 Mg Oral Three Times 15 Capsule 12/17/ (Tessalon Perles) A Day as 17 200 Mg Cap needed for Cough Cetirizine Hcl 10 10 Mg Oral Daily 30 Tablet 12/17/ Mg Tab 17 Clopidogrel 75 Mg Oral Daily 30 02/18/ Bisulfate 11 (Plavix) 75 Mg Tab Fluticasone 2 Puffs Nasal Bedtime 1 Unit(S) 12/17/ Propionate 17 (Nasal) (Eql Fluticasone Propionat) 50 Mcg/Act Spr Insulin Glargine 67 Unit Subcutaneous Bedtime 7 Unit PT NEEDS 7 11/27/ (Lantus Solostar ly PENS TO GET 17 Nf) 100 Unit/Ml THROUGH 1 Soln MONTH Insulin Lispro 40 Units Subcutaneous Daily 12 Units 06/17/ (Human) (Humalog ly 16 Kwikpen) 100 Unit/Ml Inj Isosorbide 60 Mg Oral Twice A Day 90 07/15/ Mononitrate 13 (Imdur) 60 Mg Tab Levofloxacin 500 Mg Oral Daily 10 Tablet 01/23/ (Levaquin) 500 Mg 17 Tab Levothyroxine 1 Tab Oral Daily 30 Tablet 10/09/ Sodium 17 (Levothroid) 75 Mcg Tab Losartan 1 Tab Oral Daily 30 01/04/ Potassium 14 (Cozaar) 50 Mg Tab Methylprednisolon 4 Mg Oral Daily 1 Fantasma 01/23/ e (Medrol 17 Dosepak) 4 Mg Fantasma Metoprolol 25 Mg Oral Twice A Day 180 Tablet 04/01/ Tartrate 25 Mg 16 Tab Pantoprazole 40 Mg Oral Daily 34 02/18/ Sodium 40 Mg Tab 11 Promethazine/Code 120 Ml Oral Every 4 8 Ounce 11/22/ ine (Phenergan Hours As 17 W/Codeine) 120 Ml Needed as Syrp needed for Cough Promethazine/Code 5 Ml Oral Every 6 120 01/23/ ine (Phenergan Hours As Milliliter 17 W/Codeine) 120 Ml Needed Syrp Simvastatin 40 Mg 40 Mg Oral Daily 90 Tablet 07/08/ Tab 16 Past Home Medications Medication Directions Ordered [...] Propionate (Flonase Daily 12/13/11 Discontinued 0.05% Nasal [place]) 16 Gm Naspr, 2 [place] Nasal Glucose Blood (Truetest Strips) Comfort, Twice A Day 11/12/13 Discontinued 1 Strips Miscellaneous Glucose Blood (Truetest Strips) Comfort, Twice A Day 11/12/13 Discontinued 1 Strips Miscellaneous Hydrocodone-Acetaminophen (Fabius) 1 Every 4 Hours As Needed 03/13/16 Discontinued Tab Tab, 1 Tab Oral Hydrocodone-Acetaminophen (Fabius) 1 Every 4 Hours As Needed 02/16/16 Discontinued Tab Tab, 1 Tab Oral Hydrocodone-Acetaminophen (Fabius) 1 Every 4 Hours As Needed 01/30/16 Discontinued Tab Tab, 1 Tab Oral Hydrocodone-Acetaminophen (Fabius) 1 Every 4 Hours As Needed 01/09/16 Discontinued Tab Tab, 1 Tab Oral Hydrocodone-Acetaminophen (Fabius) 1 Every 4 Hours As Needed 12/14/15 Discontinued Tab Tab, 1 Tab Oral Hydrocodone-Acetaminophen (Fabius) 1 Every 4 Hours As Needed 09/22/15 [...] Inj, Meals 12 Un Intramuscular Insulin Glargine (Lantus Solostar Bedtime 11/15/16 Discontinued [...] 30 Mg Oral Levofloxacin (Levaquin) 500 Mg Tab, Daily 01/21/17 Discontinued 500 Mg Oral Levofloxacin (Levaquin) 750 Mg Tab, [...] - 10 Ml Oral Promethazine/Codeine (Phenergan Every 6 Hours [...] Applicable Not Applicable Smoking Status Former smoker 01/22/2017 1:30pm Not Applicable Not Applicable Query Response Start Date Stop Date Smoking Status Former smoker Hospital Discharge Instructions No hospital discharge instructions. Plan of Care Discharge Date 03/24/17 2:42pm Prescriptions See Medication Section Functional Status No functional status results. Allergies, Adverse Reactions, Alerts No known allergies. 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[employer] Clerk Reason Number Influenza 05/24/11 Administered 1 [id number] SANOFI Vaccine, Inactivated Influenza 04/30/12 Administered 2 [id number] Sanofi Pasteur Vaccine, Inactivated Influenza 06/01/14 Administered 3 Vaccine, Inactivated Influenza 06/01/15 Administered 4 Vaccine, Inactivated Influenza 05/13/16 Administered 5 Vaccine, Inactivated Zoster Vaccine 02/01/15 Administered 1 Vital Signs Acute Vital Signs Vital Response Date/Time Blood Pressure 131/76 mm Hg 01/22/2017 3:55pm Blood Pressure Mean 94 mm Hg 01/22/2017 3:55pm Temperature (Fahrenheit) 97.7 degrees F (96.0 - 99.9) 01/22/2017 1:26pm Temperature (Calculated Celsius) 36.65167 degrees C 01/22/2017 1:26pm Temperature Source Oral 01/22/2017 1:26pm Pulse Pulse Rate (adult) 84 bpm (60 - 100) 11/21/2016 11:01am Pulse Rate: ED 88 bpm 01/22/2017 3:55pm Respiratory Rate 18 breaths per minute (10 - 20) 01/22/2017 3:55pm Height (Feet) 5 ft 01/22/2017 1:26pm Height (Inches) 4.0 in. 01/22/2017 1:26pm Weight (Pounds) 203.0 lbs 01/22/2017 1:26pm Ambulatory Vital Signs Vital Response Date/Time Height 5 ft 4 in 01/23/2017 3:42pm Weight 209 lbs 01/23/2017 3:42pm Blood Pressure 100/60 mm Hg 01/23/2017 3:42pm Body Surface Area 2.11 m2 01/23/2017 3:42pm Body Mass Index 35.9 kg/m2 01/23/2017 3:42pm Pulse Oximetry Pulse Oximetry 01/23/2017 3:42pm Results Laboratory Results Test Name Result Units Flags Reference Collection Result Comments Date/Time Date/Time Prothrombin Time 10.3 SECONDS 9.0-12.0 07/17/2014 07/17/2014 7:30pm 8:03pm Prothromb Time 0.96 L 2.0-3.0 07/17/2014 07/17/2014 International 7:30pm 8:03pm Ratio Activated Partial 30.1 SECONDS 24.0-37.0 07/17/2014 07/17/2014 Thromboplast Time 7:30pm 8:03pm Troponin I 0.02 ng/mL 0.0-0.02 10/12/2015 10/12/2015 7:25pm 8:10pm Lipase 29 U/L 8-57 10/12/2015 10/12/2015 7:25pm 8:10pm White Blood Count 7.2 x10E3/uL 3.4-10.8 03/27/2016 [...] 0.0-0.1 03/27/2016 03/28/2016 Performed at: DA - [facility]
Granulocyte (auto 8:15am 6:20am [address] [address], [place], [place] [id number]
Director [employer]: MUMTAZ Remy MD, Phone: [phone]
Urine Microalbumin 16.7 ug/mL Not Estab. 03/27/2016 03/28/2016 [facility]formed [facility]
8:15am 9:11am [address] [address], [place], [place] [phone]&# 13;
Director [employer]: MUMTAZ Remy MD, Phone: [phone]
Urine Specific 1.019 1.005-1.03 03/27/2016 03/28/2016 Lampe 0 8:15am 7:20am Urine pH 5.5 5.0-7.5 [...] to a Urine Culture.&# 13;
Hemoglobin A1c 8.7 % H 4.8-5.6 11/22/2016 11/23/2016 [facility] at: [facility]
8:07am 11:06am [address] [place] [phone]&# 13;
Director [employer]: MUMTAZ Remy MD, Phone: [phone]
Free Thyroxine 1.06 ng/dL 0.82-1.77 11/22/2016 11/23/2016 (T4) Calculated 8:07am 7:11am Thyroid 3.820 uIU/mL 0.450-4.50 11/22/2016 11/23/2016 Performed at: [facility]
Stimulating 0 8:07am 7:11am [address] [place] [address], [place], [place] [id number]
Hormone (TSH) Director [employer]: MUMTAZ Remy MD, Phone: [phone]
Glucose Level 135 mg/dL H 65-99 11/22/2016 11/23/2016 8:07am 6:09am Blood Urea 16 mg/dL 8-27 11/22/2016 11/23/2016 Nitrogen 8:07am 6:09am Creatinine 0.89 mg/dL 0.57-1.00 11/22/2016 11/23/2016 8:07am 6:09am BUN/Creatinine 18 11-11/22/2016 11/23/2016 Effective November 25, 2016 BUN/Creatinine Ratio
Ratio 8:07am 6:09am reference interval will be changing to: &# 10; Age Male Female
0 days - 7 days 9 - 25 9 - 26
8 days - 30 days 8 - 32 10 - 33
1 month - 6 months 11 - 57 11 - 54
7 months - 1 year 20 - 71 20 - 71
2 years - 5 years 19 - 51 19 - 49
6 years - 12 years 14 - 34 13 - 32
13 years - 17 years 10 - 22 10 - 22
18 years - 59 years 9 - 20 9 - 23
>59 years 10 - 24 12 - 28 &# 10; Sodium Level 142 mmol/L 134-144 11/22/2016 11/23/2016 8:07am 6:09am Potassium Level 4.2 mmol/L 3.5-5.2 11/22/2016 11/23/2016 8:07am 6:09am Chloride Level 102 mmol/L 96-106 11/22/2016 11/23/2016 8:07am 6:09am Carbon Dioxide 23 mmol/L 18-11/22/2016 11/23/2016 Level 8:07am 6:09am Calcium Level 9.1 mg/dL 8.7-10.3 11/22/2016 11/23/2016 8:07am 6:09am Serum Total 7.0 g/dL 6.0-8.5 11/22/2016 11/23/2016 Protein 8:07am 6:09am Albumin 4.3 g/dL 3.5-4.8 11/22/2016 11/23/2016 8:07am 6:09am Globulin 2.7 g/dL 1.5-4.5 11/22/2016 11/23/2016 8:07am 6:09am Albumin/Globulin 1.6 1.2-2.2 11/22/2016 11/23/2016 Ratio 8:07am 6:09am Please note reference interval change&#13 ;
Total Bilirubin 0.5 mg/dL 0.0-1.2 11/22/2016 11/23/2016 8:07am 6:09am Alkaline 105 IU/L 39-117 11/22/2016 11/23/2016 Phosphatase 8:07am 6:09am Aspartate Amino 18 IU/L 0-40 11/22/2016 11/23/2016 Transf (AST/SGOT) 8:07am 6:09am Alanine 13 IU/L 0-32 11/22/2016 11/23/2016 Performed at: [facility]
Aminotransferase 8:07am 6:09am [address] [facility] [address], [place], [place] [id number]
(ALT/SGPT) Director [employer]: MUMTAZ Remy MD, Phone: [phone] &# 10; EGFR IF NONAFRICN 65 >59 11/22/2016 11/23/2016 Result AM 8:07am 6:09am Units: mL/min/1.73& #13;
EGFR IF AFRICN AM 75 >59 11/22/2016 11/23/2016 Result 8:07am 6:09am Units: mL/min/1.73& #13;
Total Cholesterol 156 mg/dL 100-199 11/22/2016 11/23/2016 8:07am 7:11am Triglycerides 153 mg/dL H 0-149 11/22/2016 11/23/2016 Level 8:07am 7:11am HDL Cholesterol 44 mg/dL >39 11/22/2016 11/23/2016 8:07am 7:11am VLDL Cholesterol, 31 mg/dL 5-40 11/22/2016 11/23/2016 Calculated 8:07am 7:11am LDL Cholesterol, 81 mg/dL 0-99 11/22/2016 11/23/2016 Calculated 8:07am 7:11am White Blood Count 11.6 K/uL H 5.0-10.0 01/22/2017 01/22/2017 2:47pm 3:07pm Red Blood Count 4.49 M/uL 4.20-5.40 01/22/2017 01/22/2017 2:47pm 3:07pm Hemoglobin 14.3 g/dL 12.0-16.0 01/22/2017 01/22/2017 2:47pm 3:07pm Hematocrit 42.8 % 38.0-47.0 01/22/2017 01/22/2017 2:47pm 3:07pm Mean Corpuscular 95.3 fL 82.0-100.0 01/22/2017 01/22/2017 Volume 2:47pm 3:07pm Mean Corpuscular 31.8 pg 26.0-33.0 01/22/2017 01/22/2017 Hemoglobin 2:47pm 3:07pm Mean Corpuscular 33.4 g/dL 31.0-36.0 01/22/2017 01/22/2017 Hemoglobin Concent 2:47pm 3:07pm Red Cell 13.3 % 11.5-14.5 01/22/2017 01/22/2017 Distribution Width 2:47pm 3:07pm RDW Standard 46.5 fL H 36.4-46.3 01/22/2017 01/22/2017 Deviation 2:47pm 3:07pm Platelet Count 279 K/uL 130-400 01/22/2017 01/22/2017 2:47pm 3:07pm Mean Platelet 9.6 fL 7.0-11.0 01/22/2017 01/22/2017 Volume 2:47pm 3:07pm Neutrophils (%) 59.1 % 42.0-75.0 01/22/2017 01/22/2017 (Auto) 2:47pm 3:07pm Lymphocytes (%) 33.5 % 16.0-44.0 01/22/2017 01/22/2017 (Auto) 2:47pm 3:07pm Monocytes (%) 5.5 % 2.0-9.0 01/22/2017 01/22/2017 (Auto) 2:47pm 3:07pm Eosinophils (%) 1.0 % 0-7.0 01/22/2017 01/22/2017 (Auto) 2:47pm 3:07pm Basophils (%) 0.5 % 0-1 01/22/2017 01/22/2017 (Auto) 2:47pm 3:07pm Immature 0.4 % 0-0.5 01/22/2017 01/22/2017 Granulocyte % 2:47pm 3:07pm (Auto) Nucleated Red 0.0 /100WBC 0-0 01/22/2017 01/22/2017 Blood Cells % 2:47pm 3:07pm Neutrophils # 6.9 K/uL 1.9-8.0 01/22/2017 01/22/2017 (Auto) 2:47pm 3:07pm Lymphocytes # 3.9 K/uL 0.9-5.2 01/22/2017 01/22/2017 (Auto) 2:47pm 3:07pm Monocytes # (Auto) 0.6 K/uL 0.16-1.0 01/22/2017 01/22/2017 2:47pm 3:07pm Eosinophils # 0.1 K/uL 0-0.8 01/22/2017 01/22/2017 (Auto) 2:47pm 3:07pm Basophils # (Auto) 0.1 K/uL 0-0.2 01/22/2017 01/22/2017 2:47pm 3:07pm Immature 0.05 K/uL 0-0.40 01/22/2017 01/22/2017 Granulocyte # 2:47pm 3:07pm (Auto) Nucleated Red 0.00 K/uL 0.0-0.012 01/22/2017 01/22/2017 Blood Cells # 2:47pm 3:07pm Urine Color YELLOW 01/22/2017 01/22/2017 2:47pm 3:10pm Urine Appearance SL CLOUDY 01/22/2017 01/22/2017 2:47pm 3:10pm Urine Glucose (UA) NEGATIVE NEGATIVE 01/22/2017 01/22/2017 2:47pm 3:10pm Urine Bilirubin NEGATIVE NEGATIVE 01/22/2017 01/22/2017 2:47pm 3:10pm Urine Ketones TRACE NEGATIVE 01/22/2017 01/22/2017 2:47pm 3:10pm Urine Specific >=1.030 1.005-1.03 01/22/2017 01/22/2017 Lampe 0 2:47pm 3:10pm Urine Occult Blood 1+ H NEGATIVE 01/22/2017 01/22/2017 2:47pm 3:10pm Urine pH 5.0 4.5-8.0 01/22/2017 01/22/2017 2:47pm 3:10pm Urine Protein 1+ H NEGATIVE 01/22/2017 01/22/2017 2:47pm 3:10pm Urine Urobilinogen 0.2 E.U./dL 0.2-1.0 01/22/2017 01/22/2017 2:47pm 3:10pm Urine Nitrate NEGATIVE NEGATIVE 01/22/2017 [...] Casts 3-5 /lpf NONE 01/22/2017 01/22/2017 HYALINE 2:47pm 3:15pm CASTS SEEN Urine Mucus 1+ /lpf NONE 01/22/2017 01/22/2017 2:47pm 3:15pm Urine Amorphous 1+ 01/22/2017 01/22/2017 Sediment 2:47pm 3:15pm Random Glucose 191 mg/dL H 65-115 01/22/2017 01/22/2017 2:47pm 3:08pm Blood Urea 23 mg/dL 8-01/22/2017 01/22/2017 Nitrogen 2:47pm 3:08pm Creatinine 1.04 mg/dL 0.9-1.6 01/22/2017 01/22/2017 2:47pm 3:08pm Glomerular 52.24 mL/min 01/22/2017 01/22/2017 MULTIPLY RESULT BY 1.210 IF THE PATIENT IS -LITHUANIAN
Filtration Rate 2:47pm 3:08pm Units are mL/min/1.73 m2
Calc
> 60 Normal kidney function
30-59 Moderately decreased kidney function
15-29 Severely decreased kidney function
<15 End-stage kidney failure
BUN/Creatinine 22.1 01/22/2017 01/22/2017 Ratio 2:47pm 3:08pm Sodium Level 133 mEq/L 133-145 01/22/2017 01/22/2017 2:47pm 3:08pm Potassium Level 4.2 mEq/L 3.5-5.1 01/22/2017 01/22/2017 2:47pm 3:08pm Chloride Level 99 mEq/L 98-116 01/22/2017 01/22/2017 2:47pm 3:08pm Carbon Dioxide 24 mEq/L 22-34 01/22/2017 01/22/2017 Level 2:47pm 3:08pm Anion Gap 14.2 H 6-13 01/22/2017 01/22/2017 2:47pm 3:08pm Calcium Level 9.6 mg/dL 8.2-10.6 01/22/2017 01/22/2017 2:47pm 3:08pm Total Protein 7.8 gm/dL 6.0-8.4 01/22/2017 01/22/2017 2:47pm 3:08pm Albumin 3.8 gm/dL 3.2-5.0 01/22/2017 01/22/2017 2:47pm 3:08pm Globulin 4.0 gm/dL H 2.0-3.0 01/22/2017 01/22/2017 2:47pm 3:08pm Albumin/Globulin 1.0 L 1.4-2.4 01/22/2017 01/22/2017 Ratio 2:47pm 3:08pm Total Bilirubin 0.8 mg/dL 0.1-1.3 01/22/2017 01/22/2017 2:47pm 3:08pm Alkaline 102 U/L 35-125 01/22/2017 01/22/2017 Phosphatase 2:47pm 3:08pm Aspartate Amino 22 U/L 5-40 01/22/2017 01/22/2017 Transf (AST/SGOT) 2:47pm 3:08pm Alanine 13 U/L 5-40 01/22/2017 01/22/2017 Aminotransferase 2:47pm 3:08pm (ALT/SGPT) Procedures Procedure Status Date Provider(s) THER/PROPH/DIAG IV INF INIT Completed 07/17/14 SLICK LICONA M.D. THER/PROPH/DIAG IV INF INIT Completed 07/17/14 SLICK LICONA M.D. TX/PRO/DX INJ NEW DRUG ADDON Completed 07/17/14 SLICK LICONA M.D. INJECT SPINE LUMBAR/SACRAL Completed 09/27/15 RHONDA YEAGER [...] INFUSION ADD-ON Completed 01/22/17 SELINA BELLE M.D. Encounters Encounter Location Arrival/Admit Date Discharge/Depart Date Attending Provider Departed Clinic [facility] 03/24/17 2:05pm 03/24/17 2:42pm [facility] RHONDA Rush M.D. Office Visit AYAZ BLANCAS 01/23/17 3:45pm AYAZ BLANCAS M.D. Registered Ayaz Blancas 01/23/17 3:45pm AYAZ BLANCAS M.D. Departed [facility] 01/22/17 1:25pm 01/22/17 3:55pm SELINA BELLE Emergency Room [facility] Alex Andino Office Visit ROINT POSADA 12/17/16 9:30am RONIT POSADA M.D. Registered Ronit Posada 12/17/16 9:18am RONIT POSADA M.D. Departed Clinic [facility] 12/06/16 1:45pm 12/06/16 2:33pm TOY [facility]. [facility] RHONDA Rush M.D. Office Visit AYAZ BLANCAS 11/27/16 10:00am AYAZ BLANCAS M.D. Office Visit AYAZ BLANCAS 11/22/16 9:45am AYAZ BLANCAS M.D. Registered [facility] 11/22/16 8:26am AYAZ BLANCAS [facility] Aristeo Andino Departed Clinic [facility] 11/21/16 7:51am 11/21/16 8:51am BEV KWAN [facility] Thu Departed Clinic [facility] 09/25/16 1:03pm 09/25/16 1:15pm SHAKIRA [facility]. [facility] RHONDA Rush M.D. Office Visit PHI 09/19/16 10:15am [facility] LORELEI Registered Phi 09/19/16 10:15am [facility] MANDO-Diane Registered [facility] 09/19/16 10:15am YOLY PAINTER [facility] PA-C Office Visit AYAZ BLANCAS 07/30/16 10:30am AYAZ BLANCAS M.D. Registered [facility] 07/25/16 8:21am [facility] 07/05/16 1:20pm 07/05/16 1:59pm LIBROGO, [facility] RHONDA Rush M.D. Departed Clinic [facility] 05/23/16 8:30am 05/23/16 12:53pm JCREINA PARULFADI [facility] Office Visit [facility] 05/15/16 10:45am [facility] SANYAC Registered [facility] 05/15/16 10:45am [facility] Reg[facility] 05/01/16 2:45pm LIBRODO, [facility] RHONDA Thu Registered [facility] 04/16/16 9:52am [facility] 04/12/16 10:30am [facility] LORELEI Registered [facility] 04/12/16 10:30am YOLY PAINTER [facility] PA Office Visit AYAZ BLANCAS 04/01/16 9:30am [facility] 03/27/16 11:26am [facility]/28[facility] 2:08pm [facility] 10[facility]15am [facility] LORELEI [facility] 02/16/16 10:15am Diane NIELSEN [facility] LORELEI Departed Clinic [facility] 02/02/16 1:21pm 02/02/16 1:35pm LIBROGO, [facility] RHONDA Bales 01/25/16 10:21am LIBROSCAR, [facility] RHONDA Rush M.D. [facility] 01/25/16 9:45am TOY [facility] RHONDA Rush M.D. Registered [facility] 01/25/16 9:45am LIBROGO, [facility]. [facility] RHONDA Rush M.D. Office Visit AYAZ BLANCAS 12/01/15 10:00am DOMOAYAZ COULTER M.D. Registered [facility] 11/27/15 9:20am [facility] Office Visit [facility] 11/01/15 8:45am Diane [facility] SVEN MOSELEY Registered [facility] 11/01/15 8:45am Diane NIELSEN [facility]. [facility] LORELEI Departed Clinic [facility] 10/18/15 12:47pm 10/18/15 1:23pm SHAKIRAO, [facility] RHONDA Rush M.D. Office Visit [facility] 10/17/15 9:30am Diane [facility] LORELEI [facility] 10/17/15 9:30am Diane NIELSEN [facility]. [facility] LOREELI Departed [facility] 10/12/15 7:22pm 10/12/15 10:40pm [facility] 10/05/15 7:42am [facility] 09/27/15 2:43pm 09/27/15 3:02pm SHAKIRA, [facility] RHONDA [facility] 09/22/15 9:15am [facility] 09/20/15 9:30am YOLY PAINTER PA-C 09/20/15 9:30am YOLY PAINTER [facility] LORELEI Bales 09/15/15 7:44am [facility] 09/13/15 10:00am YOLY [facility]OPAEDIC[facility] 09/13/15 10:00am GROVE[facility] AYAZ SANTILLANTON 08/16/15 9:00am AYAZ BLANCAS M.D. Registered [facility] 08/10/15 8:17am AYAZ BLANCAS [facility] M. M.D. Office Visit AYAZ SANTILLANTON 08/10/15 8:05am AYAZ BLANCAS M.D. Registered [facility] 07/31/15 11:31am AYAZ BLANCAS [facility]. M.D. Office Visit AYAZ Rush DOMO 07/17/15 10:15am AYAZ BLANCAS M.D. Depart Clinic [facility] 07/06/15 7:56am 07/06/15 8:42am BEV KWAN [facility]. Office Visit AYAZ Rush DOMO 06/13/15 10:45am AYAZ BLANCAS M.D. Office Visit AYAZ Rush DOMO 05/09/15 10:30am AYAZ BLANCAS M.D. Registered [facility] 05/04/15 11:47am AYAZ BLANCAS [facility]. M.D. Registered [facility] 02/13/15 10:21am AYAZ BLANCAS [facility]. M.D. Office Visit AYAZ Rush DOMO 02/13/15 10:00am AYAZ BLANCAS M.D. Office Visit AYAZ Rush DOMO 01/24/15 10:00am AYAZ BLANCAS M.D. Registered [facility] 01/19/15 8:33am AYAZ BLANCAS [facility] M. M.D. Departed Clinic [facility] 12/29/14 10:44am 12/29/14 12:02pm BEV KWAN [facility] M.D. Registered [facility] 11/30/14 7:56am AYAZ BLANCAS [facility]. M.D. Office Visit AYAZ Rush DOMO 11/21/14 11:30am AYAZ BLANCAS M.D. Office Visit AYAZ Rush DOMO 10/18/14 9:30AYAZ Connelly M.D. Registered [facility] 10/13/14 8:54am AYAZ BLANCAS [facility] Aristeo Andino Departed [facility] 07/17/14 7:26pm 07/17/14 9:26pm MONAE [facility] Room [facility] Thu Office Visit AYAZ BLANCAS 07/12/14 10:00am AYAZ BLANCAS M.D. Departed Clinic [facility] 07/07/14 8:03am 07/07/14 9:09am BEV K[facility]AN [facility]
--- OUTSIDE RECORDS SUMMARY | 2017-12-23 11:45 | External Medical Summary | Continuity of Care Document ---
:1945 Author Organization [facility] Care Team Providers Name Role Phone AYAZ BLANCAS M.D. Unavailable Unavailable Insurance Providers Payer Name Policy Number Subscriber Name Relationship Wps Medicare [id number] Amy Kirk 01 Self / Same As Patient [employer] [place] [id number] Amy Kirk Self / Same As Patient Problems Active Problems Medical Problem Onset Date Status Bronchitis Unknown Acute CAD (coronary artery disease) 01/19/2015 Acute CORON ATHEROSCLER NOS TYPE VESSEL, [place] OR GRAFT 02/19/2011 Cough Unknown Acute DIAB MADDY WO COMPL, TYPE II OR UNSPEC TYPE, NOT UNCNTRLD 02/19/2011 Hx of coronary artery disease Unknown Acute Hx of coronary artery disease Unknown Acute Hx of diabetes mellitus Unknown Acute Hyperlipemia 01/19/2015 Acute Hypothyroidism, unspecified 02/19/2011 OTH SCREEN MAMMO-MALIGN NEOPLASM OF BREAST 11/17/2013 [...] 60 Mg Oral Twice A Day 90 Mononitrate 60 3 Mg Glucose Blood 1 Strips Miscellaneous Twice A Day 50 dx: 250.00 4 Losartan 1 Tab Oral Daily 30 Potassium 50 Mg 4 Insulin Lispro 40 Mg Subcutaneously Daily (Human) 100 4 Mg/Ml Aspirin 81 Mg 1 Tab Oral Daily 4 Levothyroxine 1 Tab Oral Daily Sodium 75 Mcg 4 Insulin Lispro 40 Units Subcutaneously Daily (Human) 100 5 Mg/Ml Insulin Lispro 40 Units Subcutaneously Daily (Human) 100 5 Mg/Ml Insulin Glargine 65 Un Intramuscular Bedtime 20 Use up to 67 U 100 Unit/Ml at HS 5 Simvastatin 40 40 Mg Oral Daily Mg 5 Benzonatate 200 200 Mg Oral Three Times 30 Mg A Day 5 Azithromycin 250 500 Mg Oral Daily 30 Take 2 tablets Mg now, then one 5 tablet a day for the next 4 days. Hydrocodone-Acet 1 Tab Oral Every 4 40 for pain aminophen 1 Tab Hours As 6 Needed Past Home Medications Medication Directions Ordered Status [...] Tab, 2.5 Daily 07/11/10 Discontinued Mg Oral Oxycodone W/ Acetaminophen 1 [...] 16 Gm Naspr, Daily 12/13/11 Discontinued 2 [place] Nasal Insulin Glargine 100 Unit/Ml Inj, 65 [...] Strips Twice A Day 11/12/13 Discontinued Miscellaneous Simvastatin 40 Mg Tab, 40 Mg Oral Daily 06/15/14 Discontinued Insulin Glargine 100 Unit/Ml Inj, 65 [...] Mg Twice A Day 04/10/15 Discontinued Oral Levofloxacin 500 Mg Tab, 500 Mg Oral Daily 06/13/15 Discontinued Minocycline Hcl 100 Mg Cap, 100 Mg Twice A Day 07/17/15 Discontinued Oral Levofloxacin 750 Mg Tab, 750 Mg Oral Daily 07/24/15 Discontinued Methylprednisolone 4 Mg Fantasma, 4 Mg Asdirected 07/31/15 Discontinued Oral Methylprednisolone Acetate 80 Mg/Ml Onetime 08/10/15 Discontinued Inj, 80 Mg Intramuscular Methylprednisolone Acetate 40 Mg/Ml Onetime 08/10/15 Discontinued Inj, 40 Mg Intramuscular Social History Social History Problem Response Recorded Date/Time Hx Alcohol Use No 12/27/2011 8:39am Hx Tobacco Use No 05/24/2011 9:00am Smoking Status Former smoker 07/17/2014 7:31pm Query Response Start Date Stop Date Smoking Status Former smoker Hospital Discharge Instructions No hospital discharge instructions. Plan of Care Discharge Date 09/27/15 3:02pm Prescriptions See Medication Section Functional Status No functional status results. Allergies, Adverse Reactions, Alerts No known allergies. Immunizations Name Given Type Influenza Vaccine, Inactivated 06/01/15 Administered Zoster Vaccine 02/01/15 Administered Vital Signs Acute Vital Signs Vital Response Date/Time Blood Pressure 140/82 mm Hg 07/06/2015 7:59am Pulse Pulse Rate (adult) 69 bpm (60 - 100) 07/06/2015 7:59am Ambulatory Vital Signs Vital Response Date/Time Height 5 ft 4 in 09/20/2015 9:28am Weight 225 lbs 09/20/2015 9:28am Body Surface Area 2.20 m2 09/20/2015 9:28am Body Mass Index 38.6 kg/m2 09/20/2015 9:28am Pulse Oximetry Pulse Oximetry 09/20/2015 9:28am Results Pending Laboratory Results Test Name Collection Date/Time Procedures No known history of procedures. Encounters Encounter Location Arrival/Admit Date Discharge/Depart Date Attending Provider Departed Clinic [facility] 09/27/15 2:43pm 09/27/15 3:02pm Mem. Jaya YEAGER M.D. Registered [facility] 09/22/15 9:15am AYAZ BLANCAS Mem Jaya Alberts M.D. Office Visit [facility] 09/20/15 9:30am YOLY PAINTER ORTHOPAEDICMatthew MOSELEY Registered [place] [facility] 09/20/15 9:30am [facility] Registered [facility] 09/15/15 7:44am Ben YEAGER [facility] RHONDA Rush M.D. Office Visit [facility] 09/13/15 10:00am YOLY PAINTERC Office Visit AYAZ BLANCAS 08/16/15 9:00am AYAZ BLANCAS M.D. Registered Ayaz Blancas 08/16/15 9:00am AYAZ BLANCAS M.D. Registered [facility] 08/10/15 8:17am AYAZ BLANCAS [facility] M. M.D. Office Visit AYAZ BLANCAS 08/10/15 8:05am AYAZ BLANCAS M.D. Registered [facility] 07/31/15 11:31am AYAZ BLANCAS [facility]. M.D. Office Visit AYAZ BLANCAS 07/17/15 10:15am AYAZ BLANCAS M.D. Departed Clinic [facility] 07/06/15 7:56am 07/06/15 8:42am [facility] M.D. Office Visit AYAZ BLANCAS 06/13/15 10:45am AYAZ BLANCAS M.D. Office Visit AYAZ M DOMO 05/09/15 10:30am AYAZ BLANCAS M.D. Registered [facility] 05/04/15 11:47am AYAZ BLANCAS [facility] M. M.D. Registered [facility] 02/13/15 10:21am AYAZ BLANCAS [facility] M. M.D. Office Visit AYAZ BLANCAS 02/13/15 10:00am AYAZ BLANCAS M.D. Office Visit AYAZ BLANCAS 01/24/15 10:00am AYAZ BLANCAS M.D. Registered [facility] 01/19/15 8:33am AYAZ BLANCAS [facility] M. M.D. Departed Clinic [facility] 12/29/14 10:44am 12/29/14 12:02pm [facility] M.[facility] Registered [facility] 11/30/14 7:56am AYAZ BLANCAS [facility]. M.D. Office Visit AYAZ M DOMO 11/21/14 11:30am AYAZ BLANCAS.D. Office Visit AYAZ M DOMO 10/18/14 9:30am AYAZ BLANCAS M.D. Registered [facility] 10/13/14 8:54am DOMO, [facility] Aristeo Andino
--- OUTSIDE RECORDS SUMMARY | 2017-12-23 11:45 | External Medical Summary | Continuity of Care Document ---
:1945 Author Organization [facility] [employer] Phone Unavailable Care Team Providers Name Role Phone AYAZ BLANCAS M.D. Unavailable Insurance Providers Guarantor Amy Quintanilla Address [address] [place] [address] Payer s Medicare Policy Number [id number] Subscriber's Name Amy Quintanilla Relationship 01 Self / Same As Patient Effective Date 10 Payer [employer] Plan 65 Select Policy Number [id number] Subscriber's Name Amy Quintanilla Relationship 01 Self / Same As Patient Group Number [id number] Effective Date 09 Problems Active Problems Medical Problem Onset Date Status Bronchitis Unknown Acute CAD (coronary artery disease) 01/19/2015 Acute CORON ATHEROSCLER NOS TYPE VESSEL, [place] OR GRAFT 02/19/2011 Cough Unknown Acute DIAB [...] Intramuscular Bedtime 20 Use up to 67 06/19/ (Insulin Lantus) Units U at HS 15 100 Unit/Ml Inj Insulin Lispro 40 Units Subcutaneously Daily 12 Inj 05/19/ (Human) (Humalog 15 Kwikpen) 100 Mg/Ml Inj Isosorbide 60 Mg [...] Propionate (Flonase Daily 12/13/11 Discontinued 0.05% Nasal [place]) 16 Gm Naspr, 2 [place] Nasal Glucose Blood (Truetest Strips) Comfort, Twice A Day 11/12/13 Discontinued 1 Strips Miscellaneous Hydrocodone-Acetaminophen ([place] Every 4 Hours As Needed 03/13/16 Discontinued 5/325) 1 Tab Tab, 1 Tab Oral Hydrocodone-Acetaminophen ([place] Every 4 Hours As Needed 02/16/16 Discontinued 5/325) 1 Tab Tab, 1 Tab Oral Hydrocodone-Acetaminophen ([place] Every 4 Hours As Needed 01/30/16 Discontinued 5/325) 1 Tab Tab, 1 Tab Oral Hydrocodone-Acetaminophen ([place] Every 4 Hours As Needed 01/09/16 Discontinued 5/325) 1 Tab Tab, 1 Tab Oral Hydrocodone-Acetaminophen ([place] Every 4 Hours As Needed 12/14/15 Discontinued 5/325) 1 Tab Tab, 1 Tab Oral Hydrocodone-Acetaminophen ([place] Every 4 Hours As Needed 09/22/15 Discontinued [...] discharge instructions. Plan of Care Discharge Date 05/23/16 12:53pm Instructions/Education Provided Instructions from visit on: 04/01/16 [...] Date Type Not Given Dose Lot Number Care Consultant Reason Number Influenza 05/24/11 Administered 1 [id number] SANOFI Vaccine, Inactivated Influenza 04/30/12 Administered 2 [id number] Sanofi Pasteur Vaccine, Inactivated Influenza 06/01/14 Administered 3 Vaccine, Inactivated Influenza 06/01/15 Administered 4 Vaccine, Inactivated Influenza 05/13/16 Administered 5 Vaccine, Inactivated Zoster Vaccine 02/01/15 Administered 1 Vital Signs Acute Vital Signs Vital Response Date/Time Blood Pressure 138/78 mm Hg 05/23/2016 12:28pm Blood Pressure Mean 58 mm Hg 10/13/2015 3:21am Temperature (Fahrenheit) 98.0 degrees F (96.0 - 99.9) 10/12/2015 7:23pm Temperature (Calculated Celsius) 36.21057 degrees C 10/12/2015 7:23pm Temperature Source Oral [...] RESULT BY 1.210 IF THE PATIENT IS -PALESTINIAN
Filtration Rate 7:25pm 8:10pm Units are mL/min/1.73 [...] % H 4.8-5.6 03/27/2016 03/28/2016 Performed at: [facility]
8:15am 10:21am [address] [place] [phone]&# 13;
Survey Coordinator: MUMTAZ Remy MD, Phone: [phone]
Free Thyroxine 1.27 ng/dL 0.82-1.77 03/27/2016 03/28/2016 (T4) Calculated 8:15am 7:20am Thyroid 2.970 uIU/mL 0.450-4.50 03/27/2016 03/28/2016 Performed at: [facility]
Stimulating 0 8:15am 7:20am [address] [place] [address] [phone]
Hormone (TSH) Survey Coordinator: MUMTAZ Remy MD, Phone: [phone]
White Blood Count 7.2 x10E3/uL 3.4-10.8 03/27/2016 [...] 03/27/2016 03/28/2016 Performed at: DA - [facility]
Granulocyte (auto 8:15am 6:20am [id number], [place], [place] [phone]
Survey Coordinator: MUMTAZ Remy MD, Phone: [phone]
Urine Microalbumin 16.7 ug/mL Not Estab. 03/27/2016 03/28/2016 Performed at: DA - [facility]
8:15am 9:11am [address] [address], [place], [place] [phone]&# 13;
Survey Coordinator: MUMTAZ Remy MD, Phone: [phone]
Glucose Level 92 mg/dL 65-99 03/27/2016 03/28/2016 8:15am 7:20am Blood Urea 17 mg/dL 8-27 03/27/2016 03/28/2016 Nitrogen 8:15am 7:20am Creatinine 0.72 mg/dL 0.57-1.00 03/27/2016 03/28/2016 8:15am 7:20am BUN/Creatinine 24 11-26 03/27/2016 03/28/2016 Ratio 8:15am 7:20am Sodium Level 143 [...] 7:20am Urine Specific 1.019 1.005-1.03 03/27/2016 03/28/2016 [place] 0 8:15am 7:20am Urine pH 5.5 5.0-7.5 [...] Date Attending Provider Departed Clinic [facility] 05/23/16 8:30am 05/23/16 12:53pm AQUILES PARULFADI [facility] M.[place]Ch[place] Office Visit [facility] 05/15/16 10:45am YOLY PAINTER ORTHOPAEDICS [place]ORELEI [facility] 05/15/16 10:45am YOLY PAINTER [facility] LORELEI Registered [facility] 05/15/16 10:45am YOLY PAINTER [facility] MANDOC Registered [facility] 05/01/16 2:45pm LIBRODO, [facility] RHONDA Rush M.D. Registered [facility] 04/16/16 9:52am [facility] 04/12/16 10:30am YOLY PAINTER ORTHOPAEDICMatthew MOSLEEY Registered [facility] 04/12/16 10:30am YOLY PAINTER [facility] SANYAC Office Visit AYAZ BLANCAS 04/01/16 9:30am AYAZ BLANCAS M.D. Registered Ayaz Blancas 04/01/16 9:30am AYAZ BLANCAS [facility] Aristeo Andino Registered [facility] 03/27/16 11:26am [facility] Registered [facility] 02/28/16 2:08pm LIBROGO, [facility]. [facility] RHONDA Rush M.D. [facility] 02/16/16 10:15am Diane NIELSEN ORTHOPAEDICS [facility] LORELEI Registered [facility] 02/16/16 10:15am Diane NIELSEN [facility] LORELEI Departed Clinic [facility] 02/02/16 1:21pm 02/02/16 1:35pm LIBRODO[facility] RHONDA Rush M.D. Registered [facility] 01/25/16 10:21am LIBROGO, [facility]. [facility] RHONDA Rush M.D. [facility] 01/25/16 9:45am [facility] RHONDA Rush M.D. Registered [facility] 01/25/16 9:45am LIBRODO, [facility] RHONDA Rush M.D. Office Visit AYAZ BLANCAS 12/01/15 10:00am AYAZ BLANCAS M.D. Registered [facility] 11/27/15 9:20am [facility] 11/01/15 8:45am Diane NIELSEN ORTHOPAEDICS [facility] LORELEI Registered [facility] 11/01/15 8:45am Diane NIELSEN [facility]. [facility] LORELEI Departed Clinic [facility] 10/18/15 12:47pm 10/18/15 1:23pm LIBRODO, [facility] RHONDA Rush M.D. Office Visit [facility] 10/17/15 9:30am Diane NIELSEN [facility] LORELEI Registered [facility] 10/17/15 9:30am Diane NIELSEN [facility] SANYA Departed [facility] 10/12/15 7:22pm 10/12/15 10:40pm EV[facility]ON [facility]Z [facility] 10/05/15 7:42am [facility] 09/27/15 2:43pm 09/27/15 3:02pm SHAKIRAO, [facility] RHONDA Bales 09/22/15 9:15am [facility]AZ [facility] 09/20/15 9:30am YOLY PAINTER ORTHOPAEDICMatthew Bales 09/20/15 9:30am YOLY PAINTER [facility] Jamison Bales 09/15/15 7:44am [facility] Office [facility] 09/13/15 10:00am YOLY PAINTER ORTHOPAEDICMatthew Bales 09/13/15 10:00am YOLY PAINTER [facility] Office Visit AYAZ SANTILLANTON 08/16/15 9:00am AYAZ BLANCAS M.D. Registered [facility] 08/10/15 8:17am [facility] AYAZ SANTILLANTON 08/10/15 8:05am AYAZ BLANCAS M.D. Registered [facility] 07/31/15 11:31am AYAZ BLANCAS [facility]. M.D. Office Visit AYAZ SANTILLANTON 07/17/15 10:15am AYAZ BLANCAS M.D. Departed Clinic [facility] 07/06/15 7:56am 07/06/15 8:42am ROBERTREINA [facility].D. Office Visit AYAZ SANTILLANTON 06/13/15 10:45am AYAZ BLANCAS.Ted Office Visit AYAZ SANTILLANTON 05/09/15 10:30am AYAZ BLANCAS.Ted Registered [facility] 05/04/15 11:47am [facility] Registered [facility] 02/13/15 10:21am AYAZ BLANCAS [facility]. M.D. Office Visit AYAZ SANTILLANTON 02/13/15 10:00am AYAZ BLANCAS M.D. Office Visit AYAZ SANTILLANTON 01/24/15 10:00am AYAZ BLANCAS M.D. Registered [facility] 01/19/15 8:33am AYAZ BLANCAS [facility]. M.D. Departed Clinic [facility] 12/29/14 10:44am 12/29/14 12:02pm [facility] Registered [facility] 11/30/14 7:56am AYAZ BLANCAS [facility]. M.D. Office Visit AYAZ SANTILLANTON 11/21/14 11:30am DOMOAYAZ COULTER [facility] Office Visit AYAZ Rush DOMO 10/18/14 9:30am AYAZ BLANCAS M.D. Registered [facility] 10/13/14 8:54am [facility] Departed [facility] 07/17/14 7:26pm 07/17/14 9:26pm LICONA[facility]YAZ BL[facility] 07/12/14 10:00am AYAZ BLANCAS M.D. Departed Clinic [facility] 07/07/14 8:03am 07/07/14 9:09am [facility] 03/17/14 10:30am AYAZ BLANCAS M.D. Departed Clinic [facility] 01/06/14 8:49am 01/06/14 10:09am BEV KWAN [facility].Ted Registered [facility] 11/30/13 2:08pm AYAZ BLANCAS [facility] Aristeo Andino Office Visit AYAZ BLANCAS 11/17/13 10:00am AYAZ BLANCAS M.D.
--- OUTSIDE RECORDS SUMMARY | 2017-12-23 11:46 | External Medical Summary | Continuity of Care Document ---
:1945 Author Organization [facility] Care Team Providers Name Role Phone AYAZ BLANCAS M.D. Unavailable Unavailable Insurance Providers Payer Name Policy Number Subscriber Name Relationship Wps Medicare [id number] Amy Kirk Self / Same As Patient [employer] Plan 65 [id number] Amy Kirk Self / Same As Patient Chief Complaint and Reason for Visit Chief Complaint Weakness Reason for Visit Nausea & vomiting Hypotension Dehydration Problems Active Problems Medical Problem Onset Date Status Bronchitis Unknown Acute CAD (coronary artery disease) 01/19/2015 Acute CORON ATHEROSCLER NOS TYPE VESSEL, [place] OR GRAFT 02/19/2011 Cough Unknown Acute DIAB MADDY WO COMPL, TYPE II OR UNSPEC TYPE, NOT UNCNTRLD 02/19/2011 Dehydration Unknown Acute Hx of coronary artery disease Unknown Acute Hx of coronary artery disease Unknown Acute Hx of diabetes mellitus Unknown Acute Hyperlipemia 01/19/2015 Acute Hypotension Unknown Acute Hypothyroidism, unspecified 02/19/2011 Nausea & vomiting Unknown Acute OTH SCREEN [...] 81 Mg 1 Tab Oral Daily 4 Insulin Lispro 40 Units Subcutaneously Daily [...] aminophen 1 Tab Hours As 6 Needed Levothyroxine 1 Tab Oral Daily 30 Sodium 75 Mcg 6 Ondansetron Hcl 4 Mg Oral Every 4 15 4 Mg Hours As 6 Needed as needed for Nausea And/Or Vomiting Metoclopramide 10 Mg Oral Every 8 Hcl 10 Mg Hours As 6 Needed for Nausea Past Home Medications Medication Directions Ordered Status [...] 16 Gm Naspr, Daily 12/13/11 Discontinued 2 [place] Nasal Insulin Glargine 100 Unit/Ml Inj, 65 [...] Inj, 65 Bedtime 06/23/14 Discontinued Un Intramuscular Levothyroxine Sodium 75 Mcg Tab, 1 Daily 08/16/14 Discontinued Tab Oral Levofloxacin 500 Mg Tab, 500 Mg [...] No 05/24/2011 9:00am Smoking Status Former smoker 10/12/2015 7:23pm Query Response Start Date Stop Date Smoking Status Former smoker Hospital Discharge Instructions No hospital discharge instructions. Plan of Care Discharge Date 10/12/15 10:40pm Disposition 01 HOME, SELF-CARE Condition at Discharge Improved/Stable Instructions/Education Provided Dehydration (ED) Acute Nausea and Vomiting (ED) Prescriptions See Medication Section Referrals AYAZ BLANCAS M.D. - Additional Instructions/Education return for any concerns or worsening Functional Status No functional status results. Allergies, Adverse Reactions, Alerts No known allergies. Immunizations Name Given Type Influenza Vaccine, Inactivated 06/01/15 Administered Zoster Vaccine 02/01/15 Administered Vital Signs Acute Vital Signs Vital Response Date/Time Blood Pressure 79/47 mm Hg 10/13/2015 3:21am Blood Pressure Mean 58 mm Hg 10/13/2015 3:21am Temperature (Fahrenheit) 98.0 degrees F (96.0 - 99.9) 10/12/2015 7:23pm Temperature (Calculated Celsius) 36.21352 degrees C 10/12/2015 7:23pm Temperature Source Oral 10/12/2015 7:23pm Pulse Pulse Rate (adult) 69 bpm (60 - 100) 07/06/2015 7:59am Pulse Rate: ED 72 bpm 10/13/2015 3:21am Respiratory Rate 16 breaths per minute (10 - 20) 10/13/2015 3:21am Height (Feet) 5 ft 10/12/2015 7:23pm Height (Inches) 4 in. 10/12/2015 7:23pm Weight (Pounds) 225 lbs 10/12/2015 7:23pm Height 5 ft 4 in Weight 225 lb Body Mass Index 38.6 kg/m^2 Ambulatory Vital Signs Vital Response Date/Time Height [...] SPINE LUMBAR/SACRAL Completed 09/27/15 RHONDA YEAGER M.D. Encounters Encounter Location Arrival/Admit Date Discharge/Depart Date Attending Provider Departed [facility] 10/12/15 7:22pm 10/12/15 10:40pm EVERTON GAMEZ Emergency Room [facility] Thu Registered Mary [facility] 10/05/15 7:42am BEV KWAN [facility] Jaya Andino Departed [facility] Mary Bales 09/27/15 2:43pm 09/27/15 3:02pm [facility] 09/22/15 9:15am AYAZ BLANCAS [facility] Aristeo Andino Office Visit [facility] 09/20/15 9:30am YOLY PAINTER ORTHOPAEDICS PA-C Registered [facility] & 09/20/15 9:30am YOLY PAINTER [facility] Ortho PA-Diane Registered [facility] 09/20/15 9:30am YOLY PAINTER [facility] PA-C Jamison Bales 09/15/15 7:44am Ben YEAGER [facility] RHONDA Rush M.D. Office Visit [facility] 09/13/15 10:00am YOLY PAINTER ORTHOPAEDICS PA-C Jamison Bales 09/13/15 10:00am YOLY PAINTER [facility] PA-C Office Visit AYAZ BLANCAS 08/16/15 9:00am AYAZ BLANCAS M.D. Registered Ayaz Blancas 08/16/15 9:00am AYAZ BLANCAS [facility] Aristeo MLeonora Registered [facility] 08/10/15 8:17am [facility] Office Visit AYAZ Rush DOMO 08/10/15 8:05am AYAZ BLANCAS M.D. Registered [facility] 07/31/15 11:31am AYAZ BLANCAS [facility] M. M.D. Office Visit AYAZ Rush DOMO 07/17/15 10:15am AYAZ BLANCAS M.D. Departed Clinic [facility] 07/06/15 7:56am 07/06/15 8:42am [facility] M.D. Office Visit AYAZ Rush DOMO 06/13/15 10:45am AYAZ BLANCAS M.D. Office Visit AYAZ Rush DOMO 05/09/15 10:30am AYAZ BLANCAS.Eliazar. Registered [facility] 05/04/15 11:47am [facility] Registered [facility] 02/13/15 10:21am AYAZ BLANCAS [facility]. M.D. Office Visit AYAZ Rush DOMO 02/13/15 10:00am AYAZ BLANCAS M.D. Office Visit AYAZ Rush DOMO 01/24/15 10:00am AYAZ BLANCAS M.D. Registered [facility] 01/19/15 8:33am [facility] Departed Clinic [facility] 12/29/14 10:44am 12/29/14 12:02pm [facility] M.D. Registered [facility] 11/30/14 7:56am AYAZ BLANCAS [facility]. M.D. Office Visit AYAZ Rush DOMO 11/21/14 11:30am AYAZ BLANCAS.Eliazar. Office Visit AYAZ Rush DOMO 10/18/14 9:30am AYAZ BLANCAS M.D. Registered [facility] 10/13/14 8:54am [facility] Departed [facility] 07/17/14 7:26pm 07/17/14 9:26pm LICONA[facility] AYAZ BLANCAS 07/12/14 10:00am AYAZ BLANCAS M.D. Departed Clinic [facility] 07/07/14 8:03am 07/07/14 9:09am BEV KWAN [facility] Office Visit AYAZ BLANCAS 03/17/14 10:30am AYAZ BLANCAS M.D. Departed Clinic [facility] 01/06/14 8:49am 01/06/14 10:09am BEV KWAN [facility] Registered [facility] 11/30/13 2:08pm AYAZ BLANCAS [facility] Aristeo Andino Office Visit AYAZ BLANCAS 11/17/13 10:00am AYAZ BLANCAS M.D. Office Visit AYAZ BLANCAS 07/15/13 10:30am AYAZ BLANCAS M.D. Departed Clinic [facility] 07/08/13 9:01am 07/08/13 10:01am BEV KWAN [facility] [place] Registered Mary [facility] 06/03/13 10:10am AYAZ BLANCAS [facility] Aristeo Andino Office Visit AYAZ BLANCAS 05/21/13 1:50pm AYAZ BLANCAS M.D. Office Visit AYAZ BLANCAS 04/29/13 2:00pm AYAZ BLANCAS M.D. Office Visit AYAZ BLANCAS 04/13/13 11:00am AYAZ BLANCAS M.D. Departed Clinic [facility] 02/04/13 7:55am 02/04/13 10:50am BEV KWAN [facility] [place] Recent Diagnosis
--- OUTSIDE RECORDS SUMMARY | 2017-12-23 11:46 | External Medical Summary | Continuity of Care Document ---
:1945 Author Organization [facility] Phone Unavailable Care Team Providers Name Role Phone AYAZ BLANCAS M.D. Primary Care Physician Insurance Providers Guarantor Amy Quintanilla Address [address] [place] [address] Payer s Medicare Policy Number [id number] Subscriber's Name Amy Quintanilla Relationship 01 Self / Same As Patient Effective Date 10 Payer Blue Cross Plan 65 [employer] Policy Number [id number] Subscriber's Name Amy Quintanilla R Relationship 01 Self / Same As Patient Group Number [id number] Effective Date 09 Advance Directives No advance directive information available. Chief Complaint and Reason for Visit Chief Complaint Palpitations Reason for Visit [id number] Palpitations Problems Medical Problem Onset Date Status CAD (coronary artery disease) 01/19/2015 Acute CORON ATHEROSCLER NOS TYPE VESSEL, [place]HE[place] OR GRAFT 02/19/2011 Cough Unknown Acute DIAB [...] Unknown Acute Nausea & vomiting Unknown Acute Non-ST elevation ND (NSTEMI) Unknown Acute OTH SCREEN MAMMO-MALIGN NEOPLASM OF BREAST 11/17/2013 Acute OTH SCREEN MAMMO-MALIGN NEOPLASM OF BREAST 10/18/2014 Acute Palpitations Unknown Acute ROUTINE MEDICAL EXAM Unknown Acute Sacroiliac dysfunction Unknown Acute Seasonal allergies Unknown Sinusitis Unknown Acute Spondylolisthesis at L4-L5 level Unknown Acute Type II diabetes mellitus, uncontrolled 10/13/2014 Acute Unstable angina Unknown Acute Past Problems Medical Problem Onset Date Status Bronchitis Unknown Acute Chest pain at rest Unknown Acute Exertional dyspnea Unknown Acute Medications Current Home Medications Medication Dose Units Route Directions Days Qty Instructions Start Date Aspirin 1 Tab Oral Daily (Aspirin 81) 81 Mg Tab Cetirizine Hcl 10 Mg Oral Daily 30 12/17/ 10 Mg Tab Tablet 17 Clopidogrel 75 Mg Oral Daily 30 02/18/ Bisulfate 11 (Plavix) 75 Mg Tab Fluticasone 2 Puffs Nasal Bedtime 1 12/17/ Propionate Unit(S) 17 (Nasal) (Eql Fluticasone Propionat) 50 Mcg/Act Spr Hydrocodone-Alejo 1 Tab Oral Every 4 40 for pain 09/24/ taminophen Hours As Tablet 18 ([place]) 5/325 Needed for Tab Pain Insulin 67 Unit Subcutaneously Bedtime 7 Unit PT NEEDS 7 08/20/ Glargine PENS TO GET 17 (Lantus THROUGH 1 Solostar Nf) MONTH 100 Unit/Ml Soln Insulin Lispro 40 Units Subcutaneously Daily 12 07/11/ (Human) Units 17 (Humalog Kwikpen) 100 Unit/Ml Inj Isosorbide 60 Mg Oral Twice A Day 90 Mononitrate (Imdur) 60 Mg Tab Levothyroxine 1 Tab Oral Daily 30 10/09/ Sodium Tablet 17 (Levothroid) 75 Mcg Tab Losartan 0.5 Tab Oral Daily 30 09/01/ Potassium 18 (Cozaar) 50 Mg Tab Metoprolol 12.5 Mg Oral Twice A Day 180 09/01/ Tartrate 25 Mg Tablet 18 Tab Pantoprazole 40 Mg Oral Daily 34 02/18/ Sodium 40 Mg 11 Tab Potassium 1 Tab Oral Daily 30 05/23/ Chloride Tablet 17 (Klor-Con 10) 10 Meq Tab Simvastatin 40 40 Mg Oral Daily 90 07/11/ Mg Tab Tablet 17 Tramadol Hcl 50 50-100 Mg Oral Three Times 60 08/06/ Mg Tab A Day as Tablet 17 needed for Pain Past Home Medications Medication Directions Ordered Status Amlodipine Besylate 2.5 Mg Tab, 2.5 Daily 02/18/11 Discontinued Mg Oral Amlodipine Besylate 2.5 Mg Tab, 2.5 Daily Discontinued Mg Oral Amoxicillin/Clavulanate Potas Twice A Day 08/24/12 Discontinued (Augmentin 875 Mg) 875 Mg Tab, 875 Mg Oral Amoxicillin/Clavulanate [place] Twice A Day 07/30/12 Discontinued (Augmentin 875 Mg) 875 Mg Tab, 875 Mg Oral Aspirin (Aspir-81) 81 Mg Tab, 81 Mg Daily Discontinued Oral Azithromycin (Zithromax) 250 Mg Tab, Daily 08/10/15 Discontinued 500 Mg Oral Azithromycin (Zithromax) 250 Mg Tab, As Directed 02/06/15 Discontinued 250 Mg Oral Azithromycin (Zithromax Z-Fantasma) 1 Tab As Directed 06/11/12 Discontinued Tab, 250 Mg Oral Benzonatate (Tessalon Perles) 200 Mg Three Times A Day as needed 12/17/16 Discontinued Cap, 200 Mg Oral for Cough Benzonatate (Tessalon Perles) 200 Mg Three Times A Day 08/10/15 Discontinued Cap, 200 Mg Oral Ciprofloxacin Hcl (Cipro) 500 Mg Twice A Day 04/10/15 Discontinued Tab, 500 Mg Oral Ciprofloxacin Hcl (Cipro) 500 Mg Twice A Day 03/13/12 Discontinued Tab, 500 Mg Oral Clopidogrel Bisulfate (Plavix) 75 Mg Daily Discontinued Tab, Oral Doxycycline Hyclate 100 Mg [...] Propionate (Flonase Daily 12/13/11 Discontinued 0.05% Nasal [place]) 16 Gm Naspr, 2 [place] Nasal Furosemide 20 Mg Tab, 20 Mg Oral Daily 05/23/17 Discontinued Glucose Blood (Truetest Strips) Comfort, Twice A Day 11/12/13 Discontinued 1 Strips Miscellaneous Glucose Blood (Truetest Strips) Comfort, Twice A Day 11/12/13 Discontinued 1 Strips Miscellaneous Hydrocodone-Acetaminophen ([place]) Every 4 Hours As Needed for 09/11/17 Discontinued 5/325 Tab, 1 Tab Oral Pain Hydrocodone-Acetaminophen ([place]) Every 4 Hours As Needed for 08/27/17 Discontinued 5/325 Tab, 1 Tab Oral Pain Hydrocodone-Acetaminophen ([place]) 1 Every 4 Hours As Needed 03/13/16 Discontinued Tab Tab, 1 Tab Oral Hydrocodone-Acetaminophen ([place]) 1 Every 4 Hours As Needed 02/16/16 Discontinued Tab Tab, 1 Tab Oral Hydrocodone-Acetaminophen ([place]) 1 Every 4 Hours As Needed 01/30/16 Discontinued Tab Tab, 1 Tab Oral Hydrocodone-Acetaminophen ([place]) 1 Every 4 Hours As Needed 01/09/16 Discontinued Tab Tab, 1 Tab Oral Hydrocodone-Acetaminophen ([place]) 1 Every 4 Hours As Needed 12/14/15 Discontinued Tab Tab, 1 Tab Oral Hydrocodone-Acetaminophen ([place]) 1 Every 4 Hours As Needed 09/22/15 [...] Un Intramuscular Insulin Glargine (Lantus Solostar Bedtime 11/27/16 Discontinued [...] Intramuscular Insulin Glargine (Lantus) 100 Mg/Ml Bedtime Discontinued Inj, 55 Units Subcutaneously Insulin Isophane [...] Oral Isosorbide Mononitrate (Imdur) 30 Mg Daily Discontinued Tab, 30 Mg Oral Isosorbide Mononitrate (Imdur-Er Daily 02/18/11 Discontinued *Nf*) 30 Mg Tabcr, 30 Mg Oral Levofloxacin (Levaquin) 500 Mg Tab, Daily 01/23/17 Discontinued 500 Mg Oral Levofloxacin (Levaquin) 500 [...] Tab Oral Levothyroxine Sodium (Levothroid) 75 Daily Discontinued Mcg Tab, 75 Mcg Oral Levothyroxine [...] Tab, 1 Tab Oral Methylprednisolone (Medrol Dosepak) Daily 01/23/17 Discontinued 4 Mg Fantasma, 4 Mg Oral Methylprednisolone (Medrol Dosepak) Asdirected 07/31/15 Discontinued [...] Mg/Ml Inj, 80 Mg Intramuscular Metoprolol Tartrate 25 Mg Tab, 25 Mg Twice A Day 04/24/17 Discontinued Oral Metoprolol Tartrate 25 Mg Tab, 25 Mg Twice A Day 04/23/17 Discontinued Oral Metoprolol Tartrate 25 Mg Tab, 25 Mg Twice A Day 04/01/16 Discontinued Oral Metoprolol Tartrate (Lopressor) 25 Twice A [...] Oral Olmesartan Medoxomil (Benicar) 20 Mg Daily Discontinued Tab, 20 Mg Oral Oxycodone W/ [...] Discontinued W/Codeine) 120 Ml Syrp, 120 Ml Oral needed for Cough Promethazine/Codeine (Phenergan Every 4 Hours As Needed as 11/22/16 Discontinued W/Codeine) 120 Ml Syrp, 120 Ml Oral needed for Cough Promethazine/Codeine (Phenergan Every 6 Hours As Needed [...] (Zocor) 40 Mg Tab, 40 Mg Bedtime Discontinued Oral Valsartan (Diovan) 80 Mg Tab, 80 Mg Daily 06/24/11 Discontinued Oral Valsartan (Diovan) 80 Mg Tab, 80 Mg Daily 05/07/11 Discontinued Oral Social History Social History Problem Response Recorded Date/Time Onset Date Status Hx Alcohol Use No 12/27/2011 8:39am Not Applicable Not Applicable Hx Tobacco Use No 05/24/2011 9:00am Not Applicable Not Applicable Smoking Status Never smoker 10/01/2017 10:08am Not Applicable Not Applicable Smoking Status Start Date Stop Date Never smoker Hospital Discharge Instructions No hospital discharge instruction information available. Plan of Care Discharge Date 10/01/17 12:26pm Disposition 02 XFER SHT-TRM HOSP (ACUTE) Condition at Discharge Stable Prescriptions See Medication Section Referrals AYAZ BLANCAS M.D. Address: [address] [place] [address] [place] [id number] Functional Status No functional status information available. Allergies, Adverse Reactions, Alerts No known allergies. 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Learning Facilitator Reason Number Influenza 05/24/11 Administered 1 [id number] SANOFI Vaccine, Inactivated Influenza 04/30/12 Administered 2 [id number] Sanofi Pasteur Vaccine, Inactivated Influenza 06/01/14 Administered 3 Vaccine, Inactivated Influenza 06/01/15 Administered 4 Vaccine, Inactivated Influenza 05/13/16 Administered 5 Vaccine, Inactivated Influenza 05/28/17 Administered 6 Vaccine, Inactivated Influenza 06/12/17 Administered 7 Vaccine, Inactivated Zoster Vaccine 02/01/15 Administered 1 Vital Signs Acute Vital Signs Vital Response Date/Time Blood Pressure 122/67 mm Hg 10/01/2017 12:23pm Blood Pressure Mean 66 mm Hg 08/22/2017 9:55am Blood Pressure Mean 85 mm Hg 10/01/2017 12:23pm Temperature (Fahrenheit) 97.7 degrees F (96.0 - 99.9) 10/01/2017 10:09am Temperature (Calculated Celsius) 36.09939 degrees C 10/01/2017 10:09am Temperature Source Oral 08/22/2017 10:28am Temperature Source Oral 10/01/2017 10:09am Temp 97.5 degrees F (96.0 - 99.9) 08/22/2017 9:19am Temperature (Calculated Celsius) 36.95657 degrees C 08/22/2017 9:19am Pulse Pulse Rate (adult) 67 bpm (60 - 100) 10/01/2017 10:15am Pulse Rate (adult) 60 bpm (60 - 100) 08/22/2017 9:55am Pulse Rate: ED 83 bpm 10/01/2017 12:23pm Respiratory Rate 16 breaths per minute (10 - 20) 10/01/2017 12:23pm Respiratory Rate 14 bpm (10 - 20) 08/22/2017 9:55am Height (Feet) 5 ft 10/01/2017 10:09am Height (Inches) 4.0 in. 10/01/2017 10:09am Weight (Pounds) 162.2 lbs 10/01/2017 10:09am Height 5 ft 4 in 10/01/2017 10:09am Weight 162.20 lb 10/01/2017 10:09am Body Mass Index 27.8 kg/m^2 10/01/2017 10:09am Ambulatory Vital Signs Vital Response Date/Time Height 5 ft 4 in 09/18/2017 11:03am Weight 172 lbs 09/18/2017 11:03am Blood Pressure, Sitting, Right Arm 110/62 mm Hg 09/18/2017 11:03am Body Surface Area 1.90 m2 09/18/2017 11:03am Body Mass Index 29.5 kg/m2 09/18/2017 11:03am Pulse Oximetry Pulse Oximetry 09/18/2017 11:03am Results Laboratory Results Test Name Result Units [...] 3:10pm Urine Specific >=1.030 1.005-1.03 01/22/2017 01/22/2017 Dexter 0 2:47pm 3:10pm Urine Occult 1+ H [...] microscopic examination. Comments 8:00am 6:12pm Performed at: [address] [id number] Clinical Trial Manager: MUMTAZ Remy MD, Phone: [phone] Urine 93.1 ug/mL Not Estab. 04/09/2017 04/10/2017 Performed at: [facility] Microalbumin 8:00am 10:10am [address] [place] [id number] Clinical Trial Manager: MUMTAZ Remy MD, Phone: [phone] Globulin 3.0 g/dL 1.5-4.5 04/09/2017 04/10/2017 8:00am 8:19am Albumin/Globulin 1.3 1.2-2.2 04/09/2017 04/10/2017 Ratio 8:00am 8:19am Total 177 mg/dL 100-199 04/09/2017 04/10/2017 Cholesterol 8:00am 8:19am Triglycerides 107 mg/dL 0-149 04/09/2017 04/10/2017 Level 8:00am 8:19am HDL Cholesterol 60 mg/dL >39 04/09/2017 04/10/2017 8:00am 8:19am VLDL 21 mg/dL 5-40 04/09/2017 04/10/2017 Cholesterol, 8:00am 8:19am Calculated LDL Cholesterol, 96 mg/dL 0-99 04/09/2017 04/10/2017 Performed at: [facility] Calculated 8:00am 8:19am [address] [place] [phone] Clinical Trial Manager: MUMTAZ Remy MD, Phone: [phone] Free Thyroxine 1.16 ng/dL 0.58-1.64 05/23/2017 05/23/2017 2:09pm 4:20pm Thyroxine (T4) 9.4 ug/dl 4.7-11.5 05/23/2017 05/23/2017 2:09pm 4:20pm B-Type 630 pg/mL H 15-100 05/23/2017 05/23/2017 Natriuretic 2:09pm 3:14pm Peptide Lipase 15 U/L 14-85 07/25/2017 07/26/2017 [facility] 2:[facility] 5:10pm [address] [place] [id number] Clinical Trial Manager: MUMTAZ Remy MD, Phone: [phone] Hemoglobin A1c 5.9 % H 4.8-5.6 07/25/2017 [...] 37 mm/hr 0-40 07/25/2017 07/26/2017 Performed at: [facility] Richard Rate, [place] 2:55pm 9:00am [address] [id number] Clinical Trial Manager: MUMTAZ Remy MD, Phone: [phone] C-Reactive 6.5 mg/L H 0.0-4.9 07/25/2017 07/27/2017 Performed at: [facility] Richard Protein, 2:55pm 2:08pm [address] [address], [place], [place] [id number] Quantitative Clinical Trial Manager: MUMTAZ Remy MD, Phone: [phone] B-Type 493.5 pg/mL H 0.0-100.0 07/25/2017 07/26/2017 [facility]formed at: [facility] 2:[facility] 1:50pm [address] [address], [place], [place] [phone] Peptide Clinical Trial Manager: MUMTAZ Remy MD, Phone: [phone] Glucose Level 65 mg/dL 65-99 07/25/2017 07/26/2017 [...] mL/min/1.73 Urine Specific 1.025 1.005-1.03 07/25/2017 07/26/2017 Dexter 0 2:55pm 9:00am Urine pH 5.0 5.0-7.5 [...] Culture. . 07/25/2017 07/28/2017 REFLEX Performed at: [facility] 2:55pm 1:38pm [address] [place] [id number] Clinical Trial Manager: MUMTAZ Remy MD, Phone: [phone] This specimen has reflexed to a Urine Culture. --- 07/28/17 1338 --- URINALYSIS REFL previously reported as: This specimen has reflexed to a Urine Culture. Performed at: [address] [id number] Clinical Trial Manager: MUMTAZ Remy MD, Phone: [phone] Urine Culture Final . 07/25/2017 07/28/2017 Reflexed report 2:55pm 1:38pm Urine Culture Mixed urogenital jarrett . 07/25/2017 07/28/2017 Result 1 10,000-25,000 colony forming units per mL 2:55pm 1:38pm Performed at: [address] [address], [place], [place] [id number] Clinical Trial Manager: MUMTAZ Remy MD, Phone: [phone] Bedside Glucose 152 mg/dL H 70-120 08/22/2017 08/22/2017 0 7:51am 7:54am White Blood 10.2 K/uL H 5.0-10.0 10/01/2017 10/01/2017 Count 10:15am 10:30am Red Blood Count 4.72 M/uL 4.20-5.40 10/01/2017 10/01/2017 10:15am 10:30am Hemoglobin 14.8 g/dL 12.0-16.0 10/01/2017 10/01/2017 10:15am 10:30am Hematocrit 44.9 % 38.0-47.0 10/01/2017 10/01/2017 10:15am 10:30am Mean Corpuscular 95.1 fL 82.0-100.0 10/01/2017 10/01/2017 Volume 10:15am 10:30am Mean Corpuscular 31.4 pg 26.0-33.0 10/01/2017 10/01/2017 Hemoglobin 10:15am 10:30am Mean Corpuscular 33.0 g/dL 31.0-36.0 10/01/2017 10/01/2017 Hemoglobin 10:15am 10:30am Concent Red Cell 16.4 % H 11.5-14.5 10/01/2017 10/01/2017 Distribution 10:15am 10:30am Width RDW Standard 57.4 fL H 36.4-46.3 10/01/2017 10/01/2017 Deviation 10:15am 10:30am Platelet Count 213 K/uL 130-400 10/01/2017 10/01/2017 10:15am 10:30am Mean Platelet 10.2 fL 7.0-11.0 10/01/2017 10/01/2017 Volume 10:15am 10:30am Neutrophils (%) 66.9 % 42.0-75.0 10/01/2017 10/01/2017 (Auto) 10:15am 10:30am Lymphocytes (%) 25.6 % 16.0-44.0 10/01/2017 10/01/2017 (Auto) 10:15am 10:30am Monocytes (%) 5.6 % 2.0-9.0 10/01/2017 10/01/2017 (Auto) 10:15am 10:30am Eosinophils (%) 1.0 % 0-7.0 10/01/2017 10/01/2017 (Auto) 10:15am 10:30am Basophils (%) 0.5 % 0-1 10/01/2017 10/01/2017 (Auto) 10:15am 10:30am Immature 0.4 % 0-0.5 10/01/2017 10/01/2017 Granulocyte % 10:15am 10:30am (Auto) Nucleated Red 0.0 /100WB 0-0 10/01/2017 10/01/2017 Blood Cells % C 10:15am 10:30am Neutrophils # 6.8 K/uL 1.9-8.0 10/01/2017 10/01/2017 (Auto) 10:15am 10:30am Lymphocytes # 2.6 K/uL 0.9-5.2 10/01/2017 10/01/2017 (Auto) 10:15am 10:30am Monocytes # 0.6 K/uL 0.16-1.0 10/01/2017 10/01/2017 (Auto) 10:15am 10:30am Eosinophils # 0.1 K/uL 0-0.8 10/01/2017 10/01/2017 (Auto) 10:15am 10:30am Basophils # 0.1 K/uL 0-0.2 10/01/2017 10/01/2017 (Auto) 10:15am 10:30am Immature 0.04 K/uL 0-0.40 10/01/2017 10/01/2017 Granulocyte # 10:15am 10:30am (Auto) Nucleated Red 0.00 K/uL 0.0-0.012 10/01/2017 10/01/2017 Blood Cells # 10:15am 10:30am Random Glucose 149 mg/dL H 65-115 10/01/2017 10/01/2017 10:15am 10:49am Blood Urea 31 mg/dL H 8-25 10/01/2017 10/01/2017 Nitrogen 10:15am 10:49am Creatinine 0.76 mg/dL L 0.9-1.6 10/01/2017 10/01/2017 10:15am 10:49am Glomerular 74.81 mL/min 10/01/2017 10/01/2017 MULTIPLY RESULT BY 1.210 IF THE PATIENT IS -GIBRALTARIAN Filtration Rate 10:15am 10:49am Units are mL/min/1.73 m2 Calc > 60 Normal kidney function 30-59 Moderately decreased kidney function 15-29 Severely decreased kidney function <15 End-stage kidney failure BUN/Creatinine 40.8 10/01/2017 10/01/2017 Ratio 10:15am 10:49am Sodium Level 132 mEq/L L 133-145 10/01/2017 10/01/2017 10:15am 10:49am Potassium Level 3.9 mEq/L 3.5-5.1 10/01/2017 10/01/2017 10:15am 10:49am Chloride Level 100 mEq/L 98-116 10/01/2017 10/01/2017 10:15am 10:49am Carbon Dioxide 23 mEq/L 22-34 10/01/2017 10/01/2017 Level 10:15am 10:49am Anion Gap 12.9 6-13 10/01/2017 10/01/2017 10:15am 10:49am Calcium Level 9.2 mg/dL 8.2-10.6 10/01/2017 10/01/2017 10:15am 10:49am Total Protein 7.0 gm/dL 6.0-8.4 10/01/2017 10/01/2017 10:15am 10:49am Albumin 3.6 gm/dL 3.2-5.0 10/01/2017 10/01/2017 10:15am 10:49am Globulin 3.4 gm/dL H 2.0-3.0 10/01/2017 10/01/2017 10:15am 10:49am Albumin/Globulin 1.1 L 1.4-2.4 10/01/2017 10/01/2017 Ratio 10:15am 10:49am Total Bilirubin 1.0 mg/dL 0.1-1.3 10/01/2017 10/01/2017 10:15am 10:49am Alkaline 114 U/L 35-125 10/01/2017 10/01/2017 Phosphatase 10:15am 10:49am Aspartate Amino 49 U/L H 5-40 10/01/2017 10/01/2017 Transf 10:15am 10:49am (AST/SGOT) Alanine 21 U/L 5-40 10/01/2017 10/01/2017 Aminotransferase 10:15am 10:49am (ALT/SGPT) Troponin I 0.25 ng/mL *H 0.0-0.02 10/01/2017 10/01/2017 CRITICAL RESULT VERIFIED AND CALLED TO BRENDA/ER AT 1111, 10:15am 11:12am 10/01/17 BY [id number]. Procedures Procedure Status Date Provider(s) INJECT SPINE [...] BRUSH WASH Completed 08/22/17 FAUSTO MACIEL M.D. Encounters Encounter Location Arrival/Admit Date Discharge/Depart Date Attending Provider Departed Mary Bales 10/01/17 10:07am 10/01/17 12:26pm SELINA BELLE [facility] [place] [facility] [place] M.D. Registered Ayaz Blancas 09/18/17 11:00am AYAZ BLANCAS M.D. Registered Mary Bales 09/09/17 10:19am [facility] Registered Fausto Maciel 09/02/17 1:45pm [facility] 08/28/17 9:16am FAUSTO MACIEL Referred [facility]. [facility] Departed Mary Bales 08/22/17 7:36am 08/22/17 10:28am FAUSTO MACIEL Surgical Day [facility]. [facility] Care Registered Mary Bales 08/05/17 1:31pm DOMOAYAZ Referred [facility]. [facility] Registered Mary Bales 07/31/17 9:00am ZIMMERMANAYAZ Referred [facility]. [facility]. Registered Mary Bales 07/25/17 3:45pm ZIMMERMAN [facility]. [facility]. Registered Mary Bales 06/02/17 11:09am ZIMMERMAN [facility]. [facility]. Registered Mary Bales 05/23/17 1:46pm ZIMMERMANAYAZ Referred [facility]. [facility] Registered Mary Bales 04/24/17 9:49am ZIMMERMANAYAZ Referred [facility]. [facility] Registered Mary Bales 04/17/17 6:57am BEV KWAN Referred [facility]. [facility] Registered Mary Bales 04/09/17 8:14am ZIMMERMAN [facility]. [facility] Departed Mary Bales 03/27/17 9:05am 03/27/17 12:31pm [facility]INA BELLE [facility] B[facility] 03/24/17 2:05pm 03/24/17 2:42pm TOY [facility] Dep[facility]ed Mary Bales 01/22/17 1:25pm 01/22/17 3:55pm SELINA BELLE [facility] Ronit Posada 12/17/16 9:18am [facility]ONIT POS[facility] Mary Bales 12/06/16 1:45pm 12/06/16 2:33pm [facility]. [facility].Ted Registered Mary Bales 11/22/16 8:26am [facility] 11/21/16 7:51am 11/21/16 8:51am [facility] B[facility] 09/25/16 1:03pm 09/25/16 1:15pm [facility] Mary Bales 09/19/16 10:15am BROOKYOLY [facility] LORELEI Registered [place] 09/19/16 10:15am YOLY PAINTER [facility] LORELEI Registered Mary Bales 07/25/16 8:21am [facility] Bales 07/05/16 1:20pm 07/05/16 1:59pm [facility] RH[facility]DA [facility] Mary Bales 05/23/16 8:30am 05/23/16 12:53pm [facility] Bales 05/15/16 10:45am YOLY PAINTER [facility] MANDO Registered Mary Bales 05/01/16 2:45pm [facility]. [facility].Ted Registered Mary Bales 04/16/16 9:52am [facility]. Registered Mary Bales 04/12/16 10:30am YOLY PAINTER [facility] MANDOC Registered Mary Bales 03/27/16 11:26am [facility] B[facility] 02/28/16 2:08pm [facility]. [facility].Eliazar. Registered Mary Bales 02/16/16 10:15am Diane NIELSEN [facility] LORELEI Departed Clinic Mary Bales 02/02/16 1:21pm 02/02/16 1:35pm [facility], Mem. Hospital RHONDA Rush M.D. Registered Mary Bales 01/25/16 10:21am LIBRODO, Referred [facility] Registered Mary Bales 01/25/16 9:45am LIBRODO, Clinic [facility]. Hospital RHONDA Rush M.D. Registered Mary Bales 11/27/15 9:20am [facility] Reg[facility] Mary Bales 11/01/15 8:45am Diane NIELSEN [facility]. [facility] Departed Clinic Mary Bales 10/18/15 12:47pm 10/18/15 1:23pm [facility]RODO, Mem. Hospital RHONDA Rush M.D. Registered Mary Bales 10/17/15 9:30am Diane NIELSEN [facility]. [facility] Departed Mary Bales 10/12/15 7:22pm 10/12/15 10:40pm [facility]ON [facility]Z [facility] 10/05/15 7:42am [facility] Bales 09/27/15 2:43pm 09/27/15 3:02pm [facility], Mem[facility] RHONDA Rush M.D. Registered Mary Bales 09/22/15 9:15am [facility] Registered Mary Bales 09/20/15 9:30am YOLY PAINTER [facility] Registered Mary Bales 09/15/15 7:44am LIBRODO, Referred [facility]. Hospital RHONDA Rush M.D. Registered Mary Bales 09/13/15 10:00am BROOK YOLY [facility] Registered Mary Bales 08/10/15 8:17am [facility] B[facility] 07/31/15 11:31am [facility] Mary Bales 07/06/15 7:56am 07/06/15 8:42am BEV KWAN [facility].Ted Registered Mary Bales 05/04/15 11:47am [facility] Registered Mary Bales 02/13/15 10:21am ZIMMERMANAYAZ [facility] Registered Mary Bales 01/19/15 8:33am [facility] Recent Diagnosis
--- OUTSIDE RECORDS SUMMARY | 2017-12-23 11:47 | External Medical Summary | Continuity of Care Document ---
:1945 Author Organization [facility] [employer] Phone Unavailable Care Team Providers Name Role Phone AYAZ BLANCAS M.D. Unavailable Insurance Providers Guarantor Amy Kirk Address [address] [place] [address] Payer s Medicare Policy Number [id number] Subscriber's Name Amy Kirk Relationship 01 Self / Same As Patient Effective Date 10 Payer Master Route Plan 65 Select Policy Number [id number] Subscriber's Name Amy Kirk Relationship 01 Self / Same As Patient Group Number [id number] Effective Date 09 Problems Active Problems Medical Problem Onset Date Status Bronchitis Unknown Acute CAD (coronary artery disease) 01/19/2015 Acute CORON ATHEROSCLER NOS TYPE VESSEL, [employer] [place] OR GRAFT 02/19/2011 Cough Unknown Acute DIAB [...] 02/18/ Bisulfate 11 (Plavix) 75 Mg Tab Doxycycline 100 Mg Oral Twice A Day 20 11/22/ (Monohydrate) Capsule 17 (Doxycycline) 100 Mg Cap Glucose Blood 1 Strips Miscellaneous Four Times 100 dx: E11.9 11/27/ (Truetest Daily Strips 17 Strips) Comfort Insulin 67 Unit Subcutaneously Bedtime 7 Unit PT NEEDS 7 11/27/ Glargine PENS TO GET 17 (Lantus THROUGH 1 Solostar Nf) MONTH 100 Unit/Ml Soln Insulin Lispro 40 Units Subcutaneously Daily 12 Units 06/17/ (Human) 16 (Humalog Kwikpen) 100 Unit/Ml Inj Isosorbide 60 [...] 34 02/18/ Sodium 40 Mg 11 Tab Promethazine/Co 120 Ml Oral Every 4 8 Ounce 11/22/ deine Hours As 17 (Phenergan Needed as W/Codeine) 120 needed for Ml Syrp Cough Simvastatin 40 40 Mg Oral Daily 90 [...] Propionate (Flonase Daily 12/13/11 Discontinued 0.05% Nasal Avilla) 16 Gm Naspr, 2 Avilla Nasal Glucose Blood (Truetest Strips) Comfort, Twice A Day 11/12/13 Discontinued 1 Strips Miscellaneous Glucose Blood (Truetest Strips) Comfort, Twice A Day 11/12/13 Discontinued 1 Strips Miscellaneous Hydrocodone-Acetaminophen (Sloan) 1 Every 4 Hours As Needed 03/13/16 Discontinued Tab Tab, 1 Tab Oral Hydrocodone-Acetaminophen (Sloan) 1 Every 4 Hours As Needed 02/16/16 Discontinued Tab Tab, 1 Tab Oral Hydrocodone-Acetaminophen (Sloan) 1 Every 4 Hours As Needed 01/30/16 Discontinued Tab Tab, 1 Tab Oral Hydrocodone-Acetaminophen (Sloan) 1 Every 4 Hours As Needed 01/09/16 Discontinued Tab Tab, 1 Tab Oral Hydrocodone-Acetaminophen (Sloan) 1 Every 4 Hours As Needed 12/14/15 Discontinued Tab Tab, 1 Tab Oral Hydrocodone-Acetaminophen (Sloan) 1 Every 4 Hours As Needed 09/22/15 [...] discharge instructions. Plan of Care Discharge Date 12/06/16 2:33pm Instructions/Education Provided Instructions from visit on: 11/27/16 Lab results reviewed and a copy given to patient.She will check sugars after meals as well. For this week on Friday and Friday she will check sugars to us after each meal and call them to us on Friday to see we can adjust her Humalog at all. Lantus does remain the same.Followup after April 08 for 30 minutes for annual exam with prior fasting annual lab. Prescriptions See Medication Section Functional Status No functional status results. Allergies, Adverse Reactions, Alerts No known allergies. 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 Reason Number Influenza 05/24/11 Administered 1 [id number] SANOFI Vaccine, Inactivated Influenza 04/30/12 Administered 2 [id number] Sanofi Pasteur Vaccine, Inactivated Influenza 06/01/14 Administered 3 Vaccine, Inactivated Influenza 06/01/15 Administered 4 Vaccine, Inactivated Influenza 05/13/16 Administered 5 Vaccine, Inactivated Zoster Vaccine 02/01/15 Administered 1 Vital Signs Acute Vital Signs Vital Response Date/Time Blood Pressure 148/78 mm Hg 11/21/2016 11:01am Blood Pressure Mean 58 mm Hg 10/13/2015 3:21am Temperature (Fahrenheit) 98.0 degrees F (96.0 - 99.9) 10/12/2015 7:23pm Temperature (Calculated Celsius) 36.52190 degrees C 10/12/2015 7:23pm Temperature Source Oral 10/12/2015 7:23pm Pulse Pulse Rate (adult) 84 bpm (60 - 100) 11/21/2016 11:01am Pulse Rate: ED 72 bpm 10/13/2015 3:21am Respiratory Rate 16 breaths per minute (10 - 20) 10/13/2015 3:21am Height (Feet) 5 ft 10/12/2015 7:23pm Height (Inches) 4 in. 10/12/2015 7:23pm Weight (Pounds) 225 lbs 10/12/2015 7:23pm Ambulatory Vital Signs Vital Response Date/Time Height 5 ft 4 in 11/27/2016 9:55am Weight 220 lbs 11/27/2016 9:55am Blood Pressure, Sitting, Left Arm 125/65 mm Hg 11/27/2016 9:55am Body Surface Area 2.17 m2 11/27/2016 9:55am Body Mass Index 37.8 kg/m2 11/27/2016 9:55am Pulse Oximetry Pulse Oximetry 11/27/2016 9:55am Results Laboratory Results Test Name Result Units [...] RESULT BY 1.210 IF THE PATIENT IS -[place]
Filtration Rate 7:25pm 8:10pm Units are mL/min/1.73 [...] 03/27/2016 03/28/2016 Performed at: DA - [facility]
Granulocyte (auto 8:15am 6:20am [address] [address], [place], [place] [phone]
Client Experience Consultant: MUMTAZ Remy MD, Phone: [phone]
Urine Microalbumin 16.7 ug/mL Not Estab. 03/27/2016 03/28/2016 Performed at: DA - [facility]
8:15am 9:11am [address] [address], [place], [place] [phone]&# 13;
Client Experience Consultant: MUMTAZ Remy MD, Phone: [phone]
Urine Specific 1.019 1.005-1.03 03/27/2016 03/28/2016 [place] 0 8:15am 7:20am Urine pH 5.5 5.0-7.5 [...] % H 4.8-5.6 11/22/2016 11/23/2016 [facility]
8:07am 11:06am [address] [place] [phone]&# 13;
Client Experience Consultant: MUMTAZ Remy MD, Phone: [phone]
Free Thyroxine 1.06 ng/dL 0.82-1.77 11/22/2016 11/23/2016 (T4) Calculated 8:07am 7:11am Thyroid 3.820 uIU/mL 0.450-4.50 11/22/2016 11/23/2016 Performed at: [facility]
Stimulating 0 8:07am 7:11am [address] [place] [address], [place], [place] [phone]
Hormone (TSH) Client Experience Consultant: MUMTAZ Remy MD, Phone: [phone]
Glucose Level 135 mg/dL H 65-99 11/22/2016 [...] 13 IU/L 0-32 11/22/2016 11/23/2016 Performed at: [facility]
Aminotransferase 8:07am 6:09am [address] [facility] [place] [facility] [address], [place], [place] [phone]
(ALT/SGPT) Client Experience Consultant: MUMTAZ Remy MD, Phone: [phone] &# 10; EGFR IF NONAFRICN 65 >59 [...] mg/dL 0-99 11/22/2016 11/23/2016 Calculated 8:07am 7:11am Procedures No known history of procedures. Encounters Encounter Location Arrival/Admit Date Discharge/Depart Date Attending Provider Departed Clinic [facility] 12/06/16 1:45pm 12/06/16 2:33pm TOY [facility] RHONDA Rush M.D. Office Visit AYAZ BLANCAS 11/27/16 10:00am AYAZ BLANCAS M.D. Registered Ayaz Blancas 11/27/16 10:00am AYAZ BLANCAS M.D. Office Visit AYAZ BLANCAS 11/22/16 9:45am AYAZ BLANCAS M.D. Registered [facility] 11/22/16 8:26am [facility] Mary Bales 11/21/16 7:51am 11/21/16 8:51am [facility] Mary Bales 09/25/16 1:03pm 09/25/16 1:15pm TOY [facility]. Jaya Rush M.D. Office Visit DERICH 09/19/16 10:15am [facility] LORELEI Registered Marich 09/19/16 10:15am YOLY PAINTER [facility] LORELEI Bales 09/19/16 10:15am YOLY PAINTER [facility] PA-C Office Visit AYAZ BLANCAS 07/30/16 10:30am AYAZ BLANCAS M.D. Registered Mary Bales 07/25/16 8:21am AYAZ BLANCAS [facility] Aristeo Andino Departed Clinic Mary [facility]ales 07/05/16 1:20pm 07/05/16 1:59pm [facility] Dep[facility] Clinic [facility] 05/23/16 8:30am 05/23/16 12:53pm [facility]EV [facility] 05[facility]15/16 10:45am [facility] PAJian Bales 05/15/16 10:45am YOLY PAINTER [facility] Registered Mary Bales 05/01/16 2:45pm LIBRODO, [facility]. Hospital RHONDA Rush M.D. Registered Mary [facility]ales 04/16/16 9:52am [facility] 04/12/16 10:30am [facility] Registered Mary Bales 04/12/16 10:30am YOLY PAINTER [facility] Office Visit AYAZ BLANCAS 04/01/16 9:30am AYAZ BLANCAS M.D. Registered [facility] 03/27/16 11:26am [facility] 02/28/16 2:08pm LIBRODO, [facility]. Hospital RHONDA Rush M.D. Office [facility] 02/16/16 10:15am Diane NIELSEN [facility] LORELEI Bales 02/16/16 10:15am Diane NIELSEN [facility]. [facility] LORELEI Departed Clinic Mary Bales 02/02/16 1:21pm 02/02/16 1:35pm LIBRODO, [facility]. Hospital RHONDA Bales 01/25/16 10:21am LIBRODO, [facility] Hospital RHONDA Rush M.D. [facility] 01/25/16 9:45am TOY [facility] RHONDA Bales 01/25/16 9:45am LIBRODO, Clinic [facility]. [facility] Office Visit AYAZ BLANCAS 12/01/15 10:00am AYAZ BLANCAS M.D. 11/27/15 9:20am [facility] 11/01/15 8:45am Diane NIELSEN [facility] LORELEI Registered Mary Bales 11/01/15 8:45am Diane NIELSEN [facility]. [facility] LORELEI Departed Clinic Mary [facility] 10/18/15 12:47pm 10/18/15 1:23pm TOY [facility]. [facility] RHONDA Rush M.D. Office Visit [facility] 10/17/15 9:30am Diane [facility] Registered Mary [facility] 10/17/15 9:30am Diane NIELSEN [facility]. [facility] LORELEI Departed Mary Bales 10/12/15 7:22pm 10/12/15 10:40pm EVERTON GAMEZ [facility] Registered [facility] 10/05/15 7:42am [facility] Mary Bales 09/27/15 2:43pm 09/27/15 3:02pm [facility] Registered Mary [facility] 09/22/15 9:15am AYAZ BLANCAS [facility] Thu Office Visit [facility] 09/20/15 9:30am [facility] Registered [facility] 09/20/15 9:30am YOLY PAINTER [facility] Registered Mary Bales 09/15/15 7:44am TOY [facility] RHONDA Rush M.D. Office Visit [facility] 09/13/15 10:00am [facility] Registered Mary [facility] 09/13/15 10:00am YOLY PAINTER [facility] Office Visit AYAZ BLANCAS 08/16/15 9:00am AYAZ BLANCAS M.D. 08/10/15 8:17am [facility] AYAZ BLANCAS 08/10/15 8:05am AYAZ BLANCAS M.D. 07/31/15 11:31am AYAZ BLANCAS [facility] M. M.D. Office Visit AYAZ Adri DOMO 07/17/15 10:15am AYAZ BLANCAS M.D. Departed Clinic [facility] 07/06/15 7:56am 07/06/15 8:42am BEV KWAN [facility] M.D. Office Visit AYAZ Rush DOMO 06/13/15 10:45am DOMOAYAZ COULTER M.D. Office Visit AYAZ Rush DOMO 05/09/15 10:30am AYAZ BLANCAS M.D. Registered [facility] 05/04/15 11:47am DOMOAYAZ [facility]. M.D. Registered Mary [facility] 02/13/15 10:21am AYAZ BLANCAS [facility]. M.D. Office Visit AYAZ Rush DOMO 02/13/15 10:00am AYAZ BLANCAS M.D. Office Visit AYAZ Rush DOMO 01/24/15 10:00am AYAZ BLANCAS M.D. Registered [facility] 01/19/15 8:33am AYAZ BLANCAS [facility]. M.D. Departed Clinic Mary [facility] 12/29/14 10:44am 12/29/14 12:02pm BEV KWAN [facility].D. Registered Mary Bales 11/30/14 7:56am AYAZ BLANCAS [facility]. M.D. Office Visit AYAZ Rush DOMO 11/21/14 11:30am AYZA BLANCAS M.D. Office Visit AYAZ Rush DOMO 10/18/14 9:30am AYAZ BLANCAS M.D. Registered [facility] 10/13/14 8:54am DOMOAYAZ [facility]. M.D. Departed Mary Bales 07/17/14 7:26pm 07/17/14 9:26pm LICONA, Emergency Room [facility].D. Office Visit AYAZ Rush DOMO 07/12/14 10:00am AYAZ BLANCAS M.D. Departed Clinic [facility] 07/07/14 8:03am 07/07/14 9:09am BEV KWAN [facility] Thu Office Visit AYAZ BALNCAS 03/17/14 10:30am AYAZ BLANCAS M.D.
--- OUTSIDE RECORDS SUMMARY | 2017-12-23 11:47 | External Medical Summary | Continuity of Care Document ---
:1945 Author Organization [facility] Phone Unavailable Support Name Relationship Address Phone FAUSTO MACIEL M.D. 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 Unavailable [address] [place] [address] ALEXIS MADRID Unavailable [address] [place] [address] Care Team Providers Name Role Phone AYAZ BLANCAS M.D. Primary Care Physician Insurance Providers Guarantor Amy Quintanilla Address [address] [place] [address] Payer s Medicare Policy Number [id number] Subscriber's Name Amy Quintanilla Relationship 01 Self / Same As Patient Effective Date 10 Payer Blue Cross Plan 65 [facility] Policy Number [id number] Subscriber's Name Amy Quintanilla Relationship 01 Self / Same As Patient Group Number [id number] Effective Date 09 Advance Directives Directive Response Recorded Date/Time Patient Resuscitation Status Full Code 08/21/17 12:01pm Problems Medical Problem Onset Date Status CAD (coronary artery disease) 01/19/2015 Acute CORON ATHEROSCLER NOS TYPE VESSEL, [place] OR GRAFT 02/19/2011 Cough Unknown Acute DIAB [...] 11 Tab Aspirin 1 Tab Oral Daily (Aspirin 81) 81 Mg Tab Cetirizine Hcl 10 Mg Oral Daily 30 12/17/ 10 Mg Tab Tablet 17 Clopidogrel 75 Mg Oral Daily 30 02/18/ Bisulfate 11 (Plavix) 75 Mg Tab Fluticasone 2 Puffs Nasal Bedtime 1 12/17/ Propionate Unit(S) 17 (Nasal) (Eql Fluticasone Propionat) 50 Mcg/Act Spr Insulin 67 Unit Subcutaneously Bedtime 7 Unit [...] 01/04/ Potassium 14 (Cozaar) 50 Mg Tab Metoprolol 25 Mg Oral Twice A Day 180 04/24/ Tartrate 25 Mg Tablet 17 Tab Pantoprazole 40 Mg Oral Daily 34 [...] Propionate (Flonase Daily 12/13/11 Discontinued 0.05% Nasal Montgomery) 16 Gm Naspr, 2 [place] Nasal Furosemide 20 Mg Tab, 20 Mg Oral Daily 05/23/17 Discontinued Glucose Blood (Truetest Strips) Comfort, Twice A Day 11/12/13 Discontinued 1 Strips Miscellaneous Glucose Blood (Truetest Strips) Comfort, Twice A Day 11/12/13 Discontinued 1 Strips Miscellaneous Hydrocodone-Acetaminophen (Sutter) 1 Every 4 Hours As Needed 03/13/16 Discontinued Tab Tab, 1 Tab Oral Hydrocodone-Acetaminophen (Sutter) 1 Every 4 Hours As Needed 02/16/16 Discontinued Tab Tab, 1 Tab Oral Hydrocodone-Acetaminophen (Sutter) 1 Every 4 Hours As Needed 01/30/16 Discontinued Tab Tab, 1 Tab Oral Hydrocodone-Acetaminophen (Sutter) 1 Every 4 Hours As Needed 01/09/16 Discontinued Tab Tab, 1 Tab Oral Hydrocodone-Acetaminophen (Sutter) 1 Every 4 Hours As Needed 12/14/15 Discontinued Tab Tab, 1 Tab Oral Hydrocodone-Acetaminophen (Sutter) 1 Every 4 Hours As Needed 09/22/15 [...] Applicable Not Applicable Smoking Status Former smoker 08/21/2017 12:02pm Not Applicable Not Applicable Smoking Status Start Date Stop Date Former smoker Hospital Discharge Instructions No hospital discharge instruction information available. Plan of Care Discharge Date 08/22/17 10:28am Prescriptions See Medication Section Functional Status No functional status information available. Allergies, Adverse Reactions, Alerts No known allergies. 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Technical Project Manager Reason Number Influenza 05/24/11 Administered 1 [id number] SANOFI Vaccine, Inactivated Influenza 04/30/12 Administered 2 [id number] Sanofi Pasteur Vaccine, Inactivated Influenza 06/01/14 Administered 3 Vaccine, Inactivated Influenza 06/01/15 Administered 4 Vaccine, Inactivated Influenza 05/13/16 Administered 5 Vaccine, Inactivated Influenza 05/28/17 Administered 6 Vaccine, Inactivated Influenza 06/12/17 Administered 7 Vaccine, Inactivated Zoster Vaccine 02/01/15 Administered 1 Vital Signs Acute Vital Signs Vital Response Date/Time Blood Pressure 142/74 mm Hg 03/27/2017 12:31pm Blood Pressure Mean 66 mm Hg 08/22/2017 9:55am Blood Pressure Mean 96 mm Hg 03/27/2017 12:31pm Temperature (Fahrenheit) 97.7 degrees F (96.0 - 99.9) 03/27/2017 9:06am Temperature (Calculated Celsius) 36.68781 degrees C 03/27/2017 9:06am Temperature Source Oral 03/27/2017 9:06am Temp 97.5 degrees F (96.0 - 99.9) 08/22/2017 9:19am Temperature (Calculated Celsius) 36.47733 degrees C 08/22/2017 9:19am Pulse Pulse Rate (adult) 80 bpm (60 - 100) 03/27/2017 9:10am Pulse Rate (adult) 60 bpm (60 - 100) 08/22/2017 9:55am Pulse Rate: ED 59 bpm 03/27/2017 12:31pm Respiratory Rate 16 breaths per minute (10 - 20) 03/27/2017 12:31pm Respiratory Rate 14 bpm (10 - 20) 08/22/2017 9:55am Height (Feet) 5 ft 03/27/2017 9:06am Height (Inches) 4.0 in. 03/27/2017 9:06am Weight (Pounds) 207.0 lbs 03/27/2017 9:06am Ambulatory Vital Signs Vital Response Date/Time Height 5 ft 4 in 08/06/2017 2:34pm Weight 184 lbs 08/06/2017 2:34pm Temperature, Oral 97.6 degrees F 08/06/2017 2:34pm Blood Pressure, Sitting, Left Arm 108/70 mm Hg 08/06/2017 2:34pm Pulse Rate 74 bpm 08/06/2017 2:34pm Respiration Rate 16 bpm 08/06/2017 2:34pm Body Surface Area 1.97 m2 08/06/2017 2:34pm Body Mass Index 31.6 kg/m2 08/06/2017 2:34pm Pulse Oximetry Pulse Oximetry 08/06/2017 2:34pm Results Laboratory Results Test Name Result Units Flags Reference Collection Result Comments Date/Time Date/Time Troponin I 0.02 ng/mL 0.0-0.02 10/12/2015 10/12/2015 7:25pm 8:10pm Lipase 29 U/L 8-57 10/12/2015 10/12/2015 7:25pm 8:10pm Urine Color YELLOW 01/22/2017 01/22/2017 2:47pm 3:10pm Urine Appearance SL CLOUDY 01/22/2017 01/22/2017 2:47pm 3:10pm Urine Glucose NEGATIVE NEGATIVE 01/22/2017 01/22/2017 (UA) 2:47pm 3:10pm Urine Bilirubin NEGATIVE NEGATIVE 01/22/2017 01/22/2017 2:47pm 3:10pm Urine Ketones TRACE NEGATIVE 01/22/2017 01/22/2017 2:47pm 3:10pm Urine Specific >=1.030 1.005-1.03 01/22/2017 01/22/2017 [place] 0 2:47pm 3:10pm Urine Occult 1+ H [...] microscopic examination. Comments 8:00am 6:12pm Performed at: [facility] [address] [id number] Manager Regulatory: MUMTAZ Remy MD, Phone: [phone] Urine 93.1 ug/mL Not Estab. 04/09/2017 04/10/2017 Performed at: [facility] [place] Microalbumin 8:00am 10:10am [address] [place] [id number] Manager Regulatory: MUMTAZ Remy MD, Phone: [phone] Globulin 3.0 g/dL 1.5-4.5 04/09/2017 04/10/2017 8:00am 8:19am Albumin/Globulin 1.3 1.2-2.2 04/09/2017 04/10/2017 Ratio 8:00am 8:19am Total 177 mg/dL 100-199 04/09/2017 04/10/2017 Cholesterol 8:00am 8:19am Triglycerides 107 mg/dL 0-149 04/09/2017 04/10/2017 Level 8:00am 8:19am HDL Cholesterol 60 mg/dL >39 04/09/2017 04/10/2017 8:00am 8:19am VLDL 21 mg/dL 5-40 04/09/2017 04/10/2017 Cholesterol, 8:00am 8:19am Calculated LDL Cholesterol, 96 mg/dL 0-99 04/09/2017 04/10/2017 Performed at: [facility] - [facility] [place] Calculated 8:00am 8:19am [address] [facility] [address], [place], [place] [id number] Manager Regulatory: MUMTAZ Remy MD, Phone: [phone] White Blood 12.0 K/uL H 5.0-10.0 05/23/2017 05/23/2017 Count 2:09pm 2:23pm Red Blood Count 3.73 M/uL L 4.20-5.40 05/23/2017 05/23/2017 2:09pm 2:23pm Mean Corpuscular 95.2 fL 82.0-100.0 05/23/2017 05/23/2017 Volume 2:09pm 2:23pm Mean Corpuscular 31.6 pg 26.0-33.0 05/23/2017 05/23/2017 Hemoglobin 2:09pm 2:23pm Mean Corpuscular 33.2 g/dL 31.0-36.0 05/23/2017 05/23/2017 Hemoglobin 2:09pm 2:23pm Concent Red Cell 14.6 % H 11.5-14.5 05/23/2017 05/23/2017 Distribution 2:09pm 2:23pm Width RDW Standard 50.7 fL H 36.4-46.3 05/23/2017 05/23/2017 Deviation 2:09pm 2:23pm Platelet Count 261 K/uL 130-400 05/23/2017 05/23/2017 2:09pm 2:23pm Mean Platelet 10.4 fL 7.0-11.0 05/23/2017 05/23/2017 Volume 2:09pm 2:23pm Neutrophils (%) 61.9 % 42.0-75.0 05/23/2017 05/23/2017 (Auto) 2:09pm 2:23pm Lymphocytes (%) 29.7 % 16.0-44.0 05/23/2017 05/23/2017 (Auto) 2:09pm 2:23pm Monocytes (%) 5.6 % 2.0-9.0 05/23/2017 05/23/2017 (Auto) 2:09pm 2:23pm Eosinophils (%) 1.7 % 0-7.0 05/23/2017 05/23/2017 (Auto) 2:09pm 2:23pm Basophils (%) 0.3 % 0-1 05/23/2017 05/23/2017 (Auto) 2:09pm 2:23pm Immature 0.8 % H 0-0.5 05/23/2017 05/23/2017 Granulocyte % 2:09pm 2:23pm (Auto) Nucleated Red 0.0 /100WB 0-0 05/23/2017 05/23/2017 Blood Cells % C 2:09pm 2:23pm Neutrophils # 7.4 K/uL 1.9-8.0 05/23/2017 05/23/2017 (Auto) 2:09pm 2:23pm Lymphocytes # 3.6 K/uL 0.9-5.2 05/23/2017 05/23/2017 (Auto) 2:09pm 2:23pm Monocytes # 0.7 K/uL 0.16-1.0 05/23/2017 05/23/2017 (Auto) 2:09pm 2:23pm Eosinophils # 0.2 K/uL 0-0.8 05/23/2017 05/23/2017 (Auto) 2:09pm 2:23pm Basophils # 0.0 K/uL 0-0.2 05/23/2017 05/23/2017 (Auto) 2:09pm 2:23pm Immature 0.09 K/uL 0-0.40 05/23/2017 05/23/2017 Granulocyte # 2:09pm 2:23pm (Auto) Nucleated Red 0.00 K/uL 0.0-0.012 05/23/2017 05/23/2017 Blood Cells # 2:09pm 2:23pm Random Glucose 121 mg/dL H 65-115 05/23/2017 05/23/2017 2:09pm 2:55pm Blood Urea 25 mg/dL 8-25 05/23/2017 05/23/2017 Nitrogen 2:09pm 2:55pm Creatinine 0.81 mg/dL L 0.9-1.6 05/23/2017 05/23/2017 2:09pm 2:55pm Glomerular 69.70 mL/min 05/23/2017 05/23/2017 MULTIPLY RESULT BY 1.210 IF THE PATIENT IS -[place]IZ[place] Filtration Rate 2:09pm 2:55pm Units are mL/min/1.73 m2 Calc > 60 Normal kidney function 30-59 Moderately decreased kidney function 15-29 Severely decreased kidney function <15 End-stage kidney failure BUN/Creatinine 30.9 05/23/2017 05/23/2017 Ratio 2:09pm 2:55pm Sodium Level 136 mEq/L 133-145 05/23/2017 05/23/2017 2:09pm 2:55pm Potassium Level 3.7 mEq/L 3.5-5.1 05/23/2017 05/23/2017 2:09pm 2:55pm Chloride Level 104 mEq/L 98-116 05/23/2017 05/23/2017 2:09pm 2:55pm Carbon Dioxide 25 mEq/L 22-34 05/23/2017 05/23/2017 Level 2:09pm 2:55pm Anion Gap 10.7 6-13 05/23/2017 05/23/2017 2:09pm 2:55pm Calcium Level 9.1 mg/dL 8.2-10.6 05/23/2017 05/23/2017 2:09pm 2:55pm Total Protein 7.0 gm/dL 6.0-8.4 05/23/2017 05/23/2017 2:09pm 2:55pm Albumin 3.9 gm/dL 3.2-5.0 05/23/2017 05/23/2017 2:09pm 2:55pm Globulin 3.1 gm/dL H 2.0-3.0 05/23/2017 05/23/2017 2:09pm 2:55pm Albumin/Globulin 1.3 L 1.4-2.4 05/23/2017 05/23/2017 Ratio 2:09pm 2:55pm Total Bilirubin 0.8 mg/dL 0.1-1.3 05/23/2017 05/23/2017 2:09pm 2:55pm Alkaline 112 U/L 35-125 05/23/2017 05/23/2017 Phosphatase 2:09pm 2:55pm Aspartate Amino 20 U/L 5-40 05/23/2017 05/23/2017 Transf 2:09pm 2:55pm (AST/SGOT) Alanine 15 U/L 5-40 05/23/2017 05/23/2017 Aminotransferase 2:09pm 2:55pm (ALT/SGPT) Free Thyroxine 1.16 ng/dL 0.58-1.64 05/23/2017 05/23/2017 2:09pm 4:20pm Thyroxine (T4) 9.4 ug/dl 4.7-11.5 05/23/2017 05/23/2017 2:09pm 4:20pm B-Type 630 pg/mL H 15-100 05/23/2017 05/23/2017 Natriuretic 2:09pm 3:14pm Peptide Lipase 15 U/L 14-85 07/25/2017 07/26/2017 Performed at: - [facility] [place] 2:55pm 5:10pm [address] [place] [id number] Manager Regulatory: MUMTAZ Remy MD, Phone: [phone] Hemoglobin A1c 5.9 % H 4.8-5.6 07/25/2017 [...] 37 mm/hr 0-40 07/25/2017 07/26/2017 Performed at: [facility] [place] Rate, [place] 2:55pm 9:00am [address] [place] [id number] Manager Regulatory: MUMTAZ Remy MD, Phone: [phone] C-Reactive 6.5 mg/L H 0.0-4.9 07/25/2017 07/27/2017 Performed at: [facility] Richard Protein, 2:55pm 2:08pm [address] [place] [address] [id number] Quantitative Manager Regulatory: MUMTAZ Remy MD, Phone: [phone] B-Type 493.5 pg/mL H 0.0-100.0 07/25/2017 07/26/2017 Performed at: [facility] Richard Natriuretic 2:55pm 1:50pm [address] [place] [address] [id number] Peptide Manager Regulatory: MUMTAZ Remy MD, Phone: [phone] Glucose Level 65 mg/dL 65-99 07/25/2017 07/26/2017 [...] mL/min/1.73 Urine Specific 1.025 1.005-1.03 07/25/2017 07/26/2017 [place] 0 2:55pm 9:00am Urine pH 5.0 5.0-7.5 [...] 07/28/2017 REFLEX Performed at: DA - [facility] [place] 2:55pm 1:38pm [address] [facility] [address], [place], [place] [id number] Manager Regulatory: MUMTAZ Remy MD, Phone: [phone] This specimen has reflexed to a Urine Culture. --- 07/28/17 1338 --- URINALYSIS REFL previously reported as: This specimen has reflexed to a Urine Culture. Performed at: [place] [address], [place], [place] [id number] Manager Regulatory: MUMTAZ Remy MD, Phone: [phone] Urine Culture Final . 07/25/2017 07/28/2017 Reflexed report 2:55pm 1:38pm Urine Culture Mixed urogenital jarrett . 07/25/2017 07/28/2017 Result 1 10,000-25,000 colony forming units per mL 2:55pm 1:38pm Performed at: [address] [id number] Manager Regulatory: MUMTAZ Remy MD, Phone: [phone] Hemoglobin 11.8 g/dL L 12.0-16.0 08/22/2017 08/22/2017 9:50am 9:58am Hematocrit 36.1 % L 38.0-47.0 08/22/2017 08/22/2017 9:50am 9:58am Bedside Glucose 152 mg/dL H 70-120 08/22/2017 08/22/2017 0 7:51am 7:54am Procedures Procedure Status Date Provider(s) INJECT SPINE [...] Completed 03/24/17 RHONDA YEAGER M.D. IMAGING GUIDANCE Esophagogastroduodenoscopy with colonoscopy Completed 08/22/17 FAUSTO MACIEL M.D. Encounters Encounter Location Arrival/Admit Date Discharge/Depart Date Attending Provider Departed [facility] 08/22/17 7:36am 08/22/17 10:28am [facility] Fausto Maciel 08/06/17 1:45pm FAUSTO MACIEL Thu Registered Ayaz Blancas 08/06/17 11:00am [facility] 08/05/17 1:31pm AYAZ BLANCAS Referred [facility]. [facility]. Registered [facility] 07/31/17 9:00am AYAZ BLANCAS [facility]. [facility]. Registered [facility] 07/25/17 3:45pm [facility]. Registered [facility] 06/02/17 11:09am DOMOAYAZ COULTER [facility]. [facility]. Registered [facility] 05/23/17 1:46pm AYAZ BLANCAS Referred [facility]. [facility]. Registered [facility] 04/24/17 9:49am AYAZ BLANCAS [facility]. Registered [facility] 04/17/17 6:57am BEV KWAN Referred [facility]. [facility] Registered [facility] 04/09/17 8:14am AYAZ BLANCAS [facility]. [facility]. Departed [facility] 03/27/17 9:05am 03/27/17 12:31pm SELINA EBLLE Emergency Room [facility] Alex Andino Departed Clinic [facility] 03/24/17 2:05pm 03/24/17 2:42pm LIBROGO, [facility]. Hospital RHONDA Rush M.D. Departed [facility] 01/22/17 1:25pm 01/22/17 3:55pm SELINA BELLE Emergency Room [facility]. [facility] Alex Andino Registered Ronit Posada 12/17/16 9:18am RONIT POSADA M.D. Departed Clinic [facility] 12/06/16 1:45pm 12/06/16 2:33pm TOY [facility]. [facility] RHONDA Rush M.D. Registered [facility] 11/22/16 8:26am DOMOAYAZ COULTER [facility] Aristeo Andino Departed Clinic [facility] 11/21/16 7:51am 11/21/16 8:51am BEV KWAN [facility] Thu Departed Clinic [facility] 09/25/16 1:03pm 09/25/16 1:15pm TOY [facility]. Hospital RHONDA Rush M.D. Registered [facility] 09/19/16 10:15am YOLY PAINTER [facility] MANDODiane Registered Danika 09/19/16 10:15am YOLY PAINTER [facility] LORELEI Registered [facility] 07/25/16 8:21am [facility] Aristeo Andino Departed Clinic [facility] 07/05/16 1:20pm 07/05/16 1:59pm SHAKIRAO [facility]. Hospital RHONDA Rush M.D. Departed Clinic [facility] 05/23/16 8:30am 05/23/16 12:53pm BEV KWAN [facility] 05/15/16 10:45am YOLY PAINTER [facility] Registered [facility] 05/01/16 2:45pm LIBROGO, [facility]. [facility] RHONDA Rush M.D. Registered [facility] 04/16/16 9:52am AYAZ BLANCAS [facility]erred [facility] Registered [facility] 04/12/16 10:30am YOLY PAINTER [facility] Registered [facility] 03/27/16 11:26am DOMOAYAZ [facility] Aristeo Andino Registered [facility] 02/28/16 2:08pm LIBRODO, [facility]. [facility] Thu Registered [facility] 02/16/16 10:15am Diane NIELSEN [facility]. [facility] Departed Clinic [facility] 02/02/16 1:21pm 02/02/16 1:35pm LIBRODO, [facility]. [facility] 01/25/16 10:21am LIBROGO, Referred [facility]. [facility] RHONDA Thu Registered [facility] 01/25/16 9:45am LIBROD, [facility]. [facility] Reg[facility] 11/27/15 9:20am [facility] Registered [facility] 11/01/15 8:45am Diane NIELSEN [facility]. [facility] Departed Clinic [facility] 10/18/15 12:47pm 10/18/15 1:23pm SHAKIRAO, [facility]. [facility] Registered [facility] 10/17/15 9:30am Diane NIELSEN [facility] Departed [facility] 10/12/15 7:22pm 10/12/15 10:40pm EVERTON GAMEZ [facility] 10/05/15 7:42am [facility]EV [facility] 09/27/15 2:43pm 09/27/15 3:02pm SHAKIRAO, [facility]. [facility] Thu Registered [facility] 09/22/15 9:15am [place]. .Ted Registered [facility] 09/20/15 9:30am ANTRIM [facility]. [facility] Registered [facility] 09/15/15 7:44am LIBRODO [facility] 09/13/15 10:00am ANTRIM YOLY [facility]. [facility] Registered [facility] 08/10/15 8:17am [place] LEAR [facility].D. Registered [facility] 07/31/15 11:31am WE[facility] VAN LEARAYAZ [facility].Eliazar. Depart Clinic [facility] 07/06/15 7:56am 07/06/15 8:42am BEV KWAN [facility] Registered [facility] 05/04/15 11:47am [facility] V[facility] LEAR [facility]. [facility]. .D. Registered [facility] 02/13/15 10:21am WE[facility] VAN LEARAYAZ [facility].Eliazar. Registered [facility] 01/19/15 8:33am WE[place] LEAR [facility].Eliazar. Departed Clinic [facility] 12/29/14 10:44am 12/29/14 12:02pm BEV KWAN [facility].D. Registered [facility] 11/30/14 7:56am WEST VAN LEARAYAZ [facility].Ted
--- OUTSIDE RECORDS SUMMARY | 2017-12-23 11:48 | External Medical Summary | Continuity of Care Document ---
:1945 Author Organization [facility] Care Team Providers Name Role Phone AYAZ BLANCAS M.D. Unavailable Unavailable Insurance Providers Payer Name Policy Number Subscriber Name Relationship Wps Medicare [id number] Amy Kirk Self / Same As Patient Blue Cross Plan 65 [id number] Amy Kirk Self / Same As Patient Problems Active Problems Medical Problem Onset Date Status Bronchitis Unknown Acute CAD (coronary artery disease) 01/19/2015 Acute CORON ATHEROSCLER NOS TYPE VESSEL, NUNAKAUYARMIUT OR GRAFT 02/19/2011 Cough Unknown Acute DIAB [...] Sacroiliac dysfunction Unknown Acute Sinusitis Unknown Acute Type II [...] 250.00 4 Losartan 1 Tab Oral Daily Potassium 50 Mg 4 Insulin Lispro 40 [...] 6 Needed Levothyroxine 1 Tab Oral Daily Sodium 75 Mcg 6 Ondansetron Hcl 4 Mg Oral Every 4 4 Mg Hours As 6 Needed as needed for Nausea And/Or Vomiting Metoclopramide 10 Mg Oral Every 8 Hcl 10 Mg Hours As 6 Needed for Nausea Past Home Medications Medication Directions Ordered Status Aspirin 81 Mg Tab, 81 Mg Oral Daily 05/19/09 Discontinued Olmesartan Medoxomil 20 Mg Tab, 20 Daily 05/19/09 Discontinued Mg Oral Insulin Glargine 100 Mg/Ml Inj, 55 Bedtime 09/25/09 Discontinued Units Subcutaneously Levothyroxine Sodium 75 Mcg [...] 16 Gm Naspr, Daily 12/13/11 Discontinued 2 Revillo Nasal Insulin Glargine 100 Unit/Ml Inj, 65 [...] discharge instructions. Plan of Care Discharge Date 10/18/15 1:23pm Prescriptions See Medication Section Functional Status No [...] - 99.9) 10/12/2015 7:23pm Temperature (Calculated Celsius) 36.30585 degrees C 10/12/2015 7:23pm Temperature Source Oral [...] Response Date/Time Height 5 ft 4 in 10/17/2015 9:41am Weight 225 lbs 10/17/2015 9:41am Body Surface Area 2.20 m2 10/17/2015 9:41am Body Mass Index 38.6 kg/m2 10/17/2015 9:41am Pulse Oximetry Pulse Oximetry 10/17/2015 9:41am Results Pending Laboratory Results Test Name Collection [...] INFUSION ADD-ON Completed 10/12/15 EVERTON GAMEZ M.D. Encounters Encounter Location Arrival/Admit Date Discharge/Depart Date Attending Provider Departed Clinic [facility] 10/18/15 12:47pm 10/18/15 1:23pm TOY [facility] RHONDA Rush M.D. Office Visit PRRICH 10/17/15 9:30am Diane NIELSEN PA-C Registered & 10/17/15 9:30am Diane NIELSEN [facility] SVEN MOSELEY Depart [facility] 10/12/15 7:22pm 10/12/15 10:40pm EVERTON GAMEZ Emergency Room [facility] [place] [place] Jaya Bales 10/05/15 7:42am BEV KWAN [facility] [place] [place] Jaya Andino Departed Clinic [facility] 09/27/15 2:43pm 09/27/15 3:02pm TOY [facility] [place] [place] Jaya Bales 09/22/15 9:15am AYAZ BLANCAS [facility] Jaya Alberts M.D. Office Visit PRRICH 09/20/15 9:30am YOLY PAINTER PA-C 09/20/15 9:30am YOLY PAINTER [facility] LORELEI Registered [facility] 01/22/16 7:44am Ben YEAGER [facility] Thu Office Visit PHI 09/13/15 10:00am YOLY PAINTER ORTHOPAEDICS MANDO-C Registered [facility] 09/13/15 10:00am YOLY PAINTER [facility] Hospital PA-C Office Visit AYAZ BLANCAS 08/16/15 9:00am AYAZ BLANCAS M.D. Registered Ayaz Blancas 08/16/15 9:00am AYAZ BLANCAS M.D. Registered [facility] 08/10/15 8:17am AYAZ BLANCAS [facility]. [place] Office Visit AYAZ BLANCAS 08/10/15 8:05am AYAZ BLANCAS M.D. Registered [facility] 07/31/15 11:31am AYAZ BLANCAS [facility]. M.D. Office Visit AYAZ BLANCAS 07/17/15 10:15am AYAZ BLANCAS M.D. Departed Clinic [facility] 07/06/15 7:56am 07/06/15 8:42am BEV KWAN [facility] [place] [place] Hospital M.D. Office Visit AYAZ BLANCAS 06/13/15 10:45am AYAZ BLANCAS M.D. Office Visit AYAZ BLANCAS 05/09/15 10:30am AYAZ BLANCAS M.D. Registered [facility] 05/04/15 11:47am AYAZ BLANCAS [facility] Hospital M. [place] Registered [facility] 02/13/15 10:21am AYAZ BLANCAS [facility] M. M.D. Office Visit AYAZ BLANCAS 02/13/15 10:00am AYAZ BLANCAS M.D. Office Visit AYAZ BLANCAS 01/24/15 10:00am AYAZ BLANCAS M.D. Registered [facility] 01/19/15 8:33am AYAZ BLANCAS [facility] M. M.Ted Departed Clinic [facility] 12/29/14 10:44am 12/29/14 12:02pm BEV KWAN [facility] [place] [place] Hospital M.D. Registered [facility] 11/30/14 7:56am AYAZ BLANCAS [facility] M. M.D. Office Visit AYAZ Adri DOMO 11/21/14 11:30am AYAZ BLANCAS M.D. Office Visit AYAZ Adri DOMO 10/18/14 9:30am AYAZ BLANCAS M.D. Registered [facility] 10/13/14 8:54am AYAZ BLANCAS [facility]. M.D. Departed [facility] 07/17/14 7:26pm 07/17/14 9:26pm LICONA, Emergency Room [facility].Ted Office Visit AYAZ BLANCAS 07/12/14 10:00am AYAZ BLANCAS M.D. Departed Clinic [facility] 07/07/14 8:03am 07/07/14 9:09am AQUILES [facility] Hospital M.D. Office Visit AYAZ Adri DOMO 03/17/14 10:30am AYAZ BLANCAS M.D. Departed Clinic [facility] 01/06/14 8:49am 01/06/14 10:09am [facility] M.D. Registered [facility] 11/30/13 2:08pm AYAZ BLANCAS [facility]. [place] Office Visit AYAZ Adri DOMO 11/17/13 10:00am AYAZ BLANCAS M.D. Office Visit AYAZ BLANCAS 07/15/13 10:30am AYAZ BLANCAS M.D. Departed Clinic [facility] 07/08/13 9:01am 07/08/13 10:01am [facility] M.D. Registered [facility] 06/03/13 10:10am AYAZ BLANCAS [facility]. [place] Office Visit AYAZ Adri DOMO 05/21/13 1:50pm AYAZ BLANCAS M.D. Office Visit AYAZ BLANCAS 04/29/13 2:00pm AYAZ BLANCAS M.D. Office Visit AYAZ BLANCAS 04/13/13 11:00am AYAZ BLANCAS M.D. Departed Clinic [facility] 02/04/13 7:55am 02/04/13 10:50am BEV KWAN [facility] Thu
--- OUTSIDE RECORDS SUMMARY | 2017-12-23 11:48 | External Medical Summary | Continuity of Care Document ---
:1945 Author Organization [facility] Phone Unavailable Care Team Providers Name Role Phone AYAZ BLANCAS M.D. Primary Care Physician Insurance Providers Guarantor Amy Quintanilla Address [address] [place] [address] Payer s Medicare Policy Number [id number] Subscriber's Name Amy Quintanilla Relationship 01 Self / Same As Patient Effective Date 10 Payer [employer] Plan 65 [facility] Policy Number [id number] Subscriber's Name Amy Quintanilla Relationship 01 Self / Same As Patient Group Number [id number] Effective Date 09 Chief Complaint and Reason for Visit Chief Complaint Medical Problem Minor Reason for Visit Bronchitis Problems Active Problems Medical Problem Onset Date Status CAD (coronary artery disease) 01/19/2015 Acute CORON ATHEROSCLER NOS TYPE VESSEL, CAHUILLA OR GRAFT 02/19/2011 Cough Unknown Acute DIAB [...] Mg Oral Daily 30 02/18/ Besylate 2.5 11 Mg Tab Aspirin 1 Tab Oral Daily 07/17/ (Aspirin 81) 14 81 Mg Tab Benzonatate 200 Mg Oral Three Times 15 Capsule 12/17/ (Tessalon A Day as 17 Perles) 200 Mg needed for Cap Cough Cetirizine Hcl 10 Mg Oral Daily 30 Tablet 12/17/ 10 Mg Tab 17 Clopidogrel 75 Mg Oral [...] Levofloxacin 500 Mg Oral Daily 10 Tablet 01/21/ (Levaquin) 500 17 Mg Tab Levothyroxine 1 Tab Oral Daily 30 Tablet 10/09/ Sodium 17 (Levothroid) 75 Mcg Tab Losartan 1 Tab Oral Daily 30 01/04/ Potassium 14 (Cozaar) 50 Mg Tab Metoprolol 25 Mg Oral Twice A Day 180 Tablet 04/01/ Tartrate 25 Mg 16 Tab Pantoprazole 40 Mg Oral Daily 34 02/18/ Sodium 40 Mg 11 Tab Promethazine/C 120 Ml Oral Every 4 8 Ounce 11/22/ odeine Hours As 17 (Phenergan Needed as W/Codeine) 120 needed for Ml Syrp Cough Promethazine/C 5 Ml Oral Every 6 120 04/25/ odeine Hours As Milliliter 17 (Phenergan Needed W/Codeine) 120 Ml Syrp Simvastatin 40 40 Mg Oral Daily 90 Tablet 07/08/ Mg Tab 16 Past Home Medications Medication Directions [...] Propionate (Flonase Daily 12/13/11 Discontinued 0.05% Nasal Daniel) 16 Gm Naspr, 2 Daniel Nasal Glucose Blood (Truetest Strips) Comfort, Twice A Day 11/12/13 Discontinued 1 Strips Miscellaneous Glucose Blood (Truetest Strips) Comfort, Twice A Day 11/12/13 Discontinued 1 Strips Miscellaneous Hydrocodone-Acetaminophen ([place]) 1 Every 4 Hours As Needed 03/13/16 Discontinued Tab Tab, 1 Tab Oral Hydrocodone-Acetaminophen ([place]) 1 Every 4 Hours As Needed 02/16/16 Discontinued Tab Tab, 1 Tab Oral Hydrocodone-Acetaminophen ([place]) 1 Every 4 Hours As Needed 01/30/16 Discontinued Tab Tab, 1 Tab Oral Hydrocodone-Acetaminophen ([place]) 1 Every 4 Hours As Needed 01/09/16 Discontinued Tab Tab, 1 Tab Oral Hydrocodone-Acetaminophen ([place]) 1 Every 4 Hours As Needed 12/14/15 Discontinued Tab Tab, 1 Tab Oral Hydrocodone-Acetaminophen ([place]) 1 Every 4 Hours As Needed 09/22/15 [...] discharge instructions. Plan of Care Discharge Date 01/22/17 3:55pm Disposition 01 HOME, SELF-CARE Condition at Discharge Stable Instructions/Education Provided Acute Bronchitis (ED) Prescriptions See Medication Section Referrals AYAZ BLANCAS M.D. Address: [address] [place] [phone] Additional Instructions/Education 1. Follow up with your doctor in 2-3 days.&# 13;
2. Take antibiotics as prescribed. Drink plenty of fluids.
3. May also use [id number] cough medication as needed for cough. &# 10; 4. Return to ER if worsening shortness of breath, development of fever, other new concerns.
Functional Status No functional status results. Allergies, Adverse Reactions, Alerts No known allergies. 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 Reason Number Influenza 05/24/11 Administered 1 [id number] SANOFI Vaccine, Inactivated Influenza 04/30/12 Administered 2 [id number] San[employer]i P[employer]ur Vaccine, Inactivated Influenza 06/01/14 Administered 3 Vaccine, Inactivated Influenza 06/01/15 Administered 4 Vaccine, Inactivated Influenza 05/13/16 Administered 5 Vaccine, Inactivated Zoster Vaccine 02/01/15 Administered 1 Vital Signs Acute Vital Signs Vital Response Date/Time Blood Pressure 131/76 mm Hg 01/22/2017 3:55pm Blood Pressure Mean 94 mm Hg 01/22/2017 3:55pm Temperature (Fahrenheit) 97.7 degrees F (96.0 - 99.9) 01/22/2017 1:26pm Temperature (Calculated Celsius) 36.09186 degrees C 01/22/2017 1:26pm Temperature Source Oral 01/22/2017 1:26pm Pulse Pulse Rate (adult) 84 bpm (60 - 100) 11/21/2016 11:01am Pulse Rate: ED 88 bpm 01/22/2017 3:55pm Respiratory Rate 18 breaths per minute (10 - 20) 01/22/2017 3:55pm Height (Feet) 5 ft 01/22/2017 1:26pm Height (Inches) 4.0 in. 01/22/2017 1:26pm Weight (Pounds) 203.0 lbs 01/22/2017 1:26pm Height 5 ft 4 in 01/22/2017 1:26pm Weight 203 lb 01/22/2017 1:26pm Body Mass Index 34.8 kg/m^2 01/22/2017 1:26pm Ambulatory Vital Signs Vital Response Date/Time Height 5 ft 6 in 12/17/2016 9:26am Weight 216 lbs 12/17/2016 9:26am Blood Pressure 120/65 mm Hg 12/17/2016 9:26am Body Surface Area 2.18 m2 12/17/2016 9:26am Body Mass Index 34.9 kg/m2 12/17/2016 9:26am Pulse Oximetry Pulse Oximetry 12/17/2016 9:26am Results Laboratory Results Test Name Result Units [...] 0.0 x10E3/uL 0.0-0.1 03/27/2016 03/28/2016 Performed at: [facility]
Granulocyte (auto 8:15am 6:20am [address] [place] [phone]
Front Desk Person: MUMTAZ Remy MD, Phone: [phone]
Urine Microalbumin 16.7 ug/mL Not Estab. 03/27/2016 03/28/2016 Performed at: [facility]
8:15am 9:11am [address] [place] [phone]&# 13;
Front Desk Person: MUMTAZ Remy MD, Phone: [phone]
Urine Specific 1.019 1.005-1.03 03/27/2016 03/28/2016 [place] 0 8:15am 7:20am Urine pH 5.5 5.0-7.5 [...] % H 4.8-5.6 11/22/2016 11/23/2016 Performed at: [facility]
8:07am 11:06am [address] [address], [place], [place] [phone]&# 13;
Front Desk Person: MUMTAZ Remy MD, Phone: [phone]
Free Thyroxine 1.06 ng/dL 0.82-1.77 11/22/2016 11/23/2016 (T4) Calculated 8:07am 7:11am Thyroid 3.820 uIU/mL 0.450-4.50 11/22/2016 11/23/2016 [facility]formed [facility]
Stimulating 0 8:07am 7:11am [address] [facility] [address], [place], [place] [phone]
Hormone (TSH) Front Desk Person: MUMTAZ Remy MD, Phone: [phone]
Glucose Level 135 mg/dL H 65-99 11/22/2016 11/23/2016 8:07am 6:09am Blood Urea 16 mg/dL 8-11/22/2016 11/23/2016 Nitrogen 8:07am 6:09am Creatinine 0.89 mg/dL 0.57-1.00 11/22/2016 11/23/2016 8:07am 6:09am BUN/Creatinine 18 -11/22/2016 11/23/2016 Effective November 25, 2016 BUN/Creatinine Ratio
[...] 13 IU/L 0-32 11/22/2016 11/23/2016 Performed at: [facility]
Aminotransferase 8:07am 6:09am [address] [address], [place], [place] [phone]
(ALT/SGPT) Front Desk Person: MUMTAZ Remy MD, Phone: [phone] &# 10; EGFR IF NONAFRICN 65 >59 [...] 3:10pm Urine Specific >=1.030 1.005-1.03 01/22/2017 01/22/2017 [place] 0 2:47pm 3:10pm Urine Occult Blood 1+ [...] 01/22/2017 2:47pm 3:08pm Blood Urea 23 mg/dL 8-25 01/22/2017 01/22/2017 Nitrogen 2:47pm 3:08pm Creatinine 1.04 mg/dL 0.9-1.6 01/22/2017 01/22/2017 2:47pm 3:08pm Glomerular 52.24 mL/min 01/22/2017 01/22/2017 MULTIPLY RESULT BY 1.210 IF THE PATIENT IS -SAO TOMEAN
Filtration Rate 2:47pm 3:08pm Units are mL/min/1.73 [...] Completed 12/06/16 RHONDA YEAGER M.D. IMAGING GUIDANCE Encounters Encounter Location Arrival/Admit Date Discharge/Depart Date Attending Provider Departed [facility] 01/22/17 1:25pm 01/22/17 3:55pm SELINA BELLE Emergency Room [facility] Jaya Johnson M.D. Office Visit RONIT POSADA 12/17/16 9:30am RONIT POSADA M.D. Registered Ronit Posada 12/17/16 9:18am RONIT POSADA M.D. Departed Clinic aMry Bales 12/06/16 1:45pm 12/06/16 2:33pm TOY [facility] Jaya Rush M.D. Office Visit AYAZ BLANCAS 11/27/16 10:00am AYAZ BLANCAS M.D. Registered Ayaz Blancas 11/27/16 10:00am AYAZ BLANCAS M.D. Office Visit AYAZ BLANCAS 11/22/16 9:45am AYAZ BLANCAS M.D. Registered [facility] 11/22/16 8:26am [facility] 11/21/16 7:51am 11/21/16 8:51am [facility] 09/25/16 1:03pm 09/25/16 1:15pm [facility] RHONDA Rush M.D. Office Visit PHI 09/19/16 10:15am YOLY PAINTER ORTHOPAEDICS LORELEI Registered Phi 09/19/16 10:15am YOLY PAINTER [facility] LORELEI Registered [facility] 09/19/16 10:15am YOLY PAINTER [facility] LORELEI Office Visit AYAZ BLANCAS 07/30/16 10:30am AYAZ BLANCAS M.D. Registered [facility] 07/25/16 8:21am [facility] 07/05/16 1:20pm 07/05/16 1:59pm LIBROGO [facility] RHONDA Rush M.D. Departed Clinic [facility] 05/23/16 8:30am 05/23/16 12:53pm [facility]EV [facility] 05/15/16 10:45am YOLY PAINTER ORTHOPAEDICS MANDODiane Registered [facility] 05/15/16 10:45am [facility] 05/01/16 2:45pm [facility] 04/16/16 9:52am [facility] 04/12/16 10:30am YOLY PAINTER ORTHOPAEDIC LORELEI Registered [facility] 04/12/16 10:30am YOLY PAINTER [facility] PAC Office Visit AYAZ BLANCAS 04/01/16 9:30am [facility]AZ COU[facility] 03/27/16 11:26am [facility] 02/28/16 2:08pm [facility]DA Rush [facility] 02/16/16 10:15am Diane [facility]EL[facility]EN [facility] LORELEI Bales 02/16/16 10:15am Diane NIELSEN [facility] LORELEI Departed Clinic [facility] 02/02/16 1:21pm 02/02/16 1:35pm LIBROGO [facility] RHONDA Bales 01/25/16 10:21am [facility] Office Visit [facility] 01/25/16 9:45am TOY [facility] RHONDA Rush M.D. Registered [facility] 01/25/16 9:45am LIBRODO, [facility] RHONDA Rush M.D. Office Visit AYAZ BLANCAS 12/01/15 10:00am DOMOAYAZ COULTER M.D. Registered [facility] 11/27/15 9:20am [facility] Visit [facility] 11/01/15 8:45am Diane NIELSEN ORTHOPAEDICS [facility] LORELEI Registered [facility] 11/01/15 8:45am Diane NIELSEN [facility]. [facility] LORELEI Departed Clinic [facility] 10/18/15 12:47pm 10/18/15 1:23pm LIBROGO, [facility] RHONDA Rush M.D. Office Visit [facility] 10/17/15 9:30am Diane NIELSEN [facility] LORELEI Bales 10/17/15 9:30am Diane NIELSEN [facility]. [facility] LORELEI Departed [facility] 10/12/15 7:22pm 10/12/15 10:40pm EVERTON GAMEZ [facility] 10/05/15 7:42am [facility] 09/27/15 2:43pm 09/27/15 3:02pm SHAKIRA, [facility] RHONDA Bales 09/22/15 9:15am DOMOAYAZ COULTER [facility] 09/20/15 9:30am YOLY PAINTER ORTHOPAEDICMatthew Bales 09/20/15 9:30am YOLY PAINTER [facility] LORELEI Bales 09/15/15 7:44am [facility] 09/13/15 10:00am YOLY PAINTER ORTHOPAEDICMatthew Bales 09/13/15 10:00am YOLY PAINTER [facility] PA-C Office Visit AYAZ SANTILLANTON 08/16/15 9:00am AYAZ BLANCAS M.D. Registered [facility] 08/10/15 8:17am AYAZ BLANCAS [facility]. M.D. Office Visit AYAZ Rush DOMO 08/10/15 8:05am AYAZ BLANCAS M.D. Registered [facility] 07/31/15 11:31am AYAZ BLANCAS [facility]. M.D. Office Visit AYAZ Rush DOMO 07/17/15 10:15am AYAZ BLANCAS M.D. Depart Clinic [facility] 07/06/15 7:56am 07/06/15 8:42am AQUILES [facility].D. Office Visit AYAZ Rush DOMO 06/13/15 10:45am AYAZ BLANCAS M.D. Office Visit AYAZ Rush DOMO 05/09/15 10:30am AYAZ BLANCAS M.D. Registered [facility] 05/04/15 11:47am AYAZ BLANCAS [facility]. M.D. Registered [facility] 02/13/15 10:21am AYAZ BLANCAS [facility]. M.D. Office Visit AYAZ Rush DOMO 02/13/15 10:00am AYAZ BLANCAS M.D. Office Visit AYAZ Rush DOMO 01/24/15 10:00am AYAZ BLANCAS M.D. Registered [facility] 01/19/15 8:33am AYAZ BLANCAS [facility]. M.D. Departed Clinic [facility] 12/29/14 10:44am 12/29/14 12:02pm BEV KWAN [facility].D. Registered [facility] 11/30/14 7:56am AYAZ BLANCAS [facility]. M.D. Office Visit AYAZ Rush DOMO 11/21/14 11:30am AYAZ BLANCAS.Eliazar. Office Visit AYAZ Rush DOMO 02/24/15 9:30am AYAZ BLANCAS M.D. Registered [facility] 10/13/14 8:54am AYAZ BLANCAS [facility] Aristeo Andino Departed [facility] 07/17/14 7:26pm 07/17/14 9:26pm MONAE, Emergency Room [facility] Thu Office Visit AYAZ BLANCAS 07/12/14 10:00am AYAZ BLANCAS M.D. Departed Clinic [facility] 07/07/14 8:03am 07/07/14 9:09am BEV KWAN [facility] Recent Diagnosis
--- OUTSIDE RECORDS SUMMARY | 2017-12-23 11:48 | External Medical Summary | Continuity of Care Document ---
:1945 Author Organization [facility] Phone Unavailable Care Team Providers Name Role Phone AYAZ BLANCAS M.D. Primary Care Physician Insurance Providers Guarantor Amy Kirk Address [address] [place] [address] Payer s Medicare Policy Number [id number] Subscriber's Name Amy Kirk Relationship 01 Self / Same As Patient Effective Date 10 Payer [employer] Plan 65 [facility] Policy Number [id number] Subscriber's Name Amy Kirk Relationship 01 Self / Same As Patient Group Number [id number] Effective Date 09 Problems Active Problems Medical Problem Onset Date Status Bronchitis Unknown Acute CAD (coronary artery disease) 01/19/2015 Acute CORON ATHEROSCLER NOS TYPE VESSEL, [place] OR GRAFT 02/19/2011 Cough Unknown Acute DIAB [...] Propionate (Flonase Daily 12/13/11 Discontinued 0.05% Nasal [place]) 16 Gm Naspr, 2 [place] Nasal Glucose Blood (Truetest Strips) Comfort, Twice A Day 11/12/13 Discontinued 1 Strips Miscellaneous Hydrocodone-Acetaminophen ([place]) 1 Every 4 Hours As Needed 03/13/16 Discontinued Tab Tab, 1 Tab Oral Hydrocodone-Acetaminophen ([place]) 1 Every 4 Hours As Needed 02/16/16 Discontinued Tab Tab, 1 Tab Oral Hydrocodone-Acetaminophen ([place]) 1 Every 4 Hours As Needed 01/30/16 Discontinued Tab Tab, 1 Tab Oral Hydrocodone-Acetaminophen ([place]) 1 Every 4 Hours As Needed 01/09/16 Discontinued Tab Tab, 1 Tab Oral Hydrocodone-Acetaminophen ([place]) 1 Every 4 Hours As Needed 12/14/15 Discontinued Tab Tab, 1 Tab Oral Hydrocodone-Acetaminophen ([place]) 1 Every 4 Hours As Needed 09/22/15 [...] discharge instructions. Plan of Care Discharge Date 09/25/16 1:15pm Prescriptions See Medication Section Functional Status No functional status results. Allergies, Adverse Reactions, Alerts No known allergies. 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Cage Shift [employer] Reason Number Influenza 05/24/11 Administered 1 [id number] SANOFI Vaccine, Inactivated Influenza 04/30/12 Administered 2 [id number] Sanofi Pasteur Vaccine, Inactivated Influenza 06/01/14 Administered 3 Vaccine, Inactivated Influenza 06/01/15 Administered 4 Vaccine, Inactivated Influenza 05/13/16 Administered 5 Vaccine, Inactivated Zoster Vaccine 02/01/15 Administered 1 Vital Signs Acute Vital Signs Vital Response Date/Time Blood Pressure 138/78 mm Hg 05/23/2016 12:28pm Blood Pressure Mean 58 mm Hg 10/13/2015 3:21am Temperature (Fahrenheit) 98.0 degrees F (96.0 - 99.9) 10/12/2015 7:23pm Temperature (Calculated Celsius) 36.27603 degrees C 10/12/2015 7:23pm Temperature Source Oral [...] RESULT BY 1.210 IF THE PATIENT IS -[place]
Filtration Rate 7:25pm 8:10pm Units are mL/min/1.73 [...] 03/27/2016 03/28/2016 Performed at: DA - [facility] [place]
Stimulating 0 8:15am 7:20am [address] [phone]
Hormone (TSH) [employer] Administrator: MUMTAZ Remy MD, Phone: [phone]
White Blood Count 7.2 x10E3/uL 3.4-10.8 03/27/2016 [...] x10E3/uL 0.0-0.1 03/27/2016 03/28/2016 [facility]
Granulocyte (auto 8:15am 6:20am [address] [address], [place], [place] [id number]
[employer] Administrator: MUMTAZ Remy MD, Phone: [phone]
Urine Microalbumin 16.7 ug/mL Not Estab. 03/27/2016 03/28/2016 Performed at: - [facility]
8:15am 9:11am [address] [facility] [address], [place], [place] [phone];
[employer] Administrator: MUMTAZ Remy MD, Phone: [phone]
Urine Specific 1.019 1.005-1.03 03/27/2016 03/28/2016 [place] 0 8:15am 7:20am Urine pH 5.5 5.0-7.5 [...] % H 4.8-5.6 07/25/2016 07/27/2016 Performed at: - [facility]
8:10am 3:26am [address] [address], [place], [place] [phone];
[employer] Administrator: MUMTAZ Remy MD, Phone: [phone]
Glucose Level 124 mg/dL H 65-99 07/25/2016 07/26/2016 8:10am 8:12am Blood Urea 19 mg/dL 807/25/2016 07/26/2016 Nitrogen 8:10am 8:12am Creatinine 0.82 mg/dL 0.57-1.00 07/25/2016 07/26/2016 8:10am 8:12am BUN/Creatinine 23 11-07/25/2016 07/26/2016 Ratio 8:10am 8:12am Sodium Level 142 [...] changing to:
96 - 106
Performed at: DA - [facility]
[address] [facility] [address], [place], [place] [id number]
[employer] Administrator: MUMTAZ Remy MD, Phone: [phone]
Carbon Dioxide 24 mmol/L 18-07/25/2016 07/26/2016 Level 8:10am 8:12am Calcium Level 9.1 [...] 75 mg/dL 0-99 07/25/2016 07/26/2016 [facility]
Calculated 8:10am 8:12am [address] [address], [place], [place] [phone]
[employer] Administrator: MUMTAZ Remy MD, Phone: [phone]
Procedures Procedure Status Date Provider(s) THER/PROPH/DIAG IV [...] SPINE LUMBAR/SACRAL Completed 07/05/16 RHONDA YEAGER M.D. Encounters Encounter Location Arrival/Admit Date Discharge/Depart Date Attending Provider Departed Clinic [facility] 09/25/16 1:03pm [facility] 09/19/16 10:15am [facility] 10:15am YOLY PAINTER [facility] Orthopaedics PA-C Office Visit AYAZ BLANACS 07/30/16 10:30am AYAZ BLANCAS M.D. Registered Ayaz Blancas 07/30/16 10:30am AYAZ BLANCAS M.D. Registered [facility] 07/25/16 8:21am [facility] 07/05/16 1:20pm 07/05/16 1:59pm SAHKIRA [facility]. [facility] RHONDA Rush M.D. Departed Clinic [facility] 05/23/16 8:30am 05/23/16 12:53pm [facility]EV [facility] 05/15/16 10:45am [facility] LORELEI Registered [facility] 05/15/16 10:45am YOLY PAINTER [facility]-C Registered [facility] 05/01/16 2:45pm TOY [facility] RHONDA Rush M.D. Registered [facility] 04/16/16 9:52am [facility] 04/12/16 10:30am [facility] MANDO-C Registered [facility] 04/12/16 10:30am YOLY PAINTER [facility] PA-C Office Visit AYAZ BLANCAS 04/01/16 9:30am AYAZ BLANCAS M.D. Registered [facility] 03/27/16 11:26am AYAZ BLANCAS [facility]Ted [facility] 02/28/16 2:08pm LIBRODO, Clinic [facility] 10:15am Diane [facility] SVEN [facility]ales 02/16/16 10:15am Diane NIELSEN [facility]. [facility] SVEN MOSELEY Departed Clinic [facility] 02/02/16 1:21pm 02/02/16 1:35pm LIBRODO, [facility] RHONDA Bales 01/25/16 10:21am LIBRODO, Referred [facility] RHONDA Rush M.D. [facility]/25[facility]16 9:45am TOY [facility] RHONDA Rush M.D. Registered [facility] 01/25/16 9:45am LIBRODO, Clinic [facility] Jaya Rush M.D. Office Visit AYAZ BLANCAS 12/01/15 10:00am AYAZ BLANCAS M.D. 11/27/15 9:20am [facility] 11/01/15 8:45am Diane [facility] SVEN [facility] 11/01/15 8:45am Diane NIELSEN [facility] SVEN MOSELEY Departed Clinic [facility] 10/18/15 12:47pm 10/18/15 1:23pm LIBROGO [facility] RHONDA Rush M.D. Office Visit [facility] 10/17/15 9:30am Diane [facility] SVEN [facility] 10/17/15 9:30am [facility] Departed [facility] 10/12/15 7:22pm 10/12/15 10:40pm [facility] 10/05/15 7:42am BEV KWAN [facility] 09/27/15 2:43pm 09/27/15 3:02pm TOY [facility] M.Ted Registered [facility] 09/22/15 9:15am AYAZ BLANCAS [facility]. M.D. Office Visit [facility] 09/20/15 9:30am [facility] ORTHOPAEDICS PAJian Registered [facility] 09/20/15 9:30am [facility] PA-C Registered [facility] 09/15/15 7:44am TOY [facility].D. Office Visit [facility] 09/13/15 10:00am [facility] LORELEI Registered [facility] 09/13/15 10:00am [facility] PA-C Office Visit AYAZ BLANCAS 08/16/15 9:00am AYAZ BLANCAS M.D. Registered [facility] 08/10/15 8:17am [facility] Office Visit AYAZ BLANCAS 08/10/15 8:05am AYAZ BLANCAS M.D. Registered [facility] 07/31/15 11:31am AYAZ BLANCAS [facility]. M.D. Office Visit AYAZ BLANCAS 07/17/15 10:15am AYAZ BLANCAS M.D. Departed Clinic [facility] 07/06/15 7:56am 07/06/15 8:42am BEV KWAN [facility] M.D. Office Visit AYAZ BLANCAS 06/13/15 10:45am AYAZ BLANCAS M.D. Office Visit AYAZ BLANCAS 05/09/15 10:30am AYAZ BLANCAS M.D. 05/04/15 11:47am AYAZ BLANCAS [facility]. M.D. Registered [facility] 02/13/15 10:21am AYAZ BLANCAS [facility]. M.D. Office Visit AYAZ BLANCAS 02/13/15 10:00am AYAZ BLANCAS M.D. Office Visit AYAZ BLANCAS 01/24/15 10:00am AYAZ BLANCAS M.D. Registered [facility] 01/19/15 8:33am AYAZ BLANCAS [facility] Aristeo Andino Departed Clinic [facility] 12/29/14 10:44am 12/29/14 12:02pm BEV KWAN [facility] M.DChico Registered Mary [facility] 11/30/14 7:56am [facility] Office Visit AYAZ BLANCAS 11/21/14 11:30am AYAZ BLANCAS M.D. Office Visit AYAZ BLANCAS 10/18/14 9:30am AYAZ BLANCAS M.D. Registered [facility] 10/13/14 8:54am AYAZ BLANCAS [facility] Aristeo Andino Departed [facility] 07/17/14 7:26pm 07/17/14 9:26pm [place], [facility] AYAZ BLANCAS 07/12/14 10:00am AYAZ BLANCAS M.D. Departed Clinic [facility] 07/07/14 8:03am 07/07/14 9:09am BEV KWAN [facility].DChico Office Visit AYAZ BLANCAS 03/17/14 10:30am AYAZ BLANCAS M.D. Departed Clinic [facility] 01/06/14 8:49am 01/06/14 10:09am BEV KWAN [facility].Ted
--- OUTSIDE RECORDS SUMMARY | 2017-12-23 11:49 | External Medical Summary | Continuity of Care Document ---
:1945 Author Organization [facility] Allergies Active Description Code Type Severity Reaction Onset Reported/ Identified Relationship Clinical to Patient Status Yes No Known [id number] Drug Unknown N/A 05/16/2009 Allergies 8 Aller gy Medications Medication Packaging Start Date Stop Date Route Dosage Sig 05/14/2017 ACETAMINOPHEN 7 Q4HPRN 05/14/2017 ACETAMINOPHEN 7 Q4HPRN 05/14/2017 ALUM-MAG 7 Q4HPRN HYDROXIDE-SIMETH 05/14/2017 MAGNESIUM HYDROXIDE 7 HSPRN 05/14/2017 DOCUSATE SODIUM 7 BIDPRN SODIUM 05/14/2017 CHLORIDE 0.9 % 7 PRNIV ASPIRIN 05/14/2017 7 ONCE 05/14/2017 HYDROcodone-ACET 7 Q4-6HPRN 5-325MG ASPIRIN 05/14/2017 7 0700 05/14/2017 CLOPIDOGREL 7 ONCE 05/14/2017 NITROGLYCERIN 7 PRNCP 05/14/2017 PANTOPRAZOLE 7 ACB 05/14/2017 LOSARTAN 7 QD 05/14/2017 METOPROLOL TARTRATE 7 BID 05/14/2017 ISOSORBIDE 7 QD MONONITRATE 05/14/2017 FLUoxetine 7 QD 05/14/2017 amLODIPine 7 QD 05/14/2017 LEVOTHYROXINE 7 ACB INSULIN 05/14/2017 NOVOLOG 7 [id number] INSULIN 05/14/2017 NOVOLOG 7 SUP 05/14/2017 SIMVASTATIN 7 HS INSULIN 05/14/2017 LEVEMIR 7 HS 05/15/2017 CLOPIDOGREL 7 QD 10/01/2017 ALUM-MAG 8 Q4HPRN HYDROXIDE-SIMETH 10/01/2017 DOCUSATE SODIUM 8 BIDPRN 10/01/2017 ACETAMINOPHEN 8 Q4HPRN 10/01/2017 ACETAMINOPHEN 8 Q4HPRN 10/01/2017 MAGNESIUM HYDROXIDE 8 HSPRN HEPARIN 10/01/2017 (PORCINE) 5000 8 PRN UNIT/ML HEPARIN 10/01/2017 (PORCINE)-0.45% 8 TITRATE NACL 10/01/2017 HYDROcodone-ACET 8 Q4HPRN 5-325MG 10/01/2017 METOPROLOL TARTRATE 8 BID 10/01/2017 ISOSORBIDE 8 BID MONONITRATE 10/01/2017 SIMVASTATIN 8 HS 10/01/2017 BISACODYL 8 HS INSULIN 10/01/2017 LEVEMIR 8 HS 10/02/2017 LEVOTHYROXINE 8 ACB INSULIN 10/02/2017 LEVEMIR 8 0700 10/02/2017 LOSARTAN 8 QD ASPIRIN 10/02/2017 8 QD SODIUM 10/02/2017 CHLORIDE 0.9 % 8 PRNIV ASPIRIN 10/02/2017 8 0700 10/02/2017 POLYETHYLENE GLYCOL 8 BID 3350 10/03/2017 CLOPIDOGREL 8 QD 10/03/2017 NITROGLYCERIN 8 S5BRDRLF 10/03/2017 VENLAFAXINE 8 QD INSULIN 10/03/2017 NOVOLOG 8 TIDWM INSULIN 10/03/2017 LEVEMIR 8 HS Problems Date Dx Attending Type Code Diagnosis Diagnosed By Coded 07/06/2017 BEV KWAN E03.9 HYPOTHYROIDISM, BEV KWAN UNSPECIFIED 07/06/2017 BEV KWAN E11.9 TYPE 2 DIABETES MAKSOUD, AZIZ R MELLITUS WITHOUT COMPLICATIONS 07/06/2017 MAKSOUD, AZIZ R S E66.9 OBESITY, UNSPECIFIED MAKSOUD, AZIZ R 07/06/2017 MAKSOUD, AZIZ R S E78.5 HYPERLIPIDEMIA, MAKSOUD, AZIZ R UNSPECIFIED 07/06/2017 MAKSOUD, AZIZ R S G47.33 OBSTRUCTIVE SLEEP MAKSOUD, AZIZ R APNEA (ADULT) (PEDIATRIC) 07/06/2017 MAKSOUD, AZIZ R S I10 ESSENTIAL (PRIMARY) MAKSOUD, AZIZ R HYPERTENSION 07/06/2017 MAKSOUD, AZIZ R P 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, 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 07/06/2017 MAKSOUD, AZIZ R S K21.9 GASTRO-ESOPHAGEAL ROBERTSOUD, AZIZ R REFLUX DISEASE WITHOUT ESOPHAGITIS 07/06/2017 MAKSOUD, AZIZ R S M06.9 RHEUMATOID ARTHRITIS, MAKSOUD, AZIZ R UNSPECIFIED 07/06/2017 MAKSOUD, AZIZ R S M10.9 GOUT, UNSPECIFIED MAKSOUD, AZIZ R 07/06/2017 MAKSOUD, AZIZ R S Z68.35 BODY MASS INDEX (BMI) MAKSOUD, AZIZ R 35.0-35.9, ADULT 07/06/2017 ROBERTSOUD, AZIZ R S Z79.02 DETENTION (CURRENT) MAKSOUD, AZIZ R USE OF ANTITHROMBOTICS/ANTIP LATELETS 07/06/2017 ROBERTSOUD, AZIZ R S Z79.4 CAP COVERER (CURRENT) MAKSOUD, AZIZ R USE OF INSULIN 07/06/2017 MAKSOUD, AZIZ R S Z79.82 DETENTION (CURRENT) MAKSOUD, AZIZ R USE OF ASPIRIN 07/06/2017 MAKSOUD, AZIZ R S Z79.899 OTHER CAP COVERER MAKSOUD, AZIZ R (CURRENT) DRUG THERAPY 07/06/2017 ROBERTSOUD, AZIZ R S Z87.891 PERSONAL HISTORY OF ROB[place] AZIZ R NICOTINE DEPENDENCE 07/06/2017 ROBERTSOREINA, AZIZ R S Z95.5 PRESENCE OF CORONARY MAKSOREINA AZIZ R ANGIOPLASTY IMPLANT AND GRAFT 08/22/2017 Other D12.2 BENIGN NEOPLASM OF ASCENDING COLON 08/22/2017 Other D12.3 BENIGN NEOPLASM OF TRANSVERSE COLON 08/22/2017 Other I10 ESSENTIAL (PRIMARY) HYPERTENSION 08/22/2017 Other K29.70 GASTRITIS, UNSPECIFIED, WITHOUT BLEEDING 08/22/2017 Other K44.9 DIAPHRAGMATIC HERNIA WITHOUT OBSTRUCTION OR GANGRENE 08/22/2017 Other K62.1 RECTAL POLYP 08/22/2017 Other R11.0 NAUSEA 08/22/2017 Other R63.4 ABNORMAL WEIGHT LOSS 08/22/2017 Other R68.81 EARLY SATIETY 08/22/2017 Other Z86.010 PERSONAL HISTORY OF COLONIC POLYPS 10/01/2017 BARBRA Andino, Other I21.4 NON-ST ELEVATION SELINA Johnson (NSTEMI) MYOCARDIAL INFARCTION 10/01/2017 BARBRA Andino, Other R00.2 PALPITATIONS SELINA J 10/28/2017 DOMO Andino, Other E03.9 HYPOTHYROIDISM, AYAZ M. UNSPECIFIED 10/28/2017 DOMO Andino, Other E11.43 TYPE 2 DIABETES W AYAZ M. DIABETIC AUTONOMIC (POLY)NEUROPATHY 10/28/2017 DOMO Andino, Other E43 UNSPECIFIED SEVERE AYAZ M. PROTEIN-CALORIE MALNUTRITION 10/28/2017 DOMO Andino, Other E78.5 HYPERLIPIDEMIA, AYAZ M. UNSPECIFIED 10/28/2017 DOMO Andino, Other E86.0 DEHYDRATION AYAZ M. 10/28/2017 DOMO Andino, Other I10 ESSENTIAL (PRIMARY) AYAZ M. HYPERTENSION 10/28/2017 DOMO Andino, Other I25.9 CHRONIC ISCHEMIC AYAZ M. HEART DISEASE, UNSPECIFIED 10/28/2017 DOMO Andino, Other I95.1 ORTHOSTATIC AYAZ M. HYPOTENSION 10/28/2017 DOMO Andino, Other K59.00 CONSTIPATION, AYAZ M. UNSPECIFIED 10/28/2017 DOMO Andino, Other R10.84 GENERALIZED ABDOMINAL AYAZ M. PAIN 10/28/2017 DOMO Andino, Other R11.2 NAUSEA WITH VOMITING, AYAZ M. UNSPECIFIED 10/28/2017 DOMO Andino, Other R74.8 ABNORMAL LEVELS OF AYAZ M. OTHER SERUM ENZYMES 10/28/2017 DOMO Andino, Other Z79.4 CAP COVERER (CURRENT) AYAZ MChico USE OF INSULIN 10/28/2017 DOMO Andino, Other Z79.82 DETENTION (CURRENT) AYAZ Rush[place] USE OF ASPIRIN 10/28/2017 DOMO Andino, Other Z79.891 DETENTION (CURRENT) AYAZ Rush. USE OF OPIATE ANALGESIC 11/16/2017 BARBRA Andino, Other K59.00 CONSTIPATION, SELINA J UNSPECIFIED 11/16/2017 BARBRA Andino, Other K59.01 SLOW TRANSIT SELINA Johnson CONSTIPATION 12/04/2017 Other M43.16 SPONDYLOLISTHESIS, LUMBAR REGION 12/04/2017 Other M48.06 SPINAL STENOSIS, LUMBAR REGION 12/04/2017 Other E03.9 HYPOTHYROIDISM, UNSPECIFIED 12/04/2017 Other E11.65 TYPE 2 DIABETES MELLITUS WITH HYPERGLYCEMIA 12/04/2017 Other I25.10 ATHSCL HEART DISEASE OF [place] CORONARY ARTERY W/O ANG PCTRS 12/04/2017 Other R10.84 GENERALIZED ABDOMINAL PAIN 12/04/2017 Other R63.4 ABNORMAL WEIGHT LOSS 12/04/2017 Other Z79.4 CAP COVERER (CURRENT) USE OF INSULIN 12/04/2017 Other R10.9 UNSPECIFIED ABDOMINAL PAIN 12/04/2017 Other R63.4 ABNORMAL WEIGHT LOSS 12/04/2017 Other I31.3 PERICARDIAL EFFUSION (NONINFLAMMATORY) 12/04/2017 Other R11.0 NAUSEA 12/04/2017 Other R68.81 EARLY SATIETY 12/04/2017 DOMO Andino, Other E09.43 DRUG/CHEM DIAB W AYAZ Adri[place]ico NEURO COMP W DIAB AUTONM (POLY)NEUROPATHY 12/04/2017 DOMO Andino, Other E11.69 TYPE 2 DIABETES AYAZ Rush[place] MELLITUS WITH OTHER SPECIFIED COMPLICATION 12/04/2017 DOMO Andino, Other Z71.3 DIETARY COUNSELING AYAZ Rush[place] AND SURVEILLANCE 12/17/2017 MAKSOREINA, AZIZ R S E03.9 HYPOTHYROIDISM, MAKSOUD, AZIZ R UNSPECIFIED 12/17/2017 MAKSOUD, AZIZ R S E11.43 TYPE 2 DIABETES MAKSOUD, AZIZ R MELLITUS WITH DIABETIC AUTONOMIC (POLY)NEUROPATHY 12/17/2017 MAKSOREINA, AZIZ R S E78.5 HYPERLIPIDEMIA, MAKSOUD, AZIZ R UNSPECIFIED 12/17/2017 MAKSOUD, AZIZ R S G47.33 OBSTRUCTIVE SLEEP ROBERTSOREINA, AZIZ R APNEA (ADULT) (PEDIATRIC) 12/17/2017 MAKSOUD, AZIZ R S I10 ESSENTIAL (PRIMARY) ROBERTSOREINA AZIZ R HYPERTENSION 12/17/2017 MAKSOUD, AZIZ R S I25.10 ATHEROSCLEROTIC HEART MAKSOPARUL HUANGIZ R DISEASE OF [place] CORONARY ARTERY WITHOUT ANGINA PECTORIS 12/17/2017 MAKSOUD, AZIZ R S I31.3 PERICARDIAL EFFUSION MAKSOREINA AZIZ R (NONINFLAMMATORY) 12/17/2017 MAKSOUD, AZIZ R S K31.84 GASTROPARESIS MAKSOUD, AZIZ R 12/17/2017 MAKSOUD, AZIZ R S K59.00 CONSTIPATION, MAKSOUD, AZIZ R UNSPECIFIED 12/17/2017 MAKSOUD, AZIZ R S M06.9 RHEUMATOID ARTHRITIS, ROBERTSOUD, AZIZ R UNSPECIFIED 12/17/2017 MAKSOUD, AZIZ R S R63.0 ANOREXIA MAKSOUD, AZIZ R 12/17/2017 MAKSOUD, AZIZ R S R63.4 ABNORMAL WEIGHT LOSS MAKSOUD, AZIZ R 12/17/2017 MAKSOUD, AZIZ R P R74.8 ABNORMAL LEVELS OF ROBERTSOUD, AZIZ R OTHER SERUM ENZYMES 12/17/2017 ROBERTSOUD, AZIZ R S Z68.29 BODY MASS INDEX (BMI) ROBERTSOREINA, AZIZ R 29.0-29.9, ADULT 12/17/2017 MAKSOUD, AZIZ R S Z79.4 DETENTION (CURRENT) ROBERTSOREINA AZIZ R USE OF INSULIN 12/17/2017 ROBERTSOUD, AZIZ R S Z87.891 PERSONAL HISTORY OF ROBERTSOUD, AZIZ R NICOTINE DEPENDENCE 12/17/2017 MAKSOUD, AZIZ R S Z95.5 PRESENCE OF CORONARY MAKSOREINA AZIZ R ANGIOPLASTY IMPLANT AND GRAFT 12/18/2017 DOOM Andino, Other E03.9 HYPOTHYROIDISM, AYAZ M. UNSPECIFIED Procedures There is no data. Results Test Result Range CBC NO DIFF (HEMOGRAM) - 05/14/17 07:32 WBC - WHITE CELL COUNT 9.9 X10(3) 4.5-11.0 RBC - RED CELL COUNT 3.50 X10(6) 4.20-5.40 PLATELET COUNT 227 X10(3) 150-450 HEMOGLOBIN 11.4 g/dl 12.0-16.0 HEMATOCRIT 33.5 % 38.0-47.0 MCV 95.7 fL 80.0-96.0 MCH 33 pg 27-31 MCHC 34.0 % 32.0-36.0 HOLD SPECIMEN FOR BLOOD BANK - 05/14/17 07:32 HOLD SPECIMEN FOR BLOOD BANK [facility] - BASIC METABOLIC PANEL - 05/14/17 07:32 GLUCOSE 136 mg/dl 74-106 BUN 27 mg/dl 7-18 CREATININE 0.90 mg/dl 0.55-1.02 eGFR >60 mL/min >60 SODIUM (NA) 141 mEq/L 136-146 POTASSIUM, BLOOD 3.7 mEq/L 3.5-5.1 CHLORIDE 105 mEq/L 98-107 CO2 (BICARBONATE) 26 mEq/L 21-32 CALCIUM 9.2 mg/dl 8.5-10.1 GLUCOSE, ACCUCHEK - 05/14/17 10:17 GLUCOSE (ACCUCHEK) 98 mg/dl 74-105 GLUCOSE, ACCUCHEK - 05/14/17 12:37 GLUCOSE (ACCUCHEK) 82 mg/dl 74-105 GLUCOSE, ACCUCHEK - 05/14/17 15:07 GLUCOSE (ACCUCHEK) 85 mg/dl 74-105 GLUCOSE, ACCUCHEK - 05/14/17 20:50 GLUCOSE (ACCUCHEK) 59 mg/dl 74-105 GLUCOSE, ACCUCHEK - 05/14/17 21:27 GLUCOSE (ACCUCHEK) 77 mg/dl 74-105 GLUCOSE, ACCUCHEK - 05/14/17 22:27 GLUCOSE (ACCUCHEK) 94 mg/dl 74-105 CBC NO DIFF (HEMOGRAM) - 05/15/17 04:50 WBC - WHITE CELL COUNT 11.0 X10(3) 4.5-11.0 RBC - RED CELL COUNT 3.61 X10(6) 4.20-5.40 PLATELET COUNT 243 X10(3) 150-450 HEMOGLOBIN 11.5 g/dl 12.0-16.0 HEMATOCRIT 34.2 % 38.0-47.0 MCV 94.7 fL 80.0-96.0 MCH 32 pg 27-31 MCHC 33.6 % 32.0-36.0 BMP - BASIC METABOLIC PANEL - 05/15/17 04:50 GLUCOSE 165 mg/dl 74-106 BUN 18 mg/dl 7-18 CREATININE 0.79 mg/dl 0.55-1.02 eGFR >60 mL/min >60 SODIUM (NA) 136 mEq/L 136-146 POTASSIUM, BLOOD 4.0 mEq/L 3.5-5.1 CHLORIDE 102 mEq/L 98-107 CO2 (BICARBONATE) 25 mEq/L 21-32 CALCIUM 8.8 mg/dl 8.5-10.1 GLUCOSE, ACCUCHEK - 05/15/17 10:01 GLUCOSE (ACCUCHEK) 118 mg/dl 74-105 CBC NO DIFF (HEMOGRAM) - 10/01/17 13:30 WBC - WHITE CELL COUNT 9.9 X10(3) 4.5-11.0 RBC - RED CELL COUNT 4.64 X10(6) 4.20-5.40 PLATELET COUNT 206 X10(3) 150-450 HEMOGLOBIN 14.7 g/dl 12.0-16.0 HEMATOCRIT 43.0 % 38.0-47.0 MCV 92.7 fL 80.0-96.0 MCH 32 pg 27-31 MCHC 34.2 % 32.0-36.0 PTT - 10/01/17 13:30 PTT 56.9 secs 23.0-33.0 A1C - 10/01/17 13:30 HEMOGLOBIN A1C 5.9 % 4.5-6.2 MAGNESIUM - 10/01/17 13:30 MAGNESIUM 1.9 mg/dl 1.8-2.4 LIPID PANEL - 10/01/17 13:30 CHOLESTEROL 143 mg/dl <=199 HDL CHOLESTEROL 55 mg/dl 40-60 TRIGLYCERIDES 69 mg/dl <=200 LDL, CALCULATED 74.2 mg/dl 0.0-99.0 VLDL, CALCULATED 13.8 mg/dl 0.0-130.0 CARDIAC RISK 3 CKMB (INCLD. CK, CKMB, INDEX) - 10/01/17 13:30 CPK-CREATINE KINASE 46.00 U/L 26.00-192.00 CKMB 2.5 ng/ml <=3.6 CKMB MASS INDEX 5.4 TSH - 10/01/17 13:30 TSH 2.10 uIU/ml 0.36-3.74 CMP - COMPREHENSIVE METABOLIC PANEL - 10/01/17 13:30 GLUCOSE 119 mg/dl 74-106 BUN 33 mg/dl 7-18 CREATININE 0.94 mg/dl 0.55-1.02 SODIUM (NA) 137 mEq/L 136-146 POTASSIUM, BLOOD 4.0 mEq/L 3.5-5.1 CHLORIDE 102 mEq/L 98-107 CO2 (BICARBONATE) 27 mEq/L 21-32 CALCIUM 9.4 mg/dl 8.5-10.1 ALBUMIN, SERUM 3.1 g/dl 3.4-5.0 PROTEIN, TOTAL 7.1 g/dl 6.4-8.2 AST (SGOT) 44 U/L 15-37 ALT (SGPT) 25 U/L 14-59 ALK PHOS 130 U/L 46-116 BILIRUBIN, TOTAL 0.8 mg/dl 0.2-1.0 eGFR mL/min >=59 TROPONIN-I - 10/01/17 13:30 TROPONIN-I 0.23 ng/ml <=0.05 HOLD SPECIMEN FOR BLOOD BANK - 10/01/17 13:30 HOLD SPECIMEN FOR BLOOD BANK ARC ARC URINALYSIS W/MICROSCOPIC - 10/01/17 18:15 COLOR DK STR STRAW CLARITY/APPEARANCE HAZY CLEAR BILIRUBIN URINE HEADER Interpret positive Bilirubin results with caution. Large amounts of urobilinogen in the urine affect the color change of the bilirubin test (false positive). Highly basic urines (pH>9) might show false-positive readings on bilirubin. False-positive readings are obtained during treatment with imipenem, penicillin, and p-aminosalicyclic acid. UROBILINOGEN (URINALYSIS) NORMAL NORMAL YEAST (URINALYSIS) per hpf UA MICRO VOL HEADER Microscopic reference ranges are based on 12ml total spun volume. CRYSTALS (URINALYSIS) per hpf SP GRAV 1.025 1.005-1.025 PH 5.0 6.0-8.0 LEUKO 25 José Miguel/ul NEG NITRITE NEG NEG PROTEIN 500 mg/dl NEG. GLUCOSE NORMAL NORMAL KETONES 15 mg/dL NEG BILIRUBIN 1 mg/dL NEG BLOOD 50 Timo/uL NEG WBC 10-20 per hpf NEG. RBC 2-5 per hpf NEG EPITH 2-5 per hpf NEG. BACTERIA RARE per hpf NEG. MUCUS PRESENT per hpf NEG. HYAL CAST per lpf NEG. GRAN CAST per lpf SPUN VOLUME 12 ml GLUCOSE, ACCUCHEK - 10/01/17 20:33 GLUCOSE (ACCUCHEK) 117 mg/dl 74-105 PTT - 10/01/17 22:20 PTT 25.3 secs 23.0-33.0 CKMB (INCLD. CK, CKMB, INDEX) - 10/01/17 22:20 CPK-CREATINE KINASE 47.00 U/L 26.00-192.00 CKMB 2.2 ng/ml <=3.6 CKMB MASS INDEX 4.7 TROPONIN-I - 10/01/17 22:20 TROPONIN-I 0.27 ng/ml <=0.05 CBC NO DIFF (HEMOGRAM) - 10/02/17 05:03 WBC - WHITE CELL COUNT 9.0 X10(3) 4.5-11.0 RBC - RED CELL COUNT 4.35 X10(6) 4.20-5.40 PLATELET COUNT 203 X10(3) 150-450 HEMOGLOBIN 13.8 g/dl 12.0-16.0 HEMATOCRIT 40.4 % 38.0-47.0 MCV 92.9 fL 80.0-96.0 MCH 32 pg 27-31 MCHC 34.2 % 32.0-36.0 PTT - 10/02/17 05:03 PTT 56.3 secs 23.0-33.0 TROPONIN-I - 10/02/17 05:03 TROPONIN-I 0.26 ng/ml <=0.05 CKMB (INCLD. CK, CKMB, INDEX) - 10/02/17 05:03 CPK-CREATINE KINASE 49.00 U/L 26.00-192.00 CKMB 2.4 ng/ml <=3.6 CKMB MASS INDEX 4.9 GLUCOSE, ACCUCHEK - 10/02/17 10:26 GLUCOSE (ACCUCHEK) 83 mg/dl 74-105 GLUCOSE, ACCUCHEK - 10/02/17 15:23 GLUCOSE (ACCUCHEK) 84 mg/dl 74-105 GLUCOSE, ACCUCHEK - 10/02/17 20:33 GLUCOSE (ACCUCHEK) 93 mg/dl 74-105 LIVER PANEL - 10/03/17 05:15 ALBUMIN, SERUM 2.9 g/dl 3.4-5.0 PROTEIN, TOTAL 6.4 g/dl 6.4-8.2 AST (SGOT) 30 U/L 15-37 ALT (SGPT) 17 U/L 14-59 ALK PHOS 108 U/L 46-116 BILIRUBIN, TOTAL 0.5 mg/dl 0.2-1.0 BILIRUBIN, DIRECT 0.2 mg/dl <=0.2 I BILI CALC 0.3 mg/dL 0.2-0.8 GLUCOSE, ACCUCHEK - 10/03/17 05:16 GLUCOSE (ACCUCHEK) 87 mg/dl 74-105 GLUCOSE, ACCUCHEK - 10/03/17 11:19 GLUCOSE (ACCUCHEK) 109 mg/dl 74-105 CMP - 10/04/17 23:20 GFR >60 >=60 GFR NonAfrican Syrian >60 >=60 SODIUM:SCNC:PT:SER/PLAS:QN: 138 mmol/L 136-145 POTASSIUM:SCNC:PT:SER/PLAS:QN: 4.8 mmol/L 3.5-5.1 CHLORIDE:SCNC:PT:SER/PLAS:QN: 100 mmol/L 98-107 CARBON DIOXIDE:SCNC:PT:SER/PLAS:QN: 26 mmol/L 21-32 ANION GAP 3:SCNC:PT:SER/PLAS:QN: 12 7-16 UREA NITROGEN:MCNC:PT:SER/PLAS:QN: 21 mg/dL 8-23 CREATININE:MCNC:PT:SER/PLAS:QN: 0.8 mg/dL 0.6-1.0 GLUCOSE:MCNC:PT:SER/PLAS:QN: 159 mg/dL 70-110 CALCIUM:MCNC:PT:SER/PLAS:QN: 9.8 mg/dL 8.6-10.2 UREA NITROGEN/CREATININE:MRTO:PT:SER/PLAS:QN: 25.0 10.0-20.1 ALKALINE PHOSPHATASE:CCNC:PT:SER/PLAS:QN: 126 unit/L 35-104 BILIRUBIN:MCNC:PT:SER/PLAS:QN: 0.9 mg/dL 0.2-1.0 ALBUMIN:MCNC:PT:SER/PLAS:QN:BCP 3.4 gm/dL 3.4-5.0 PROTEIN:MCNC:PT:SER/PLAS:QN: 7.2 gm/dL 6.4-8.2 GLOBULIN:MCNC:PT:SER:QN:CALCULATED 3.8 gm/dL 2.0-3.5 ALBUMIN/GLOBULIN:MRTO:PT:SER/PLAS:QN: 0.9 0.9-3.6 ALANINE 19 unit/L 0-34 AMINOTRANSFERASE:CCNC:PT:SER/PLAS:QN:WITH P-5'-P ASPARTATE 27 unit/L 0-31 AMINOTRANSFERASE:CCNC:PT:SER/PLAS:QN:WITH P-5'-P CK-MB Group - 10/04/17 23:20 CREATINE KINASE:CCNC:PT:SER/PLAS:QN: 56 unit/L 26-192 CREATINE KINASE.MB:CCNC:PT:SER/PLAS:QN: 1.7 ng/mL 0.0-3.6 CREATINE KINASE.MB/CREATINE 3 NRG KINASE.TOTAL:RATIO:PT:SER/PLAS:QN: Rapid Influenza A/B Screen - 10/04/17 23:42 INFLUENZA VIRUS A Neg Neg Encounters ACCT No. Visit Discharge Status Pt. Type Provider Facility Loc./Unit Complaint Date/Time [id number] 10/01/2017 10/03/2017 DIS Outpatient [place], [place] 110 CHEST PAIN 13:05:00 13:20:00 [facility] [id number] 05/14/2017 05/15/2017 DIS Outpatient [place], [place] 110 ABN STRESS 07:03:00 10:45:00 [facility] [id number] 11/15/2015 11/15/2015 DIS Outpatient [place], [place] 120 ABN STRESS 07:03:00 14:28:00 [facility] [id number] 08/30/2016 08/30/2016 CLS Outpatient 01 12:17:01 23:59:59 [id number] 10/17/2017 10/17/2017 [facility] Outpatient [facility] 43 14:30:00 23:59:59 PREM Andino [id number] 10/04/2017 10/05/2017 DIS Emergency Records, [facility] EMR 23:16:00 01:41:00 [facility] [id number] 12/18/2017 12/18/2017 CLS Outpatient [facility] 48 16:36:00 23:59:59 MAYAZ Lea [id number] 12/01/2017 12/03/2017 DIS Inpatient [facility] 44 16:00:00 14:50:00 AYAZ Andino [id number] 11/16/2017 11/16/2017 DIS Emergency [facility] 72 15:40:00 18:10:00 SELINA Andino [id number] 10/23/2017 10/28/2017 DIS Inpatient [facility] 21 07:52:00 11:55:00 AYAZ Andino [id number] 10/01/2017 10/01/2017 DIS Emergency [facility] 77 10:07:00 12:26:00 SELINA Andino [id number] 09/09/2017 09/09/2017 CLS Outpatient [facility] 72 10:19:00 23:59:59 MAYAZ Lea [id number] 08/28/2017 Document 81 09:16:00 Registrati on [id number] 08/22/2017 Document 50 07:36:00 Registrati on [id number] 08/05/2017 Document 60 13:31:00 Registrati on [id number] 07/31/2017 Document 91 09:00:00 Registrati on [id number] 07/25/2017 Document 15 15:45:00 Registrati on [id number] 09/20/2016 Document 04 00:00:00 Registrati on [id number] 12/18/2017 12/18/2017 CLS Outpatient [facility] 23 16:30:00 23:59:59 M.AYAZ Jean [id number] 10/14/2017 10/14/2017 DIS Outpatient 16:00:04 16:00:04
--- OUTSIDE RECORDS SUMMARY | 2017-12-23 11:49 | External Medical Summary | Continuity of Care Document ---
:1945 Author Organization [facility] [employer] Phone Unavailable Care Team Providers Name Role Phone AYAZ BLANCAS M.D. Primary Care Physician Insurance Providers Guarantor Amy Quintanilla Address [address] [place] [address] Payer s Medicare Policy Number [id number] Subscriber's Name Amy Quintanilla Relationship 01 Self / Same As Patient Effective Date 10 Payer Blue Cross Plan 65 [employer] Policy Number [id number] Subscriber's Name Amy Quintanilla R Relationship 01 Self / Same As Patient Group Number [id number] Effective Date 09 Advance Directives No advance directive information available. Chief Complaint and Reason for Visit Chief Complaint Constipation Reason for Visit Constipation Problems Medical Problem Onset Date Status CAD (coronary artery disease) 01/19/2015 Acute CORON ATHEROSCLER NOS TYPE VESSEL, CAHTO OR GRAFT 02/19/2011 Constipation Unknown Cough Unknown [...] Acute Exertional dyspnea Unknown Acute Non-ST elevation FL (NSTEMI) Unknown Acute Palpitations Unknown Acute Medications Current Home Medications Medication Dose Units Route Directions Days Qty Instructions Start Date Clopidogrel 75 Mg Oral Daily 02/18/ Bisulfate 11 (Plavix) 75 Mg Tab Fluoxetine Hcl 20 Mg Oral Daily 30 11/06/ (Pmdd) Capsule 18 (Fluoxetine) 20 Mg Cap Insulin Detemir 5 Subcutaneousl Bedtime for (Levemir y Hyperglycemia Flextouch) 100 Unit/Ml Inj Isosorbide 1 Tab Oral Daily 10/28/ Mononitrate Tablet 18 (Isosorbide Mononitrate Er) 30 Mg Tabcr Lactulose 30 Oral Twice A Day (Encephalopathy for Not ) (Lactulose) Written On 10 Gm/15 Ml Martha Chart Levothyroxine 1 Tab Oral Daily 10/21/ Sodium Tablet 18 (Levothroid) 75 Mcg Tab Metoclopramide 5 Mg Oral Three Times 30 90 Hcl (Reglan) 5 Daily Before Days Mg Tab Meals for Nausea Midodrine Hcl 2.5 Mg Oral Three Times A 11/06/ 2.5 Mg Tab Day Tablet 18 Pantoprazole 40 Mg Oral Daily for Not (Pantoprazole Specified Sodium) 40 Mg Tab Potassium 20 Meq Oral Twice A Day 30 60 Chloride for Days (Potassium Hypokalemia Chloride Er) 20 Meq Tab Simvastatin 40 40 Mg Oral Daily 07/11/ Mg Tab Tablet 17 Tramadol Hcl 50 Mg Oral Every 6 Hours 60 (Ultram) 50 Mg As Needed for Tablet Tab Pain Past Home Medications Medication Directions Ordered Status Amlodipine Besylate (Norvasc) 2.5 Daily for Not Specified Discontinued Mg Tab, 2.5 Mg Oral Amlodipine Besylate 2.5 Mg Tab, Daily 02/18/11 Discontinued 2.5 Mg Oral Amlodipine Besylate 2.5 Mg Tab, Daily Discontinued 2.5 Mg Oral Amoxicillin/Clavulanate Potassium Twice A Day 08/24/12 Discontinued (Augmentin 875 Mg) 875 Mg Tab, 875 Mg Oral Amoxicillin/Clavulanate Potassium Twice A Day 07/30/12 Discontinued (Augmentin 875 [...] Propionate (Flonase Daily 12/13/11 Discontinued 0.05% Nasal [place]) 16 Gm Naspr, 2 [place] Nasal Furosemide 20 Mg Tab, 20 Mg Oral Daily 05/23/17 Discontinued Glucose Blood (Truetest Strips) Twice A Day 11/12/13 Discontinued Comfort, 1 Strips Miscellaneous Glucose Blood (Truetest Strips) Twice A Day 11/12/13 Discontinued Comfort, 1 Strips Miscellaneous Hydrocodone-Acetaminophen ([place]) Every 4 Hours As Needed for 10/17/17 Discontinued 5/325 Tab, 1 Tab Oral Pain Hydrocodone-Acetaminophen ([place]) Every 4 Hours As Needed for 10/08/17 Discontinued 5/325 Tab, 1 Tab Oral Pain Hydrocodone-Acetaminophen ([place]) Every 4 Hours As Needed for 09/24/17 Discontinued 5/325 Tab, 1 Tab Oral Pain Hydrocodone-Acetaminophen ([place]) Every 4 Hours As Needed for 09/11/17 Discontinued 5/325 Tab, 1 Tab Oral Pain Hydrocodone-Acetaminophen ([place]) Every 4 Hours As Needed for 08/27/17 Discontinued 5/325 Tab, 1 Tab Oral Pain Hydrocodone-Acetaminophen ([place]) Every 4 Hours As Needed 03/13/16 Discontinued 1 Tab Tab, 1 Tab Oral Hydrocodone-Acetaminophen ([place]) Every 4 Hours As Needed 02/16/16 Discontinued 1 Tab Tab, 1 Tab Oral Hydrocodone-Acetaminophen ([place]) Every 4 Hours As Needed 01/30/16 Discontinued 1 Tab Tab, 1 Tab Oral Hydrocodone-Acetaminophen ([place]) Every 4 Hours As Needed 01/09/16 Discontinued 1 Tab Tab, 1 Tab Oral Hydrocodone-Acetaminophen ([place]) Every 4 Hours As Needed 12/14/15 Discontinued 1 Tab Tab, 1 Tab Oral Hydrocodone-Acetaminophen ([place]) Every 4 Hours As Needed 09/22/15 Discontinued [...] Mg/Ml Inj, 40 Mg Subcutaneously Isosorbide Mononitrate (Isosorbide Daily for Not Specified Discontinued Mononitrate Er) 60 Mg Tabcr, 30 Mg Oral Isosorbide Mononitrate (Imdur) 30 [...] Daily Discontinued Mg Tab, 20 Mg Oral Ondansetron Hcl (Zofran) 4 Mg Tab, Every 6 Hours As Needed as 10/17/17 Discontinued 4 Mg Oral needed for Nausea Oxycodone W/ Acetaminophen Every 4 Hours Prn [...] Tab, 80 Daily 05/07/11 Discontinued Mg Oral Venlafaxine Hcl (Venlafaxine Hcl Daily 10/17/17 Discontinued Er) 150 Mg Cap, 150 Mg Oral Social History Social History Problem Response Recorded Date/Time Onset Date Status Hx Alcohol Use No 12/27/2011 8:39am Not Applicable Not Applicable Hx Tobacco Use No 05/24/2011 9:00am Not Applicable Not Applicable Smoking Status Former smoker 11/16/2017 3:41pm Not Applicable Not Applicable Smoking Status Start Date Stop Date Former smoker Hospital Discharge Instructions No hospital discharge instruction information available. Plan of Care Discharge Date 11/16/17 6:10pm Disposition 01 HOME, SELF-CARE Condition at Discharge Stable Instructions/Education Provided Constipation (ED) Prescriptions See Medication Section Referrals AYAZ BLANCAS M.D. Address: [address] [place] [id number] Additional Instructions/Education 1. Follow up with your doctor in 2-3 days, or as needed. 2. For acute relief of constipation, use glycerin suppositories (up to two daily until results) or Fleet enema (up to three daily). 3. Also use a stool softener or laxative as needed. Would recommend Colace (docusate) 1-2 tablets or similar daily. 4. Return to ER if worsening symptoms, increased pain, abdominal pain, nausea/vomiting, or other concerns. Functional Status No functional status information available. Allergies, Adverse Reactions, Alerts No known allergies. 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Log Getter Reason Number Influenza 05/24/11 Administered 1 [id number] SANOFI Vaccine, Inactivated Influenza 04/30/12 Administered 2 [id number] Sanofi Pasteur Vaccine, Inactivated Influenza 06/01/14 Administered 3 Vaccine, Inactivated Influenza 06/01/15 Administered 4 Vaccine, Inactivated Influenza 05/13/16 Administered 5 Vaccine, Inactivated Influenza 05/28/17 Administered 6 Vaccine, Inactivated Influenza 06/12/17 Administered 7 Vaccine, Inactivated Zoster Vaccine 02/01/15 Administered 1 Vital Signs Acute Vital Signs Vital Response Date/Time Blood Pressure 102/58 mm Hg 11/16/2017 5:53pm Blood Pressure Mean 66 mm Hg 08/22/2017 9:55am Blood Pressure Mean 73 mm Hg 11/16/2017 5:53pm Temperature (Fahrenheit) 97.6 degrees F (96.0 - 99.9) 11/16/2017 3:42pm Temperature (Calculated Celsius) 36.40430 degrees C 11/16/2017 3:42pm Temperature Source Oral 10/28/2017 7:50am Temperature Source Oral 11/16/2017 3:42pm Temp 97.5 degrees F (96.0 - 99.9) 08/22/2017 9:19am Temperature (Calculated Celsius) 36.32400 degrees C 08/22/2017 9:19am Pulse Pulse Rate (adult) 88 bpm (60 - 100) 10/28/2017 7:50am Pulse Rate (adult) 60 bpm (60 - 100) 08/22/2017 9:55am Pulse Rate: ED 85 bpm 11/16/2017 5:53pm Respiratory Rate 18 breaths per minute (10 - 20) 11/16/2017 5:53pm Respiratory Rate 14 bpm (10 - 20) 08/22/2017 9:55am Height (Feet) 5 ft 11/16/2017 3:42pm Height (Inches) 4.0 in. 11/16/2017 3:42pm Weight (Pounds) 149.0 lbs 11/16/2017 3:42pm Height 5 ft 4 in 11/16/2017 3:42pm Weight 149 lb 11/16/2017 3:42pm Body Mass Index 25.6 kg/m^2 11/16/2017 3:42pm Ambulatory Vital Signs Vital Response Date/Time Height 5 ft 4 in 11/06/2017 4:26pm Weight 149 lbs 11/06/2017 4:26pm Blood Pressure 94/58 mm Hg 11/06/2017 4:26pm Body Surface Area 1.76 m2 11/06/2017 4:26pm Body Mass Index 25.6 kg/m2 11/06/2017 4:26pm Pulse Oximetry Pulse Oximetry 11/06/2017 4:26pm Results Laboratory Results Test Name Result Units [...] 3:10pm Urine Specific >=1.030 1.005-1.03 01/22/2017 01/22/2017 [place] 0 2:47pm 3:10pm Urine Occult 1+ H [...] microscopic examination. Comments 8:00am 6:12pm Performed at: [place] [address], [facility] [place] [id number] Regional Truck Driver: MUMTAZ Remy MD, Phone: [phone] Urine 93.1 ug/mL Not Estab. 04/09/2017 04/10/2017 Performed at: [facility] Microalbumin 8:00am 10:10am [address] [place] [id number] Regional Truck Driver: MUMTAZ Remy MD, Phone: [phone] Globulin 3.0 g/dL 1.5-4.5 04/09/2017 04/10/2017 8:00am 8:19am Albumin/Globulin 1.3 1.2-2.2 04/09/2017 04/10/2017 Ratio 8:00am 8:19am Total 177 mg/dL 100-199 04/09/2017 04/10/2017 Cholesterol 8:00am 8:19am Triglycerides 107 mg/dL 0-149 04/09/2017 04/10/2017 Level 8:00am 8:19am HDL Cholesterol 60 mg/dL >39 04/09/2017 04/10/2017 8:00am 8:19am VLDL 21 mg/dL 5-40 04/09/2017 04/10/2017 Cholesterol, 8:00am 8:19am Calculated LDL Cholesterol, 96 mg/dL 0-99 04/09/2017 04/10/2017 Performed at: [facility] Calculated 8:00am 8:19am [address] [place] [phone] Regional Truck Driver: MUMTAZ Remy MD, Phone: [phone] Free Thyroxine 1.16 ng/dL 0.58-1.64 05/23/2017 05/23/2017 2:09pm 4:20pm Thyroxine (T4) 9.4 ug/dl 4.7-11.5 05/23/2017 05/23/2017 2:09pm 4:20pm B-Type 630 pg/mL H 15-100 05/23/2017 05/23/2017 Natriuretic 2:09pm 3:14pm Peptide Lipase 15 U/L 14-85 07/25/2017 07/26/2017 Performed at: [facility] Richard 2:55pm 5:10pm [address] [place] [id number] [employer] Driver: MUMTAZ Remy MD, Phone: [phone] Hemoglobin A1c 5.9 % H 4.8-5.6 07/25/2017 [...] 37 mm/hr 0-40 07/25/2017 07/26/2017 Performed at: [facility] Richard Rate, [place] 2:55pm 9:00am [address] [place] [phone] Regional Truck Driver: MUMTAZ Remy MD, Phone: [phone] C-Reactive 6.5 mg/L H 0.0-4.9 07/25/2017 07/27/2017 Performed at: [facility] Richard Protein, 2:55pm 2:08pm [address] [id number] Quantitative Regional Truck Driver: MUMTAZ Remy MD, Phone: [phone] B-Type 493.5 pg/mL H 0.0-100.0 07/25/2017 07/26/2017 Performed at: [facility] Richard Natriuretic 2:55pm 1:50pm [id number], [place], [place] [id number] Peptide Regional Truck Driver: MUMTAZ Remy MD, Phone: [phone] Glucose Level 65 mg/dL 65-99 07/25/2017 07/26/2017 [...] mL/min/1.73 Urine Specific 1.025 1.005-1.03 07/25/2017 07/26/2017 [place] 0 2:55pm 9:00am Urine pH 5.0 5.0-7.5 [...] Culture. . 07/25/2017 07/28/2017 REFLEX Performed at: [facility] 2:55pm 1:38pm [address] [place] [id number] Regional Truck Driver: MUMTAZ Remy MD, Phone: [phone] This specimen has reflexed to a Urine Culture. --- 07/28/17 1338 --- URINALYSIS REFL previously reported as: This specimen has reflexed to a Urine Culture. Performed at: [address] [id number] Regional Truck Driver: MUMTAZ Remy MD, Phone: [phone] Urine Culture Final . 07/25/2017 07/28/2017 Reflexed report 2:55pm 1:38pm Urine Culture Mixed urogenital jarrett . 07/25/2017 07/28/2017 Result 1 10,000-25,000 colony forming units per mL 2:55pm 1:38pm Performed at: [place] [address], [place], [place] [id number] Regional Truck Driver: MUMTAZ Remy MD, Phone: [phone] White Blood 10.6 K/uL H 5.0-10.0 10/24/2017 [...] RESULT BY 1.210 IF THE PATIENT IS -EG[place] Filtration Rate 5:46am 6:29am Units are mL/min/1.73 [...] LAUREN/JORGE AT 0914, 8:13am 9:14am 10/23/17 BY [id number]. Total Creatine 63 U/L 10-180 10/23/2017 10/23/2017 [place] 8:13am 9:11am Creatine Kinase 4.0 ng/mL 0.0-6.0 10/23/2017 10/23/2017 MB 8:13am 9:14am Lactic Acid 1.1 mmol/L 0.5-1.9 10/24/2017 10/24/2017 REPORT CALLED Level 5:01pm 5:24pm TO DR Luz Maria MACIEL AT 1724 BY [id number]. MRSA MRSA NEGATIVE 10/22/2017 10/22/2017 Surveillance NEGATIVE [...] Discharge/Depart Date Attending Provider Departed Mary Bales 11/16/17 3:40pm 11/16/17 6:10pm SELINA BELLE Emergency Room [facility]. [facility] Thu Registered Ayaz Blancas 11/06/17 4:15pm AYAZ BLANCAS M.D. Discharged Mary Bales 10/23/17 7:52am 10/28/17 11:55am AYAZ BLANCAS Inpatient [facility]. [facility] Aristeo Andino Registered Fausto Maciel 10/17/17 2:30pm FAUSTO MACIEL M.D. Departed Mary Bales 10/01/17 10:07am 10/01/17 12:26pm SELINA BELLE Emergency Room [facility]. [facility] Thu Registered Mary Bales 09/09/17 10:19am AYAZ BLANCAS [facility]. [facility] Aristeo Andino Registered Mary Bales 08/28/17 9:16am FAUSTO MACIEL Referred [facility]. [facility] Bradley Andino Departed Mary Bales 08/22/17 7:36am 08/22/17 10:28am FAUSTO MACIEL Surgical Day [facility]. [facility] Thu Care Registered Mary Bales 08/05/17 1:31pm A[facility]AZ BLANCAS [facility] Mary Bales 07/31/17 9:00am AYAZ BLANCAS [facility] Registered Mary Bales 07/25/17 3:45pm AYAZ BLANCAS [facility] Registered Mary Bales 06/02/17 11:09am [facility] Mary Bales 05/23/17 1:46pm DU[facility]INAYAZ [facility] Mary [facility] 04/24/17 9:49am DU[facility]INAYAZ [facility] Bales 04/17/17 6:57am BEV KWAN [facility] Bales 04/09/17 8:14am [facility] Mary Bales 03/27/17 9:05am 03/27/17 12:31pm [facility]ELINA [facility] Mary Bales 03/24/17 2:05pm 03/24/17 2:42pm TOY [facility] RHONDA Thu Departed Mary Bales 01/22/17 1:25pm 01/22/17 3:55pm SELINA BELLE [facility] Reg[facility] Ronit Posada 12/17/16 9:18am [facility] Mary Bales 12/06/16 1:45pm 12/06/16 2:33pm [facility] 11/22/16 8:26am [facility] Mary Bales 11/21/16 7:51am 11/21/16 8:51am BEV KWAN [facility] Mary Bales 09/25/16 1:03pm 09/25/16 1:15pm TOY [facility] Mary Bales 09/19/16 10:15am BURKEYOLY [facility] LORELEI Registered Danika 09/19/16 10:15am YOLY [facility] LORELEI Registered Mary Bales 07/25/16 8:21am [facility]Eliazar. Departed Clinic Mary Bales 07/05/16 1:20pm 07/05/16 1:59pm LIBRODO, [facility]. [facility].Eliazar. Departed Clinic Mary Bales 05/23/16 8:30am 05/23/16 12:53pm PARUL KWANFADI [facility].D. Registered Mary Bales 05/15/16 10:45am BURKEYOLY [facility] Registered Mary Bales 05/01/16 2:45pm LIBRODO, [facility]. [facility]Eliazar. Registered Mary Bales 04/16/16 9:52am [facility].Eliazar. Registered Mary Bales 04/12/16 10:30am BURKEYOLY [facility] Registered Mary Bales 03/27/16 11:26am DUBLIN [facility]. .Eliazra. Registered Mary Bales 02/28/16 2:08pm LIBRODO, [facility]. [facility]Ted Registered Mary Bales 02/16/16 10:15am Diane NIELSEN [facility]. [facility] Departed Clinic Mary Bales 02/02/16 1:21pm 02/02/16 1:35pm LIBRODO, [facility]. [facility].Ted Registered Mary Bales 01/25/16 10:21am [facility].Ted Registered Mary Bales 01/25/16 9:45am LIBRODO, [facility] Registered Mary Bales 11/27/15 9:20am [facility]Eliazar. Registered Mary Bales 11/01/15 8:45am Diane NIELSEN [facility] Departed Clinic Mary Bales 10/18/15 12:47pm 10/18/15 1:23pm LIBRODO, [facility]. [facility]Ted Registered Mary Bales 10/17/15 9:30am Diane NIELSEN [facility]. [facility] LORELEI Departed Mary Bales 10/12/15 7:22pm 10/12/15 10:40pm EVERTON GAMEZ Emergency Room [facility] Thu Registered Mary Bales 10/05/15 7:42am BEV KWAN [facility] Mary Bales 09/27/15 2:43pm 09/27/15 3:02pm TOY [facility]. [facility] RHONDA Rush M.D. Registered Mary Bales 09/22/15 9:15am AYAZ BLANCAS [facility] Aristeo Andino Registered Mary Bales 09/20/15 9:30am YOLY PAINTER [facility] LORELEI Registered Mary Bales 09/15/15 7:44am TOY [facility] RHONDA Rush M.D. Registered Mary Bales 09/13/15 10:00am BURKEYOLY [facility] MANDODiane Registered Mary Bales 08/10/15 8:17am AYAZ BLANCAS [facility] Aristeo Andino Registered Mary Bales 07/31/15 11:31am [facility]AS [facility] Dep[facility] Clinic Mary Bales 07/06/15 7:56am 07/06/15 8:42am BEV KWAN [facility] Registered Mary Bales 05/04/15 11:47am DOMOAYAZ COULTER [facility] And[facility] Recent Diagnosis
--- NOTE | 2017-12-23 12:03 | XRay Report ---
Indication: Medical clearance PROCEDURE: XR chest 1V: Encounter: Initial Comparison: None Findings: Calcified granuloma or nipple shadow projecting over the right lower lobe. Lungs are otherwise clear. No pleural effusion or pneumothorax. Cardiac silhouette is moderately enlarged. Mediastinal contours and pulmonary vascularity are within normal limits. Cholecystectomy clips. Impression: No focal pneumonia or congestive failure. Moderate enlargement of the cardiac silhouette could be due to cardiomegaly or pericardial effusion. .
--- NOTE | 2017-12-23 12:05 | Emergency Department Report ---
Medical Clearance HPI - General Chief complaint: Medical Clearance Stated complaint: Isaura Clearance Time Seen by Provider: 12/23/17 11:37 Source: family, RN notes reviewed, old records reviewed, other (Records from PCM ) Mode of arrival: wheelchair Limitations: altered mental status - History of Present Illness HPI Narrative: 72yo woman presented to the ER for evaluation of anorexia and wt loss. Pt has had a 100# weight loss over the last few months. Pt has not had an appetite and her PCM cannot find the cause. Pt has underlying DM with gastroparesis; also has depression. After essentially ruling out all medical causes, pt was sent to [facility] for further evaluation and treatment. complaint: medical clearance requested Onset (ago): month(s) Place: home Alleged Intoxication: No Compliant with Home Medications: Yes Traumatic Symptoms: denies traumatic injury Associated Symptoms: denies other symptoms Treatments Prior to Arrival: none Home medications: Home Medications Medication Instructions Recorded Confirmed Aspirin Chewable [ASA] 81 mg PO DAILY 12/23/17 12/23/17 Clopidogrel [Plavix] 75 mg PO DAILY 12/23/17 12/23/17 FLUoxetine [Prozac] 40 mg PO DAILY 12/23/17 12/23/17 Insulin Glargine,Hum.rec.anlog 8 units SQ HS 12/23/17 12/23/17 [Lantus Solostar] Isosorbide Mononitrate ER [Imdur] 30 mg PO DAILY 12/23/17 12/23/17 Lactulose Bulk Oral Liq [Enulose] 45 ml PO 3XW 12/23/17 12/23/17 Levothyroxine Sodium 75 mcg PO DAILY 12/23/17 12/23/17 Metoclopramide [Reglan] 10 mg PO TID 12/23/17 12/23/17 Midodrine [Proamatine] 2.5 mg PO TID 12/23/17 12/23/17 Pantoprazole Sodium [Protonix] 40 mg PO DAILY 12/23/17 12/23/17 Potassium Chloride [Klor-Con M10] 10 meq PO QID 12/23/17 12/23/17 Sucralfate [Carafate] 1,000 mg PO TID 12/23/17 12/23/17 Allergies/Adverse reactions: Allergies Allergy/AdvReac Type Severity Reaction Status Date / Time No Known Allergies Allergy Verified 12/23/17 11:41 Review of Systems All systems: reviewed and negative except as stated Gastrointestinal: Reports: as per HPI, abdominal pain (Diffuse discomfort). Denies: nausea, vomiting, diarrhea, constipation, hematemesis, melena, hematochezia Psychiatric: Reports: as per HPI, depression. Denies: anxiety, suicidal thoughts, homicidal thoughts, auditory hallucinations, visual hallucinations PFS Patient Stated Medical History Hypotension Yes Diabetes Mellitus Type 2 Yes Other GI Yes: gastroparesis r/t diabetes Hx Kidney Stones Yes Clotting Problems Yes: taking plavix Blood Transfusions Yes Depression Yes Physical Exam - Limitations Limitations: no limitations - General General appearance: alert, in no apparent distress - Normal Exams: Head:: Normocephalic without trauma Eyes:: Pupils are PERRLA w/ EOMI, No scleral icterus, irritation, or foreign bodies noted ENMT:: No facial trauma, nasal exudates, pharyngeal erythema, or exudates are noted Neck:: Full range of motion, without adenopathy Lymphatic:: No lymphadenopathy Musculoskeletal:: No tenderness, or deformity noted Integumentary:: No rashes, hives, or bruising noted Neurological:: Patient is alert, and oriented Psychiatric:: Patient exhibits, appropriate attention - Chest Chest inspection: Present: normal inspection, symmetric chest wall rise. Absent : tenderness, rash - Respiratory Respiratory exam: Present: normal lung sounds bilaterally. Absent: respiratory distress, wheezes, stridor, prolonged expiratory phase, crackles - Cardiovascular Cardiovascular exam: Present: regular rate, normal rhythm, normal heart sounds. Absent: rubs, gallop, clicks - Abdominal Exam Abdominal exam: Present: soft, normal bowel sounds. Absent: distention, tenderness, guarding, rebound, rigidity Course - Consultations Consultation #1: [facility]: [facility]. Will be txfr'ed. Time: 13:58 Vital Signs Temperature 97.4 F 12/23/17 11:35 Pulse Rate 76 12/23/17 11:35 Respiratory Rate 16 12/23/17 11:35 Blood Pressure 109/56 12/23/17 11:35 Pulse Oximetry 95 12/23/17 11:35 Temperature 97.4 F 12/23/17 11:35 Pulse Rate 80 12/23/17 14:03 Respiratory Rate 16 12/23/17 14:03 Blood Pressure 98/60 12/23/17 14:03 Pulse Oximetry 94 12/23/17 14:03 Medical Clearance - MDM Narrative Medical decision making narrative: Pt with numerous, stable findings on exam today. Discussed these with [facility] physician. Pt will need f/u as outpt after d/c from [facility]. Pt accepted for transfer at this time. - Differential Diagnosis Differential Diagnosis Narrative: Depression, dementia, suicidal ideation, infection, colitis, ascending colangitis - Medical Records Attestation: I reviewed the patient's medical records. - Lab Data Attestation: I reviewed the patient's lab results. Result diagrams: 12/23/17 12:08 12/23/17 12:08 Lab Results 12/23/17 12/23/17 12/23/17 Range/Units 12:08 12:08 13:23 WBC 10.9 (4.5-11.0) T/MM3 RBC 4.21 (4.00-5.20) M/MM3 Hgb 13.9 (12-16) GM/DL Hct 41.4 (36-46) % MCV 98.3 (80-100) UM3 MCH 33.0 (26-34) UUG MCHC 33.6 (31-37) GM/DL RDW Std Deviation 56.3 H (36.9-50.2) FL Plt Count 228 (130-400) T/MM3 MPV 10.2 (9.4-12.4) UM3 Immature Gran % (Auto) 0.2 (0.0-0.5) % Neut % (Auto) 64.1 (33-66) % Lymph % (Auto) 28.7 (23-45) % [place] % (Auto) 6.2 (0-9.0) % Eos % (Auto) 0.6 (0-4) % Baso % (Auto) 0.2 (0-2) % Neut # (Auto) 7.0 (1.8-7.7) T/MM3 Lymph # (Auto) 3.1 (1-4.8) T/MM3 [place] # (Auto) 0.7 (0-0.8) T/MM3 Eos # (Auto) 0.1 (0-0.5) T/MM3 Baso # (Auto) 0.0 (0-0.2) T/MM3 Abs Immat Gran (auto) 0.02 (0.00-0.03) T/MM3 Turbidity < 20 (0-20) Sodium 139 (134-144) MEQ/L Potassium 4.5 (3.6-5) MEQ/L Chloride 101 (98-107) MEQ/L Carbon Dioxide 28 (22-30) MEQ/L Anion Gap 10 (5-15) meq/L BUN 39.0 H (7-17) MG/DL Creatinine 0.7 (0.7-1.2) mg/dL GFR Calculation 82 BUN/Creatinine Ratio 56 H (6-26) RATIO Glucose 165 H (65-110) MG/DL Calculated Osmolality 281 H (261-280) MOSM/KG Calcium 9.3 (8.4-10.2) MG/DL Total Bilirubin 0.50 (0.20-1.30) MG/DL Icterus Index < 2 (0-7) AST 29 (14-36) U/L ALT 21 (1-35) U/L Alkaline Phosphatase 117 (38-126) U/L Total Protein 6.1 L (6.3-8.2) g/dL Albumin 3.3 L (3.5-5.0) g/dL Globulin 2.8 (2.4-3.6) G/DL Albumin/Globulin Ratio 1.2 (1.1-2.2) RATIO Plasma Lactate 1.4 (0.6-2.2) MMOL/L Specimen Hemolysis < 15 (0-25) Ur Collection Type Urine, void-cc/notcc Urine Color Yellow (YELLOW) Urine Clarity Clear Urine pH 5.5 (5.0-8.0) Ur Specific [place] >=1.030 H (1.015-1.025) Urine Protein 3+ A (NEGATIVE) Urine Glucose (UA) Negative (NEGATIVE) Urine Ketones Negative (NEGATIVE) Urine Occult Blood 1+ A (NEGATIVE) Urine Nitrate Negative (NEGATIVE) Urine Bilirubin Negative (NEGATIVE) Urine Urobilinogen 1.0 (NORMAL) EU/DL Ur Leukocyte Esterase Negative (NEGATIVE) Urine RBC 0-1 (0-3) /HPF Urine WBC 3-5 (0-5) /HPF Ur Squamous Epith Cells 0-5 Calcium Oxalate Crystal Moderate Urine Bacteria 4+ H (NEGATIVE) Urine Mucus Present Urine Yeast Budding present A (NEGATIVE) Ur Culture Indicated? Cult not indicated Salicylates < 1.0 L (2-20) MG/DL Urine Opiates Screen ng/mL Ur Oxycodone Screen ng/mL Urine Methadone Screen ng/mL Ur Propoxyphene Screen ng/mL Acetaminophen < 10 L (10-30) UG/ML Ur Barbiturates Screen ng/mL U Tricyclic Antidepress ng/mL Ur Phencyclidine Scrn ng/mL Ur Amphetamines Screen ng/mL U Methamphetamines Scrn ng/mL U Benzodiazepines Scrn ng/mL Urine Cocaine Screen ng/mL U Cannabinoids Screen ng/mL Alcohol, Quantitative <10 (<10) mg/dL 12/23/17 Range/Units 13:23 WBC (4.5-11.0) T/MM3 RBC (4.00-5.20) M/MM3 Hgb (12-16) GM/DL Hct (36-46) % MCV (80-100) UM3 MCH (26-34) UUG MCHC (31-37) GM/DL RDW Std Deviation (36.9-50.2) FL Plt Count (130-400) T/MM3 MPV (9.4-12.4) UM3 Immature Gran % (Auto) (0.0-0.5) % Neut % (Auto) (33-66) % Lymph % (Auto) (23-45) % [place] % (Auto) (0-9.0) % Eos % (Auto) (0-4) % Baso % (Auto) (0-2) % Neut # (Auto) (1.8-7.7) T/MM3 Lymph # (Auto) (1-4.8) T/MM3 [place] # (Auto) (0-0.8) T/MM3 Eos # (Auto) (0-0.5) T/MM3 Baso # (Auto) (0-0.2) T/MM3 Abs Immat Gran (auto) (0.00-0.03) T/MM3 Turbidity (0-20) Sodium (134-144) MEQ/L Potassium (3.6-5) MEQ/L Chloride (98-107) MEQ/L Carbon Dioxide (22-30) MEQ/L Anion Gap (5-15) meq/L BUN (7-17) MG/DL Creatinine (0.7-1.2) mg/dL GFR Calculation BUN/Creatinine Ratio (6-26) RATIO Glucose (65-110) MG/DL Calculated Osmolality (261-280) MOSM/KG Calcium (8.4-10.2) MG/DL Total Bilirubin (0.20-1.30) MG/DL Icterus Index (0-7) AST (14-36) U/L ALT (1-35) U/L Alkaline Phosphatase (38-126) U/L Total Protein (6.3-8.2) g/dL Albumin (3.5-5.0) g/dL Globulin (2.4-3.6) G/DL Albumin/Globulin Ratio (1.1-2.2) RATIO Plasma Lactate (0.6-2.2) MMOL/L Specimen Hemolysis (0-25) Ur Collection Type Urine Color (YELLOW) Urine Clarity Urine pH (5.0-8.0) Ur Specific [place] (1.015-1.025) Urine Protein (NEGATIVE) Urine Glucose (UA) (NEGATIVE) Urine Ketones (NEGATIVE) Urine Occult Blood (NEGATIVE) Urine Nitrate (NEGATIVE) Urine Bilirubin (NEGATIVE) Urine Urobilinogen (NORMAL) EU/DL Ur Leukocyte Esterase (NEGATIVE) Urine RBC (0-3) /HPF Urine WBC (0-5) /HPF Ur Squamous Epith Cells Calcium Oxalate Crystal Urine Bacteria (NEGATIVE) Urine Mucus Urine Yeast (NEGATIVE) Ur Culture Indicated? Salicylates (2-20) MG/DL Urine Opiates Screen Negative ng/mL Ur Oxycodone Screen Negative ng/mL Urine Methadone Screen Negative ng/mL Ur Propoxyphene Screen Negative ng/mL Acetaminophen (10-30) UG/ML Ur Barbiturates Screen Negative ng/mL U Tricyclic Antidepress Negative ng/mL Ur Phencyclidine Scrn Negative ng/mL Ur Amphetamines Screen Negative ng/mL U Methamphetamines Scrn Negative ng/mL U Benzodiazepines Scrn Negative ng/mL Urine Cocaine Screen Negative ng/mL U Cannabinoids Screen Negative ng/mL Alcohol, Quantitative (<10) mg/dL - Radiology Data Attestation: I reviewed the patient's radiology results. CT 24 OCT 2017: 1. Increasing pericardial effusion. 2. Mural thickening in the descending colon of uncertain significance. This could represent colitis. In addition, there is lucency in the liver which may represent portal venous gas. No definite pneumatosis is identified as a source. Clinical assessment for the possibility of bowel ischemia should be considered. CXR: Impression: No focal pneumonia or congestive failure. Moderate enlargement of the cardiac silhouette could be due to cardiomegaly or pericardial effusion. CT Abd/Pelv: Impression: 1. Large pericardial effusion. Recommend correlation for any evidence of tamponade physiology. 2. Decreased enhancement of the liver could represent passive congestion or a "nutmeg" liver from right heart insufficiency. This could also be seen in acute hepatic edema from hepatitis and from fatty infiltration. Recommend clinical and laboratory correlation. No evidence of pneumatosis or portal venous gas currently. Disposition Clinical Impression: Anorexia, Weight loss Disposition: 65 To [facility] Condition: Stable - Seen By: physician
[2017-12-23] MEDS: SALINE FLUSH 10ml SYRINGE IVF PRN ×2 (12:11→15:15)
[2017-12-23] MEDS ORDERED: SALINE FLUSH 10ml SYRINGE ONE (12:47)
[2017-12-23] MEDS ORDERED: IOHEXOL 300mg/ml 100ml INJECTION ONE (12:47)
[2017-12-23] MEDS ORDERED: NS 1,000 ML IV ONE (13:07)
--- NOTE | 2017-12-23 13:49 | CT Scan Report ---
Indication: CT in Mar showing ?colitis and ?portal vein gas PROCEDURE: CT abdomen pelvis w con: Encounter: Initial Comparison: None Technique: Axial CT images were performed through the abdomen and pelvis after the administration of intravenous contrast. Coronal and sagittal two-dimensional reformats. Automated Exposure Control and Iterative Reconstruction dose reducing techniques were utilized. Contrast: Omnipaque 300 87 mL Findings: Large calcified granuloma in the right lower lobe. Large pericardial effusion measuring up to 2 cm in thickness. The liver is heterogeneous and decreased in attenuation which could be due to congestion, edema or fatty infiltration. There is no pneumobilia or portal venous gas seen currently. No enhancing liver mass or bile duct dilatation. The gallbladder is surgically absent. The spleen is grossly unremarkable. The pancreas is normal. Adrenal glands are unremarkable. Bilateral renal cysts. The bladder is decompressed. Uterus is surgically absent. Prominent rectal stool ball. No evidence of acute diverticulitis or significant diverticular disease in the colon. Moderate stool throughout the colon without evidence of focal colonic wall thickening or inflammation. The appendix is normal. Bone windows show no acute findings. Impression: 1. Large pericardial effusion. Recommend correlation for any evidence of tamponade physiology. 2. Decreased enhancement of the liver could represent passive congestion or a "nutmeg" liver from right heart insufficiency. This could also be seen in acute hepatic edema from hepatitis and from fatty infiltration. Recommend clinical and laboratory correlation. No evidence of pneumatosis or portal venous gas currently. .
[2017-12-23] MEDS ORDERED: MIDODRINE 2.5 MG TABLET PO ONE (14:06)
[2017-12-23] MEDS ORDERED: IBUPROFEN 200 MG TABLET PO ONE (14:06)
[2017-12-23] MEDS ORDERED: LORazepam 0.5 MG TABLET PO PRN (14:45)
[2017-12-23 16:14] VITALS: BMI 23.8
[2017-12-23] MEDS: MIDODRINE 2.5 MG TABLET PO SCH ×2 (17:59→20:25)
[2017-12-23] MEDS: SUCRALFATE 1 GM TABLET PO SCH ×2 (18:02→18:03)
[2017-12-23] MEDS: INSULIN GLARGINE 100unit/ml INJECTION SQ SCH (20:23)
[2017-12-24] MEDS: LEVOTHYROXINE 75 MCG TABLET PO SCH (06:22)
[2017-12-24] MEDS: SUCRALFATE 1 GM TABLET PO SCH ×2 (06:23→11:58)
[2017-12-24] MEDS: PANTOPRAZOLE 40 MG TABLET PO SCH (06:23)
[2017-12-24] MEDS: MIDODRINE 2.5 MG TABLET PO SCH ×3 (06:24→13:59)
[2017-12-24] MEDS: ISOSORBIDE MONONITRATE ER 30 MG TABLET PO SCH (08:21)
[2017-12-24] MEDS: CLOPIDOGREL 75 MG TABLET PO SCH (08:21)
[2017-12-24] MEDS: LACTULOSE 20 GM/30 ML ORAL LIQUID PO SCH (08:22)
[2017-12-24] MEDS: ASPIRIN 81 MG CHEWABLE TABLET PO SCH (08:26)
[2017-12-24] MEDS ORDERED: FLUoxetine 20 MG CAPSULE PO SCH (09:00)
--- NOTE | 2017-12-24 11:26 | History & Physical Report ---
History of Present Illness Date: 12/24/17 Chief complaint: severe depression, chronic abdominal pain HPI: Izzy Kirk is a pleasant 72-year-old patient of Dr. Blancas who presented to [facility] ED for evaluation of anorexia and weight loss. She reports that beginning in August 2017, she has had no appetite with decreased oral intake and chronic epigastric abdominal pain resulting in severe weight loss. She reports a 100 pound weight loss over the past 6 months. She has reportedly had multiple ED visits for various complaints and has undergone extensive evaluation for her pain and anorexia through her PCP without improvement. She also complains of severe constipation but admits that she does not take much in orally which is probably related. Prior endoscopy revealed mild gastritis and hiatal hernia but was otherwise normal. Gastric emptying study on 08/28/17 revealed delayed emptying consistent with gastroparesis most likely related to her insulin dependent diabetes. Given her chronic health issues, she reports increased depression over the past year. Her PCP recommended psychiatric evaluation and recommended she come to [facility]. She was initially seen in the ED at [facility] on 12/23/17. Labs and vital signs were unremarkable. UA revealed 3-5 WBC with 4+ bacteria and yeast. No urine culture was indicated. She denies any recent fevers, chills, chest pain, shortness of breath, diarrhea or dysuria. She does admit to occasional nausea and vomiting but none today. Abdominal CT was obtained and revealed large pericardial effusion, decreased enhancement of the liver which could represent passive congestion or "nutmeg" liver from right heart insufficiency, acute hepatic edema from hepatitis or fatty infiltration. CXR revealed no focal pneumonia or CF with moderate enlargement of cardiac silhouette due to cardiomegaly or pericardial effusion. [facility] and the hospitalist service was consulted for medical management. Review of Systems All systems PM: 10-point ROS was reviewed, no additional remarkable complaints except - Constitutional Constitutional: Present: anorexia, fatigue, malaise, weakness, weight loss. Absent: chills, fever(s) - EENMT Eyes: Absent: diplopia, loss of vision Ears: Absent: ear pain Balance: Absent: falling to one side Nose: Present: allergies. Absent: nosebleeds Mouth/Throat: Absent: sore throat, changes in swallowing - Cardiovascular Cardiovascular: Absent: chest pain, palpitations, syncope, dyspnea on exertion, orthopnea Vascular: Absent: pallor of an extermity, unilateral swelling - Respiratory Respiratory: Absent: cough, dyspnea, hemoptysis, dyspnea on exertion, wheezing - Gastrointestinal Gastrointestinal: Present: abdominal pain (epigastric), constipation, early satiety. Absent: hematemesis, hematochezia, melena, nausea, vomiting - Genitourinary Genitourinary: Absent: dysuria, flank pain, hematuria Menstruation: post menopausal - Musculoskeletal Musculoskeletal: Present: muscle weakness. Absent: back pain, deformity - Integumentary/Breasts Integumentary: Absent: rash - Neurological Neurological: Present: weakness. Absent: confusion, dizziness - Psychiatric Psychiatric: Present: anxiety, depression - Endocrine Endocrine: Absent: flushing, palpitations - Hematologic/Lymphatic Hematologic/Lymphatic: Absent: easy bruising - Allergic/Immunologic Allergic/Immunologic: Present: seasonal rhinorrhea Past Medical History Medical History Updates: Diabetes mellitus, type 2, insulin dependent. Gastroparesis. Depression. Anxiety. Constipation. CAD. Hypothyroidism. Dysthymia. Hypertension. Orthostatic hypotension. Hyperlipidemia. Osteoarthritis. Seasonal allergies. History of kidney stones. Peripheral neuropathy. Surgical History: Cholecystectomy. Tonsillectomy. Heart cath with stent placement x - 04/2017. Heart cath with stent placement x - 2009. Right knee scope. Colonscopy - 2008. EGD. Family History Updates: Mother - deceaese, 87, dementia. Father - , 56 , CAD, [place], HTN. Sister - living, 91, diabetes. Family History: As Above - Social History Smoking status: Former smoker Substance use type: does not use Alcohol intake frequency: does not drink Housing: house Household members: none Current occupational status: retired Does patient use chewing tobacco?: No Current residence: Apartment/Private Home Social history: PCP - Dr. Blancas. Medications Home Medications Medication Instructions Recorded Confirmed Type Aspirin Chewable [ASA] 81 mg PO DAILY 12/23/17 12/23/17 History Clopidogrel [Plavix] 75 mg PO DAILY 12/23/17 12/23/17 History FLUoxetine [Prozac] 40 mg PO DAILY 12/23/17 12/23/17 History Insulin Glargine,Hum.rec.anlog 8 units SQ HS 12/23/17 12/23/17 History [Lantus Solostar] Isosorbide Mononitrate ER [Imdur] 30 mg PO DAILY 12/23/17 12/23/17 History Lactulose Bulk Oral Liq [Enulose] 45 ml PO 3XW 12/23/17 12/23/17 History Levothyroxine Sodium 75 mcg PO DAILY 12/23/17 12/23/17 History Metoclopramide [Reglan] 10 mg PO TID 12/23/17 12/23/17 History Midodrine [Proamatine] 2.5 mg PO TID 12/23/17 12/23/17 History Pantoprazole Sodium [Protonix] 40 mg PO DAILY 12/23/17 12/23/17 History Potassium Chloride [Klor-Con M10] 10 meq PO QID 12/23/17 12/23/17 History Sucralfate [Carafate] 1,000 mg PO TID 12/23/17 12/23/17 History Allergies Allergy/AdvReac Type Severity Reaction Status Date / Time No Known Allergies Allergy Verified 12/23/17 11:41 Exam Vital Signs: Temperature 97.0 F 12/24/17 08:00 Pulse Rate 80 12/24/17 08:00 Respiratory Rate 16 12/24/17 08:00 Blood Pressure 105/66 12/24/17 08:00 Pulse Oximetry 96 12/24/17 08:00 Height/Weight/BMI: Height 5 ft 4 in Weight 138 lb 7.205 oz Body Mass Index 23.8 Comments: Ambulating in room with walker. - Constitutional Present: no acute distress, well nourished, well developed, cooperative Comments: Flat, depressed affect. - Routine HEENT Exam Head: Present: normocephalic, atraumatic Eye: Present: PERRL. Absent: conjunctival icterus ENT: Present: mucous membranes moist, oropharynx clear - Routine Neck Exam Present: supple, full ROM, trachea midline - Routine Chest/Breast/Axilla Exam Chest wall: Absent: pacemaker - Routine Respiratory Exam Present: CTA bilaterally. Absent: respiratory distress, wheezes - Routine Cardiovascular Exam Present: RRR, S1, S2 - Routine Abdominal Exam Present: soft, non distended. Absent: rebound, guarding Comments: Mild epigastric tenderness with palpation. No Liz's or McBurney's point tenderness. No apparent distress on exam. - Routine Extremities Exam Present: no edema, full ROM, pulses intact - Routine Back/Spine/Pelvis Exam Back/Spine: Present: full ROM. Absent: vertebral tenderness - Routine Skin Exam Present: intact, dry, warm Comments: Afebrile. - Routine Neurological Exam Present: alert, oriented X3, moving all extremities, hearing grossly intact, normal speech - Routine Psychiatric Exam Present: cooperative, depressed Comments: Flat affect. Results - Labs CBC & Chem 7: 12/23/17 12:08 12/23/17 12:08 Assessment and Plan Assessment and Plan: Assessment: Severe depression. Failure to thrive. Anorexia. Diabetes mellitus, type II, insulin dependent. Gastroparesis. Constipation. CAD. Hypothyroidism. History of hypertension. History of orthostatic hypotension. Hyperlipidemia. Plan - 12/24/17: [facility] for further [facility] evaluation and care. Hospitalist service consulted for medical management. Labs and imaging reviewed from ED evaluation as well as extensive review of prior medical records. CT revealed large pericardial effusion and concerning for passive congestion from right heart insufficiency in the liver. Will obtain echocardiogram as well as ultrasound of liver for further evaluation. 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 Blood sugars controlled. Monitor closely and continue home Lantus 8 units QHS. Monitor blood pressure closely. Continue home medications. Monitor closely for orthostatic hypotension. Consult dietary for evaluation of protein calorie malnutrition. Will also obtain speech evaluation for possible dysphagia. Recheck labs in AM to monitor blood counts, electrolytes and renal function. Upon discharge, patient's care will be returned to PCP. GI Prophylaxis: Protonix Resuscitation Status: Full Code - Time spent with patient Time with patient PN: 70 minutes - Physician Narrative Physician: Sascha Zamora MD Narrative: Date: 12/24/17 Time: 1115 Hospital Course Summary Disclaimer: The visit summary below is not to be considered part of the above Progress Note. Hospital Course: Plan - 12/24/17: Agree with admission to [facility] for further psychiatric evaluation and care. Hospitalist service consulted for medical management. Labs and imaging reviewed from ED evaluation as well as extensive review of prior medical records. CT revealed large pericardial effusion and concerning for passive congestion from right heart insufficiency in the liver. Will obtain echocardiogram as well as ultrasound of liver for further evaluation. 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 Blood sugars controlled. Monitor closely and continue home Lantus 8 units QHS. Monitor blood pressure closely. Continue home medications. Monitor closely for orthostatic hypotension. Consult dietary for evaluation of protein calorie malnutrition. Will also obtain speech evaluation for possible dysphagia. Recheck labs in AM to monitor blood counts, electrolytes and renal function. Upon discharge, patient's care will be returned to PCP.
[2017-12-24] MEDS: ACETAMINOPHEN 325 MG TABLET PO PRN (14:02)
--- NOTE | 2017-12-24 16:28 | Ultrasound Report ---
Indication: anorexia, liver congestion from right heart failure PROCEDURE: US abdomen complete: Encounter: Initial Comparison: CT abdomen from yesterday Technique: Grayscale and color Doppler sonographic imaging of the abdomen was performed. Findings: Hepatic parenchyma is homogeneous without evidence for focal mass. Echotexture appears normal. The gallbladder is absent. Both the intra and extrahepatic biliary system are of normal caliber with the common duct measuring 5 mm in dimension. Pancreas is not well seen due to shadowing bowel gas. Both kidneys are present without collecting system dilatation. The right measures 10 cm in length and left measures 10.7 cm. Simple appearing 2.7 cm right renal cyst. Multiple small simple left renal cysts measuring up to 2.2 cm in diameter. The spleen is is at the upper limits of normal in size at 14.1 cm in length. 1.2 cm round hyperechoic splenic hemangioma. The visualized portions of the aorta and IVC are unremarkable. No free fluid. Impression: Normal echotexture of the liver making severe fatty infiltration and acute hepatic edema unlikely. No acute abnormality seen by ultrasound. .
[2017-12-24] MEDS: SUCRALFATE 1gm/10ml ORAL LIQUID PO SCH (17:19)
--- NOTE | 2017-12-24 17:36 | 24 Hour Neuropsychiatic Eval ---
Date of Admission: 12/23/17 14:05 Chief complaint: "Depression" History of Present Illness: Patient is a 72-year-old female who was admitted to [facility] on 12/23/17 for psychiatric evaluation and stabilization. Patient endorses severe depression with significant weight loss over recent months. She states that she feels quite poorly physically and because of this, has lost energy and motivation to do the things she used to. The isolation has contributed to her depression. Patient states that her appetite began to decrease several months ago (in 2016) and her depression worsened significantly in August 2017. Patient has been taking Prozac for some time and says that she "feels numb and emotionless." She denies any SI or history of suicide attempts. She denies HI, AVH. She denies any prior psych hospitalizations or even any psychiatric hx prior to this episode of depression. Denies hx of symptoms consistent with bipolar disorder or PTSD. Patient scored a 27/30 on her SLUMS. Per hospitalist: "She reports that beginning in August 2017, she has had no appetite with decreased oral intake and chronic epigastric abdominal pain resulting in severe weight loss. She reports a 100 pound weight loss over the past 6 months. She has reportedly had multiple ED visits for various complaints and has undergone extensive evaluation for her pain and anorexia through her PCP without improvement. She also complains of severe constipation but admits that she does not take much in orally which is probably related. Prior endoscopy revealed mild gastritis and hiatal hernia but was otherwise normal. Gastric emptying study on 08/28/17 revealed delayed emptying consistent with gastroparesis most likely related to her insulin dependent diabetes. Given her chronic health issues, she reports increased depression over the past year. Her PCP recommended psychiatric evaluation and recommended she come to [facility]. She was initially seen in the ED at [facility] on 12/23/17. Labs and vital signs were unremarkable. UA revealed 3-5 WBC with 4+ bacteria and yeast. No urine culture was indicated. She denies any recent fevers, chills, chest pain, shortness of breath, diarrhea or dysuria. She does admit to occasional nausea and vomiting but none today. Abdominal CT was obtained and revealed large pericardial effusion, decreased enhancement of the liver which could represent passive congestion or "nutmeg" liver from right heart insufficiency, acute hepatic edema from hepatitis or fatty infiltration. CXR revealed no focal pneumonia or CF with moderate enlargement of cardiac silhouette due to cardiomegaly or pericardial effusion. She was accepted to [facility] and the hospitalist service was consulted for medical management." Depression: Isolating Oneself From Friends and Family, Increased Fatigue, Changes in Appetite, Significant Weight Loss, Unhappiness [facility] Patient Stated Medical History Dental Problems Yes: doesnt wear upper denture, causes gagging. Hypotension Yes Diabetes Mellitus Type 2 Yes Other GI Yes: gastroparesis r/t diabetes Hx Kidney Stones Yes Clotting Problems Yes: taking plavix Other Hematologic Yes: takes plavix for coronary stents Osteoarthritis Yes Other Musculoskeletal Yes: peripheral neuropathy Blood Transfusions Yes Depression Yes Medical History Updates: Diabetes mellitus, type 2, insulin dependent. Gastroparesis. Depression. Anxiety. Constipation. CAD. Hypothyroidism. Dysthymia. Hypertension. Orthostatic hypotension. Hyperlipidemia. Osteoarthritis. Seasonal allergies. History of kidney stones. Peripheral neuropathy. Surgical History: Cholecystectomy. Tonsillectomy. Heart cath with stent placement x - 04/2017. Heart cath with stent placement x - 2009. Right knee scope. Colonscopy - 2008. EGD. Family History Updates: Mother - deceaese, 87, dementia. Father - , 56 , CAD, [place], HTN. Sister - living, 91, diabetes. Denies family hx of mental illness or dementia. - Social History Smoking status: Former smoker Substance use type: does not use Alcohol intake frequency: does not drink Housing: house Household members: none Current occupational status: retired Does patient use chewing tobacco?: No Current residence: Apartment/Private Home Social history: Strengths: able to verbally communicate well, mobile with assistance, cognitively intact Review of Systems All systems: reviewed and no additional remarkable complaints except as stated - EENMT Ears: Absent: ear pain Balance: Absent: falling to one side Nose: Present: allergies. Absent: nosebleeds Mouth/Throat: Absent: sore throat, changes in swallowing - Cardiovascular Vascular: Absent: pallor of an extermity, unilateral swelling - Genitourinary Menstruation: post menopausal - Neurological Neurological: Absent: memory loss - Psychiatric Psychiatric: Present: as per HPI Mental Status Exam Vitals: Last Vital Signs Temp 97.3 F 12/24/17 16:00 Pulse 78 12/24/17 16:00 Resp 16 12/24/17 16:00 BP 121/69 12/24/17 16:00 Pulse Ox 98 12/24/17 16:00 Height: 1.63 m Weight: 62.8 kg - Mental Status Exam Muscle Strength/Tone: Weak Dressing: Casual Grooming: Fair Attitude: Cooperative Motor Activity: Retardation Eye Contact: Good Speech: Normal Volume: Soft Rhythm: Appropriate Rhythm Sensory: Alert Orientation: Oriented X4 Mood: Depressed (restricted affect) Rate of Thoughts: Appropriate Rate Thought Organization: Organized Associations: Intact Abstract Reasoning: Intact, able to abstract Thought Content: Ruminations, Helplessness, Somatic Concerns Perception/Psychotic: Perception Normal Fund of Knowledge: Appropriate Memory: Grossly Intact Suicidal Ideation: Denies Homicidal Ideation: Denies Insight: Fair Judgement: Fair Impulse Control: Good - Laboratory Result Diagrams: 12/25/17 07:03 12/25/17 07:03 Laboratory Results - last 24 hr 12/24/17 12/24/17 06:28 14:26 Glucometer 127 230 Assessment and Plan (1) Depressive disorder Problem details: R/O Major depressive disorder, single episode, severe R/O Mood disorder secondary to general medical condition Current visit: Yes Status: Acute Agree with admission to [facility] for psychiatric evaluation and stabilization. Maintain safety and elopement precautions. Will contact family/support for additional collateral. Standard labs on admission: CBC, CMP, TSH, UA, Vitamin B12 and folate. Will also request Vitamin D level. Have consulted hospitalist for management of medical comorbidities. In regards to psychotropic meds, report of dulling emotions likely related to too high of Prozac dose. Because of extremely long half-life, Prozac will self- taper and remain in patient's system for weeks after discontinuation. Will discontinue now and suggest psychiatric f/u to discuss SNRI or NDRI after discharge. For the time being, will start Ritalin 0.5mg PO daily to target energy, appetite and monitor response. Discussed rationale with patient, who agrees with this plan.
[2017-12-24] MEDS: INSULIN GLARGINE 100unit/ml INJECTION SQ SCH (21:29)
[2017-12-25] MEDS: CLOPIDOGREL 75 MG TABLET PO SCH (08:32)
[2017-12-25] MEDS: ASPIRIN 81 MG CHEWABLE TABLET PO SCH (08:32)
[2017-12-25] MEDS: MIDODRINE 2.5 MG TABLET PO SCH ×3 (08:37→15:07)
[2017-12-25] MEDS: SUCRALFATE 1gm/10ml ORAL LIQUID PO SCH ×2 (08:37→12:13)
[2017-12-25] MEDS: LEVOTHYROXINE 75 MCG TABLET PO SCH (08:37)
[2017-12-25] MEDS: PANTOPRAZOLE 40 MG TABLET PO SCH (08:37)
[2017-12-25] MEDS: ISOSORBIDE MONONITRATE ER 30 MG TABLET PO SCH (08:37)
[2017-12-25] MEDS ORDERED: METHYLPHENIDATE 5 MG TABLET PO SCH (09:00)
[2017-12-25] MEDS: ACETAMINOPHEN 325 MG TABLET PO PRN (12:29)
[2017-12-25] MEDS: FLUCONAZOLE 40 MG/ML PO SCH (15:03)
[2017-12-25] MEDS: INSULIN ASPART 100unit/ml INJECTION SQ PRN ×2 (15:07→20:52)
--- NOTE | 2017-12-25 16:43 | Echocardiogram ---
DATE OF PROCEDURE December 24, 2017 This is a two-dimensional echo with spectral Doppler, color-flow and M-mode. It was obtained in a patient with pericardial effusion. Left atrium is dilated. Left ventricular end-diastolic dimension is normal. Left ventricular wall thickness is increased. LV systolic function is mildly reduced with ejection fraction of about 48%. Right atrium is dilated. Right ventricle is normal. Aortic root dimension is normal. Mitral valve is morphologically normal with [id number] mitral regurgitation. Aortic valve is a trileaflet structure with fibrocalcific changes with no stenosis. Mild aortic insufficiency is present. Tricuspid valve shows [id number] tricuspid regurgitation with moderate pulmonary hypertension with estimated pulmonary artery systolic pressure of 48. Pulmonary valve shows trace of pulmonary insufficiency. There is moderate pericardial effusion with no echocardiographic evidence of tamponade. IMPRESSION 1. Moderate pericardial effusion with no echocardiographic evidence of tamponade. 2. Concentric left ventricular hypertrophy. 3. Biatrial dilation. 4. LV function mildly reduced with ejection fraction of about 48%. 5. Zkji-jm-[id number] mitral regurgitation. 6. Aortic sclerosis with mild aortic insufficiency. 7. Moderate tricuspid regurgitation with moderate pulmonary hypertension with estimated pulmonary artery systolic pressure of 48. 8. Trace of pulmonary insufficiency. MTDD
[2017-12-25] MEDS: SUCRALFATE 1 GM TABLET PO SCH (17:33)
--- NOTE | 2017-12-25 19:35 | Neuropsych Progress Note ---
[facility] Subjective Date: 12/25/17 - Sujective/Severity of Illness Medications: Acetaminophen (Tylenol) 325 - 650 mg PO Q6H PRN PRN Reason: Discomfort Last Admin: 12/25/17 12:29 Dose: 650 mg Aspirin (Asa) 81 mg PO DAILY [facility] Last Admin: 12/25/17 08:32 Dose: 81 mg Clopidogrel Bisulfate (Plavix) 75 mg PO DAILY [facility] Last Admin: 12/25/17 08:32 Dose: 75 mg Fluconazole (Diflucan) 150 mg PO DAILY [facility] Last Admin: 12/25/17 15:03 Dose: 150 mg Insulin Aspart (Novolog) 1 - 5 unit SQ SS PRN; Protocol PRN Reason: Hyperglycemia Last Admin: 12/25/17 15:07 Dose: 2 unit Insulin Glargine (Lantus) 8 unit SQ HS [facility] Last Admin: 12/24/17 21:29 Dose: 8 unit Isosorbide Mononitrate (Imdur) 30 mg PO 0700 [facility] Last Admin: 12/25/17 08:37 Dose: 30 mg Lactulose (Lactulose) 45 gm PO [id number] [facility] Last Admin: 12/24/17 08:22 Dose: 45 gm Levothyroxine Sodium (Synthroid) 75 mcg PO ACB [facility] Last Admin: 12/25/17 08:37 Dose: 75 mcg Lorazepam (Ativan) 0.5 mg PO Q6H PRN PRN Reason: Extreme agitation Lorazepam (Ativan Inj) 0.5 mg IM Q6H PRN PRN Reason: Extreme agitation Methylphenidate HCl (Ritalin) 5 mg PO DAILY [facility] Last Admin: 12/25/17 08:35 Dose: 5 mg Metoclopramide HCl (Reglan) 10 mg PO TID [facility] Last Admin: 12/25/17 15:07 Dose: 10 mg Midodrine (Proamatine) 2.5 mg PO 0700,1100,1500 [facility] Last Admin: 12/25/17 15:07 Dose: 2.5 mg Pantoprazole Sodium (Protonix Tab) 40 mg PO ACB [facility] Last Admin: 12/25/17 08:37 Dose: 40 mg Potassium Chloride (K-Dur 10 Meq Tablet) 10 meq PO WMHS [facility] Last Admin: 12/25/17 17:33 Dose: 10 meq Sucralfate (Carafate) 1 gm PO AC [facility] Last Admin: 12/25/17 17:33 Dose: 1 gm Subjective: Patient seen and chart reviewed. Case discussed with treatment team. Patient is pleasant on interview and reports her mood is "a little better today, " which she primarily attributes to spending time with peers on unit. She reports tolerating Ritalin well this morning and ate 50% of breakfast. Nursing reports she has also drank 3 strawberry shakes today so appetite seems to be adequate at least for today. Patient denies any new physical complaints or adverse reaction to psychotropic medications. Patient denies SI, HI, AVH. Nursing staff report patient has been pleasant and cooperative, with no significant behavioral difficulties on the unit. No psychotropic PRNs required in the past 24 hours. VSS. Dennys slept well overnight. Start Time: 13:20 Stop Time: 13:40 Mental Status Exam Vitals: Last Vital Signs Temp 97.4 F 12/25/17 16:00 Pulse 77 12/25/17 16:00 Resp 16 12/25/17 16:00 BP 114/65 12/25/17 16:00 Pulse Ox 97 12/25/17 16:00 Height: 1.63 m Weight: 62.8 kg - Mental Status Exam Muscle Strength/Tone: Weak Dressing: Casual Grooming: Fair Attitude: Cooperative Motor Activity: Retardation Eye Contact: Good Speech: Normal Volume: Soft Rhythm: Appropriate Rhythm Orientation: Oriented X4 Mood: Depressed (says "a bit better today," restricted affect) Rate of Thoughts: Appropriate Rate Thought Organization: Organized Associations: Intact Abstract Reasoning: Intact, able to abstract Thought Content: Ruminations, Helplessness, Somatic Concerns Perception/Psychotic: Perception Normal Fund of Knowledge: Appropriate Memory: Grossly Intact Suicidal Ideation: Denies Homicidal Ideation: Denies Insight: Fair Judgement: Fair Impulse Control: Good - Laboratory Result Diagrams: 12/25/17 07:03 12/25/17 07:03 Laboratory Results - last 24 hr 12/24/17 12/25/17 12/25/17 21:32 06:37 07:03 WBC 11.4 H RBC 4.16 Hgb 13.5 Hct 40.9 MCV 98.3 MCH 32.5 MCHC 33.0 RDW Std Deviation 57.6 H Plt Count 237 MPV 10.5 Immature Gran % (Auto) 0.3 Neut % (Auto) 66.2 H Lymph % (Auto) 25.5 [place] % (Auto) 6.2 Eos % (Auto) 1.5 Baso % (Auto) 0.3 Neut # (Auto) 7.5 Lymph # (Auto) 2.9 [place] # (Auto) 0.7 Eos # (Auto) 0.2 Baso # (Auto) 0.0 Abs Immat Gran (auto) 0.03 Turbidity Sodium Potassium Chloride Carbon Dioxide Anion Gap BUN Creatinine GFR Calculation BUN/Creatinine Ratio Glucose Glucometer 235 128 Calculated Osmolality Calcium Magnesium Total Bilirubin Icterus Index AST ALT Alkaline Phosphatase Total Protein Albumin Globulin Albumin/Globulin Ratio Lipase Specimen Hemolysis Ur Collection Type Urine Color Urine Clarity Urine pH Ur Specific [place] Urine Protein Urine Glucose (UA) Urine Ketones Urine Occult Blood Urine Nitrate Urine Bilirubin Urine Urobilinogen Ur Leukocyte Esterase Urine RBC Urine WBC Ur Squamous Epith Cells Calcium Oxalate Crystal Urine Bacteria Urine Mucus Ur Culture Indicated? 12/25/17 12/25/17 12/25/17 07:03 10:02 14:53 WBC RBC Hgb Hct MCV MCH MCHC RDW Std Deviation Plt Count MPV Immature Gran % (Auto) Neut % (Auto) Lymph % (Auto) [place] % (Auto) Eos % (Auto) Baso % (Auto) Neut # (Auto) Lymph # (Auto) [place] # (Auto) Eos # (Auto) Baso # (Auto) Abs Immat Gran (auto) Turbidity < 20 Sodium 139 Potassium 4.8 Chloride 102 Carbon Dioxide 29 Anion Gap 8 BUN 38.0 H Creatinine 0.7 GFR Calculation 82 BUN/Creatinine Ratio 54 H Glucose 139 H Glucometer 248 248 Calculated Osmolality 279 Calcium 9.5 Magnesium 2.2 Total Bilirubin 0.40 Icterus Index < 2 AST 33 ALT 22 Alkaline Phosphatase 126 Total Protein 6.1 L Albumin 3.2 L Globulin 2.9 Albumin/Globulin Ratio 1.1 Lipase 36 Specimen Hemolysis < 15 Ur Collection Type Urine Color Urine Clarity Urine pH Ur Specific [place] Urine Protein Urine Glucose (UA) Urine Ketones Urine Occult Blood Urine Nitrate Urine Bilirubin Urine Urobilinogen Ur Leukocyte Esterase Urine RBC Urine WBC Ur Squamous Epith Cells Calcium Oxalate Crystal Urine Bacteria Urine Mucus Ur Culture Indicated? 12/25/17 16:05 WBC RBC Hgb Hct MCV MCH MCHC RDW Std Deviation Plt Count MPV Immature Gran % (Auto) Neut % (Auto) Lymph % (Auto) [place] % (Auto) Eos % (Auto) Baso % (Auto) Neut # (Auto) Lymph # (Auto) [place] # (Auto) Eos # (Auto) Baso # (Auto) Abs Immat Gran (auto) Turbidity Sodium Potassium Chloride Carbon Dioxide Anion Gap BUN Creatinine GFR Calculation BUN/Creatinine Ratio Glucose Glucometer Calculated Osmolality Calcium Magnesium Total Bilirubin Icterus Index AST ALT Alkaline Phosphatase Total Protein Albumin Globulin Albumin/Globulin Ratio Lipase Specimen Hemolysis Ur Collection Type Urine, void-cc/notcc Urine Color Romi Urine Clarity Clear Urine pH 5.5 Ur Specific [place] >=1.030 H Urine Protein 3+ A Urine Glucose (UA) Trace A Urine Ketones Negative Urine Occult Blood 2+ A Urine Nitrate Negative Urine Bilirubin Negative Urine Urobilinogen 1.0 Ur Leukocyte Esterase Negative Urine RBC 3-5 H Urine WBC 5-10 H Ur Squamous Epith Cells 5-10 Calcium Oxalate Crystal Moderate Urine Bacteria 2+ H Urine Mucus Present Ur Culture Indicated? Cult not indicated Assessment and Plan (1) Depressive disorder Problem details: R/O Major depressive disorder, single episode, severe R/O Mood disorder secondary to general medical condition Other medical conditions: Failure to thrive. Anorexia. Diabetes mellitus, type II, insulin dependent. Gastroparesis. Constipation. CAD. Hypothyroidism. History of hypertension. History of orthostatic hypotension. Hyperlipidemia. Current visit: Yes Status: Acute Increase Ritalin to 5mg PO BID with breakfast, lunch to target sleep, appetite. Hospital Course Summary Disclaimer: The visit summary below is not to be considered part of the above Progress Note. Hospital Course: Plan - 12/24/17: Agree with admission to [facility] for further psychiatric evaluation and care. Hospitalist service consulted for medical management. Labs and imaging reviewed from ED evaluation as well as extensive review of prior medical records. CT revealed large pericardial effusion and concerning for passive congestion from right heart insufficiency in the liver. Will obtain echocardiogram as well as ultrasound of liver for further evaluation. 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 Blood sugars controlled. Monitor closely and continue home Lantus 8 units QHS. Monitor blood pressure closely. Continue home medications. Monitor closely for orthostatic hypotension. Consult dietary for evaluation of protein calorie malnutrition. Will also obtain speech evaluation for possible dysphagia. Recheck labs in AM to monitor blood counts, electrolytes and renal function. Upon discharge, patient's care will be returned to PCP. 12/24/17 Psych: Discontinue Prozac and allow to self-taper as serotonin likely too high and contributing to emotional dulling complained of by patient. Because half-life is so-long, will need to start alternate antidepressant in ~4 weeks. Will start Ritalin 5mg PO daily to target energy, appetite. 12/25/17 Psych: Increase Ritalin to 5mg PO BID with breakfast, lunch to target sleep, appetite.
[2017-12-25] MEDS: INSULIN GLARGINE 100unit/ml INJECTION SQ SCH (20:51)
[2017-12-26] MEDS: ACETAMINOPHEN 325 MG TABLET PO PRN (05:55)
[2017-12-26] MEDS: SUCRALFATE 1 GM TABLET PO SCH ×3 (05:56→17:45)
[2017-12-26] MEDS: LEVOTHYROXINE 75 MCG TABLET PO SCH (05:56)
[2017-12-26] MEDS: PANTOPRAZOLE 40 MG TABLET PO SCH (05:57)
[2017-12-26] MEDS: MIDODRINE 2.5 MG TABLET PO SCH ×3 (06:00→15:25)
[2017-12-26] MEDS: ISOSORBIDE MONONITRATE ER 30 MG TABLET PO SCH (06:01)
[2017-12-26] MEDS: CLOPIDOGREL 75 MG TABLET PO SCH (08:24)
[2017-12-26] MEDS: ASPIRIN 81 MG CHEWABLE TABLET PO SCH (08:34)
[2017-12-26] MEDS: METHYLPHENIDATE 5 MG TABLET PO SCH ×2 (08:34→12:20)
[2017-12-26] MEDS: LACTULOSE 20 GM/30 ML ORAL LIQUID PO SCH (08:35)
[2017-12-26] MEDS: FLUCONAZOLE 40 MG/ML PO SCH (08:35)
[2017-12-26] MEDS: INSULIN ASPART 100unit/ml INJECTION SQ PRN ×2 (10:22→20:34)
--- NOTE | 2017-12-26 15:45 | Neuropsych Progress Note ---
[facility] Subjective Date: 12/26/17 - Sujective/Severity of Illness Medications: Acetaminophen (Tylenol) 325 - 650 mg PO Q6H PRN PRN Reason: Discomfort Last Admin: 12/26/17 05:55 Dose: 650 mg Aspirin (Asa) 81 mg PO DAILY [facility] Last Admin: 12/26/17 08:34 Dose: 81 mg Clopidogrel Bisulfate (Plavix) 75 mg PO DAILY [facility] Last Admin: 12/26/17 08:24 Dose: 75 mg Fluconazole (Diflucan) 150 mg PO DAILY [facility] Last Admin: 12/26/17 08:35 Dose: Not Given Insulin Aspart (Novolog) 1 - 5 unit SQ SS PRN; Protocol PRN Reason: Hyperglycemia Last Admin: 12/26/17 10:22 Dose: 3 unit Insulin Glargine (Lantus) 8 unit SQ HS [facility] Last Admin: 12/25/17 20:51 Dose: 8 unit Isosorbide Mononitrate (Imdur) 30 mg PO 0700 [facility] Last Admin: 12/26/17 06:01 Dose: 30 mg Lactulose (Lactulose) 45 gm PO MoWeFr@0900 [facility] Last Admin: 12/26/17 08:35 Dose: 45 gm Levothyroxine Sodium (Synthroid) 75 mcg PO ACB [facility] Last Admin: 12/26/17 05:56 Dose: 75 mcg Lorazepam (Ativan) 0.5 mg PO Q6H PRN PRN Reason: Extreme agitation Lorazepam (Ativan Inj) 0.5 mg IM Q6H PRN PRN Reason: Extreme agitation Methylphenidate HCl (Ritalin) 5 mg PO BIDBL [facility] Last Admin: 12/26/17 12:20 Dose: 5 mg Metoclopramide HCl (Reglan) 10 mg PO TID [facility] Last Admin: 12/26/17 14:54 Dose: 10 mg Midodrine (Proamatine) 2.5 mg PO 0700,1100,1500 [facility] Last Admin: 12/26/17 15:25 Dose: 2.5 mg Pantoprazole Sodium (Protonix Tab) 40 mg PO ACB [facility] Last Admin: 12/26/17 05:57 Dose: 40 mg Potassium Chloride (K-Dur 10 Meq Tablet) 10 meq PO WMHS [facility] Last Admin: 12/26/17 12:13 Dose: 10 meq Sucralfate (Carafate) 1 gm PO AC [facility] Last Admin: 12/26/17 12:12 Dose: 1 gm Subjective: Patient seen and chart reviewed. Case discussed with treatment team. Patient is pleasant on interview and reports her mood is "better," which she attributes to med changes and socialization. Discussed risks/benefit of Ritalin use given concern for heart failure. Patient stated that she preferred to continue medication as she felt it was beneficial for quality of life, and she understood risks. She understands dose will not be increased at this point. Patient affect appears brighter than admission as well. Patient denies any new physical complaints or adverse reaction to psychotropic medications. She feels she did not sleep well last night due to pain. Patient denies SI, HI, AVH. Nursing staff report patient has been pleasant and cooperative, with no significant behavioral difficulties on the unit. No psychotropic PRNs required in the past 24 hours. VSS. Patient has difficulty eating due to poor-fitting dentures (daughter working to have them fixed) but has eaten at least 6 strawberry shakes today. Discussed Vitamin B12 replacement (IM) with patient, who is in agreement with plan. Start Time: 14:20 Stop Time: 14:40 Mental Status Exam Vitals: Last Vital Signs Temp 97.9 F 12/26/17 08:00 Pulse 79 12/26/17 08:00 Resp 16 12/26/17 08:00 BP 128/65 12/26/17 08:00 Pulse Ox 97 12/26/17 08:00 Height: 1.63 m Weight: 62.8 kg - Mental Status Exam Muscle Strength/Tone: Weak Dressing: Casual Grooming: Fair Attitude: Cooperative Motor Activity: Retardation Eye Contact: Good Speech: Normal Volume: Soft Rhythm: Appropriate Rhythm Orientation: Oriented X4 Mood: Neutral (Says mood is "better") Affect: Relaxed Rate of Thoughts: Appropriate Rate Thought Organization: Organized Associations: Intact Abstract Reasoning: Intact, able to abstract Thought Content: Somatic Concerns Perception/Psychotic: Perception Normal Fund of Knowledge: Appropriate Memory: Grossly Intact Suicidal Ideation: Denies Homicidal Ideation: Denies Insight: Fair Judgement: Fair Impulse Control: Good - Laboratory Result Diagrams: 12/25/17 07:03 12/25/17 07:03 Laboratory Results - last 24 hr 12/25/17 12/25/17 12/26/17 16:05 20:21 06:09 Glucometer 304 143 Ur Collection Type Urine, void-cc/notcc Urine Color Romi Urine Clarity Clear Urine pH 5.5 Ur Specific [place] >=1.030 H Urine Protein 3+ A Urine Glucose (UA) Trace A Urine Ketones Negative Urine Occult Blood 2+ A Urine Nitrate Negative Urine Bilirubin Negative Urine Urobilinogen 1.0 Ur Leukocyte Esterase Negative Urine RBC 3-5 H Urine WBC 5-10 H Ur Squamous Epith Cells 5-10 Calcium Oxalate Crystal Moderate Urine Bacteria 2+ H Urine Mucus Present Ur Culture Indicated? Cult not indicated 12/26/17 12/26/17 10:11 15:04 Glucometer 254 212 Ur Collection Type Urine Color Urine Clarity Urine pH Ur Specific [place] Urine Protein Urine Glucose (UA) Urine Ketones Urine Occult Blood Urine Nitrate Urine Bilirubin Urine Urobilinogen Ur Leukocyte Esterase Urine RBC Urine WBC Ur Squamous Epith Cells Calcium Oxalate Crystal Urine Bacteria Urine Mucus Ur Culture Indicated? Assessment and Plan (1) Depressive disorder Problem details: R/O Major depressive disorder, single episode, severe R/O Mood disorder secondary to general medical condition Other medical conditions: Failure to thrive. Anorexia. Diabetes mellitus, type II, insulin dependent. Gastroparesis. Constipation. CAD. Hypothyroidism. History of hypertension. History of orthostatic hypotension. Hyperlipidemia. Current visit: Yes Status: Acute Will schedule Tylenol 650mg PO q HS to target pain that patient reports interfered with sleep; monitor as to whether this is effective. Discussed risks/ benefit of Ritalin use given concern for heart failure. Patient stated that she preferred to continue medication as she felt it was beneficial for quality of life, and she understood risks. She understands dose will not be increased at this point. Hospital Course Summary Disclaimer: The visit summary below is not to be considered part of the above Progress Note. Hospital Course: Plan - 12/24/17: Agree with admission to [facility] for further psychiatric evaluation and care. Hospitalist service consulted for medical management. Labs and imaging reviewed from ED evaluation as well as extensive review of prior medical records. CT revealed large pericardial effusion and concerning for passive congestion from right heart insufficiency in the liver. Will obtain echocardiogram as well as ultrasound of liver for further evaluation. 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 Blood sugars controlled. Monitor closely and continue home Lantus 8 units QHS. Monitor blood pressure closely. Continue home medications. Monitor closely for orthostatic hypotension. Consult dietary for evaluation of protein calorie malnutrition. Will also obtain speech evaluation for possible dysphagia. Recheck labs in AM to monitor blood counts, electrolytes and renal function. Upon discharge, patient's care will be returned to PCP. 12/24/17 Psych: Discontinue Prozac and allow to self-taper as serotonin likely too high and contributing to emotional dulling complained of by patient. Because half-life is so-long, will need to start alternate antidepressant in ~4 weeks. Will start Ritalin 5mg PO daily to target energy, appetite. 12/25/17 Psych: Increase Ritalin to 5mg PO BID with breakfast, lunch to target sleep, appetite. 12/26/17 Psych: Will schedule Tylenol 650mg PO q HS to target pain that patient reports interfered with sleep; monitor as to whether this is effective. Discussed risks/benefit of Ritalin use given concern for heart failure. Patient stated that she preferred to continue medication as she felt it was beneficial for quality of life, and she understood risks. She understands dose will not be increased at this point.
[2017-12-26] MEDS: ACETAMINOPHEN 325 MG TABLET PO SCH (20:14)
[2017-12-26] MEDS: INSULIN GLARGINE 100unit/ml INJECTION SQ SCH (20:26)
[2017-12-27] MEDS: ACETAMINOPHEN 325 MG TABLET PO PRN (01:38)
[2017-12-27] MEDS: SUCRALFATE 1 GM TABLET PO SCH ×3 (05:53→17:26)
[2017-12-27] MEDS: LEVOTHYROXINE 75 MCG TABLET PO SCH (05:54)
[2017-12-27] MEDS: ISOSORBIDE MONONITRATE ER 30 MG TABLET PO SCH (06:12)
[2017-12-27] MEDS: MIDODRINE 2.5 MG TABLET PO SCH ×3 (06:12→14:58)
[2017-12-27] MEDS: PANTOPRAZOLE 40 MG TABLET PO SCH (06:22)
[2017-12-27] MEDS: INSULIN ASPART 100unit/ml INJECTION SQ PRN ×5 (07:27→19:54)
[2017-12-27] MEDS: CLOPIDOGREL 75 MG TABLET PO SCH (08:52)
[2017-12-27] MEDS: ASPIRIN 81 MG CHEWABLE TABLET PO SCH (08:52)
[2017-12-27] MEDS: FLUCONAZOLE 40 MG/ML PO SCH (08:54)
[2017-12-27] MEDS: METHYLPHENIDATE 5 MG TABLET PO SCH ×2 (10:10→14:58)
[2017-12-27] MEDS: CYANOCOBALAMIN (B-12) 1,000mcg/ml INJECTION IM SCH ×2 (10:10→11:46)
--- NOTE | 2017-12-27 10:36 | Progress Note ---
- Date 12/27/17 Subjective: Patient is seen getting out of bed this morning. She reports she is "worn out." She reports she is not sleeping well, she has no appetite. She states they gave her something to help her sleep and when she finally was able to sleep it was time to get up. She denies any chest pain, shortness of breath, nausea or vomiting. She has a very flat and tired appearing affect. Objective Vital signs: Temperature 96.8 F 12/27/17 08:00 Pulse Rate 88 12/27/17 08:00 Respiratory Rate 18 12/27/17 08:00 Blood Pressure 124/80 12/27/17 08:00 Pulse Oximetry 97 12/27/17 08:00 Height/Weight/BMI: Height 1.63 m Weight 62.8 kg Body Mass Index 23.8 - Constitutional Present: no acute distress, well nourished, well developed - Routine HEENT Exam Head: Present: normocephalic, atraumatic - Routine Respiratory Exam Present: CTA bilaterally. Absent: wheezes - Routine Cardiovascular Exam Present: RRR, no murmur - Routine Abdominal Exam Present: soft, non distended, non tender - Routine Extremities Exam Present: no edema, normal capillary refill - Routine Skin Exam Present: dry, warm - Routine Neurological Exam Present: alert, normal speech - Routine Lymphatic Exam Lymphatic: Absent: adenopathy - Routine Psychiatric Exam Present: cooperative Comments: flat affect Results - Labs CBC & Chem 7: 12/25/17 07:03 12/25/17 07:03 Assessment and Plan Assessment and Plan: Assessment: Severe depression. Failure to thrive. Leukocytosis - not POA Pericardial effusion w/ no tamponade- likely chronic Anorexia. Diabetes mellitus, type II, insulin dependent. Gastroparesis. Constipation. CAD. Hypothyroidism. History of hypertension. History of orthostatic hypotension. Hyperlipidemia. Plan Reviewed her CXR, abd sono/CT, and echo. Pericardial effusion is likely chronic and there is no tamponade. Would not recommend further evaluation during her [facility] stay unless she becomes symptomatic. Would recommend all records be sent to PCP/manager business continuity and pt f-u with them on dismissal for further work-up per their discretion. Blood sugars acceptable Repeat CBC in am to follow leukocytosis. - Physician Narrative Narrative: Date: 12/27/17 Time: 1028 Hospital Course Summary Disclaimer: The visit summary below is not to be considered part of the above Progress Note. Hospital Course: Plan - 12/24/17: Agree with admission to [facility] for further psychiatric evaluation and care. Hospitalist service consulted for medical management. Labs and imaging reviewed from ED evaluation as well as extensive review of prior medical records. CT revealed large pericardial effusion and concerning for passive congestion from right heart insufficiency in the liver. Will obtain echocardiogram as well as ultrasound of liver for further evaluation. 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 Blood sugars controlled. Monitor closely and continue home Lantus 8 units QHS. Monitor blood pressure closely. Continue home medications. Monitor closely for orthostatic hypotension. Consult dietary for evaluation of protein calorie malnutrition. Will also obtain speech evaluation for possible dysphagia. Recheck labs in AM to monitor blood counts, electrolytes and renal function. Upon discharge, patient's care will be returned to PCP. 12/24/17 Psych: Discontinue Prozac and allow to self-taper as serotonin likely too high and contributing to emotional dulling complained of by patient. Because half-life is so-long, will need to start alternate antidepressant in ~4 weeks. Will start Ritalin 5mg PO daily to target energy, appetite. 12/25/17 Psych: Increase Ritalin to 5mg PO BID with breakfast, lunch to target sleep, appetite. 12/26/17 Psych: Will schedule Tylenol 650mg PO q HS to target pain that patient reports interfered with sleep; monitor as to whether this is effective. Discussed risks/benefit of Ritalin use given concern for heart failure. Patient stated that she preferred to continue medication as she felt it was beneficial for quality of life, and she understood risks. She understands dose will not be increased at this point. 12/27/17 Reviewed her CXR, abd sono/CT, and echo. Pericardial effusion is likely chronic and there is no tamponade. Would not recommend further evaluation during her [facility] stay unless she becomes symptomatic. Would recommend all records be sent to PCP/[facility] business continuity and pt f-u with them on dismissal for further work-up per their discretion. Blood sugars acceptable Repeat CBC in am to follow leukocytosis.
--- NOTE | 2017-12-27 16:25 | Neuropsych Progress Note ---
[facility] Subjective Date: 12/27/17 - Sujective/Severity of Illness Medications: Acetaminophen (Tylenol) 325 - 650 mg PO Q6H PRN PRN Reason: Discomfort Last Admin: 12/27/17 01:38 Dose: 650 mg Acetaminophen (Tylenol) 650 mg PO HS [facility] Last Admin: 12/26/17 20:14 Dose: 650 mg Aspirin (Asa) 81 mg PO DAILY [facility] Last Admin: 12/27/17 08:52 Dose: 81 mg Clopidogrel Bisulfate (Plavix) 75 mg PO DAILY [facility] Last Admin: 12/27/17 08:52 Dose: 75 mg Cyanocobalamin (Vit. B-12) 1,000 mcg IM DAILY [facility] Stop: 12/28/17 09:01 Last Admin: 12/27/17 11:46 Dose: Not Given Insulin Aspart (Novolog) 1 - 5 unit SQ SS PRN; Protocol PRN Reason: Hyperglycemia Last Admin: 12/27/17 15:01 Dose: 2 unit Insulin Glargine (Lantus) 8 unit SQ [facility] Last Admin: 12/26/17 20:26 Dose: 8 unit Isosorbide Mononitrate (Imdur) 30 mg PO 0700 [facility] Last Admin: 12/27/17 06:12 Dose: 30 mg Lactulose (Lactulose) 45 gm PO MoWeFr@0900 [facility] Last Admin: 12/26/17 08:35 Dose: 45 gm Levothyroxine Sodium (Synthroid) 75 mcg PO ACB [facility] Last Admin: 12/27/17 05:54 Dose: 75 mcg Lorazepam (Ativan) 0.5 mg PO Q6H PRN PRN Reason: Extreme agitation Last Admin: 12/27/17 02:38 Dose: 0.5 mg Lorazepam (Ativan Inj) 0.5 mg IM Q6H PRN PRN Reason: Extreme agitation Methylphenidate HCl (Ritalin) 5 mg PO BIDBL [facility] Last Admin: 12/27/17 14:58 Dose: 5 mg Metoclopramide HCl (Reglan) 10 mg PO TID [facility] Last Admin: 12/27/17 14:58 Dose: 10 mg Midodrine (Proamatine) 2.5 mg PO 0700,1100,1500 [facility] Last Admin: 12/27/17 14:58 Dose: 2.5 mg Pantoprazole Sodium (Protonix Tab) 40 mg PO ACB [facility] Last Admin: 12/27/17 06:22 Dose: 40 mg Potassium Chloride (K-Dur 10 Meq Tablet) 10 meq PO [facility] Last Admin: 12/27/17 11:53 Dose: 10 meq Sucralfate (Carafate) 1 gm PO AC [facility] Last Admin: 12/27/17 11:53 Dose: 1 gm Subjective: Patient seen and chart reviewed. Nursing reports pt is doing well. Had some issues sleeping last night. No behaviors noted. On face to face the pt states she is sleepy and does not want to talk. She does report feeling depressed but feels it is improved. She reports tolerating her meds well. Denies pain Start Time: 11:00 Stop Time: 11:15 Mental Status Exam Vitals: Last Vital Signs Temp 96.8 F 12/27/17 08:00 Pulse 88 12/27/17 08:00 Resp 18 12/27/17 08:00 BP 124/80 12/27/17 08:00 Pulse Ox 97 12/27/17 08:00 Height: 1.63 m Weight: 62.8 kg - Mental Status Exam Muscle Strength/Tone: Weak Dressing: Casual Grooming: Fair Attitude: Cooperative Motor Activity: Retardation Eye Contact: Good Speech: Normal Volume: Soft Rhythm: Appropriate Rhythm Orientation: Oriented X4 Mood: Neutral (Says mood is "better") Rate of Thoughts: Appropriate Rate Thought Organization: Organized Associations: Intact Abstract Reasoning: Intact, able to abstract Thought Content: Somatic Concerns Perception/Psychotic: Perception Normal Fund of Knowledge: Appropriate Memory: Grossly Intact Suicidal Ideation: Denies Homicidal Ideation: Denies Insight: Fair Judgement: Fair Impulse Control: Good - Laboratory Result Diagrams: 12/25/17 07:03 12/25/17 07:03 Laboratory Results - last 24 hr 12/27/17 06:05 Glucometer 170 Assessment and Plan (1) Depressive disorder Problem details: R/O Major depressive disorder, single episode, severe R/O Mood disorder secondary to general medical condition Other medical conditions: Failure to thrive. Anorexia. Diabetes mellitus, type II, insulin dependent. Gastroparesis. Constipation. CAD. Hypothyroidism. History of hypertension. History of orthostatic hypotension. Hyperlipidemia. Current visit: Yes Status: Acute Hospital Course Summary Disclaimer: The visit summary below is not to be considered part of the above Progress Note. Hospital Course: Plan - 12/24/17: Agree with admission to [facility] for further psychiatric evaluation and care. Hospitalist service consulted for medical management. Labs and imaging reviewed from ED evaluation as well as extensive review of prior medical records. CT revealed large pericardial effusion and concerning for passive congestion from right heart insufficiency in the liver. Will obtain echocardiogram as well as ultrasound of liver for further evaluation. 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 Blood sugars controlled. Monitor closely and continue home Lantus 8 units QHS. Monitor blood pressure closely. Continue home medications. Monitor closely for orthostatic hypotension. Consult dietary for evaluation of protein calorie malnutrition. Will also obtain speech evaluation for possible dysphagia. Recheck labs in AM to monitor blood counts, electrolytes and renal function. Upon discharge, patient's care will be returned to PCP. 12/24/17 Psych: Discontinue Prozac and allow to self-taper as serotonin likely too high and contributing to emotional dulling complained of by patient. Because half-life is so-long, will need to start alternate antidepressant in ~4 weeks. Will start Ritalin 5mg PO daily to target energy, appetite. 12/25/17 Psych: Increase Ritalin to 5mg PO BID with breakfast, lunch to target sleep, appetite. 12/26/17 Psych: Will schedule Tylenol 650mg PO q HS to target pain that patient reports interfered with sleep; monitor as to whether this is effective. Discussed risks/benefit of Ritalin use given concern for heart failure. Patient stated that she preferred to continue medication as she felt it was beneficial for quality of life, and she understood risks. She understands dose will not be increased at this point. 12/27/17 Reviewed her CXR, abd sono/CT, and echo. Pericardial effusion is likely chronic and there is no tamponade. Would not recommend further evaluation during her [facility] stay unless she becomes symptomatic. Would recommend all records be sent to PCP/bo[facility] master and pt f-u with them on dismissal for further work-up per their discretion. Blood sugars acceptable Repeat CBC in am to follow leukocytosis. 12/27/17- Pscyh- Remains hypersomnolent. Continue current care
[2017-12-27] MEDS: ACETAMINOPHEN 325 MG TABLET PO SCH ×2 (19:45→21:32)
[2017-12-27] MEDS: INSULIN GLARGINE 100unit/ml INJECTION SQ SCH ×2 (19:46→21:32)
[2017-12-28] MEDS: LEVOTHYROXINE 75 MCG TABLET PO SCH (05:42)
[2017-12-28] MEDS: SUCRALFATE 1 GM TABLET PO SCH ×3 (05:42→19:15)
[2017-12-28] MEDS: PANTOPRAZOLE 40 MG TABLET PO SCH (05:42)
[2017-12-28] MEDS: INSULIN ASPART 100unit/ml INJECTION SQ PRN ×3 (06:42→19:59)
[2017-12-28] MEDS: ASPIRIN 81 MG CHEWABLE TABLET PO SCH (09:11)
[2017-12-28] MEDS: CLOPIDOGREL 75 MG TABLET PO SCH (09:12)
[2017-12-28] MEDS: MIDODRINE 2.5 MG TABLET PO SCH ×3 (09:12→16:42)
[2017-12-28] MEDS: CYANOCOBALAMIN (B-12) 1,000mcg/ml INJECTION IM SCH (09:13)
[2017-12-28] MEDS: ISOSORBIDE MONONITRATE ER 30 MG TABLET PO SCH (09:25)
[2017-12-28] MEDS: METHYLPHENIDATE 5 MG TABLET PO SCH ×2 (09:25→12:47)
--- NOTE | 2017-12-28 11:14 | Neuropsych Progress Note ---
[facility] Subjective Date: 12/28/17 - Sujective/Severity of Illness Medications: Acetaminophen (Tylenol) 325 - 650 mg PO Q6H PRN PRN Reason: Discomfort Last Admin: 12/27/17 01:38 Dose: 650 mg Acetaminophen (Tylenol) 650 mg PO HS [facility] Last Admin: 12/27/17 21:32 Dose: Not Given Aspirin (Asa) 81 mg PO DAILY [facility] Last Admin: 12/28/17 09:11 Dose: 81 mg Clopidogrel Bisulfate (Plavix) 75 mg PO DAILY [facility] Last Admin: 12/28/17 09:12 Dose: 75 mg Insulin Aspart (Novolog) 1 - 5 unit SQ SS PRN; Protocol PRN Reason: Hyperglycemia Last Admin: 12/28/17 10:35 Dose: 3 unit Insulin Glargine (Lantus) 8 unit SQ HS [facility] Last Admin: 12/27/17 21:32 Dose: Not Given Isosorbide Mononitrate (Imdur) 30 mg PO 0700 [facility] Last Admin: 12/28/17 09:25 Dose: 30 mg Lactulose (Lactulose) 45 gm PO MoWeFr@0900 [facility] Last Admin: 12/26/17 08:35 Dose: 45 gm Levothyroxine Sodium (Synthroid) 75 mcg PO ACB [facility] Last Admin: 12/28/17 05:42 Dose: 75 mcg Lorazepam (Ativan) 0.5 mg PO Q6H PRN PRN Reason: Extreme agitation Last Admin: 12/27/17 02:38 Dose: 0.5 mg Lorazepam (Ativan Inj) 0.5 mg IM Q6H PRN PRN Reason: Extreme agitation Methylphenidate HCl (Ritalin) 5 mg PO BIDBL [facility] Last Admin: 12/28/17 09:25 Dose: 5 mg Metoclopramide HCl (Reglan) 10 mg PO TID [facility] Last Admin: 12/28/17 09:11 Dose: 10 mg Midodrine (Proamatine) 2.5 mg PO 0700,1100,1500 [facility] Last Admin: 12/28/17 09:12 Dose: 2.5 mg Pantoprazole Sodium (Protonix Tab) 40 mg PO ACB [facility] Last Admin: 12/28/17 05:42 Dose: 40 mg Potassium Chloride (K-Dur 10 Meq Tablet) 10 meq PO WMHS [facility] Last Admin: 12/28/17 09:11 Dose: 10 meq Sucralfate (Carafate) 1 gm PO AC JUN Last Admin: 12/28/17 05:42 Dose: 1 gm Subjective: Patient seen and chart reviewed. Nursing reports pt is doing a little better. No behaviors noted. On face to face the pt is seen in the day room. She reports her mood is improved. She reports she continues to deal with poor appetite and issues falling asleep. She denies any S/I. Tolerating meds Start Time: 11:30 Stop Time: 11:45 Mental Status Exam Vitals: Last Vital Signs Temp 97.1 F 12/28/17 07:58 Pulse 80 12/28/17 07:58 Resp 16 12/28/17 07:58 BP 119/69 12/28/17 07:58 Pulse Ox 96 12/28/17 07:58 Height: 1.63 m Weight: 62.8 kg - Mental Status Exam Muscle Strength/Tone: Weak Dressing: Casual Grooming: Fair Attitude: Cooperative Motor Activity: Retardation Eye Contact: Good Speech: Normal Volume: Soft Rhythm: Appropriate Rhythm Orientation: Oriented X4 Mood: Neutral (Says mood is "better") Rate of Thoughts: Appropriate Rate Thought Organization: Organized Associations: Intact Abstract Reasoning: Intact, able to abstract Thought Content: Somatic Concerns Perception/Psychotic: Perception Normal Fund of Knowledge: Appropriate Memory: Grossly Intact Suicidal Ideation: Denies Homicidal Ideation: Denies Insight: Fair Judgement: Fair Impulse Control: Good - Laboratory Result Diagrams: 12/28/17 06:58 12/25/17 07:03 Laboratory Results - last 24 hr 12/26/17 12/27/17 12/27/17 07:09 10:41 13:59 WBC RBC Hgb Hct MCV MCH MCHC RDW Std Deviation Plt Count MPV Immature Gran % (Auto) Neut % (Auto) Lymph % (Auto) [place] % (Auto) Eos % (Auto) Baso % (Auto) Neut # (Auto) Lymph # (Auto) [place] # (Auto) Eos # (Auto) Baso # (Auto) Abs Immat Gran (auto) Glucometer 195 207 25-OH Vitamin D Total 27 L 12/27/17 12/28/17 12/28/17 19:52 06:20 06:58 WBC 13.1 H RBC 4.00 Hgb 13.4 Hct 40.1 MCV 100.3 H MCH 33.5 MCHC 33.4 RDW Std Deviation 60.5 H Plt Count 221 MPV 10.8 Immature Gran % (Auto) 0.6 H Neut % (Auto) 66.7 H Lymph % (Auto) 24.5 [place] % (Auto) 6.8 Eos % (Auto) 1.1 Baso % (Auto) 0.3 Neut # (Auto) 8.7 H Lymph # (Auto) 3.2 [place] # (Auto) 0.9 H Eos # (Auto) 0.1 Baso # (Auto) 0.0 Abs Immat Gran (auto) 0.08 H Glucometer 235 219 25-OH Vitamin D Total 12/28/17 10:24 WBC RBC Hgb Hct MCV MCH MCHC RDW Std Deviation Plt Count MPV Immature Gran % (Auto) Neut % (Auto) Lymph % (Auto) [place] % (Auto) Eos % (Auto) Baso % (Auto) Neut # (Auto) Lymph # (Auto) [place] # (Auto) Eos # (Auto) Baso # (Auto) Abs Immat Gran (auto) Glucometer 270 25-OH Vitamin D Total Assessment and Plan (1) Depressive disorder Problem details: R/O Major depressive disorder, single episode, severe R/O Mood disorder secondary to general medical condition Other medical conditions: Failure to thrive. Anorexia. Diabetes mellitus, type II, insulin dependent. Gastroparesis. Constipation. CAD. Hypothyroidism. History of hypertension. History of orthostatic hypotension. Hyperlipidemia. Current visit: Yes Status: Acute Hospital Course Summary Disclaimer: The visit summary below is not to be considered part of the above Progress Note. Hospital Course: Plan - 12/24/17: Agree with admission to [facility] for further psychiatric evaluation and care. Hospitalist service consulted for medical management. Labs and imaging reviewed from ED evaluation as well as extensive review of prior medical records. CT revealed large pericardial effusion and concerning for passive congestion from right heart insufficiency in the liver. Will obtain echocardiogram as well as ultrasound of liver for further evaluation. 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 Blood sugars controlled. Monitor closely and continue home Lantus 8 units QHS. Monitor blood pressure closely. Continue home medications. Monitor closely for orthostatic hypotension. Consult dietary for evaluation of protein calorie malnutrition. Will also obtain speech evaluation for possible dysphagia. Recheck labs in AM to monitor blood counts, electrolytes and renal function. Upon discharge, patient's care will be returned to PCP. 12/24/17 Psych: Discontinue Prozac and allow to self-taper as serotonin likely too high and contributing to emotional dulling complained of by patient. Because half-life is so-long, will need to start alternate antidepressant in ~4 weeks. Will start Ritalin 5mg PO daily to target energy, appetite. 12/25/17 Psych: Increase Ritalin to 5mg PO BID with breakfast, lunch to target sleep, appetite. 12/26/17 Psych: Will schedule Tylenol 650mg PO q HS to target pain that patient reports interfered with sleep; monitor as to whether this is effective. Discussed risks/benefit of Ritalin use given concern for heart failure. Patient stated that she preferred to continue medication as she felt it was beneficial for quality of life, and she understood risks. She understands dose will not be increased at this point. 12/27/17 Reviewed her CXR, abd sono/CT, and echo. Pericardial effusion is likely chronic and there is no tamponade. Would not recommend further evaluation during her [facility] stay unless she becomes symptomatic. Would recommend all records be sent to PCP/operator automated process and pt f-u with them on dismissal for further work-up per their discretion. Blood sugars acceptable Repeat CBC in am to follow leukocytosis. 12/27/17- Psych- Remains hypersomnolent. Continue current care 12/28/17 Psych- Continue current care
[2017-12-28] MEDS: ACETAMINOPHEN 325 MG TABLET PO SCH ×2 (19:49→22:57)
[2017-12-28] MEDS: INSULIN GLARGINE 100unit/ml INJECTION SQ SCH ×2 (19:51→22:58)
[2017-12-29] MEDS ORDERED: ONDANSETRON ODT 4 MG TABLET PO PRN (03:26)
[2017-12-29] MEDS: INSULIN ASPART 100unit/ml INJECTION SQ PRN ×2 (03:29→20:44)
[2017-12-29] MEDS: ISOSORBIDE MONONITRATE ER 30 MG TABLET PO SCH (10:47)
[2017-12-29] MEDS: METHYLPHENIDATE 5 MG TABLET PO SCH ×2 (10:47→14:13)
[2017-12-29] MEDS: MIDODRINE 2.5 MG TABLET PO SCH ×3 (10:47→18:38)
[2017-12-29] MEDS: SUCRALFATE 1 GM TABLET PO SCH ×3 (10:47→18:39)
[2017-12-29] MEDS: PANTOPRAZOLE 40 MG TABLET PO SCH (10:47)
[2017-12-29] MEDS: LEVOTHYROXINE 75 MCG TABLET PO SCH (10:47)
[2017-12-29] MEDS: CLOPIDOGREL 75 MG TABLET PO SCH (10:48)
[2017-12-29] MEDS: LACTULOSE 20 GM/30 ML ORAL LIQUID PO SCH (10:48)
[2017-12-29] MEDS: ASPIRIN 81 MG CHEWABLE TABLET PO SCH (10:51)
--- NOTE | 2017-12-29 16:59 | XRay Report ---
EXAM: XR chest 1V HISTORY: Leukocytosis COMPARISON: Prior examination dated 12/23/2017 FINDINGS: The heart is enlarged. The mediastinum is not widened. The trachea is midline. There is mild prominence of the central bronchovascular markings and pulmonary vascularity. There are bilateral patchy alveolar infiltrates in the mid and lower lung zones. The costophrenic angles are sharp. The bony thorax is stable. IMPRESSION: 1. There are bilateral patchy perihilar infiltrates. 2. Cardiomegaly, early congestive changes are not excluded. .
[2017-12-29] MEDS: INSULIN GLARGINE 100unit/ml INJECTION SQ SCH (20:43)
[2017-12-29] MEDS: CIPROFLOXACIN 500 MG TABLET PO SCH ×2 (21:15→21:38)
[2017-12-29] MEDS: ACETAMINOPHEN 325 MG TABLET PO SCH ×2 (21:15→21:37)
[2017-12-30] MEDS: INSULIN ASPART 100unit/ml INJECTION SQ PRN (07:05)
--- NOTE | 2017-12-30 11:15 | CT Scan Report ---
Indication: abdominal pain, elevated WBC PROCEDURE: CT abdomen wo con: Encounter: Initial Comparison: CT abdomen dated December 23, 2017 Technique: Axial CT images were performed through the abdomen without intravenous contrast. Coronal and sagittal two-dimensional reformats. Automated Exposure Control and Iterative Reconstruction dose reducing techniques were utilized. Findings: Small bilateral pleural effusions, right greater than left. Continued large pericardial effusion without significant change. Cardiomegaly. The unenhanced contours of the liver are unremarkable. Gallbladder is surgically absent. The spleen, pancreas, adrenal glands and kidneys are grossly stable. Small nonobstructing bilateral renal stones. No adenopathy or bowel obstruction. No focal fluid collection or findings to suggest an abscess. Impression: New small right effusion. Stable large pericardial effusion. No definite acute disease process seen in the abdomen. .
[2017-12-30] MEDS: LEVOTHYROXINE 75 MCG TABLET PO SCH (11:59)
[2017-12-30] MEDS: PANTOPRAZOLE 40 MG TABLET PO SCH (11:59)
[2017-12-30] MEDS: SUCRALFATE 1 GM TABLET PO SCH ×3 (11:59→17:12)
[2017-12-30] MEDS: ISOSORBIDE MONONITRATE ER 30 MG TABLET PO SCH (12:00)
[2017-12-30] MEDS: MIDODRINE 2.5 MG TABLET PO SCH ×3 (12:00→17:12)
[2017-12-30] MEDS: CIPROFLOXACIN 500 MG TABLET PO SCH ×3 (12:00→23:37)
[2017-12-30] MEDS: ASPIRIN 81 MG CHEWABLE TABLET PO SCH (12:01)
[2017-12-30] MEDS: CLOPIDOGREL 75 MG TABLET PO SCH (12:01)
[2017-12-30] MEDS: METHYLPHENIDATE 5 MG TABLET PO SCH (12:02)
--- NOTE | 2017-12-30 15:22 | Neuropsych Progress Note ---
[facility] Subjective Date: 12/30/17 - Sujective/Severity of Illness Medications: Acetaminophen (Tylenol) 325 - 650 mg PO Q6H PRN PRN Reason: Discomfort Last Admin: 12/27/17 01:38 Dose: 650 mg Acetaminophen (Tylenol) 650 mg PO HS [facility] Last Admin: 12/29/17 21:15 Dose: Not Given Aspirin (Asa) 81 mg PO DAILY [facility] Last Admin: 12/30/17 12:01 Dose: 81 mg Ciprofloxacin (Cipro 500 Mg) 500 mg PO Q12HR [facility] Stop: 01/01/18 23:59 Last Admin: 12/30/17 12:00 Dose: 500 mg Clopidogrel Bisulfate (Plavix) 75 mg PO DAILY [facility] Last Admin: 12/30/17 12:01 Dose: 75 mg Insulin Aspart (Novolog) 1 - 5 unit SQ SS PRN; Protocol PRN Reason: Hyperglycemia Last Admin: 12/30/17 07:05 Dose: 1 unit Insulin Glargine (Lantus) 8 unit SQ HS [facility] Last Admin: 12/29/17 20:43 Dose: 8 unit Isosorbide Mononitrate (Imdur) 30 mg PO 0700 [facility] Last Admin: 12/30/17 12:00 Dose: 30 mg Lactulose (Lactulose) 45 gm PO MoWeFr@0900 [facility] Last Admin: 12/29/17 10:48 Dose: 45 gm Levothyroxine Sodium (Synthroid) 75 mcg PO ACB [facility] Last Admin: 12/30/17 11:59 Dose: 75 mcg Lorazepam (Ativan) 0.5 mg PO Q6H PRN PRN Reason: Extreme agitation Last Admin: 12/27/17 02:38 Dose: 0.5 mg Lorazepam (Ativan Inj) 0.5 mg IM Q6H PRN PRN Reason: Extreme agitation Methylphenidate HCl (Ritalin) 5 mg PO BIDBL [facility] Last Admin: 12/30/17 12:02 Dose: Not Given Metoclopramide HCl (Reglan) 10 mg PO TID [facility] Last Admin: 12/30/17 12:01 Dose: 10 mg Midodrine (Proamatine) 2.5 mg PO 0700,1100,1500 [facility] Last Admin: 12/30/17 12:15 Dose: Not Given Ondansetron HCl (Zofran Odt Tablet) 4 mg PO Q4H PRN PRN Reason: Nausea &/or vomiting Last Admin: 12/29/17 03:29 Dose: 4 mg Pantoprazole Sodium (Protonix Tab) 40 mg PO ACB [facility] Last Admin: 12/30/17 11:59 Dose: 40 mg Potassium Chloride (K-Dur 10 Meq Tablet) 10 meq PO WMHS [facility] Last Admin: 12/29/17 14:13 Dose: Not Given Sucralfate (Carafate) 1 gm PO AC [facility] Last Admin: 12/30/17 12:15 Dose: Not Given Subjective: Patient seen and chart reviewed. Case discussed with treatment team. On interview, patient reports feeling very poorly physically (see most recent labs). Have held Ritalin as patient was vomiting and appears to be dehydrated; BUN seems to be trending downwards now. There is hesitation to give IV fluids due to pericardial effusion. Hospitalist has requested CT of abdomen today. Patient reports poor mood primarily due to feeling so physically poorly. Patient denies any SI, HI or AVH. Patient denies any adverse side effects related to psychotropic medications. Nursing staff report patient has been lethargic as well as seems "depressed and hopeless" but primary stressor is physical health. Patient has been adherent with medications though many held recently due to vomiting. Psychotropic PRNs required in the past 24 hours: none. Start Time: 10:10 Stop Time: 10:30 Mental Status Exam Vitals: Last Vital Signs Temp 97.0 F 12/30/17 08:00 Pulse 71 12/30/17 08:00 Resp 16 12/30/17 08:00 BP 117/73 12/30/17 08:00 Pulse Ox 96 12/30/17 08:00 Height: 1.63 m Weight: 67 kg - Mental Status Exam Muscle Strength/Tone: Weak Dressing: Casual Grooming: Fair Attitude: Cooperative Motor Activity: Retardation Eye Contact: Good Speech: Normal Volume: Soft Rhythm: Appropriate Rhythm Orientation: Oriented X4 Mood: Depressed (primarily due to feeling poorly physically) Affect: Sad Rate of Thoughts: Appropriate Rate Thought Organization: Organized Associations: Intact Abstract Reasoning: Intact, able to abstract Thought Content: Ruminations, Hopelessness, Helplessness, Somatic Concerns Perception/Psychotic: Perception Normal Fund of Knowledge: Appropriate Memory: Grossly Intact Suicidal Ideation: Denies Homicidal Ideation: Denies Insight: Fair Judgement: Fair Impulse Control: Good - Laboratory Result Diagrams: 12/31/17 07:57 12/31/17 07:57 Laboratory Results - last 24 hr 12/29/17 12/29/17 12/29/17 10:50 14:07 20:20 WBC RBC Hgb Hct MCV MCH MCHC RDW Std Deviation Plt Count MPV Immature Gran % (Auto) Neut % (Auto) Lymph % (Auto) [place] % (Auto) Eos % (Auto) Baso % (Auto) Neut # (Auto) Lymph # (Auto) [place] # (Auto) Eos # (Auto) Baso # (Auto) Abs Immat Gran (auto) Turbidity Sodium Potassium Chloride Carbon Dioxide Anion Gap BUN Creatinine GFR Calculation BUN/Creatinine Ratio Glucose Glucometer 209 246 188 Calculated Osmolality Calcium Icterus Index Specimen Hemolysis 12/30/17 12/30/17 12/30/17 06:55 07:12 07:12 WBC 12.5 H RBC 3.76 L Hgb 12.4 Hct 37.6 MCV 100.0 MCH 33.0 MCHC 33.0 RDW Std Deviation 58.5 H Plt Count 272 MPV 10.5 Immature Gran % (Auto) 0.3 Neut % (Auto) 63.9 Lymph % (Auto) 28.3 [place] % (Auto) 6.1 Eos % (Auto) 1.0 Baso % (Auto) 0.4 Neut # (Auto) 8.0 H Lymph # (Auto) 3.5 [place] # (Auto) 0.8 Eos # (Auto) 0.1 Baso # (Auto) 0.1 Abs Immat Gran (auto) 0.04 H Turbidity < 20 Sodium 136 Potassium 5.3 H Chloride 97 L Carbon Dioxide 32 H Anion Gap 7 BUN 56.0 H* Creatinine 0.7 GFR Calculation 82 BUN/Creatinine Ratio 80 H Glucose 137 H Glucometer 154 Calculated Osmolality 280 Calcium 9.8 Icterus Index < 2 Specimen Hemolysis < 15 12/30/17 12/30/17 11:28 14:33 WBC RBC Hgb Hct MCV MCH MCHC RDW Std Deviation Plt Count MPV Immature Gran % (Auto) Neut % (Auto) Lymph % (Auto) [place] % (Auto) Eos % (Auto) Baso % (Auto) Neut # (Auto) Lymph # (Auto) [place] # (Auto) Eos # (Auto) Baso # (Auto) Abs Immat Gran (auto) Turbidity Sodium Potassium Chloride Carbon Dioxide Anion Gap BUN Creatinine GFR Calculation BUN/Creatinine Ratio Glucose Glucometer 106 165 Calculated Osmolality Calcium Icterus Index Specimen Hemolysis Assessment and Plan (1) Depressive disorder Problem details: R/O Major depressive disorder, single episode, severe R/O Mood disorder secondary to general medical condition Other medical conditions: Failure to thrive. Anorexia. Diabetes mellitus, type II, insulin dependent. Gastroparesis. Constipation. CAD. Hypothyroidism. History of hypertension. History of orthostatic hypotension. Hyperlipidemia. Current visit: Yes Status: Acute Have held Ritalin due to emesis and physical health concerns. Awaiting results of CT of abdomen today. Will discuss use of Ritalin with chronic pericardial effusion though I don't believe Ritalin was contributor to recent symptoms. May consider use of mirtazapine and titrating upwards as Prozac self-tapers. Will likely need placement due to physical health after discharge. Hospital Course Summary Disclaimer: The visit summary below is not to be considered part of the above Progress Note. Hospital Course: Plan - 12/24/17: Agree with admission to [facility] for further psychiatric evaluation and care. Hospitalist service consulted for medical management. Labs and imaging reviewed from ED evaluation as well as extensive review of prior medical records. CT revealed large pericardial effusion and concerning for passive congestion from right heart insufficiency in the liver. Will obtain echocardiogram as well as ultrasound of liver for further evaluation. 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 Blood sugars controlled. Monitor closely and continue home Lantus 8 units QHS. Monitor blood pressure closely. Continue home medications. Monitor closely for orthostatic hypotension. Consult dietary for evaluation of protein calorie malnutrition. Will also obtain speech evaluation for possible dysphagia. Recheck labs in AM to monitor blood counts, electrolytes and renal function. Upon discharge, patient's care will be returned to PCP. 12/24/17 Psych: Discontinue Prozac and allow to self-taper as serotonin likely too high and contributing to emotional dulling complained of by patient. Because half-life is so-long, will need to start alternate antidepressant in ~4 weeks. Will start Ritalin 5mg PO daily to target energy, appetite. 12/25/17 Psych: Increase Ritalin to 5mg PO BID with breakfast, lunch to target sleep, appetite. 12/26/17 Psych: Will schedule Tylenol 650mg PO q HS to target pain that patient reports interfered with sleep; monitor as to whether this is effective. Discussed risks/benefit of Ritalin use given concern for heart failure. Patient stated that she preferred to continue medication as she felt it was beneficial for quality of life, and she understood risks. She understands dose will not be increased at this point. 12/27/17 Reviewed her CXR, abd sono/CT, and echo. Pericardial effusion is likely chronic and there is no tamponade. Would not recommend further evaluation during her [facility] stay unless she becomes symptomatic. Would recommend all records be sent to PCP/personal lines insurance advisor and pt f-u with them on dismissal for further work-up per their discretion. Blood sugars acceptable Repeat CBC in am to follow leukocytosis. 12/27/17- Psych- Remains hypersomnolent. Continue current care 12/28/17 Psych- Continue current care. 12/30/17 Psych: Have held Ritalin due to emesis and physical health concerns. Awaiting results of CT of abdomen today. Will discuss use of Ritalin with chronic pericardial effusion though I don't believe Ritalin was contributor to recent symptoms. May consider use of mirtazapine and titrating upwards as Prozac self-tapers. Will likely need placement due to physical health after discharge.
--- NOTE | 2017-12-30 16:00 | Progress Note ---
- Date 12/30/17 Subjective: Patient is seen resting in her bed. She does answer a few questions with her eyes closed. She c/o pain in her abdomen. No CP, SOA or fever. Based on review of meal intake, has been eating very little. Nurse reports she has nausea following med administration. Objective Vital signs: Temperature 97.0 F 12/30/17 08:00 Pulse Rate 71 12/30/17 08:00 Respiratory Rate 16 12/30/17 08:00 Blood Pressure 117/73 12/30/17 08:00 Pulse Oximetry 96 12/30/17 08:00 Height/Weight/BMI: Height 1.63 m Weight 67 kg Body Mass Index 23.8 - Constitutional Present: no acute distress, well nourished, well developed, other (pale, appears very tired) - Routine HEENT Exam Head: Present: normocephalic, atraumatic - Routine Respiratory Exam Present: CTA bilaterally. Absent: wheezes - Routine Cardiovascular Exam Present: RRR, murmur - Routine Abdominal Exam Present: soft, tenderness (diffuse), non distended. Absent: rebound, guarding, organomegaly, mass - Routine Extremities Exam Present: no edema, normal capillary refill - Routine Skin Exam Present: dry, warm - Routine Neurological Exam Absent: alert - Routine Lymphatic Exam Lymphatic: Absent: adenopathy - Routine Psychiatric Exam Present: cooperative Results - Labs CBC & Chem 7: 12/30/17 07:12 12/30/17 07:12 Assessment and Plan Assessment and Plan: Assessment: Severe depression. Failure to thrive. Leukocytosis - not POA Pericardial effusion w/ no tamponade- likely chronic Anorexia. Diabetes mellitus, type II, insulin dependent. Gastroparesis. Constipation. CAD. Hypothyroidism. History of hypertension. History of orthostatic hypotension. Hyperlipidemia. Plan Reviewed her recent CXR and abd CT. Has increasing pleural effusion, but no etiology for her abdominal pain. Hesitant to diurese given her poor intake, elevated BUN and pericardial effusion. Hesitant to give IVF's d/t pleural effusions and her wt is up. Repeat labs in the am. Encourage fluids/mighty shakes. Consider transfer to [facility] for further evaluation where she could have GI and cardiology available. - Physician Narrative Narrative: Date: 12/30/17 Time: 1551 Hospital Course Summary Disclaimer: The visit summary below is not to be considered part of the above Progress Note. Hospital Course: 12/24/17: Agree with admission to [facility] for further psychiatric evaluation and care. Hospitalist service consulted for medical management. Labs and imaging reviewed from ED evaluation as well as extensive review of prior medical records. CT revealed large pericardial effusion and concerning for passive congestion from right heart insufficiency in the liver. Will obtain echocardiogram as well as ultrasound of liver for further evaluation. 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 Blood sugars controlled. Monitor closely and continue home Lantus 8 units QHS. Monitor blood pressure closely. Continue home medications. Monitor closely for orthostatic hypotension. Consult dietary for evaluation of protein calorie malnutrition. Will also obtain speech evaluation for possible dysphagia. Recheck labs in AM to monitor blood counts, electrolytes and renal function. Upon discharge, patient's care will be returned to PCP. 12/24/17 Psych: Discontinue Prozac and allow to self-taper as serotonin likely too high and contributing to emotional dulling complained of by patient. Because half-life is so-long, will need to start alternate antidepressant in ~4 weeks. Will start Ritalin 5mg PO daily to target energy, appetite. 12/25/17 Psych: Increase Ritalin to 5mg PO BID with breakfast, lunch to target sleep, appetite. 12/26/17 Psych: Will schedule Tylenol 650mg PO q HS to target pain that patient reports interfered with sleep; monitor as to whether this is effective. Discussed risks/benefit of Ritalin use given concern for heart failure. Patient stated that she preferred to continue medication as she felt it was beneficial for quality of life, and she understood risks. She understands dose will not be increased at this point. 12/27/17 Reviewed her CXR, abd sono/CT, and echo. Pericardial effusion is likely chronic and there is no tamponade. Would not recommend further evaluation during her [facility] stay unless she becomes symptomatic. Would recommend all records be sent to PCP/director online marketing and pt f-u with them on dismissal for further work-up per their discretion. Blood sugars acceptable Repeat CBC in am to follow leukocytosis. 12/27/17- Psych- Remains hypersomnolent. Continue current care 12/28/17 Psych- Continue current care 12/30/17 - hospitalist Reviewed her recent CXR and abd CT. Has increasing pleural effusion, but no etiology for her abdominal pain. Hesitant to diurese given her poor intake, elevated BUN and pericardial effusion. Hesitant to give IVF's d/t pleural effusions and her wt is up. Repeat labs in the am. Encourage fluids/mighty shakes. Consider transfer to [facility] for further evaluation where she could have GI and cardiology available.
[2017-12-30] MEDS ORDERED: LACTULOSE 20 GM/30 ML ORAL LIQUID PO SCH (16:11)
[2017-12-30] MEDS ORDERED: LACTULOSE 20 GM/30 ML ORAL LIQUID PO ONE (17:00)
[2017-12-30] MEDS: INSULIN GLARGINE 100unit/ml INJECTION SQ SCH ×2 (19:52→23:37)
[2017-12-30] MEDS: ACETAMINOPHEN 325 MG TABLET PO SCH ×2 (19:53→23:37)
[2017-12-31] MEDS: SUCRALFATE 1 GM TABLET PO SCH ×4 (09:23→17:13)
[2017-12-31] MEDS: CIPROFLOXACIN 500 MG TABLET PO SCH ×2 (09:23→21:28)
[2017-12-31] MEDS: CLOPIDOGREL 75 MG TABLET PO SCH (09:23)
[2017-12-31] MEDS: ISOSORBIDE MONONITRATE ER 30 MG TABLET PO SCH (09:24)
[2017-12-31] MEDS: LEVOTHYROXINE 75 MCG TABLET PO SCH (09:24)
[2017-12-31] MEDS: MIDODRINE 2.5 MG TABLET PO SCH ×4 (09:24→17:14)
[2017-12-31] MEDS: LACTULOSE 20 GM/30 ML ORAL LIQUID PO SCH (09:24)
[2017-12-31] MEDS: ASPIRIN 81 MG CHEWABLE TABLET PO SCH (09:24)
[2017-12-31] MEDS: PANTOPRAZOLE 40 MG TABLET PO SCH (09:24)
--- NOTE | 2017-12-31 09:29 | Neuropsych Progress Note ---
[facility] Subjective Date: 12/31/17 - Sujective/Severity of Illness Medications: Acetaminophen (Tylenol) 325 - 650 mg PO Q6H PRN PRN Reason: Discomfort Last Admin: 12/27/17 01:38 Dose: 650 mg Acetaminophen (Tylenol) 650 mg PO HS [facility] Last Admin: 12/30/17 23:37 Dose: Not Given Aspirin (Asa) 81 mg PO DAILY [facility] Last Admin: 12/30/17 12:01 Dose: 81 mg Ciprofloxacin (Cipro 500 Mg) 500 mg PO Q12HR [facility] Stop: 01/01/18 23:59 Last Admin: 12/30/17 23:37 Dose: Not Given Clopidogrel Bisulfate (Plavix) 75 mg PO DAILY [facility] Last Admin: 12/30/17 12:01 Dose: 75 mg Insulin Aspart (Novolog) 1 - 5 unit SQ SS PRN; Protocol PRN Reason: Hyperglycemia Last Admin: 12/30/17 07:05 Dose: 1 unit Insulin Glargine (Lantus) 8 unit SQ [facility] Last Admin: 12/30/17 23:37 Dose: Not Given Isosorbide Mononitrate (Imdur) 30 mg PO 0700 [facility] Last Admin: 12/30/17 12:00 Dose: 30 mg Lactulose (Lactulose) 40 gm PO DAILY [facility] Levothyroxine Sodium (Synthroid) 75 mcg PO ACB [facility] Last Admin: 12/30/17 11:59 Dose: 75 mcg Lorazepam (Ativan) 0.5 mg PO Q6H PRN PRN Reason: Extreme agitation Last Admin: 12/27/17 02:38 Dose: 0.5 mg Lorazepam (Ativan Inj) 0.5 mg IM Q6H PRN PRN Reason: Extreme agitation Methylphenidate HCl (Ritalin) 5 mg PO BIDBL [facility] Last Admin: 12/30/17 12:02 Dose: Not Given Metoclopramide HCl (Reglan) 10 mg PO TID [facility] Last Admin: 12/30/17 23:38 Dose: Not Given Midodrine (Proamatine) 2.5 mg PO 0700,1100,1500 [facility] Last Admin: 12/30/17 17:12 Dose: 2.5 mg Ondansetron HCl (Zofran Odt Tablet) 4 mg PO Q4H PRN PRN Reason: Nausea &/or vomiting Last Admin: 12/29/17 03:29 Dose: 4 mg Pantoprazole Sodium (Protonix Tab) 40 mg PO ACB [facility] Last Admin: 12/30/17 11:59 Dose: 40 mg Potassium Chloride (K-Dur 10 Meq Tablet) 10 meq PO WMHS [facility] Last Admin: 12/29/17 14:13 Dose: Not Given Sucralfate (Carafate) 1 gm PO AC [facility] Last Admin: 12/30/17 17:12 Dose: 1 gm Subjective: Patient seen and chart reviewed. Case discussed with treatment team. On interview, patient reports feeling very poorly physically (see most recent labs). Have held Ritalin as patient was vomiting and appears to be dehydrated; BUN seems to be trending downwards now. There is hesitation to give IV fluids due to pericardial effusion. Patient reports poor mood primarily due to feeling so physically poorly. She complains of constipation and feeling her bowels aren' t working. Patient is in agreement of increased assistance after discharge due to physical needs. Patient denies any SI, HI or AVH. Patient denies any adverse side effects related to psychotropic medications. Nursing staff report patient has been participating in group despite feeling poorly physically and has not had any other significant behavioral problems on unit. Patient has been adherent with medications though Ritalin currently being held. Psychotropic PRNs required in the past 24 hours: none. VSS. Start Time: 15:40 Stop Time: 16:00 Mental Status Exam Vitals: Last Vital Signs Temp 96.8 F 12/31/17 08:00 Pulse 68 12/31/17 08:00 Resp 16 12/31/17 08:00 BP 116/75 12/31/17 08:00 Pulse Ox 96 12/31/17 08:00 Height: 1.63 m Weight: 67 kg - Mental Status Exam Muscle Strength/Tone: Weak Dressing: Casual Grooming: Fair Attitude: Cooperative Motor Activity: Retardation Eye Contact: Good Speech: Normal Volume: Soft Rhythm: Appropriate Rhythm Orientation: Oriented X4 Mood: Depressed (primarily due to feeling poorly physically) Affect: Sad Rate of Thoughts: Appropriate Rate Thought Organization: Organized Associations: Intact Abstract Reasoning: Intact, able to abstract Thought Content: Ruminations, Hopelessness, Helplessness, Somatic Concerns Perception/Psychotic: Perception Normal Fund of Knowledge: Appropriate Memory: Grossly Intact Suicidal Ideation: Denies Homicidal Ideation: Denies Insight: Fair Judgement: Fair Impulse Control: Good - Laboratory Result Diagrams: 01/01/18 08:41 01/01/18 08:41 Laboratory Results - last 24 hr 12/30/17 12/30/17 12/30/17 06:55 11:28 14:33 WBC RBC Hgb Hct MCV MCH MCHC RDW Std Deviation Plt Count MPV Immature Gran % (Auto) Neut % (Auto) Lymph % (Auto) [place] % (Auto) Eos % (Auto) Baso % (Auto) Neut # (Auto) Lymph # (Auto) [place] # (Auto) Eos # (Auto) Baso # (Auto) Abs Immat Gran (auto) Turbidity Sodium Potassium Chloride Carbon Dioxide Anion Gap BUN Creatinine GFR Calculation BUN/Creatinine Ratio Glucose Glucometer 154 106 165 Calculated Osmolality Calcium Total Bilirubin Icterus Index AST ALT Alkaline Phosphatase Total Protein Albumin Globulin Albumin/Globulin Ratio Specimen Hemolysis 12/30/17 12/31/17 12/31/17 21:15 07:57 07:57 WBC 9.7 RBC 3.77 L Hgb 12.5 Hct 37.8 MCV 100.3 H MCH 33.2 MCHC 33.1 RDW Std Deviation 58.2 H Plt Count 265 MPV 10.2 Immature Gran % (Auto) 0.3 Neut % (Auto) 60.0 Lymph % (Auto) 30.9 [place] % (Auto) 6.9 Eos % (Auto) 1.6 Baso % (Auto) 0.3 Neut # (Auto) 5.8 Lymph # (Auto) 3.0 [place] # (Auto) 0.7 Eos # (Auto) 0.2 Baso # (Auto) 0.0 Abs Immat Gran (auto) 0.03 Turbidity < 20 Sodium 135 Potassium 5.0 Chloride 96 L Carbon Dioxide 32 H Anion Gap 7 BUN 52.0 H* Creatinine 0.7 GFR Calculation 82 BUN/Creatinine Ratio 74 H Glucose 139 H Glucometer 141 Calculated Osmolality 276 Calcium 9.6 Total Bilirubin 0.70 Icterus Index < 2 AST 38 H ALT 28 Alkaline Phosphatase 133 H Total Protein 6.3 Albumin 3.4 L Globulin 2.9 Albumin/Globulin Ratio 1.2 Specimen Hemolysis < 15 Assessment and Plan (1) Depressive disorder Problem details: R/O Major depressive disorder, single episode, severe R/O Mood disorder secondary to general medical condition Other medical conditions: Failure to thrive. Anorexia. Diabetes mellitus, type II, insulin dependent. Gastroparesis. Constipation. CAD. Hypothyroidism. History of hypertension. History of orthostatic hypotension. Hyperlipidemia. Current visit: Yes Status: Acute Continue current medications (holding Ritalin); see notes from hospitalist. Will look into placement options after discharge. Hospital Course Summary Disclaimer: The visit summary below is not to be considered part of the above Progress Note. Hospital Course: Plan - 12/24/17: Agree with admission to [facility] for further psychiatric evaluation and care. Hospitalist service consulted for medical management. Labs and imaging reviewed from ED evaluation as well as extensive review of prior medical records. CT revealed large pericardial effusion and concerning for passive congestion from right heart insufficiency in the liver. Will obtain echocardiogram as well as ultrasound of liver for further evaluation. 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 Blood sugars controlled. Monitor closely and continue home Lantus 8 units QHS. Monitor blood pressure closely. Continue home medications. Monitor closely for orthostatic hypotension. Consult dietary for evaluation of protein calorie malnutrition. Will also obtain speech evaluation for possible dysphagia. Recheck labs in AM to monitor blood counts, electrolytes and renal function. Upon discharge, patient's care will be returned to PCP. 12/24/17 Psych: Discontinue Prozac and allow to self-taper as serotonin likely too high and contributing to emotional dulling complained of by patient. Because half-life is so-long, will need to start alternate antidepressant in ~4 weeks. Will start Ritalin 5mg PO daily to target energy, appetite. 12/25/17 Psych: Increase Ritalin to 5mg PO BID with breakfast, lunch to target sleep, appetite. 12/26/17 Psych: Will schedule Tylenol 650mg PO q HS to target pain that patient reports interfered with sleep; monitor as to whether this is effective. Discussed risks/benefit of Ritalin use given concern for heart failure. Patient stated that she preferred to continue medication as she felt it was beneficial for quality of life, and she understood risks. She understands dose will not be increased at this point. 12/27/17 Reviewed her CXR, abd sono/CT, and echo. Pericardial effusion is likely chronic and there is no tamponade. Would not recommend further evaluation during her [facility] stay unless she becomes symptomatic. Would recommend all records be sent to PCP/electroencephalograph technologist and pt f-u with them on dismissal for further work-up per their discretion. Blood sugars acceptable Repeat CBC in am to follow leukocytosis. 12/27/17- Psych- Remains hypersomnolent. Continue current care 12/28/17 Psych- Continue current care. 12/30/17 Psych: Have held Ritalin due to emesis and physical health concerns. Awaiting results of CT of abdomen today. Will discuss use of Ritalin with chronic pericardial effusion though I don't believe Ritalin was contributor to recent symptoms. May consider use of mirtazapine and titrating upwards as Prozac self-tapers. Will likely need placement due to physical health after discharge. 12/31/17 Psych: Continue current medications (holding Ritalin); see notes from hospitalist. Will look into placement options after discharge.
[2017-12-31] MEDS: INSULIN ASPART 100unit/ml INJECTION SQ PRN ×3 (10:06→15:44)
--- NOTE | 2017-12-31 13:17 | Progress Note ---
- Date 12/31/17 Subjective: Izzy is seen this both this morning as well as this afternoon. She is initially sleeping, however, does arouse during conversation. She denies having pain on examination, denies feeling short of breath or having chest pain. Chart is reviewed, vital signs continued to remain normal and she is afebrile. Bowels are moving regularly. This afternoon she is seen well, sitting on the edge of the bed writing checks, pain bills with her daughter's presence. Her affect appears somewhat flat. She denies having any pain, dizziness, shortness of breath, or other concerns. She does complain that her "bowels" have been giving her trouble. Objective Vital signs: Temperature 96.8 F 12/31/17 08:00 Pulse Rate 68 12/31/17 08:00 Respiratory Rate 16 12/31/17 08:00 Blood Pressure 116/75 12/31/17 08:00 Pulse Oximetry 96 12/31/17 08:00 Height/Weight/BMI: Height 1.63 m Weight 67 kg Body Mass Index 23.8 - Constitutional Present: no acute distress, well nourished, well developed - Routine HEENT Exam Eye: Present: EOMI ENT: Present: mucous membranes moist, dentition normal - Routine Respiratory Exam Present: CTA bilaterally. Absent: wheezes - Routine Cardiovascular Exam Present: RRR, S1, S2. Absent: murmur - Routine Abdominal Exam Present: soft, normoactive bowel sounds, non distended. Absent: tenderness - Routine Extremities Exam Present: pulses intact - Routine Skin Exam Present: intact, dry, warm - Routine Neurological Exam Present: alert, CN II-XII intact, moving all extremities - Routine Lymphatic Exam Lymphatic: Absent: adenopathy - Routine Psychiatric Exam Present: normal affect, normal thought process, cooperative Results - Labs CBC & Chem 7: 12/31/17 07:57 12/31/17 07:57 Assessment and Plan Assessment and Plan: Assessment: Severe depression. Failure to thrive. Leukocytosis - not POA Pericardial effusion w/ no tamponade- likely chronic Anorexia. Diabetes mellitus, type II, insulin dependent. Gastroparesis. Constipation. CAD. Hypothyroidism. History of hypertension. History of orthostatic hypotension. Hyperlipidemia. 12/31 Continues on Cipro for treatment of UTI. Will complete course tomorrow night, . Leukocytosis appears to be improving. Hyperkalemia, also improving. Continue on lactulose daily Monitor fluid balance as she does have a known pleural effusion as well as pericardial effusion. Monitor for evidence of cardiac tamponade, such as chest pain, shortness of breath, weakness or dizziness If she does develop evidence of cardiac distress likely will need higher level of cardiac care, given known pericardial effusion. Otherwise can likely be followed in outpatient setting Will continue to follow carefully Additional Hx Did contact primary care provider, Dr. Jose Blancas from [facility]. Did receive old records on patient. Echocardiogram-08/05/17 revealed normal left ventricular systolic function with an EF of 60%. At that time there was a small circumferential pericardial effusion. Cardiac catheterization with stent placement of Mid right coronary artery-- Dr Venkat Patterson Further paper documents and old records will be placed on paper chart. See records. - Physician Narrative Narrative: Date: 12/31/17 Time: 1314 Hospital Course Summary Disclaimer: The visit summary below is not to be considered part of the above Progress Note. Hospital Course: Plan - 12/24/17: Agree with admission to [facility] for further psychiatric evaluation and care. Hospitalist service consulted for medical management. Labs and imaging reviewed from ED evaluation as well as extensive review of prior medical records. CT revealed large pericardial effusion and concerning for passive congestion from right heart insufficiency in the liver. Will obtain echocardiogram as well as ultrasound of liver for further evaluation. 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 Blood sugars controlled. Monitor closely and continue home Lantus 8 units QHS. Monitor blood pressure closely. Continue home medications. Monitor closely for orthostatic hypotension. Consult dietary for evaluation of protein calorie malnutrition. Will also obtain speech evaluation for possible dysphagia. Recheck labs in AM to monitor blood counts, electrolytes and renal function. Upon discharge, patient's care will be returned to PCP. 12/24/17 Psych: Discontinue Prozac and allow to self-taper as serotonin likely too high and contributing to emotional dulling complained of by patient. Because half-life is so-long, will need to start alternate antidepressant in ~4 weeks. Will start Ritalin 5mg PO daily to target energy, appetite. 12/25/17 Psych: Increase Ritalin to 5mg PO BID with breakfast, lunch to target sleep, appetite. 12/26/17 Psych: Will schedule Tylenol 650mg PO q HS to target pain that patient reports interfered with sleep; monitor as to whether this is effective. Discussed risks/benefit of Ritalin use given concern for heart failure. Patient stated that she preferred to continue medication as she felt it was beneficial for quality of life, and she understood risks. She understands dose will not be increased at this point. 12/27/17 Reviewed her CXR, abd sono/CT, and echo. Pericardial effusion is likely chronic and there is no tamponade. Would not recommend further evaluation during her [facility] stay unless she becomes symptomatic. Would recommend all records be sent to PCP/outbound sales advisor and pt f-u with them on dismissal for further work-up per their discretion. Blood sugars acceptable Repeat CBC in am to follow leukocytosis. 12/27/17- Psych- Remains hypersomnolent. Continue current care 12/28/17 Psych- Continue current care. 12/30/17 Psych: Have held Ritalin due to emesis and physical health concerns. Awaiting results of CT of abdomen today. Will discuss use of Ritalin with chronic pericardial effusion though I don't believe Ritalin was contributor to recent symptoms. May consider use of mirtazapine and titrating upwards as Prozac self-tapers. Will likely need placement due to physical health after discharge. 12/31 Continues on Cipro for treatment of UTI. Will complete course tomorrow night, . Leukocytosis appears to be improving. Hyperkalemia, also improving. Continue on lactulose daily Monitor fluid balance as she does have a known pleural effusion as well as pericardial effusion. Monitor for evidence of cardiac tamponade, such as chest pain, shortness of breath, weakness or dizziness If she does develop evidence of cardiac distress likely will need higher level of cardiac care, given known pericardial effusion. Otherwise can likely be followed in outpatient setting Will continue to follow carefully Additional Hx Did contact primary care provider, Dr. Jose Blancas from [facility]. Did receive old records on patient. Echocardiogram-08/05/17 revealed normal left ventricular systolic function with an EF of 60%. At that time there was a small circumferential pericardial effusion. Cardiac catheterization with stent placement of Mid right coronary artery-- Dr Venkat Patterson Further paper documents and old records will be placed on paper chart. See records.
[2017-12-31] MEDS: ACETAMINOPHEN 325 MG TABLET PO SCH (21:27)
[2017-12-31] MEDS: INSULIN GLARGINE 100unit/ml INJECTION SQ SCH (21:28)
[2018-01-01] MEDS: LEVOTHYROXINE 75 MCG TABLET PO SCH ×2 (05:24→06:17)
[2018-01-01] MEDS: PANTOPRAZOLE 40 MG TABLET PO SCH ×2 (05:24→06:17)
[2018-01-01] MEDS: SUCRALFATE 1 GM TABLET PO SCH ×4 (05:24→17:11)
[2018-01-01] MEDS: LACTULOSE 20 GM/30 ML ORAL LIQUID PO SCH (08:27)
[2018-01-01] MEDS: ASPIRIN 81 MG CHEWABLE TABLET PO SCH (08:27)
[2018-01-01] MEDS: ISOSORBIDE MONONITRATE ER 30 MG TABLET PO SCH (08:27)
[2018-01-01] MEDS: CIPROFLOXACIN 500 MG TABLET PO SCH ×3 (08:27→22:01)
[2018-01-01] MEDS: CLOPIDOGREL 75 MG TABLET PO SCH (08:27)
[2018-01-01] MEDS: MIDODRINE 2.5 MG TABLET PO SCH ×3 (08:28→15:20)
--- NOTE | 2018-01-01 09:32 | Neuropsych Progress Note ---
[facility] Subjective Date: 01/02/18 - Sujective/Severity of Illness Medications: Acetaminophen (Tylenol) 325 - 650 mg PO Q6H PRN PRN Reason: Discomfort Last Admin: 12/27/17 01:38 Dose: 650 mg Acetaminophen (Tylenol) 650 mg PO HS [facility] Last Admin: 12/31/17 21:27 Dose: Not Given Aspirin (Asa) 81 mg PO DAILY [facility] Last Admin: 01/01/18 08:27 Dose: 81 mg Ciprofloxacin (Cipro 500 Mg) 500 mg PO Q12HR [facility] Stop: 01/01/18 23:59 Last Admin: 01/01/18 08:27 Dose: 500 mg Clopidogrel Bisulfate (Plavix) 75 mg PO DAILY [facility] Last Admin: 01/01/18 08:27 Dose: 75 mg Insulin Aspart (Novolog) 1 - 5 unit SQ SS PRN; Protocol PRN Reason: Hyperglycemia Last Admin: 12/31/17 15:44 Dose: 1 unit Insulin Glargine (Lantus) 8 unit SQ [facility] Last Admin: 12/31/17 21:28 Dose: Not Given Isosorbide Mononitrate (Imdur) 30 mg PO 0700 [facility] Last Admin: 01/01/18 08:27 Dose: 30 mg Lactulose (Lactulose) 40 gm PO DAILY [facility] Last Admin: 01/01/18 08:27 Dose: 40 gm Levothyroxine Sodium (Synthroid) 75 mcg PO ACB [facility] Last Admin: 01/01/18 06:17 Dose: Not Given Lorazepam (Ativan) 0.5 mg PO Q6H PRN PRN Reason: Extreme agitation Last Admin: 12/27/17 02:38 Dose: 0.5 mg Lorazepam (Ativan Inj) 0.5 mg IM Q6H PRN PRN Reason: Extreme agitation Methylphenidate HCl (Ritalin) 5 mg PO BIDBL [facility] Last Admin: 12/30/17 12:02 Dose: Not Given Metoclopramide HCl (Reglan) 10 mg PO TID [facility] Last Admin: 01/01/18 08:28 Dose: 10 mg Midodrine (Proamatine) 2.5 mg PO 0700,1100,1500 [facility] Last Admin: 01/01/18 08:28 Dose: 2.5 mg Ondansetron HCl (Zofran Odt Tablet) 4 mg PO Q4H PRN PRN Reason: Nausea &/or vomiting Last Admin: 12/29/17 03:29 Dose: 4 mg Pantoprazole Sodium (Protonix Tab) 40 mg PO ACB [facility] Last Admin: 01/01/18 06:17 Dose: Not Given Potassium Chloride (K-Dur 10 Meq Tablet) 10 meq PO WMHS [facility] Last Admin: 12/29/17 14:13 Dose: Not Given Sucralfate (Carafate) 1 gm PO AC [facility] Last Admin: 01/01/18 06:17 Dose: Not Given Subjective: Patient seen and chart reviewed. Case discussed with treatment team. On interview, patient reports feeling very poorly physically (see most recent labs). Have held Ritalin as patient was vomiting and appears to be dehydrated; BUN seems to be trending downwards now. There is hesitation to give IV fluids due to pericardial effusion. Patient reports poor mood primarily due to feeling so physically poorly. She complains of constipation and feeling her bowels aren' t working. Patient is in agreement of increased assistance after discharge due to physical needs. Discussed care and patient reported feeling better while she was on Ritalin. She prefers to have me discuss care with daughter and agrees to follow daughter's decision in regards to medications. Patient denies any SI, HI or AVH. Patient denies any adverse side effects related to psychotropic medications. Nursing staff report patient has been participating in group despite feeling poorly physically and has not had any other significant behavioral problems on unit. Patient has been adherent with medications though Ritalin currently being held. Psychotropic PRNs required in the past 24 hours: none. VSS. Discussed care with daughter, risks and benefits of low-dose Ritalin given patient's cardiac problems. Discussed use of mirtazapine and timing of when to start it. She feels Ritalin contributes to mother's quality of life and helps sustain her nutrition despite cardiac risks. Plan to restart in AM on 01/02. Start Time: 14:00 Stop Time: 14:40 Care: >50% of this visit spent in counseling/coordination care. (Discussion of care with patient's daughter) Mental Status Exam Vitals: Last Vital Signs Temp 96.5 F L 01/01/18 08:00 Pulse 74 01/01/18 08:00 Resp 18 01/01/18 08:00 BP 112/65 01/01/18 08:00 Pulse Ox 95 01/01/18 08:00 Height: 1.63 m Weight: 65.9 kg - Mental Status Exam Muscle Strength/Tone: Weak Dressing: Casual Grooming: Fair Attitude: Cooperative Motor Activity: Retardation Eye Contact: Good Speech: Normal Volume: Soft Rhythm: Appropriate Rhythm Orientation: Oriented X4 Mood: Depressed (primarily due to feeling poorly physically) Affect: Sad Rate of Thoughts: Appropriate Rate Thought Organization: Organized Associations: Intact Abstract Reasoning: Intact, able to abstract Thought Content: Ruminations, Hopelessness, Helplessness, Somatic Concerns Perception/Psychotic: Perception Normal Fund of Knowledge: Appropriate Memory: Grossly Intact Suicidal Ideation: Denies Homicidal Ideation: Denies Insight: Fair Judgement: Fair Impulse Control: Good - Laboratory Result Diagrams: 01/01/18 08:41 01/01/18 08:41 Laboratory Results - last 24 hr 12/31/17 12/31/17 12/31/17 08:20 11:47 15:11 WBC RBC Hgb Hct MCV MCH MCHC RDW Std Deviation Plt Count MPV Immature Gran % (Auto) Neut % (Auto) Lymph % (Auto) Pitkin % (Auto) Eos % (Auto) Baso % (Auto) Neut # (Auto) Lymph # (Auto) [place]kin # (Auto) Eos # (Auto) Baso # (Auto) Abs Immat Gran (auto) Turbidity Sodium Potassium Chloride Carbon Dioxide Anion Gap BUN Creatinine GFR Calculation BUN/Creatinine Ratio Glucose Glucometer 154 208 159 Calculated Osmolality Calcium Icterus Index Specimen Hemolysis 12/31/17 01/01/18 01/01/18 21:09 06:44 08:41 WBC 9.6 RBC 3.69 L Hgb 12.4 Hct 36.8 MCV 99.7 MCH 33.6 MCHC 33.7 RDW Std Deviation 57.1 H Plt Count 265 MPV 10.1 Immature Gran % (Auto) 0.2 Neut % (Auto) 64.5 Lymph % (Auto) 28.2 Pitkin % (Auto) 5.9 Eos % (Auto) 0.9 Baso % (Auto) 0.3 Neut # (Auto) 6.2 Lymph # (Auto) 2.7 Pitkin # (Auto) 0.6 Eos # (Auto) 0.1 Baso # (Auto) 0.0 Abs Immat Gran (auto) 0.02 Turbidity Sodium Potassium Chloride Carbon Dioxide Anion Gap BUN Creatinine GFR Calculation BUN/Creatinine Ratio Glucose Glucometer 157 199 Calculated Osmolality Calcium Icterus Index Specimen Hemolysis 01/01/18 08:41 WBC RBC Hgb Hct MCV MCH MCHC RDW Std Deviation Plt Count MPV Immature Gran % (Auto) Neut % (Auto) Lymph % (Auto) Pitkin % (Auto) Eos % (Auto) Baso % (Auto) Neut # (Auto) Lymph # (Auto) Pitkin # (Auto) Eos # (Auto) Baso # (Auto) Abs Immat Gran (auto) Turbidity < 20 Sodium 138 Potassium 4.6 Chloride 97 L Carbon Dioxide 31 H Anion Gap 10 BUN 53.0 H* Creatinine 0.8 GFR Calculation 71 BUN/Creatinine Ratio 66 H Glucose 192 H Glucometer Calculated Osmolality 285 H Calcium 9.3 Icterus Index < 2 Specimen Hemolysis < 15 Assessment and Plan (1) Depressive disorder Problem details: R/O Major depressive disorder, single episode, severe R/O Mood disorder secondary to general medical condition Other medical conditions: Failure to thrive. Anorexia. Diabetes mellitus, type II, insulin dependent. Gastroparesis. Constipation. CAD. Hypothyroidism. History of hypertension. History of orthostatic hypotension. Hyperlipidemia. Current visit: Yes Status: Acute Plan to restart Ritalin on 01/02 at 5mg PO BID with breakfast and lunch. Informed consent understanding of risks and benefits obtained from both patient and daughter/DPOA. Hospital Course Summary Disclaimer: The visit summary below is not to be considered part of the above Progress Note. Hospital Course: Plan - 12/24/17: Agree with admission to [facility] for further psychiatric evaluation and care. Hospitalist service consulted for medical management. Labs and imaging reviewed from ED evaluation as well as extensive review of prior medical records. CT revealed large pericardial effusion and concerning for passive congestion from right heart insufficiency in the liver. Will obtain echocardiogram as well as ultrasound of liver for further evaluation. 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 Blood sugars controlled. Monitor closely and continue home Lantus 8 units QHS. Monitor blood pressure closely. Continue home medications. Monitor closely for orthostatic hypotension. Consult dietary for evaluation of protein calorie malnutrition. Will also obtain speech evaluation for possible dysphagia. Recheck labs in AM to monitor blood counts, electrolytes and renal function. Upon discharge, patient's care will be returned to PCP. 12/24/17 Psych: Discontinue Prozac and allow to self-taper as serotonin likely too high and contributing to emotional dulling complained of by patient. Because half-life is so-long, will need to start alternate antidepressant in ~4 weeks. Will start Ritalin 5mg PO daily to target energy, appetite. 12/25/17 Psych: Increase Ritalin to 5mg PO BID with breakfast, lunch to target sleep, appetite. 12/26/17 Psych: Will schedule Tylenol 650mg PO q HS to target pain that patient reports interfered with sleep; monitor as to whether this is effective. Discussed risks/benefit of Ritalin use given concern for heart failure. Patient stated that she preferred to continue medication as she felt it was beneficial for quality of life, and she understood risks. She understands dose will not be increased at this point. 12/27/17 Reviewed her CXR, abd sono/CT, and echo. Pericardial effusion is likely chronic and there is no tamponade. Would not recommend further evaluation during her [facility] stay unless she becomes symptomatic. Would recommend all records be sent to PCP/school admissions representative and pt f-u with them on dismissal for further work-up per their discretion. Blood sugars acceptable Repeat CBC in am to follow leukocytosis. 12/27/17- Psych- Remains hypersomnolent. Continue current care 12/28/17 Psych- Continue current care. 12/30/17 Psych: Have held Ritalin due to emesis and physical health concerns. Awaiting results of CT of abdomen today. Will discuss use of Ritalin with chronic pericardial effusion though I don't believe Ritalin was contributor to recent symptoms. May consider use of mirtazapine and titrating upwards as Prozac self-tapers. Will likely need placement due to physical health after discharge. 12/31/17 Psych: Continue current medications (holding Ritalin); see notes from hospitalist. Will look into placement options after discharge. 01/01/18 Psych: Plan to restart Ritalin on 01/02 at 5mg PO BID with breakfast and lunch. Informed consent understanding of risks and benefits obtained from both patient and daughter/DPOA.
[2018-01-01] MEDS: INSULIN ASPART 100unit/ml INJECTION SQ PRN ×2 (10:48→22:04)
[2018-01-01] MEDS: INSULIN GLARGINE 100unit/ml INJECTION SQ SCH ×2 (19:32→22:01)
[2018-01-01] MEDS: ACETAMINOPHEN 325 MG TABLET PO SCH (22:00)
[2018-01-01] MEDS: LORazepam 0.5 MG TABLET PO PRN (22:04)
[2018-01-02] MEDS: SUCRALFATE 1 GM TABLET PO SCH ×3 (05:34→17:00)
[2018-01-02] MEDS: PANTOPRAZOLE 40 MG TABLET PO SCH (05:34)
[2018-01-02] MEDS: LEVOTHYROXINE 75 MCG TABLET PO SCH (05:34)
--- NOTE | 2018-01-02 09:17 | Neuropsych Progress Note ---
[facility] Subjective Date: 01/02/18 - Sujective/Severity of Illness Medications: Acetaminophen (Tylenol) 325 - 650 mg PO Q6H PRN PRN Reason: Discomfort Last Admin: 12/27/17 01:38 Dose: 650 mg Acetaminophen (Tylenol) 650 mg PO [facility] Last Admin: 01/01/18 22:00 Dose: Not Given Aspirin (Asa) 81 mg PO DAILY [facility] Last Admin: 01/01/18 08:27 Dose: 81 mg Clopidogrel Bisulfate (Plavix) 75 mg PO DAILY [facility] Last Admin: 01/01/18 08:27 Dose: 75 mg Insulin Aspart (Novolog) 1 - 5 unit SQ SS PRN; Protocol PRN Reason: Hyperglycemia Last Admin: 01/01/18 22:04 Dose: 2 unit Insulin Glargine (Lantus) 8 unit SQ HS [facility] Last Admin: 01/01/18 22:01 Dose: Not Given Isosorbide Mononitrate (Imdur) 30 mg PO 0700 [facility] Last Admin: 01/01/18 08:27 Dose: 30 mg Lactulose (Lactulose) 40 gm PO DAILY [facility] Last Admin: 01/01/18 08:27 Dose: 40 gm Levothyroxine Sodium (Synthroid) 75 mcg PO ACB [facility] Last Admin: 01/02/18 05:34 Dose: 75 mcg Lorazepam (Ativan Inj) 0.5 mg IM Q6H PRN PRN Reason: Extreme agitation Lorazepam (Ativan) 0.5 mg PO Q6H PRN PRN Reason: Agitation/Air hunger/Pain Last Admin: 01/01/18 22:04 Dose: 0.5 mg Methylphenidate HCl (Ritalin) 5 mg PO BIDBL [facility] Metoclopramide HCl (Reglan) 10 mg PO TID [facility] Last Admin: 01/01/18 22:01 Dose: Not Given Midodrine (Proamatine) 2.5 mg PO 0700,1100,1500 [facility] Last Admin: 01/01/18 15:20 Dose: 2.5 mg Ondansetron HCl (Zofran Odt Tablet) 4 mg PO Q4H PRN PRN Reason: Nausea &/or vomiting Last Admin: 12/29/17 03:29 Dose: 4 mg Pantoprazole Sodium (Protonix Tab) 40 mg PO ACB [facility] Last Admin: 01/02/18 05:34 Dose: 40 mg Potassium Chloride (K-Dur 10 Meq Tablet) 10 meq PO WMHS [facility] Last Admin: 12/29/17 14:13 Dose: Not Given Sucralfate (Carafate) 1 gm PO AC [facility] Last Admin: 01/02/18 05:34 Dose: 1 gm Subjective: Patient seen and chart reviewed. Case discussed with treatment team. On interview, patient is in dayroom but reports continued abdominal pain and feeling constipated. She states her mood is "about the same." She has been able to drink some Ensure (does in fact have increased PO intake with Ritalin) but last night complained of chest pain and says it is now worse. Will hold Ritalin again and monitor - may need to consider use of mirtazapine instead. Patient denies any SI, HI or AVH. Patient denies any adverse side effects related to psychotropic medications. Nursing staff report patient has been participating in group despite feeling poorly physically and has not had any other significant behavioral problems on unit. Patient has been adherent with medications. Patient slept well overnight. Psychotropic PRNs required in the past 24 hours: Ativan 0.5mg PO x1 at HS as above. VSS. Start Time: 14:20 Stop Time: 14:40 Mental Status Exam Vitals: Last Vital Signs Temp 97.8 F 01/02/18 08:00 Pulse 69 01/02/18 08:06 Resp 16 01/02/18 08:06 BP 102/61 01/02/18 08:06 Pulse Ox 96 01/02/18 08:06 Height: 1.63 m Weight: 65.9 kg - Mental Status Exam Muscle Strength/Tone: Weak Dressing: Casual Grooming: Fair Attitude: Cooperative Motor Activity: Retardation Eye Contact: Good Speech: Normal Volume: Soft Rhythm: Appropriate Rhythm Orientation: Oriented X4 Mood: Depressed (primarily due to feeling poorly physically) Affect: Blunted Rate of Thoughts: Appropriate Rate Thought Organization: Organized Associations: Intact Abstract Reasoning: Intact, able to abstract Thought Content: Ruminations, Hopelessness, Helplessness, Somatic Concerns Perception/Psychotic: Perception Normal Fund of Knowledge: Appropriate Memory: Grossly Intact Suicidal Ideation: Denies Homicidal Ideation: Denies Insight: Fair Judgement: Fair Impulse Control: Fair - Laboratory Result Diagrams: 01/01/18 08:41 01/01/18 08:41 Laboratory Results - last 24 hr 01/01/18 01/01/1801/01/18 10:06 14:14 21:00 Glucometer 218 144 230 01/02/18 05:33 Glucometer 162 Assessment and Plan (1) Depressive disorder Problem details: R/O Major depressive disorder, single episode, severe R/O Mood disorder secondary to general medical condition Other medical conditions: Failure to thrive. Anorexia. Diabetes mellitus, type II, insulin dependent. Gastroparesis. Constipation. CAD. Hypothyroidism. History of hypertension. History of orthostatic hypotension. Hyperlipidemia. Current visit: Yes Status: Acute Will hold Ritalin as patient feels it may be exacerbating chest pain. May consider use of mirtazapine to target appetite. Hospital Course Summary Disclaimer: The visit summary below is not to be considered part of the above Progress Note. Hospital Course: Plan - 12/24/17: Agree with admission to [facility] for further psychiatric evaluation and care. Hospitalist service consulted for medical management. Labs and imaging reviewed from ED evaluation as well as extensive review of prior medical records. CT revealed large pericardial effusion and concerning for passive congestion from right heart insufficiency in the liver. Will obtain echocardiogram as well as ultrasound of liver for further evaluation. 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 Blood sugars controlled. Monitor closely and continue home Lantus 8 units QHS. Monitor blood pressure closely. Continue home medications. Monitor closely for orthostatic hypotension. Consult dietary for evaluation of protein calorie malnutrition. Will also obtain speech evaluation for possible dysphagia. Recheck labs in AM to monitor blood counts, electrolytes and renal function. Upon discharge, patient's care will be returned to PCP. 12/24/17 Psych: Discontinue Prozac and allow to self-taper as serotonin likely too high and contributing to emotional dulling complained of by patient. Because half-life is so-long, will need to start alternate antidepressant in ~4 weeks. Will start Ritalin 5mg PO daily to target energy, appetite. 12/25/17 Psych: Increase Ritalin to 5mg PO BID with breakfast, lunch to target sleep, appetite. 12/26/17 Psych: Will schedule Tylenol 650mg PO q HS to target pain that patient reports interfered with sleep; monitor as to whether this is effective. Discussed risks/benefit of Ritalin use given concern for heart failure. Patient stated that she preferred to continue medication as she felt it was beneficial for quality of life, and she understood risks. She understands dose will not be increased at this point. 12/27/17 Reviewed her CXR, abd sono/CT, and echo. Pericardial effusion is likely chronic and there is no tamponade. Would not recommend further evaluation during her [facility] stay unless she becomes symptomatic. Would recommend all records be sent to PCP/linux kernel engineer and pt f-u with them on dismissal for further work-up per their discretion. Blood sugars acceptable Repeat CBC in am to follow leukocytosis. 12/27/17- Psych- Remains hypersomnolent. Continue current care 12/28/17 Psych- Continue current care. 12/30/17 Psych: Have held Ritalin due to emesis and physical health concerns. Awaiting results of CT of abdomen today. Will discuss use of Ritalin with chronic pericardial effusion though I don't believe Ritalin was contributor to recent symptoms. May consider use of mirtazapine and titrating upwards as Prozac self-tapers. Will likely need placement due to physical health after discharge. 12/31/17 Psych: Continue current medications (holding Ritalin); see notes from hospitalist. Will look into placement options after discharge. 01/01/18 Psych: Plan to restart Ritalin on 01/02 at 5mg PO BID with breakfast and lunch. Informed consent understanding of risks and benefits obtained from both patient and daughter/DPOA. 01/02/18 Psych: Will hold Ritalin as patient feels it may be exacerbating chest pain. May consider use of mirtazapine to target appetite.
[2018-01-02] MEDS: MIDODRINE 2.5 MG TABLET PO SCH ×3 (09:20→17:00)
[2018-01-02] MEDS: ASPIRIN 81 MG CHEWABLE TABLET PO SCH (09:20)
[2018-01-02] MEDS: ISOSORBIDE MONONITRATE ER 30 MG TABLET PO SCH (09:20)
[2018-01-02] MEDS: CLOPIDOGREL 75 MG TABLET PO SCH (09:21)
[2018-01-02] MEDS: LACTULOSE 20 GM/30 ML ORAL LIQUID PO SCH (09:23)
[2018-01-02] MEDS: METHYLPHENIDATE 5 MG TABLET PO SCH ×2 (09:23→13:12)
[2018-01-02] MEDS: INSULIN ASPART 100unit/ml INJECTION SQ PRN ×3 (10:30→20:32)
[2018-01-02] MEDS: ACETAMINOPHEN 325 MG TABLET PO SCH (20:13)
[2018-01-02] MEDS: INSULIN GLARGINE 100unit/ml INJECTION SQ SCH (20:14)
[2018-01-03] MEDS: ISOSORBIDE MONONITRATE ER 30 MG TABLET PO SCH (08:26)
[2018-01-03] MEDS: MIDODRINE 2.5 MG TABLET PO SCH ×3 (08:27→15:26)
[2018-01-03] MEDS: CLOPIDOGREL 75 MG TABLET PO SCH (08:27)
[2018-01-03] MEDS: ASPIRIN 81 MG CHEWABLE TABLET PO SCH (08:27)
[2018-01-03] MEDS: LACTULOSE 20 GM/30 ML ORAL LIQUID PO SCH (08:28)
[2018-01-03] MEDS: INSULIN ASPART 100unit/ml INJECTION SQ PRN ×3 (10:40→15:29)
[2018-01-03] MEDS: ACETAMINOPHEN 325 MG TABLET PO PRN (11:08)
--- NOTE | 2018-01-03 11:34 | Neuropsych Progress Note ---
[facility] Subjective Date: 01/03/18 - Sujective/Severity of Illness Medications: Acetaminophen (Tylenol) 325 - 650 mg PO Q6H PRN PRN Reason: Discomfort Last Admin: 01/03/18 11:08 Dose: 650 mg Acetaminophen (Tylenol) 650 mg PO HS [facility] Last Admin: 01/02/18 20:13 Dose: 650 mg Aspirin (Asa) 81 mg PO DAILY [facility] Last Admin: 01/03/18 08:27 Dose: 81 mg Clopidogrel Bisulfate (Plavix) 75 mg PO DAILY [facility] Last Admin: 01/03/18 08:27 Dose: 75 mg Insulin Aspart (Novolog) 1 - 5 unit SQ SS PRN; Protocol PRN Reason: Hyperglycemia Last Admin: 01/03/18 10:40 Dose: 1 unit Insulin Glargine (Lantus) 8 unit SQ HS [facility] Last Admin: 01/02/18 20:14 Dose: 8 unit Isosorbide Mononitrate (Imdur) 30 mg PO 0700 [facility] Last Admin: 01/03/18 08:26 Dose: 30 mg Lactulose (Lactulose) 40 gm PO DAILY [facility] Last Admin: 01/03/18 08:28 Dose: 40 gm Levothyroxine Sodium (Synthroid) 75 mcg PO ACB [facility] Last Admin: 01/02/18 05:34 Dose: 75 mcg Lorazepam (Ativan Inj) 0.5 mg IM Q6H PRN PRN Reason: Extreme agitation Lorazepam (Ativan) 0.5 mg PO Q6H PRN PRN Reason: Agitation/Air hunger/Pain Last Admin: 01/01/18 22:04 Dose: 0.5 mg Metoclopramide HCl (Reglan) 10 mg PO TID [facility] Last Admin: 01/03/18 08:27 Dose: 10 mg Midodrine (Proamatine) 2.5 mg PO 0700,1100,1500 [facility] Last Admin: 01/03/18 08:27 Dose: 2.5 mg Ondansetron HCl (Zofran Odt Tablet) 4 mg PO Q4H PRN PRN Reason: Nausea &/or vomiting Last Admin: 12/29/17 03:29 Dose: 4 mg Pantoprazole Sodium (Protonix Tab) 40 mg PO ACB [facility] Last Admin: 01/02/18 05:34 Dose: 40 mg Potassium Chloride (K-Dur 10 Meq Tablet) 10 meq PO [facility] Last Admin: 12/29/17 14:13 Dose: Not Given Sucralfate (Carafate) 1 gm PO AC [facility] Last Admin: 01/02/18 17:00 Dose: 1 gm Subjective: Patient seen and chart reviewed. Nursing reports pt continues to isolate and has a poor appetite but has been slightly more active. On face to face to face the pt is pleasant and cooperative. She remains depressed but denies any S /I. She is agreeable to start Remeron. Start Time: 10:15 Stop Time: 10:30 Mental Status Exam Vitals: Last Vital Signs Temp 97.4 F 01/03/18 08:00 Pulse 74 01/03/18 08:45 Resp 14 01/03/18 08:00 BP 118/68 01/03/18 08:45 Pulse Ox 96 01/03/18 08:45 Height: 1.63 m Weight: 66.6 kg - Mental Status Exam Muscle Strength/Tone: Weak Dressing: Casual Grooming: Fair Attitude: Cooperative Motor Activity: Retardation Eye Contact: Good Speech: Normal Volume: Soft Rhythm: Appropriate Rhythm Orientation: Oriented X4 Mood: Depressed (primarily due to feeling poorly physically) Rate of Thoughts: Appropriate Rate Thought Organization: Organized Associations: Intact Abstract Reasoning: Intact, able to abstract Thought Content: Ruminations, Hopelessness, Helplessness, Somatic Concerns Perception/Psychotic: Perception Normal Fund of Knowledge: Appropriate Memory: Grossly Intact Suicidal Ideation: Denies Homicidal Ideation: Denies Insight: Fair Judgement: Fair Impulse Control: Fair - Laboratory Result Diagrams: 01/01/18 08:41 01/01/18 08:41 Laboratory Results - last 24 hr 01/02/18 01/02/18 01/02/18 10:20 14:13 20:23 Glucometer 211 201 175 01/03/18 01/03/18 05:26 10:38 Glucometer 130 184 Assessment and Plan (1) Depressive disorder Problem details: R/O Major depressive disorder, single episode, severe R/O Mood disorder secondary to general medical condition Other medical conditions: Failure to thrive. Anorexia. Diabetes mellitus, type II, insulin dependent. Gastroparesis. Constipation. CAD. Hypothyroidism. History of hypertension. History of orthostatic hypotension. Hyperlipidemia. Current visit: Yes Status: Acute Hospital Course Summary Disclaimer: The visit summary below is not to be considered part of the above Progress Note. Hospital Course: Plan - 12/24/17: Agree with admission to [facility] for further psychiatric evaluation and care. Hospitalist service consulted for medical management. Labs and imaging reviewed from ED evaluation as well as extensive review of prior medical records. CT revealed large pericardial effusion and concerning for passive congestion from right heart insufficiency in the liver. Will obtain echocardiogram as well as ultrasound of liver for further evaluation. 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 Blood sugars controlled. Monitor closely and continue home Lantus 8 units QHS. Monitor blood pressure closely. Continue home medications. Monitor closely for orthostatic hypotension. Consult dietary for evaluation of protein calorie malnutrition. Will also obtain speech evaluation for possible dysphagia. Recheck labs in AM to monitor blood counts, electrolytes and renal function. Upon discharge, patient's care will be returned to PCP. 12/24/17 Psych: Discontinue Prozac and allow to self-taper as serotonin likely too high and contributing to emotional dulling complained of by patient. Because half-life is so-long, will need to start alternate antidepressant in ~4 weeks. Will start Ritalin 5mg PO daily to target energy, appetite. 12/25/17 Psych: Increase Ritalin to 5mg PO BID with breakfast, lunch to target sleep, appetite. 12/26/17 Psych: Will schedule Tylenol 650mg PO q HS to target pain that patient reports interfered with sleep; monitor as to whether this is effective. Discussed risks/benefit of Ritalin use given concern for heart failure. Patient stated that she preferred to continue medication as she felt it was beneficial for quality of life, and she understood risks. She understands dose will not be increased at this point. 12/27/17 Reviewed her CXR, abd sono/CT, and echo. Pericardial effusion is likely chronic and there is no tamponade. Would not recommend further evaluation during her [facility] stay unless she becomes symptomatic. Would recommend all records be sent to PCP/senior net web developer and pt f-u with them on dismissal for further work-up per their discretion. Blood sugars acceptable Repeat CBC in am to follow leukocytosis. 12/27/17- Psych- Remains hypersomnolent. Continue current care 12/28/17 Psych- Continue current care. 12/30/17 Psych: Have held Ritalin due to emesis and physical health concerns. Awaiting results of CT of abdomen today. Will discuss use of Ritalin with chronic pericardial effusion though I don't believe Ritalin was contributor to recent symptoms. May consider use of mirtazapine and titrating upwards as Prozac self-tapers. Will likely need placement due to physical health after discharge. 12/31/17 Psych: Continue current medications (holding Ritalin); see notes from hospitalist. Will look into placement options after discharge. 01/01/18 Psych: Plan to restart Ritalin on 01/02 at 5mg PO BID with breakfast and lunch. Informed consent understanding of risks and benefits obtained from both patient and daughter/DPOA. 01/02/18 Psych: Will hold Ritalin as patient feels it may be exacerbating chest pain. May consider use of mirtazapine to target appetite. 01/03/18 Psych note- Remeron 7.5mg at HS
[2018-01-03] MEDS: SUCRALFATE 1 GM TABLET PO SCH ×2 (11:56→17:06)
[2018-01-03] MEDS: ACETAMINOPHEN 325 MG TABLET PO SCH (20:39)
[2018-01-03] MEDS: INSULIN GLARGINE 100unit/ml INJECTION SQ SCH (20:40)
[2018-01-03] MEDS: MIRTAZAPINE 15 MG TABLET PO PRN (20:42)
[2018-01-04] MEDS: PANTOPRAZOLE 40 MG TABLET PO SCH (06:28)
[2018-01-04] MEDS: SUCRALFATE 1 GM TABLET PO SCH ×3 (06:28→16:58)
[2018-01-04] MEDS: LEVOTHYROXINE 75 MCG TABLET PO SCH (06:28)
[2018-01-04] MEDS: ISOSORBIDE MONONITRATE ER 30 MG TABLET PO SCH (06:29)
[2018-01-04] MEDS: MIDODRINE 2.5 MG TABLET PO SCH ×3 (06:29→16:19)
[2018-01-04] MEDS: ASPIRIN 81 MG CHEWABLE TABLET PO SCH (09:53)
[2018-01-04] MEDS: CLOPIDOGREL 75 MG TABLET PO SCH (09:53)
[2018-01-04] MEDS: LACTULOSE 20 GM/30 ML ORAL LIQUID PO SCH (10:05)
[2018-01-04] MEDS: INSULIN ASPART 100unit/ml INJECTION SQ PRN ×2 (10:15→20:33)
--- NOTE | 2018-01-04 11:47 | Neuropsych Progress Note ---
[facility] Subjective Date: 01/04/18 - Sujective/Severity of Illness Medications: Acetaminophen (Tylenol) 325 - 650 mg PO Q6H PRN PRN Reason: Discomfort Last Admin: 01/03/18 11:08 Dose: 650 mg Acetaminophen (Tylenol) 650 mg PO HS [facility] Last Admin: 01/03/18 20:39 Dose: 650 mg Aspirin (Asa) 81 mg PO DAILY [facility] Last Admin: 01/04/18 09:53 Dose: 81 mg Clopidogrel Bisulfate (Plavix) 75 mg PO DAILY [facility] Last Admin: 01/04/18 09:53 Dose: 75 mg Insulin Aspart (Novolog) 1 - 5 unit SQ SS PRN; Protocol PRN Reason: Hyperglycemia Last Admin: 01/04/18 10:15 Dose: 2 unit Insulin Glargine (Lantus) 8 unit SQ HS [facility] Last Admin: 01/03/18 20:40 Dose: 8 unit Isosorbide Mononitrate (Imdur) 30 mg PO 0700 [facility] Last Admin: 01/04/18 06:29 Dose: 30 mg Lactulose (Lactulose) 40 gm PO DAILY [facility] Last Admin: 01/04/18 10:05 Dose: Not Given Levothyroxine Sodium (Synthroid) 75 mcg PO ACB [facility] Last Admin: 01/04/18 06:28 Dose: 75 mcg Lorazepam (Ativan Inj) 0.5 mg IM Q6H PRN PRN Reason: Extreme agitation Lorazepam (Ativan) 0.5 mg PO Q6H PRN PRN Reason: Agitation/Air hunger/Pain Last Admin: 01/01/18 22:04 Dose: 0.5 mg Metoclopramide HCl (Reglan) 10 mg PO TID [facility] Last Admin: 01/04/18 09:53 Dose: 10 mg Midodrine (Proamatine) 2.5 mg PO 0700,1100,1500 [facility] Last Admin: 01/04/18 06:29 Dose: 2.5 mg Mirtazapine (Remeron) 7.5 mg PO HS PRN Last Admin: 01/03/18 20:42 Dose: 7.5 mg Ondansetron HCl (Zofran Odt Tablet) 4 mg PO Q4H PRN PRN Reason: Nausea &/or vomiting Last Admin: 12/29/17 03:29 Dose: 4 mg Pantoprazole Sodium (Protonix Tab) 40 mg PO ACB [facility] Last Admin: 01/04/18 06:28 Dose: 40 mg Potassium Chloride (K-Dur 10 Meq Tablet) 10 meq PO [facility] Last Admin: 12/29/17 14:13 Dose: Not Given Sucralfate (Carafate) 1 gm PO AC [facility] Last Admin: 01/04/18 06:28 Dose: 1 gm Subjective: Patient seen and chart reviewed. Nursing reports pt slept well. Continues to have a poor appetite but is drinking ensure. On face to face the pt is seen lying in bed. She is some what lethargic. She reports her mood is 'fine' but she appears depressed. Reports she slept better with the Remeron and tolerated it well. Start Time: 11:00 Stop Time: 11:15 Mental Status Exam Vitals: Last Vital Signs Temp 97.4 F 01/04/18 08:00 Pulse 78 01/04/18 10:23 Resp 18 01/04/18 10:23 BP 109/68 01/04/18 10:23 Pulse Ox 96 01/04/18 10:23 Height: 1.63 m Weight: 66.6 kg - Mental Status Exam Muscle Strength/Tone: Weak Dressing: Casual Grooming: Fair Attitude: Cooperative Motor Activity: Retardation Eye Contact: Good Speech: Normal Volume: Soft Rhythm: Appropriate Rhythm Orientation: Oriented X4 Mood: Depressed (primarily due to feeling poorly physically) Rate of Thoughts: Appropriate Rate Thought Organization: Organized Associations: Intact Abstract Reasoning: Intact, able to abstract Thought Content: Ruminations, Hopelessness, Helplessness, Somatic Concerns Perception/Psychotic: Perception Normal Fund of Knowledge: Appropriate Memory: Grossly Intact Suicidal Ideation: Denies Homicidal Ideation: Denies Insight: Fair Judgement: Fair Impulse Control: Fair - Laboratory Result Diagrams: 01/01/18 08:41 01/01/18 08:41 Laboratory Results - last 24 hr 01/03/18 01/04/18 01/04/18 14:00 06:24 10:01 Glucometer 170 127 213 Assessment and Plan (1) Depressive disorder Problem details: R/O Major depressive disorder, single episode, severe R/O Mood disorder secondary to general medical condition Other medical conditions: Failure to thrive. Anorexia. Diabetes mellitus, type II, insulin dependent. Gastroparesis. Constipation. CAD. Hypothyroidism. History of hypertension. History of orthostatic hypotension. Hyperlipidemia. Current visit: Yes Status: Acute Hospital Course Summary Disclaimer: The visit summary below is not to be considered part of the above Progress Note. Hospital Course: Plan - 12/24/17: Agree with admission to [facility] for further psychiatric evaluation and care. Hospitalist service consulted for medical management. Labs and imaging reviewed from ED evaluation as well as extensive review of prior medical records. CT revealed large pericardial effusion and concerning for passive congestion from right heart insufficiency in the liver. Will obtain echocardiogram as well as ultrasound of liver for further evaluation. 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 Blood sugars controlled. Monitor closely and continue home Lantus 8 units QHS. Monitor blood pressure closely. Continue home medications. Monitor closely for orthostatic hypotension. Consult dietary for evaluation of protein calorie malnutrition. Will also obtain speech evaluation for possible dysphagia. Recheck labs in AM to monitor blood counts, electrolytes and renal function. Upon discharge, patient's care will be returned to PCP. 12/24/17 Psych: Discontinue Prozac and allow to self-taper as serotonin likely too high and contributing to emotional dulling complained of by patient. Because half-life is so-long, will need to start alternate antidepressant in ~4 weeks. Will start Ritalin 5mg PO daily to target energy, appetite. 12/25/17 Psych: Increase Ritalin to 5mg PO BID with breakfast, lunch to target sleep, appetite. 12/26/17 Psych: Will schedule Tylenol 650mg PO q HS to target pain that patient reports interfered with sleep; monitor as to whether this is effective. Discussed risks/benefit of Ritalin use given concern for heart failure. Patient stated that she preferred to continue medication as she felt it was beneficial for quality of life, and she understood risks. She understands dose will not be increased at this point. 12/27/17 Reviewed her CXR, abd sono/CT, and echo. Pericardial effusion is likely chronic and there is no tamponade. Would not recommend further evaluation during her [facility] stay unless she becomes symptomatic. Would recommend all records be sent to PCP/foundation digger and pt f-u with them on dismissal for further work-up per their discretion. Blood sugars acceptable Repeat CBC in am to follow leukocytosis. 12/27/17- Psych- Remains hypersomnolent. Continue current care 12/28/17 Psych- Continue current care. 12/30/17 Psych: Have held Ritalin due to emesis and physical health concerns. Awaiting results of CT of abdomen today. Will discuss use of Ritalin with chronic pericardial effusion though I don't believe Ritalin was contributor to recent symptoms. May consider use of mirtazapine and titrating upwards as Prozac self-tapers. Will likely need placement due to physical health after discharge. 12/31/17 Psych: Continue current medications (holding Ritalin); see notes from hospitalist. Will look into placement options after discharge. 01/01/18 Psych: Plan to restart Ritalin on 01/02 at 5mg PO BID with breakfast and lunch. Informed consent understanding of risks and benefits obtained from both patient and daughter/DPOA. 01/02/18 Psych: Will hold Ritalin as patient feels it may be exacerbating chest pain. May consider use of mirtazapine to target appetite. 01/03/18 Psych note- Remeron 7.5mg at HS 01/04/18 Psych note- Continue current care
[2018-01-04] MEDS: ACETAMINOPHEN 325 MG TABLET PO SCH (20:31)
[2018-01-04] MEDS: MIRTAZAPINE 15 MG TABLET PO PRN (20:32)
[2018-01-04] MEDS: INSULIN GLARGINE 100unit/ml INJECTION SQ SCH (20:34)
[2018-01-05] MEDS: PANTOPRAZOLE 40 MG TABLET PO SCH (06:16)
[2018-01-05] MEDS: LEVOTHYROXINE 75 MCG TABLET PO SCH (06:17)
[2018-01-05] MEDS: SUCRALFATE 1 GM TABLET PO SCH ×2 (06:17→14:59)
[2018-01-05] MEDS: MIDODRINE 2.5 MG TABLET PO SCH ×3 (08:58→15:00)
[2018-01-05] MEDS: ASPIRIN 81 MG CHEWABLE TABLET PO SCH (08:58)
[2018-01-05] MEDS: CLOPIDOGREL 75 MG TABLET PO SCH (08:58)
[2018-01-05] MEDS: ISOSORBIDE MONONITRATE ER 30 MG TABLET PO SCH (08:58)
[2018-01-05] MEDS: LACTULOSE 20 GM/30 ML ORAL LIQUID PO SCH (08:59)
[2018-01-05] MEDS: INSULIN ASPART 100unit/ml INJECTION SQ PRN (11:33)
[2018-01-05] MEDS: ACETAMINOPHEN 325 MG TABLET PO SCH (20:25)
[2018-01-05] MEDS: MIRTAZAPINE 15 MG TABLET PO SCH (20:25)
[2018-01-05] MEDS: INSULIN GLARGINE 100unit/ml INJECTION SQ SCH (20:25)
[2018-01-06] MEDS: PANTOPRAZOLE 40 MG TABLET PO SCH ×2 (06:20→12:00)
[2018-01-06] MEDS: LEVOTHYROXINE 75 MCG TABLET PO SCH ×2 (06:20→12:00)
[2018-01-06] MEDS: SUCRALFATE 1 GM TABLET PO SCH ×6 (06:21→17:18)
[2018-01-06] MEDS: CLOPIDOGREL 75 MG TABLET PO SCH (10:09)
[2018-01-06] MEDS: MIDODRINE 2.5 MG TABLET PO SCH ×3 (10:09→15:12)
[2018-01-06] MEDS: ASPIRIN 81 MG CHEWABLE TABLET PO SCH (10:09)
[2018-01-06] MEDS: ISOSORBIDE MONONITRATE ER 30 MG TABLET PO SCH (10:10)
[2018-01-06] MEDS: LACTULOSE 20 GM/30 ML ORAL LIQUID PO SCH (10:20)
--- NOTE | 2018-01-06 13:48 | Neuropsych Progress Note ---
[facility] Subjective Date: 01/05/18 - Sujective/Severity of Illness Medications: Acetaminophen (Tylenol) 325 - 650 mg PO Q6H PRN PRN Reason: Discomfort Last Admin: 01/03/18 11:08 Dose: 650 mg Acetaminophen (Tylenol) 650 mg PO HS [facility] Last Admin: 01/05/18 20:25 Dose: 650 mg Aspirin (Asa) 81 mg PO DAILY [facility] Last Admin: 01/06/18 10:09 Dose: 81 mg Clopidogrel Bisulfate (Plavix) 75 mg PO DAILY [facility] Last Admin: 01/06/18 10:09 Dose: 75 mg Insulin Aspart (Novolog) 1 - 5 unit SQ SS PRN; Protocol PRN Reason: Hyperglycemia Last Admin: 01/05/18 11:33 Dose: 1 unit Insulin Glargine (Lantus) 8 unit SQ HS [facility] Last Admin: 01/05/18 20:25 Dose: 8 unit Isosorbide Mononitrate (Imdur) 30 mg PO 0700 [facility] Last Admin: 01/06/18 10:10 Dose: 30 mg Lactulose (Lactulose) 40 gm PO DAILY [facility] Last Admin: 01/06/18 10:20 Dose: Not Given Levothyroxine Sodium (Synthroid) 75 mcg PO ACB [facility] Last Admin: 01/06/18 12:00 Dose: Not Given Lorazepam (Ativan Inj) 0.5 mg IM Q6H PRN PRN Reason: Extreme agitation Lorazepam (Ativan) 0.5 mg PO Q6H PRN PRN Reason: Agitation/Air hunger/Pain Last Admin: 01/01/18 22:04 Dose: 0.5 mg Metoclopramide HCl (Reglan) 10 mg PO TID [facility] Last Admin: 01/06/18 10:10 Dose: 10 mg Midodrine (Proamatine) 2.5 mg PO 0700,1100,1500 [facility] Last Admin: 01/06/18 12:39 Dose: 2.5 mg Mirtazapine (Remeron) 15 mg PO HS [facility] Last Admin: 01/05/18 20:25 Dose: 15 mg Ondansetron HCl (Zofran Odt Tablet) 4 mg PO Q4H PRN PRN Reason: Nausea &/or vomiting Last Admin: 12/29/17 03:29 Dose: 4 mg Pantoprazole Sodium (Protonix Tab) 40 mg PO ACB [facility] Last Admin: 01/06/18 12:00 Dose: Not Given Potassium Chloride (K-Dur 10 Meq Tablet) 10 meq PO WMHS [facility] Last Admin: 12/29/17 14:13 Dose: Not Given Sucralfate (Carafate) 1 gm PO AC [facility] Last Admin: 01/06/18 12:48 Dose: Not Given Subjective: The following is from visit on 01/05/18: Patient seen and chart reviewed. Case discussed with treatment team. On interview, patient is lying in bed and continues to report that she feels very poorly physically. She believes mirtazapine is helpful for sleep. She has been participating in group when offered and working with OT/PT. Patient denies any SI, HI or AVH. Patient denies any adverse side effects related to psychotropic medications. Nursing staff report patient has not had any significant behavioral difficulties on the unit. Patient has been adherent with medications. Patient slept 9.5 hours overnight. VSS. Appetite is poor but patient has been drinking Ensure. Psychotropic PRNs required in the past 24 hours: none. Start Time: 14:40 Stop Time: 15:00 Mental Status Exam Vitals: Last Vital Signs Temp 97.4 F 01/06/18 08:00 Pulse 75 01/06/18 11:08 Resp 16 01/06/18 11:08 BP 107/67 01/06/18 11:08 Pulse Ox 96 01/06/18 11:08 Height: 1.63 m Weight: 66.5 kg - Mental Status Exam Muscle Strength/Tone: Weak Dressing: Casual Grooming: Fair Attitude: Cooperative Motor Activity: Retardation Eye Contact: Good Speech: Normal Volume: Soft Rhythm: Appropriate Rhythm Orientation: Oriented X4 Mood: Depressed (primarily due to feeling poorly physically) Affect: Sad Rate of Thoughts: Appropriate Rate Thought Organization: Organized Associations: Intact Abstract Reasoning: Intact, able to abstract Thought Content: Helplessness, Somatic Concerns Perception/Psychotic: Perception Normal Fund of Knowledge: Appropriate Memory: Grossly Intact Suicidal Ideation: Denies Homicidal Ideation: Denies Insight: Fair Judgement: Fair Impulse Control: Fair - Laboratory Result Diagrams: 01/06/18 09:21 01/06/18 09:21 Laboratory Results - last 24 hr 01/05/18 01/05/18 01/06/18 14:26 20:08 09:21 WBC 10.1 RBC 3.86 L Hgb 12.8 Hct 37.9 MCV 98.2 MCH 33.2 MCHC 33.8 RDW Std Deviation 56.6 H Plt Count 281 MPV 9.9 Immature Gran % (Auto) 0.6 H Neut % (Auto) 60.1 Lymph % (Auto) 30.0 [place] % (Auto) 6.5 Eos % (Auto) 2.2 Baso % (Auto) 0.6 Neut # (Auto) 6.1 Lymph # (Auto) 3.0 [place] # (Auto) 0.7 Eos # (Auto) 0.2 Baso # (Auto) 0.1 Abs Immat Gran (auto) 0.06 H Turbidity Sodium Potassium Chloride Carbon Dioxide Anion Gap BUN Creatinine GFR Calculation BUN/Creatinine Ratio Glucose Glucometer 132 110 Calculated Osmolality Calcium Icterus Index Specimen Hemolysis 01/06/18 09:21 WBC RBC Hgb Hct MCV MCH MCHC RDW Std Deviation Plt Count MPV Immature Gran % (Auto) Neut % (Auto) Lymph % (Auto) [place] % (Auto) Eos % (Auto) Baso % (Auto) Neut # (Auto) Lymph # (Auto) [place] # (Auto) Eos # (Auto) Baso # (Auto) Abs Immat Gran (auto) Turbidity < 20 Sodium 140 Potassium 4.1 Chloride 99 Carbon Dioxide 31 H Anion Gap 10 BUN 43.0 H Creatinine 0.7 GFR Calculation 82 BUN/Creatinine Ratio 61 H Glucose 104 Glucometer Calculated Osmolality 280 Calcium 8.9 Icterus Index < 2 Specimen Hemolysis 52 H Assessment and Plan (1) Depressive disorder Problem details: R/O Major depressive disorder, single episode, severe R/O Mood disorder secondary to general medical condition Other medical conditions: Failure to thrive. Anorexia. Diabetes mellitus, type II, insulin dependent. Gastroparesis. Constipation. CAD. Hypothyroidism. History of hypertension. History of orthostatic hypotension. Hyperlipidemia. Current visit: Yes Status: Acute Increase mirtazapine to 15mg PO q HS. Working on placement due to chronic medical conditions and assistance needed. Hospital Course Summary Disclaimer: The visit summary below is not to be considered part of the above Progress Note. Hospital Course: Plan - 12/24/17: Agree with admission to [facility] for further psychiatric evaluation and care. Hospitalist service consulted for medical management. Labs and imaging reviewed from ED evaluation as well as extensive review of prior medical records. CT revealed large pericardial effusion and concerning for passive congestion from right heart insufficiency in the liver. Will obtain echocardiogram as well as ultrasound of liver for further evaluation. 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 Blood sugars controlled. Monitor closely and continue home Lantus 8 units QHS. Monitor blood pressure closely. Continue home medications. Monitor closely for orthostatic hypotension. Consult dietary for evaluation of protein calorie malnutrition. Will also obtain speech evaluation for possible dysphagia. Recheck labs in AM to monitor blood counts, electrolytes and renal function. Upon discharge, patient's care will be returned to PCP. 12/24/17 Psych: Discontinue Prozac and allow to self-taper as serotonin likely too high and contributing to emotional dulling complained of by patient. Because half-life is so-long, will need to start alternate antidepressant in ~4 weeks. Will start Ritalin 5mg PO daily to target energy, appetite. 12/25/17 Psych: Increase Ritalin to 5mg PO BID with breakfast, lunch to target sleep, appetite. 12/26/17 Psych: Will schedule Tylenol 650mg PO q HS to target pain that patient reports interfered with sleep; monitor as to whether this is effective. Discussed risks/benefit of Ritalin use given concern for heart failure. Patient stated that she preferred to continue medication as she felt it was beneficial for quality of life, and she understood risks. She understands dose will not be increased at this point. 12/27/17 Reviewed her CXR, abd sono/CT, and echo. Pericardial effusion is likely chronic and there is no tamponade. Would not recommend further evaluation during her [facility] stay unless she becomes symptomatic. Would recommend all records be sent to PCP/ruby rails developer and pt f-u with them on dismissal for further work-up per their discretion. Blood sugars acceptable Repeat CBC in am to follow leukocytosis. 12/27/17- Psych- Remains hypersomnolent. Continue current care 12/28/17 Psych- Continue current care. 12/30/17 Psych: Have held Ritalin due to emesis and physical health concerns. Awaiting results of CT of abdomen today. Will discuss use of Ritalin with chronic pericardial effusion though I don't believe Ritalin was contributor to recent symptoms. May consider use of mirtazapine and titrating upwards as Prozac self-tapers. Will likely need placement due to physical health after discharge. 12/31/17 Psych: Continue current medications (holding Ritalin); see notes from hospitalist. Will look into placement options after discharge. 01/01/18 Psych: Plan to restart Ritalin on 01/02 at 5mg PO BID with breakfast and lunch. Informed consent understanding of risks and benefits obtained from both patient and daughter/DPOA. 01/02/18 Psych: Will hold Ritalin as patient feels it may be exacerbating chest pain. May consider use of mirtazapine to target appetite. 01/03/18 Psych note- Remeron 7.5mg at HS 01/04/18 Psych note- Continue current care. 01/05/18 Psych: Increase mirtazapine to 15mg PO q HS. Working on placement due to chronic medical conditions and assistance needed.
--- NOTE | 2018-01-06 13:51 | Neuropsych Progress Note ---
[facility] Subjective Date: 01/06/18 - Sujective/Severity of Illness Medications: Acetaminophen (Tylenol) 325 - 650 mg PO Q6H PRN PRN Reason: Discomfort Last Admin: 01/03/18 11:08 Dose: 650 mg Acetaminophen (Tylenol) 650 mg PO HS [facility] Last Admin: 01/05/18 20:25 Dose: 650 mg Aspirin (Asa) 81 mg PO DAILY [facility] Last Admin: 01/06/18 10:09 Dose: 81 mg Clopidogrel Bisulfate (Plavix) 75 mg PO DAILY [facility] Last Admin: 01/06/18 10:09 Dose: 75 mg Insulin Aspart (Novolog) 1 - 5 unit SQ SS PRN; Protocol PRN Reason: Hyperglycemia Last Admin: 01/05/18 11:33 Dose: 1 unit Insulin Glargine (Lantus) 8 unit SQ HS [facility] Last Admin: 01/05/18 20:25 Dose: 8 unit Isosorbide Mononitrate (Imdur) 30 mg PO 0700 [facility] Last Admin: 01/06/18 10:10 Dose: 30 mg Lactulose (Lactulose) 40 gm PO DAILY [facility] Last Admin: 01/06/18 10:20 Dose: Not Given Levothyroxine Sodium (Synthroid) 75 mcg PO ACB [facility] Last Admin: 01/06/18 12:00 Dose: Not Given Lorazepam (Ativan Inj) 0.5 mg IM Q6H PRN PRN Reason: Extreme agitation Lorazepam (Ativan) 0.5 mg PO Q6H PRN PRN Reason: Agitation/Air hunger/Pain Last Admin: 01/01/18 22:04 Dose: 0.5 mg Metoclopramide HCl (Reglan) 10 mg PO TID [facility] Last Admin: 01/06/18 10:10 Dose: 10 mg Midodrine (Proamatine) 2.5 mg PO 0700,1100,1500 [facility] Last Admin: 01/06/18 12:39 Dose: 2.5 mg Mirtazapine (Remeron) 15 mg PO HS [facility] Last Admin: 01/05/18 20:25 Dose: 15 mg Ondansetron HCl (Zofran Odt Tablet) 4 mg PO Q4H PRN PRN Reason: Nausea &/or vomiting Last Admin: 12/29/17 03:29 Dose: 4 mg Pantoprazole Sodium (Protonix Tab) 40 mg PO ACB [facility] Last Admin: 01/06/18 12:00 Dose: Not Given Potassium Chloride (K-Dur 10 Meq Tablet) 10 meq PO WMHS [facility] Last Admin: 12/29/17 14:13 Dose: Not Given Sucralfate (Carafate) 1 gm PO AC [facility] Last Admin: 01/06/18 12:48 Dose: Not Given Subjective: Patient seen and chart reviewed. Case discussed with treatment team. On interview, patient is in day room and looks brighter than previous days. She reports feeling "a bit better" because she got a good nights sleep (~10 hours). Agreed to focus on improving nutrition and how this might help energy, mood. She has been participating in group when offered and working with OT/PT. Patient denies any SI, HI or AVH. Patient denies any adverse side effects related to psychotropic medications. Nursing staff report patient has not had any significant behavioral difficulties on the unit. Patient has been adherent with medications. Patient slept 10 hours overnight. VSS. Appetite is poor but patient has been drinking Ensure. Psychotropic PRNs required in the past 24 hours: none. Start Time: 10:40 Stop Time: 11:00 Mental Status Exam Vitals: Last Vital Signs Temp 97.4 F 01/06/18 08:00 Pulse 75 01/06/18 11:08 Resp 16 01/06/18 11:08 BP 107/67 01/06/18 11:08 Pulse Ox 96 01/06/18 11:08 Height: 1.63 m Weight: 66.5 kg - Mental Status Exam Muscle Strength/Tone: Weak Dressing: Casual Grooming: Fair Attitude: Cooperative Motor Activity: Retardation Eye Contact: Good Speech: Normal Volume: Soft Rhythm: Appropriate Rhythm Orientation: Oriented X4 Mood: Depressed (primarily due to feeling poorly physically) Affect: Relaxed (restricted) Rate of Thoughts: Appropriate Rate Thought Organization: Organized Associations: Intact Abstract Reasoning: Intact, able to abstract Thought Content: Helplessness, Somatic Concerns Perception/Psychotic: Perception Normal Fund of Knowledge: Appropriate Memory: Grossly Intact Suicidal Ideation: Denies Homicidal Ideation: Denies Insight: Fair Judgement: Fair Impulse Control: Fair - Laboratory Result Diagrams: 01/06/18 09:21 01/06/18 09:21 Laboratory Results - last 24 hr 01/05/18 01/05/18 01/06/18 14:26 20:08 09:21 WBC 10.1 RBC 3.86 L Hgb 12.8 Hct 37.9 MCV 98.2 MCH 33.2 MCHC 33.8 RDW Std Deviation 56.6 H Plt Count 281 MPV 9.9 Immature Gran % (Auto) 0.6 H Neut % (Auto) 60.1 Lymph % (Auto) 30.0 [place] % (Auto) 6.5 Eos % (Auto) 2.2 Baso % (Auto) 0.6 Neut # (Auto) 6.1 Lymph # (Auto) 3.0 [place] # (Auto) 0.7 Eos # (Auto) 0.2 Baso # (Auto) 0.1 Abs Immat Gran (auto) 0.06 H Turbidity Sodium Potassium Chloride Carbon Dioxide Anion Gap BUN Creatinine GFR Calculation BUN/Creatinine Ratio Glucose Glucometer 132 110 Calculated Osmolality Calcium Icterus Index Specimen Hemolysis 01/06/18 09:21 WBC RBC Hgb Hct MCV MCH MCHC RDW Std Deviation Plt Count MPV Immature Gran % (Auto) Neut % (Auto) Lymph % (Auto) [place] % (Auto) Eos % (Auto) Baso % (Auto) Neut # (Auto) Lymph # (Auto) [place] # (Auto) Eos # (Auto) Baso # (Auto) Abs Immat Gran (auto) Turbidity < 20 Sodium 140 Potassium 4.1 Chloride 99 Carbon Dioxide 31 H Anion Gap 10 BUN 43.0 H Creatinine 0.7 GFR Calculation 82 BUN/Creatinine Ratio 61 H Glucose 104 Glucometer Calculated Osmolality 280 Calcium 8.9 Icterus Index < 2 Specimen Hemolysis 52 H Assessment and Plan (1) Depressive disorder Problem details: R/O Major depressive disorder, single episode, severe R/O Mood disorder secondary to general medical condition Other medical conditions: Failure to thrive. Anorexia. Diabetes mellitus, type II, insulin dependent. Gastroparesis. Constipation. CAD. Hypothyroidism. History of hypertension. History of orthostatic hypotension. Hyperlipidemia. Current visit: Yes Status: Acute Continue current care. Hospital Course Summary Disclaimer: The visit summary below is not to be considered part of the above Progress Note. Hospital Course: Plan - 12/24/17: Agree with admission to [facility] for further psychiatric evaluation and care. Hospitalist service consulted for medical management. Labs and imaging reviewed from ED evaluation as well as extensive review of prior medical records. CT revealed large pericardial effusion and concerning for passive congestion from right heart insufficiency in the liver. Will obtain echocardiogram as well as ultrasound of liver for further evaluation. 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 Blood sugars controlled. Monitor closely and continue home Lantus 8 units QHS. Monitor blood pressure closely. Continue home medications. Monitor closely for orthostatic hypotension. Consult dietary for evaluation of protein calorie malnutrition. Will also obtain speech evaluation for possible dysphagia. Recheck labs in AM to monitor blood counts, electrolytes and renal function. Upon discharge, patient's care will be returned to PCP. 12/24/17 Psych: Discontinue Prozac and allow to self-taper as serotonin likely too high and contributing to emotional dulling complained of by patient. Because half-life is so-long, will need to start alternate antidepressant in ~4 weeks. Will start Ritalin 5mg PO daily to target energy, appetite. 12/25/17 Psych: Increase Ritalin to 5mg PO BID with breakfast, lunch to target sleep, appetite. 12/26/17 Psych: Will schedule Tylenol 650mg PO q HS to target pain that patient reports interfered with sleep; monitor as to whether this is effective. Discussed risks/benefit of Ritalin use given concern for heart failure. Patient stated that she preferred to continue medication as she felt it was beneficial for quality of life, and she understood risks. She understands dose will not be increased at this point. 12/27/17 Reviewed her CXR, abd sono/CT, and echo. Pericardial effusion is likely chronic and there is no tamponade. Would not recommend further evaluation during her [facility] stay unless she becomes symptomatic. 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 Blood sugars acceptable Repeat CBC in am to follow leukocytosis. 12/27/17- Psych- Remains hypersomnolent. Continue current care 12/28/17 Psych- Continue current care. 12/30/17 Psych: Have held Ritalin due to emesis and physical health concerns. Awaiting results of CT of abdomen today. Will discuss use of Ritalin with chronic pericardial effusion though I don't believe Ritalin was contributor to recent symptoms. May consider use of mirtazapine and titrating upwards as Prozac self-tapers. Will likely need placement due to physical health after discharge. 12/31/17 Psych: Continue current medications (holding Ritalin); see notes from hospitalist. Will look into placement options after discharge. 01/01/18 Psych: Plan to restart Ritalin on 01/02 at 5mg PO BID with breakfast and lunch. Informed consent understanding of risks and benefits obtained from both patient and daughter/DPOA. 01/02/18 Psych: Will hold Ritalin as patient feels it may be exacerbating chest pain. May consider use of mirtazapine to target appetite. 01/03/18 Psych note- Remeron 7.5mg at HS 01/04/18 Psych note- Continue current care. 01/05/18 Psych: Increase mirtazapine to 15mg PO q HS. Working on placement due to chronic medical conditions and assistance needed. 01/06/18 Psych: Continue current care.
[2018-01-06] MEDS: INSULIN ASPART 100unit/ml INJECTION SQ PRN (14:12)
--- NOTE | 2018-01-06 16:47 | Progress Note ---
- Date 01/06/18 Subjective: Patient is seen lying in bed after lunch. She states other than her chronic abdominal pain and fatigue, she is doing ok. She states she got a "new pill" last night to help her sleep and she slept for 10 hours. Says she hasn't slept through the night for months, so she is encouraged by sleeping so long. NO CP or increasing SOA. Objective Vital signs: Temperature 97.4 F 01/06/18 08:00 Pulse Rate 75 01/06/18 11:08 Respiratory Rate 16 01/06/18 11:08 Blood Pressure 107/67 01/06/18 11:08 Pulse Oximetry 96 01/06/18 11:08 Height/Weight/BMI: Height 1.63 m Weight 66.5 kg Body Mass Index 23.8 - Constitutional Present: no acute distress, well nourished, well developed - Routine HEENT Exam Head: Present: normocephalic, atraumatic - Routine Respiratory Exam Present: CTA bilaterally. Absent: wheezes - Routine Cardiovascular Exam Present: RRR, no murmur - Routine Abdominal Exam Present: soft, tenderness (diffuse), non distended, non tender - Routine Extremities Exam Present: no edema, normal capillary refill - Routine Skin Exam Present: dry, warm - Routine Neurological Exam Present: alert - Routine Lymphatic Exam Lymphatic: Absent: adenopathy - Routine Psychiatric Exam Present: normal affect, cooperative Results - Labs CBC & Chem 7: 01/06/18 09:21 01/06/18 09:21 Assessment and Plan Assessment and Plan: Assessment: Severe depression. Failure to thrive. Leukocytosis - not POA Pericardial effusion w/ no tamponade- likely chronic Anorexia. Diabetes mellitus, type II, insulin dependent. Gastroparesis. Constipation. CAD. Hypothyroidism. History of hypertension. History of orthostatic hypotension. Hyperlipidemia. Plan: Completed course of Cipro on 01/01 for treatment of UTI Monitor fluid balance as she does have a known pleural effusion as well as pericardial effusion. Monitor for evidence of cardiac tamponade, such as chest pain, shortness of breath, weakness or dizziness If she does develop evidence of cardiac distress likely will need higher level of cardiac care, given known pericardial effusion. Otherwise can likely be followed in outpatient setting VSS, BS's reviewed - controlled. Will continue to follow carefully - Physician Narrative Narrative: Date: 01/06/18 Time: 1631 Hospital Course Summary Disclaimer: The visit summary below is not to be considered part of the above Progress Note. Hospital Course: Plan - 12/24/17: [facility] for further [facility] evaluation and care. Hospitalist service consulted for medical management. Labs and imaging reviewed from ED evaluation as well as extensive review of prior medical records. CT revealed large pericardial effusion and concerning for passive congestion from right heart insufficiency in the liver. Will obtain echocardiogram as well as ultrasound of liver for further evaluation. 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 Blood sugars controlled. Monitor closely and continue home Lantus 8 units QHS. Monitor blood pressure closely. Continue home medications. Monitor closely for orthostatic hypotension. Consult dietary for evaluation of protein calorie malnutrition. Will also obtain speech evaluation for possible dysphagia. Recheck labs in AM to monitor blood counts, electrolytes and renal function. Upon discharge, patient's care will be returned to PCP. 12/24/17 Psych: Discontinue Prozac and allow to self-taper as serotonin likely too high and contributing to emotional dulling complained of by patient. Because half-life is so-long, will need to start alternate antidepressant in ~4 weeks. Will start Ritalin 5mg PO daily to target energy, appetite. 12/25/17 Psych: Increase Ritalin to 5mg PO BID with breakfast, lunch to target sleep, appetite. 12/26/17 Psych: Will schedule Tylenol 650mg PO q HS to target pain that patient reports interfered with sleep; monitor as to whether this is effective. Discussed risks/benefit of Ritalin use given concern for heart failure. Patient stated that she preferred to continue medication as she felt it was beneficial for quality of life, and she understood risks. She understands dose will not be increased at this point. 12/27/17 Reviewed her CXR, abd sono/CT, and echo. Pericardial effusion is likely chronic and there is no tamponade. Would not recommend further evaluation during her [facility] unless she becomes symptomatic. 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 Blood sugars acceptable Repeat CBC in am to follow leukocytosis. 12/27/17- Psych- Remains hypersomnolent. Continue current care 12/28/17 Psych- Continue current care. 12/30/17 Psych: Have held Ritalin due to emesis and physical health concerns. Awaiting results of CT of abdomen today. Will discuss use of Ritalin with chronic pericardial effusion though I don't believe Ritalin was contributor to recent symptoms. May consider use of mirtazapine and titrating upwards as Prozac self-tapers. Will likely need placement due to physical health after discharge. 12/31/17 Psych: Continue current medications (holding Ritalin); see notes from hospitalist. Will look into placement options after discharge. 01/01/18 Psych: Plan to restart Ritalin on 01/02 at 5mg PO BID with breakfast and lunch. Informed consent understanding of risks and benefits obtained from both patient and daughter/DPOA. 01/02/18 Psych: Will hold Ritalin as patient feels it may be exacerbating chest pain. May consider use of mirtazapine to target appetite. 01/03/18 Psych note- Remeron 7.5mg at HS 01/04/18 Psych note- Continue current care. 01/05/18 Psych: Increase mirtazapine to 15mg PO q HS. Working on placement due to chronic medical conditions and assistance needed. 01/06/18 Psych: Continue current care. 01/06/18 Hospitalist Completed course of Cipro on 01/01 for treatment of UTI Monitor fluid balance as she does have a known pleural effusion as well as pericardial effusion. Monitor for evidence of cardiac tamponade, such as chest pain, shortness of breath, weakness or dizziness If she does develop evidence of cardiac distress likely will need higher level of cardiac care, given known pericardial effusion. Otherwise can likely be followed in outpatient setting APOLINAR CHÁVEZ's reviewed - controlled. Will continue to follow carefully
[2018-01-06] MEDS: ACETAMINOPHEN 325 MG TABLET PO SCH (22:02)
[2018-01-06] MEDS: MIRTAZAPINE 15 MG TABLET PO SCH (22:03)
[2018-01-06] MEDS: INSULIN GLARGINE 100unit/ml INJECTION SQ SCH (22:04)
[2018-01-07] MEDS: LORazepam 0.5 MG TABLET PO PRN (02:57)
[2018-01-07] MEDS: ISOSORBIDE MONONITRATE ER 30 MG TABLET PO SCH (06:29)
[2018-01-07] MEDS: SUCRALFATE 1 GM TABLET PO SCH ×2 (06:29→12:09)
[2018-01-07] MEDS: MIDODRINE 2.5 MG TABLET PO SCH ×2 (06:29→12:09)
[2018-01-07] MEDS: PANTOPRAZOLE 40 MG TABLET PO SCH (06:30)
[2018-01-07] MEDS: LEVOTHYROXINE 75 MCG TABLET PO SCH (06:30)
[2018-01-07] MEDS: CLOPIDOGREL 75 MG TABLET PO SCH (09:46)
[2018-01-07] MEDS: ASPIRIN 81 MG CHEWABLE TABLET PO SCH (09:46)
[2018-01-07] MEDS: LACTULOSE 20 GM/30 ML ORAL LIQUID PO SCH (09:48)
[2018-01-07 10:12] VITALS: TEMP 97.6
[2018-01-07] MEDS ORDERED: NITROGLYCERIN 0.4 MG SUBLINGUAL TABLET SL PRN (12:40)
[2018-01-07 13:05] VITALS: PULSE 69; RESP 14
[2018-01-07 13:09] VITALS: BP 87/56; O2SAT 95
--- NOTE | 2018-01-07 13:18 | Progress Note ---
- Date 01/07/18 Subjective: Izzy is seen today in follow up due to c/o subjective dyspnea and persistent dull chest pain. Upon initially seeing her, she reports pain in her right arm ( where blood is currently being drawn), but then admits some left sided chest pain. She states pain under both arms. No radiation into back or jaw. She is not diaphoretic. She is not objectively dyspneic. She is lying quietly in bed. She has a flat affect, keeps eyes closed while talking to me, so very difficult to human resource professional the level of distress. She does not appear acutely ill or in distress. I d/w RN during my visit. She reports patient continues to not eat much at all. Is only drinking a few Ensure cans with great encouragement. She requires encouragement to take PO fluids as well. She is pale, but has been so for several days. Objective Vital signs: Temperature 97.6 F 01/07/18 08:00 Pulse Rate 69 01/07/18 12:00 Respiratory Rate 14 01/07/18 12:00 Blood Pressure 87/56 01/07/18 13:09 Pulse Oximetry 95 01/07/18 13:09 Rhythm: Atrial Fibrillation with Normal Ventricular Rate Height/Weight/BMI: Height 1.63 m Weight 66.5 kg Body Mass Index 23.8 - Constitutional Present: no acute distress, well nourished, well developed, average body habitus , cooperative, other (Flat affect. Skin is pale. ) - Routine HEENT Exam Head: Present: normocephalic, atraumatic ENT: Present: mucous membranes dry - Routine Respiratory Exam Present: CTA bilaterally, diminished air movement. Absent: accessory muscle use , dyspnea, rales, rhonchi, wheezes, crackles - Routine Cardiovascular Exam Present: S1, S2, no murmur, irregular rhythm Comments: HR is mildly irregular. She has normal heart tones, not diminished. No evidence of JVD. Pulse pressure is consistent with prior readings. - Routine Abdominal Exam Present: soft, normoactive bowel sounds, non distended, non tender - Routine Extremities Exam Present: no edema, non tender - Routine Musculoskeletal Exam Musculoskeletal: Present: moving extremities well - Routine Skin Exam Present: intact, dry, pallor, warm. Absent: cyanosis, mottling - Routine Neurological Exam Present: alert, moving all extremities - Routine Psychiatric Exam Present: cooperative, depressed (Flat affect. Keeps eyes closed during exam) Results - Labs CBC & Chem 7: 01/06/18 09:21 01/06/18 09:21 - Imaging and Cardiology Chest x-ray Status: image reviewed by me, pending Additional comments: No acute infiltrates that I can appreciate. Cardiomegaly present, but appears stable. Formal reading is pending. Assessment and Plan (1) Anorexia Current visit: Yes Status: Acute Assessment and Plan: Assessment: Severe depression. Failure to thrive. Leukocytosis - not POA Pericardial effusion w/ no tamponade- likely chronic Anorexia. Diabetes mellitus, type II, insulin dependent. Gastroparesis. Constipation. CAD. Hypothyroidism. History of hypertension. History of orthostatic hypotension. Hyperlipidemia. Plan: 01/07/18 Atypical chest pain- CXR not overly impressive. EKG, troponin pending. Provide SL NTG and APAP now. Instructed RN to provide O2 for symptomatic relief of dyspnea. Still significant malnutrition. Known chronic pericardial effusion- no s/sx of acute tamponade. D/W Dr. Espitia- assess as above and monitor. D/W RN several times today. hx of orthostatic hypotension- continue midodrine. Labs reviewed. Total time with coordination of care exceeded 30 minutes. GI Prophylaxis: Protonix Resuscitation Status: Full Code - Physician Narrative Narrative: Date: 01/07/18 Time: 1315 Hospital Course Summary Disclaimer: The visit summary below is not to be considered part of the above Progress Note. Hospital Course: Plan - 12/24/17: [facility] for further [facility] evaluation and care. Hospitalist service consulted for medical management. Labs and imaging reviewed from ED evaluation as well as extensive review of prior medical records. CT revealed large pericardial effusion and concerning for passive congestion from right heart insufficiency in the liver. Will obtain echocardiogram as well as ultrasound of liver for further evaluation. 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 Blood sugars controlled. Monitor closely and continue home Lantus 8 units QHS. Monitor blood pressure closely. Continue home medications. Monitor closely for orthostatic hypotension. Consult dietary for evaluation of protein calorie malnutrition. Will also obtain speech evaluation for possible dysphagia. Recheck labs in AM to monitor blood counts, electrolytes and renal function. Upon discharge, patient's care will be returned to PCP. 12/24/17 Psych: Discontinue Prozac and allow to self-taper as serotonin likely too high and contributing to emotional dulling complained of by patient. Because half-life is so-long, will need to start alternate antidepressant in ~4 weeks. Will start Ritalin 5mg PO daily to target energy, appetite. 12/25/17 Psych: Increase Ritalin to 5mg PO BID with breakfast, lunch to target sleep, appetite. 12/26/17 Psych: Will schedule Tylenol 650mg PO q HS to target pain that patient reports interfered with sleep; monitor as to whether this is effective. Discussed risks/benefit of Ritalin use given concern for heart failure. Patient stated that she preferred to continue medication as she felt it was beneficial for quality of life, and she understood risks. She understands dose will not be increased at this point. 12/27/17 Reviewed her CXR, abd sono/CT, and echo. Pericardial effusion is likely chronic and there is no tamponade. Would not recommend further evaluation during her [facility] stay unless she becomes symptomatic. 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 Blood sugars acceptable Repeat CBC in am to follow leukocytosis. 12/27/17- Psych- Remains hypersomnolent. Continue current care 12/28/17 Psych- Continue current care. 12/30/17 Psych: Have held Ritalin due to emesis and physical health concerns. Awaiting results of CT of abdomen today. Will discuss use of Ritalin with chronic pericardial effusion though I don't believe Ritalin was contributor to recent symptoms. May consider use of mirtazapine and titrating upwards as Prozac self-tapers. Will likely need placement due to physical health after discharge. 12/31/17 Psych: Continue current medications (holding Ritalin); see notes from hospitalist. Will look into placement options after discharge. 01/01/18 Psych: Plan to restart Ritalin on 01/02 at 5mg PO BID with breakfast and lunch. Informed consent understanding of risks and benefits obtained from both patient and daughter/DPOA. 01/02/18 Psych: Will hold Ritalin as patient feels it may be exacerbating chest pain. May consider use of mirtazapine to target appetite. 01/03/18 Psych note- Remeron 7.5mg at HS 01/04/18 Psych note- Continue current care. 01/05/18 Psych: Increase mirtazapine to 15mg PO q HS. Working on placement due to chronic medical conditions and assistance needed. 01/06/18 Psych: Continue current care. 01/06/18 Hospitalist Completed course of Cipro on 01/01 for treatment of UTI Monitor fluid balance as she does have a known pleural effusion as well as pericardial effusion. Monitor for evidence of cardiac tamponade, such as chest pain, shortness of breath, weakness or dizziness If she does develop evidence of cardiac distress likely will need higher level of cardiac care, given known pericardial effusion. Otherwise can likely be followed in outpatient setting VSS, BS's reviewed - controlled. Will continue to follow carefully 01/07/18 Atypical chest pain- CXR not overly impressive. EKG, troponin pending. Provide SL NTG and APAP now. Instructed RN to provide O2 for symptomatic relief of dyspnea. Still significant malnutrition. Known chronic pericardial effusion- no s/sx of acute tamponade. D/W Dr. Espitia- assess as above and monitor. D/W RN several times today. hx of orthostatic hypotension- continue midodrine. Labs reviewed. Total time with coordination of care exceeded 30 minutes.
--- NOTE | 2018-01-07 13:52 | XRay Report ---
INDICATION: short of air PROCEDURE: CHEST 2-VIEWS UPRIGHT (PA & LAT) Encounter: Initial COMPARISON: December 29, 2017 FINDINGS: Calcified granuloma in the right lower lobe. Small bilateral pleural effusions. No pneumothorax. Upper lung ojeda are clear. Cardiac silhouette remains enlarged. Mediastinal contours and pulmonary vascularity are stable. Impression: Small pleural effusions. No focal pneumonia. .
--- NOTE | 2018-01-07 14:20 | Neuropsychiatric Disch Summary ---
Discharge Information Date of admission: 12/23/17 14:05 Attending Physician: Pam Lanier MD Primary care physician: Jose Blancas MD Consults: 12/24/17 11:53 Dietary Consult [CONS] Routine Comment: Reason For Exam: protein calorie malnutrition - Discharge Diagnosis (1) Depressive disorder Status: Acute - Laboratory Labs: 01/06/18 09:21 01/06/18 09:21 Date of Admission: 12/23/17 14:05 History of Present Illness: Patient is a 72-year-old female who was admitted to [facility] on 12/23/17 for psychiatric evaluation and stabilization. Patient endorses severe depression with significant weight loss over recent months. She states that she feels quite poorly physically and because of this, has lost energy and motivation to do the things she used to. The isolation has contributed to her depression. Patient states that her appetite began to decrease several months ago (in 2016) and her depression worsened significantly in August 2017. Patient has been taking Prozac for some time and says that she "feels numb and emotionless." She denies any SI or history of suicide attempts. She denies HI, AVH. She denies any prior psych hospitalizations or even any psychiatric hx prior to this episode of depression. Denies hx of symptoms consistent with bipolar disorder or PTSD. Patient scored a 27/30 on her SLUMS. Per hospitalist: "She reports that beginning in August 2017, she has had no appetite with decreased oral intake and chronic epigastric abdominal pain resulting in severe weight loss. She reports a 100 pound weight loss over the past 6 months. She has reportedly had multiple ED visits for various complaints and has undergone extensive evaluation for her pain and anorexia through her PCP without improvement. She also complains of severe constipation but admits that she does not take much in orally which is probably related. Prior endoscopy revealed mild gastritis and hiatal hernia but was otherwise normal. Gastric emptying study on 08/28/17 revealed delayed emptying consistent with gastroparesis most likely related to her insulin dependent diabetes. Given her chronic health issues, she reports increased depression over the past year. Her PCP recommended psychiatric evaluation and recommended she come to [facility]. She was initially seen in the ED at [facility] on 12/23/17. Labs and vital signs were unremarkable. UA revealed 3-5 WBC with 4+ bacteria and yeast. No urine culture was indicated. She denies any recent fevers, chills, chest pain, shortness of breath, diarrhea or dysuria. She does admit to occasional nausea and vomiting but none today. Abdominal CT was obtained and revealed large pericardial effusion, decreased enhancement of the liver which could represent passive congestion or "nutmeg" liver from right heart insufficiency, acute hepatic edema from hepatitis or fatty infiltration. CXR revealed no focal pneumonia or CF with moderate enlargement of cardiac silhouette due to cardiomegaly or pericardial effusion. [facility] and the hospitalist service was consulted for medical management." Hospital Course This is a general summary of the patient's hospital course. For more details refer to the complete medical record. Hospital course: Plan - 12/24/17: Agree with [facility] for further psychiatric evaluation and care. Hospitalist service consulted for medical management. Labs and imaging reviewed from ED evaluation as well as extensive review of prior medical records. CT revealed large pericardial effusion and concerning for passive congestion from right heart insufficiency in the liver. Will obtain echocardiogram as well as ultrasound of liver for further evaluation. 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 Blood sugars controlled. Monitor closely and continue home Lantus 8 units QHS. Monitor blood pressure closely. Continue home medications. Monitor closely for orthostatic hypotension. Consult dietary for evaluation of protein calorie malnutrition. Will also obtain speech evaluation for possible dysphagia. Recheck labs in AM to monitor blood counts, electrolytes and renal function. Upon discharge, patient's care will be returned to PCP. 12/24/17 Psych: Discontinue Prozac and allow to self-taper as serotonin likely too high and contributing to emotional dulling complained of by patient. Because half-life is so-long, will need to start alternate antidepressant in ~4 weeks. Will start Ritalin 5mg PO daily to target energy, appetite. 12/25/17 Psych: Increase Ritalin to 5mg PO BID with breakfast, lunch to target sleep, appetite. 12/26/17 Psych: Will schedule Tylenol 650mg PO q HS to target pain that patient reports interfered with sleep; monitor as to whether this is effective. Discussed risks/benefit of Ritalin use given concern for heart failure. Patient stated that she preferred to continue medication as she felt it was beneficial for quality of life, and she understood risks. She understands dose will not be increased at this point. 12/27/17 Reviewed her CXR, abd sono/CT, and echo. Pericardial effusion is likely chronic and there is no tamponade. Would not recommend further evaluation during her [facility] stay unless she becomes symptomatic. Would recommend all records be sent to PCP/rope maker and pt f-u with them on dismissal for further work-up per their discretion. Blood sugars acceptable Repeat CBC in am to follow leukocytosis. 12/27/17- Psych- Remains hypersomnolent. Continue current care 12/28/17 Psych- Continue current care. 12/30/17 Psych: Have held Ritalin due to emesis and physical health concerns. Awaiting results of CT of abdomen today. Will discuss use of Ritalin with chronic pericardial effusion though I don't believe Ritalin was contributor to recent symptoms. May consider use of mirtazapine and titrating upwards as Prozac self-tapers. Will likely need placement due to physical health after discharge. 12/31/17 Psych: Continue current medications (holding Ritalin); see notes from hospitalist. Will look into placement options after discharge. 01/01/18 Psych: Plan to restart Ritalin on 01/02 at 5mg PO BID with breakfast and lunch. Informed consent understanding of risks and benefits obtained from both patient and daughter/DPOA. 01/02/18 Psych: Will hold Ritalin as patient feels it may be exacerbating chest pain. May consider use of mirtazapine to target appetite. 01/03/18 Psych note- Remeron 7.5mg at HS 01/04/18 Psych note- Continue current care. 01/05/18 Psych: Increase mirtazapine to 15mg PO q HS. Working on placement due to chronic medical conditions and assistance needed. 01/06/18 Psych: Continue current care. 01/06/18 Hospitalist Completed course of Cipro on 01/01 for treatment of UTI Monitor fluid balance as she does have a known pleural effusion as well as pericardial effusion. Monitor for evidence of cardiac tamponade, such as chest pain, shortness of breath, weakness or dizziness If she does develop evidence of cardiac distress likely will need higher level of cardiac care, given known pericardial effusion. Otherwise can likely be followed in outpatient setting VSS, BS's reviewed - controlled. Will continue to follow carefully 01/07/18 Atypical chest pain- CXR not overly impressive. EKG, troponin pending. Provide SL NTG and APAP now. Instructed RN to provide O2 for symptomatic relief of dyspnea. Still significant malnutrition. Known chronic pericardial effusion- no s/sx of acute tamponade. D/W Dr. Espitia- assess as above and monitor. D/W RN several times today. hx of orthostatic hypotension- continue midodrine. Labs reviewed. Total time with coordination of care exceeded 30 minutes. Discharge Plan - Med Rec/Dispo Referrals/Follow Up: Jose Blancas MD [Primary Care Provider] - Prescriptions: New Mirtazapine [Remeron] 15 mg PO HS 30 Days #30 tab Discontinued FLUoxetine [Prozac] 40 mg PO DAILY No Action Clopidogrel [Plavix] 75 mg PO DAILY Levothyroxine Sodium 75 mcg PO DAILY Isosorbide Mononitrate ER [Imdur] 30 mg PO DAILY Midodrine [Proamatine] 2.5 mg PO TID Insulin Glargine,Hum.rec.anlog [Lantus Solostar] 8 units SQ HS Potassium Chloride [Klor-Con M10] 10 meq PO QID Aspirin Chewable [ASA] 81 mg PO DAILY Lactulose Bulk Oral Liq [Enulose] 45 ml PO 3XW Metoclopramide [Reglan] 10 mg PO TID Pantoprazole Sodium [Protonix] 40 mg PO DAILY Sucralfate [Carafate] 1,000 mg PO TID - Disposition 02 Acute Care Hosp, Other
--- NOTE | 2018-01-09 07:45 | Echocardiogram ---
DATE OF PROCEDURE January 07, [address] Todd Espitia This is a two-dimensional echo with spectral Doppler, color-flow and M-mode. It was obtained in a patient with chest pain and pericardial effusion. Left atrial dimension is normal. Left ventricle end-diastolic dimension is normal. Left ventricle wall thickness is increased. LV systolic function is reduced with inferior hypokinesia with ejection fraction of about 50-55%. Right atrium is normal. Right ventricle is normal. Aortic root dimension is normal. Mitral valve shows mild mitral regurgitation. Aortic valve is normal. Tricuspid valve shows mild tricuspid regurgitation with estimated pulmonary artery systolic pressure of 33. Pulmonary valve shows no pulmonary insufficiency. There is moderate-size pericardial effusion with no echocardiographic evidence of tamponade. Pleural effusion is also present. IMPRESSION 1. Inferior hypokinesia with ejection fraction at the lower limits of normal at 50-55%. 2. Left ventricular hypertrophy. 3. Mild mitral regurgitation. 4. Mild tricuspid regurgitation with estimated pulmonary artery systolic pressure of 33. 5. Moderate pericardial effusion with no echocardiographic evidence of tamponade. 6. Pleural effusion. MTDD
== END 2018-01-07 15:59 | disposition short-term general hospital (02) | DRG 885 ==
LOC: ED 11:19 → GEN 14:05
PROVIDERS: ADMIT Psychiatry & Neurology Psychiatry; ATTEND Psychiatry & Neurology Psychiatry

== ENCOUNTER 2018-01-07 15:59 | Inpatient (IN) ==
--- NOTE | 2018-01-07 17:13 | History & Physical Report ---
History of Present Illness Date: 01/07/18 (PCP: Jose Blancas) Chief complaint: Chest pain HPI: Izzy is a pleasant 72 yo female who has a known underlying history of CAD with stenting in April. She has been seen in [facility] since 12/24/17 due to severe depression, decreased appetite, FTT, and extensive weight loss. She has a known underlying pericardial effusion that was assessed by CT and echo. It was deemed to be moderate in size on echo without evidence of tamponade. She has been monitoring intermittently by the hospitalist service, and was seen yesterday. Labs were re-assessed and were fairly unremarkable. Today, she developed SOA and persistent chest pain. An EKG, CXR, and troponin were completed, and were found to be concerning for cardiac ischemia. She has been transferred to medical services for closer monitoring. Dr. Madrigal has been consulted for further cardiac assessment (she follows with Dr. Mooney, who is not available at this facility). Dr. Espitia did see pt while she was in [facility] and did discuss her case with Dr. Madrigal. Review of Systems All systems PM: 10-point ROS was reviewed, no additional remarkable complaints except - Constitutional Constitutional: Present: fatigue, malaise. Absent: chills - Cardiovascular Cardiovascular: Present: chest pain, heart murmur. Absent: syncope - Respiratory Respiratory: Present: dyspnea. Absent: cough, pain on inspiration, chest congestion - Gastrointestinal Gastrointestinal: Absent: abdominal pain, nausea, vomiting - Neurological Neurological: Present: weakness Past Medical History Medical History Updates: Diabetes mellitus, type 2, insulin dependent. Gastroparesis. Depression. Anxiety. Constipation. CAD. Hypothyroidism. Dysthymia. Hypertension. Orthostatic hypotension. Hyperlipidemia. Osteoarthritis. Seasonal allergies. History of kidney stones. Peripheral neuropathy. Surgical History: Cholecystectomy. Tonsillectomy. Heart cath with stent placement x - 04/2017. Heart cath with stent placement x - 2009. Right knee scope. Colonscopy - 2008. EGD. Family History: Mother - deceaese, 87, dementia. Father - , 56, CAD, [place], HTN. Sister - living, 91, diabetes. Family History: As Above - Social History Smoking status: Former smoker Substance use type: does not use Alcohol intake frequency: does not drink Current occupational status: retired Current residence: Apartment/Private Home Medications Home Medications Medication Instructions Recorded Confirmed Type Aspirin Chewable [ASA] 81 mg PO DAILY 12/23/17 01/07/18 History Clopidogrel [Plavix] 75 mg PO DAILY 12/23/17 01/07/18 History Insulin Glargine,Hum.rec.anlog 8 units SQ HS 12/23/17 01/07/18 History [Lantus Solostar] Isosorbide Mononitrate ER [Imdur] 30 mg PO DAILY 12/23/17 01/07/18 History Lactulose Bulk Oral Liq [Enulose] 45 ml PO 3XW 12/23/17 01/07/18 History Levothyroxine Sodium 75 mcg PO DAILY 12/23/17 01/07/18 History Metoclopramide [Reglan] 10 mg PO TID 12/23/17 01/07/18 History Midodrine [Proamatine] 2.5 mg PO TID 12/23/17 01/07/18 History Pantoprazole Sodium [Protonix] 40 mg PO DAILY 12/23/17 01/07/18 History Potassium Chloride [Klor-Con M10] 10 meq PO QID 12/23/17 01/07/18 History Sucralfate [Carafate] 1,000 mg PO TID 12/23/17 01/07/18 History Mirtazapine [Remeron] 15 mg PO HS 30 Days #30 tab 01/07/18 01/07/18 Rx Allergies Allergy/AdvReac Type Severity Reaction Status Date / Time No Known Allergies Allergy Verified 12/23/17 11:41 Exam Telemetry Rhythm: Sinus Rhythm Telemetry Ectopy: Bundle Branch Block - Constitutional Comments: - Constitutional Present: no acute distress, well nourished, well developed, average body habitus , cooperative, other (Flat affect. Skin is pale. ) - Routine HEENT Exam Head: Present: normocephalic, atraumatic ENT: Present: mucous membranes dry - Routine Respiratory Exam Present: CTA bilaterally, diminished air movement. Absent: accessory muscle use , dyspnea, rales, rhonchi, wheezes, crackles - Routine Cardiovascular Exam Present: S1, S2, no murmur, irregular rhythm Comments: HR is mildly irregular. She has normal heart tones, not diminished. No evidence of JVD. Pulse pressure is consistent with prior readings. - Routine Abdominal Exam Present: soft, normoactive bowel sounds, non distended, non tender - Routine Extremities Exam Present: no edema, non tender - Routine Musculoskeletal Exam Musculoskeletal: Present: moving extremities well - Routine Skin Exam Present: intact, dry, pallor, warm. Absent: cyanosis, mottling - Routine Neurological Exam Present: alert, moving all extremities - Routine Psychiatric Exam Present: cooperative, depressed (Flat affect. Keeps eyes closed during exam) Results - Labs Labs: Reviewed. Troponin elevated 0.267 - Echocardiogram History of Echocardiogram: IMPRESSION. 1. Moderate pericardial effusion with no echocardiographic evidence of tamponade. 2. Concentric left ventricular hypertrophy. 3. Biatrial dilation. 4. LV function mildly reduced with ejection fraction of about 48%. 5. Rseh-sy-qectnasj mitral regurgitation. 6. Aortic sclerosis with mild aortic insufficiency. 7. Moderate tricuspid regurgitation with moderate pulmonary hypertension with estimated pulmonary artery systolic pressure of 48. 8. Trace of pulmonary insufficiency. - Imaging and Cardiology CT scan - abdomen Additional comments: Impression: New small right effusion. Stable large pericardial effusion. No definite acute disease process seen in the abdomen. . Assessment and Plan (1) Acute coronary syndrome Current visit: Yes Status: Acute Assessment and Plan: Impression: ACS with elevated Troponin Severe depression. Failure to thrive. Leukocytosis - not POA, resolved Pericardial effusion w/ no tamponade- likely chronic Anorexia. Diabetes mellitus, type II, insulin dependent. Gastroparesis. Constipation. CAD. Hypothyroidism. History of hypertension. History of orthostatic hypotension. Hyperlipidemia. Plan: 01/07/18 /Admit, Inpatient with expected stay to exceed [address] Madrigal- plan to due to high risk and concerning exam No evidence of acute cardiac tamponade- no change in pulse pressure, heart tones are strong, no JVD, good peripheral perfusion. Will continue remainder of medications. Midodrine for orthostasis. PRN NTG. Monitor BG. Will need ongoing evaluation due to severe weight loss with unclear origin at some point in the near future. D/W Dr. Espitia and RN at multiple points throughout the day. Resuscitation Status: Full Code - Physician Narrative Narrative: Date: 01/07/18 Time: 1808 Pt admitted d/t cp and sob. Concern was for ACS as pt has extensive CAD hx. Pt had RRR without murmurs. Cardiology was consulted and they plan on doing heart cath tomorrow. Hospital Course Summary Disclaimer: The visit summary below is not to be considered part of the above Progress Note. Hospital Course: Impression: ACS with elevated Troponin Severe depression. Failure to thrive. Leukocytosis - not POA, resolved Pericardial effusion w/ no tamponade- likely chronic Anorexia. Diabetes mellitus, type II, insulin dependent. Gastroparesis. Constipation. CAD. Hypothyroidism. History of hypertension. History of orthostatic hypotension. Hyperlipidemia. Plan: 01/07/18 /Admit, Inpatient with expected stay to exceed [address] Madrigal- plan to due to high risk and concerning exam No evidence of acute cardiac tamponade- no change in pulse pressure, heart tones are strong, no JVD, good peripheral perfusion. Will continue remainder of medications. Midodrine for orthostasis. PRN NTG. Monitor BG. Will need ongoing evaluation due to severe weight loss with unclear origin at some point in the near future. D/W Dr. Espitia and RN at multiple points throughout the day.
[2018-01-07] MEDS ORDERED: MORPHINE SULFATE 4mg INJECTION IVP PRN (17:26)
--- NOTE | 2018-01-07 17:27 | Cardiology Consult Note ---
History of Present Illness Consult date: 01/07/18 Requesting physician: Todd Espitia Consult reason: chest pain Chief complaint: chest pain, soa History of present illness: Izzy is a pleasant 72 year old female who has a known underlying history of CAD with stenting in April. She has been in [facility] since 12/24/17 due to severe depression, decreased appetite, FTT, and extensive weight loss. She has a known underlying pericardial effusion that was assessed by CT and echo. It was deemed to be moderate in size on echo without evidence of tamponade. She has been monitoring intermittently by the hospitalist service. Labs were re- assessed and were fairly unremarkable. Today, she developed SOA and persistent chest pain. An EKG, CXR, and troponin were completed, and were found to be concerning for cardiac ischemia. She has been transferred to medical services for closer monitoring. Dr. Madrigal has been consulted for further cardiac assessment (she follows with Dr. Mooney, who is not available at this facility ) and we appreciate the consult. She is examined by Dr. Madrigal on the Medical Unit. She reports generalize malaise since her last stent in April. She reports occasional chest pain for which she takes Sl nitro. She denies fever, chills, cough, palpitations, N/V /D. Review of Systems - Constitutional Constitutional: Present: malaise. Absent: chills, fever(s) - EENMT Eyes: Absent: change in vision Balance: Absent: vertigo Mouth/Throat: Absent: sore throat - Cardiovascular Cardiovascular: Present: chest pain, dyspnea on exertion. Absent: palpitations , syncope Vascular: Absent: pedal edema - Respiratory Respiratory: Present: dyspnea, dyspnea on exertion. Absent: cough - Gastrointestinal Gastrointestinal: Absent: abdominal pain, diarrhea, nausea, vomiting - Genitourinary Genitourinary: Absent: dysuria - Integumentary/Breasts Integumentary: Absent: rash - Neurological Neurological: Absent: dizziness - Endocrine Endocrine: Absent: palpitations PFSH Patient Stated Medical History Dental Problems Yes: doesnt wear upper denture, causes gagging. Hypotension Yes Diabetes Mellitus Type 2 Yes Other GI Yes: gastroparesis r/t diabetes Hx Kidney Stones Yes Clotting Problems Yes: taking plavix Other Hematologic Yes: takes plavix for coronary stents Osteoarthritis Yes Other Musculoskeletal Yes: peripheral neuropathy Blood Transfusions Yes Depression Yes Medical History Updates: Diabetes mellitus, type 2, insulin dependent. Gastroparesis. Depression. Anxiety. Constipation. CAD. Hypothyroidism. Dysthymia. Hypertension. Orthostatic hypotension. Hyperlipidemia. Osteoarthritis. Seasonal allergies. History of kidney stones. Peripheral neuropathy. Surgical History: Cholecystectomy. Tonsillectomy. Heart cath with stent placement x 1 - 04/2017. Heart cath with stent placement x - 2009. Right knee scope. Colonscopy - 2008. EGD. Family History Updates: Mother - deceaese, 87, dementia. Father - , 56 , CAD, [place], HTN. Sister - living, 91, diabetes. Denies family hx of mental illness or dementia. - Social History Smoking status: Former smoker Substance use type: does not use Alcohol intake frequency: does not drink Housing: house Household members: none Current occupational status: retired Does patient use chewing tobacco?: No Current residence: Apartment/Private Home Medications Home Medications Medication Instructions Recorded Confirmed Type Aspirin Chewable [ASA] 81 mg PO DAILY 12/23/17 01/07/18 History Clopidogrel [Plavix] 75 mg PO DAILY 12/23/17 01/07/18 History Isosorbide Mononitrate ER [Imdur] 30 mg PO DAILY 12/23/17 01/07/18 History Lactulose Bulk Oral Liq [Enulose] 45 ml PO 3XW 12/23/17 01/07/18 History Levothyroxine Sodium 75 mcg PO DAILY 12/23/17 01/07/18 History Metoclopramide [Reglan] 10 mg PO TID 12/23/17 01/07/18 History Midodrine [Proamatine] 2.5 mg PO TID 12/23/17 01/07/18 History Pantoprazole Sodium [Protonix] 40 mg PO DAILY 12/23/17 01/07/18 History Sucralfate [Carafate] 1,000 mg PO TID 12/23/17 01/07/18 History Mirtazapine [Remeron] 15 mg PO HS 30 Days #30 tab 01/07/18 01/07/18 Rx Acetaminophen [Tylenol] 325 - 650 mg PO Q5H PRN tab 01/09/18 Rx Atorvastatin [Lipitor] 40 mg PO HS tab 01/09/18 Rx Mag-Al + Sim Oral Liq [Maalox Plus] 30 ml PO Q3H PRN udc 01/09/18 Rx Milk of Magnesia [Mom] 30 ml PO DAILY PRN udc 01/09/18 Rx Nitroglycerin [Nitrostat] 0.4 mg SL Q5MIN3 PRN tab 01/09/18 Rx Allergies Allergy/AdvReac Type Severity Reaction Status Date / Time No Known Allergies Allergy Verified 12/23/17 11:41 Exam - Constitutional no acute distress, well nourished, cooperative - Routine HEENT Exam Head: Present: normocephalic ENT: Present: mucous membranes moist - Routine Neck Exam Absent: JVD, carotid bruit - Routine Chest/Breast/Axilla Exam Chest wall: Absent: tenderness - Routine Respiratory Exam Present: CTA bilaterally, diminished air movement. Absent: dyspnea - Routine Cardiovascular Exam Present: no murmur, irregular rhythm - Routine Abdominal Exam Present: soft, non tender - Routine Extremities Exam Present: no edema, pulses intact - Routine Skin Exam Present: intact, dry, warm - Routine Neurological Exam Present: alert, oriented X3 - Routine Psychiatric Exam Present: normal affect, normal thought process Results 01/09/18 03:54 01/09/18 03:54 - Imaging and Cardiology Stress echo: pending Assessment and Plan - Assessment and Plan (1) NSTEMI (non-ST elevated myocardial infarction) Current visit: Yes Status: Acute No active chest pain - Trend serial troponin - Repeat EKG in am - NPO after breakfast for left heart cath tomorrow afternoon - 2D echo - Aspirin 81mg and Plavix 75mg daily (2) Pericardial effusion Current visit: Yes Status: Acute (3) Atherosclerotic heart disease of [place] coronary artery without angina pectoris Current visit: Yes Status: Acute (4) Mixed hyperlipidemia Current visit: Yes Status: Acute Takes Atorvastatin (5) Type 2 diabetes mellitus without complications Current visit: Yes Status: Acute - Assessment and Plan NSTEMI: No active chest pain - Trend serial troponin - Repeat EKG in am - NPO after breakfast for left heart cath tomorrow afternoon - 2D echo - Aspirin 81mg and Plavix 75mg daily Pericardial Effusion: Repeat 2D echo CAD:Continue Aspirin and Plavix HLD:Takes Atorvastatin, PCP manages DM II: per attending Thank you for allowing us to participate in the care of this patient Hospital Course Summary Disclaimer: The visit summary below is not to be considered part of the above Progress Note. Hospital Course: Impression: ACS with elevated Troponin Severe depression. Failure to thrive. Leukocytosis - not POA, resolved Pericardial effusion w/ no tamponade- likely chronic Anorexia. Diabetes mellitus, type II, insulin dependent. Gastroparesis. Constipation. CAD. Hypothyroidism. History of hypertension. History of orthostatic hypotension. Hyperlipidemia. Plan: 01/07/18 /Admit, Inpatient with expected stay to exceed [address] Madrigal- plan to due to high risk and concerning exam No evidence of acute cardiac tamponade- no change in pulse pressure, heart tones are strong, no JVD, good peripheral perfusion. Will continue remainder of medications. Midodrine for orthostasis. PRN NTG. Monitor BG. Will need ongoing evaluation due to severe weight loss with unclear origin at some point in the near future. D/W Dr. Espitia and RN at multiple points throughout the day.
[2018-01-07] MEDS ORDERED: NITROGLYCERIN 0.4 MG SUBLINGUAL TABLET SL PRN (17:28)
[2018-01-07] MEDS ORDERED: ONDANSETRON 4 MG/2 ML INJECTION IVP PRN (17:29)
[2018-01-07] MEDS ORDERED: LORazepam 0.5 MG TABLET PO PRN (17:30)
[2018-01-07] MEDS ORDERED: ACETAMINOPHEN 500 MG TABLET PO PRN (17:30)
[2018-01-07] MEDS: LACTULOSE 20 GM/30 ML ORAL LIQUID PO SCH (18:10)
[2018-01-07] MEDS: MIDODRINE 2.5 MG TABLET PO SCH (20:46)
[2018-01-07] MEDS: MIRTAZAPINE 15 MG TABLET PO SCH (20:46)
[2018-01-07] MEDS: SALINE FLUSH 10ml SYRINGE IV PRN (20:47)
[2018-01-07] MEDS: SUCRALFATE 1 GM TABLET PO SCH (20:47)
[2018-01-08] MEDS: PANTOPRAZOLE 40 MG TABLET PO SCH (05:50)
[2018-01-08] MEDS: LEVOTHYROXINE 75 MCG TABLET PO SCH (05:50)
[2018-01-08] MEDS: MIDODRINE 2.5 MG TABLET PO SCH ×2 (08:20→14:57)
[2018-01-08] MEDS: SALINE FLUSH 10ml SYRINGE IV PRN (08:20)
[2018-01-08] MEDS: CLOPIDOGREL 75 MG TABLET PO SCH (08:20)
[2018-01-08] MEDS: ASPIRIN 81 MG CHEWABLE TABLET PO SCH (08:20)
[2018-01-08] MEDS: SUCRALFATE 1 GM TABLET PO SCH ×4 (08:20→20:45)
[2018-01-08] MEDS ORDERED: NS 1,000 ML IV SCH (09:15)
[2018-01-08] MEDS: ENOXAPARIN 40 MG/0.4 ML INJECTION SQ SCH (09:27)
--- NOTE | 2018-01-08 12:06 | Progress Note ---
- Date 01/08/18 Subjective: Izzy is seen today in follow up. She is currently chest pain free. Heart cath planned for later today. She does endorse a little SOA today, but otherwise is well. Affect remains flat, depressed. Objective Vital signs: Temperature 96.9 F 01/08/18 08:15 Pulse Rate 72 01/08/18 08:15 Respiratory Rate 16 01/08/18 08:15 Blood Pressure 118/68 01/08/18 08:15 Pulse Oximetry 93 01/08/18 10:53 Height/Weight/BMI: Height 1.6 m Weight 68.1 kg Body Mass Index 26.5 - Constitutional Present: no acute distress, cooperative - Routine HEENT Exam Head: Present: normocephalic, atraumatic Eye: Present: EOMI, PERRL, normal accommodation ENT: Present: mucous membranes moist - Routine Respiratory Exam Present: dyspnea (mild), crackles - Routine Cardiovascular Exam Present: S1, S2, murmur, irregular rhythm - Routine Abdominal Exam Present: soft, normoactive bowel sounds, non distended, non tender - Routine Extremities Exam Present: no edema, non tender - Routine Musculoskeletal Exam Musculoskeletal: Present: no clubbing or cyanosis, normal strength, moving extremities well - Routine Skin Exam Present: intact, dry, warm - Routine Neurological Exam Present: alert, oriented X3, CN II-XII intact, moving all extremities - Routine Psychiatric Exam Present: normal affect, cooperative, depressed Results - Labs CBC & Chem 7: 01/08/18 04:36 01/08/18 04:36 Assessment and Plan (1) Acute coronary syndrome Current visit: Yes Status: Acute Assessment and Plan: Impression: ACS with elevated Troponin Severe depression. Failure to thrive. Leukocytosis - not POA, resolved Pericardial effusion w/ no tamponade- likely chronic Anorexia. Diabetes mellitus, type II, insulin dependent. Gastroparesis. Constipation. CAD. Hypothyroidism. History of hypertension. History of orthostatic hypotension. Hyperlipidemia. Plan: 01/08/18 Elevated Troponin overnoc, now trending slowly down. HC planned today. NPO. Gentle IVF. Some faint crackles- will give Lasix x 1 now, Decrease IVF a bit. Heart tones are strong, no JVD. Pulse pressures at baseline. No evidence of tamponade. Continue tele, ASA, Plavix. Patient states she is CP free. Will assess lipid panel and start statin- moderate dose. Continue remainder of medications, supportive care. DVT Prophylaxis: Lovenox GI Prophylaxis: Protonix Resuscitation Status: Full Code - Physician Narrative Narrative: Date: 01/08/18 Time: 1236 S: Pt denies cp, sob this am. Denies n/v/d, f/c. Reports feels a bit better today. O: Gen: No distress Cards: RRR without murmurs Lungs: CTAB without wheezes A/p: Plan for cath today for NSTEMI, trop peaked at 0.315. Vitals stable Hospital Course Summary Disclaimer: The visit summary below is not to be considered part of the above Progress Note. Hospital Course: Impression: ACS with elevated Troponin Severe depression. Failure to thrive. Leukocytosis - not POA, resolved Pericardial effusion w/ no tamponade- likely chronic Anorexia. Diabetes mellitus, type II, insulin dependent. Gastroparesis. Constipation. CAD. Hypothyroidism. History of hypertension. History of orthostatic hypotension. Hyperlipidemia. Plan: 01/07/18 /Admit, Inpatient with expected stay to exceed [address] Madrigal- plan to HC due to high risk and concerning exam No evidence of acute cardiac tamponade- no change in pulse pressure, heart tones are strong, no JVD, good peripheral perfusion. Will continue remainder of medications. Midodrine for orthostasis. PRN NTG. Monitor BG. Will need ongoing evaluation due to severe weight loss with unclear origin at some point in the near future. D/W Dr. Espitia and RN at multiple points throughout the day. Plan: 01/08/18 Elevated Troponin overnoc, now trending slowly down. HC planned today. NPO. Gentle IVF. Some faint crackles- will give Lasix x 1 now, Decrease IVF a bit. Heart tones are strong, no JVD. Pulse pressures at baseline. No evidence of tamponade. Continue tele, ASA, Plavix. Patient states she is CP free. Will assess lipid panel and start statin- moderate dose. Continue remainder of medications, supportive care.
[2018-01-08] MEDS ORDERED: FUROSEMIDE 40 MG/4 ML INJECTION IVP SCH (12:15)
[2018-01-08] MEDS ORDERED: MIDAZOLAM 2mg/2ml INJECTION ONE (12:28)
[2018-01-08] MEDS ORDERED: FentaNYL 100 MCG/2 ML INJECTION ONE (12:28)
[2018-01-08] MEDS ORDERED: NITROGLYCERIN 50MG INJECTION IV ONE (12:29)
[2018-01-08] MEDS ORDERED: Verapamil 5 MG/2 ML VIAL ONE (12:29)
[2018-01-08] MEDS ORDERED: HEPARIN 1,000unit/ml INJECTION 10ml ONE (12:29)
[2018-01-08] MEDS ORDERED: HEPARIN 1,000 UNITS/500 ML PREMIX (*CVL ONLY*) IV ONE (12:29)
[2018-01-08] MEDS ORDERED: LIDOCAINE 1% (10mg/ml) 30ml SDV INJ ONE (12:29)
[2018-01-08] MEDS ORDERED: MORPHINE SULFATE 4mg INJECTION IVP PRN ×2 (13:19)
[2018-01-08] MEDS ORDERED: LORazepam 0.5 MG TABLET PO PRN (13:19)
[2018-01-08] MEDS ORDERED: ACETAMINOPHEN 325 MG TABLET PO PRN (13:19)
[2018-01-08] MEDS ORDERED: Bisacodyl EC TAB 5 MG TABLET PO PRN (13:19)
[2018-01-08] MEDS ORDERED: PROMETHAZINE 25 MG INJECTION IVP PRN (13:19)
[2018-01-08] MEDS ORDERED: NITROGLYCERIN 0.4 MG SUBLINGUAL TABLET SL PRN (13:19)
[2018-01-08] MEDS ORDERED: METOCLOPRAMIDE 10mg/2ml INJECTION IVP PRN (13:19)
[2018-01-08] MEDS ORDERED: BISACODYL 10 MG SUPPOSITORY RECTALLY PRN (13:19)
[2018-01-08] MEDS ORDERED: ATROPINE 1 MG/ML INJECTION IVP PRN (13:19)
[2018-01-08] MEDS ORDERED: MAG-AL + SIM ORAL LIQUID 30ml PO PRN (13:19)
[2018-01-08] MEDS ORDERED: ONDANSETRON 4 MG/2 ML INJECTION IVP PRN (13:19)
[2018-01-08] MEDS ORDERED: HYDROCODONE/APAP 7.5 MG/325 MG TABLET PO PRN (13:19)
[2018-01-08 18:05] VITALS: BMI 26.6
[2018-01-08] MEDS: MIRTAZAPINE 15 MG TABLET PO SCH (20:46)
[2018-01-08] MEDS ORDERED: ATORVASTATIN 40 MG TABLET PO SCH (21:00)
[2018-01-09] MEDS: MIDODRINE 2.5 MG TABLET PO SCH ×3 (06:21→14:30)
[2018-01-09] MEDS: PANTOPRAZOLE 40 MG TABLET PO SCH (06:21)
[2018-01-09] MEDS: LEVOTHYROXINE 75 MCG TABLET PO SCH (06:21)
[2018-01-09 07:36] VITALS: RESP 16
--- NOTE | 2018-01-09 07:37 | Cardiac Catheterization Report ---
DATE OF PROCEDURE January 08, [address] Todd Espitia The patient is a pleasant 72-year-old lady with history of coronary artery disease who started having chest pain and elevation in troponin and was referred for further evaluation by cardiac catheterization and possible intervention. Informed consent was obtained after explaining the procedure and the potential risks to the patient who agreed to proceed with the procedure. PROCEDURE 1. Left heart catheterization. 2. Coronary angiography. 3. Left ventriculography. 4. Right femoral angiography to visualize the vessel for closure device. 5. Successful Mynx deployment for hemostasis. TECHNIQUE She was prepped and draped in the usual sterile techniques. Conscious sedation was performed using Versed and fentanyl. 1% lidocaine was used for local anesthesia. Using modified Seldinger technique, arterial access was obtained into the right femoral artery with placement of a 6-Malag[place] arterial sheath. LEFT VENTRICULOGRAPHY Left ventriculography in single-plane JOHNS shallow projection showed mild inferior hypokinesia with ejection fraction of about 55% with mild mitral regurgitation and no gradient across the aortic valve. LVEDP was about 20. CORONARY ANGIOGRAPHY Left main was free of significant lesions and bifurcated into left anterior descending and left circumflex arteries. Left anterior descending artery had an endovascular stent proximally across from the first diagonal. Endovascular stent was widely patent with no significant restenosis. Remaining course of LAD was free of significant lesions. First diagonal had about 70-75% ostial stenosis coming in middle of the stent. Left circumflex artery was nondominant with no significant lesions. Right coronary artery was dominant with an endovascular stent which was widely patent. Remaining course of RCA, PDA, and posterolateral arteries were free of significant lesions. Right femoral angiography showed patent common femoral, proximal SFA and profunda and therefore Mynx was used for hemostasis. IMPRESSION 1. Mild inferior hypokinesia with ejection fraction of about 55%. 2. Mild mitral regurgitation. 3. Coronary artery disease as described above with patent stents. 4. Successful Mynx deployment for hemostasis. PLAN Continue medical management. DIANA
[2018-01-09] MEDS: CLOPIDOGREL 75 MG TABLET PO SCH (08:38)
[2018-01-09] MEDS: ASPIRIN 81 MG CHEWABLE TABLET PO SCH (08:38)
[2018-01-09] MEDS: LACTULOSE 20 GM/30 ML ORAL LIQUID PO SCH (08:38)
[2018-01-09] MEDS: ENOXAPARIN 40 MG/0.4 ML INJECTION SQ SCH (08:39)
[2018-01-09] MEDS: SUCRALFATE 1 GM TABLET PO SCH ×2 (09:32→14:30)
--- NOTE | 2018-01-09 11:40 | Progress Note ---
- Date 01/09/18 Subjective: Izzy is seen today in follow up. She is chest pain free. Reports some mild SOA, states the telemetry box is "heavy". I removed the tele box from her gown and placed to her side, and she reports relief of "most of her shortness of breath." She is hoping for dismissal today, and is agreeable to going to SNU this afternoon. Chart is reviewed. HC report reviewed as well. Objective Vital signs: Temperature 95.8 F L 01/09/18 10:58 Pulse Rate 70 01/09/18 10:58 Respiratory Rate 16 01/09/18 10:58 Blood Pressure 103/63 01/09/18 10:58 Pulse Oximetry 96 01/09/18 10:58 Height/Weight/BMI: Height 1.6 m Weight 68.2 kg Body Mass Index 26.6 - Constitutional Present: no acute distress, cooperative - Routine HEENT Exam Head: Present: normocephalic, atraumatic Eye: Present: EOMI, PERRL ENT: Present: mucous membranes moist - Routine Respiratory Exam Present: crackles (right base), diminished air movement (left lung ojeda). Absent: accessory muscle use, dyspnea Comments: Fairly good airflow. Describes subjective dyspnea- not visible on exam. - Routine Cardiovascular Exam Present: RRR, S1, S2, no murmur. Absent: JVD Comments: Heart tones are easily appreciated. - Routine Abdominal Exam Present: soft, normoactive bowel sounds, non distended, non tender - Routine Extremities Exam Present: no edema, non tender Results - Labs CBC & Chem 7: 01/09/18 03:54 01/09/18 03:54 - Echocardiogram History of Echocardiogram: IMPRESSION. 1. Mild inferior hypokinesia with ejection fraction of about 55%. 2. Mild mitral regurgitation. 3. Coronary artery disease as described above with patent stents. 4. Successful Mynx deployment for hemostasis. PLAN. Continue medical management. Assessment and Plan (1) Acute coronary syndrome Current visit: Yes Status: Acute Assessment and Plan: Impression: ACS with elevated Troponin Severe depression. Failure to thrive. Leukocytosis - not POA, resolved Pericardial effusion w/ no tamponade- likely chronic Anorexia. Diabetes mellitus, type II, insulin dependent. Gastroparesis. Constipation. CAD. Hypothyroidism. History of hypertension. History of orthostatic hypotension. Hyperlipidemia. Plan: 01/09/18 HC was negative for acute blockages. EF was 55% on HC, no evidence of tamponade reported. Clinical exam reveals normal heart tones, no JVD, no evidence of hypoperfusion. She does endorse some SOA- required fluid bolus yesterday. She did not get Lasix due to hypotension concerns in HC. Given the fact that she has crackles and endorses SOA, will give a single lower dose of Lasix. Continue Midodrine. Statin was started yesterday- will need to continue. Plan to dismiss to SNU today for ongoing strengthening. Will need to follow up with Dr. Mooney for monitoring of pericardial effusion. - Physician Narrative Narrative: Date: 01/09/18 Time: 1137 Hospital Course Summary Disclaimer: The visit summary below is not to be considered part of the above Progress Note. Hospital Course: Impression: ACS with elevated Troponin Severe depression. Failure to thrive. Leukocytosis - not POA, resolved Pericardial effusion w/ no tamponade- likely chronic Anorexia. Diabetes mellitus, type II, insulin dependent. Gastroparesis. Constipation. CAD. Hypothyroidism. History of hypertension. History of orthostatic hypotension. Hyperlipidemia. Plan: 01/07/18 /Admit, Inpatient with expected stay to exceed [address] Madrigal- plan to due to high risk and concerning exam No evidence of acute cardiac tamponade- no change in pulse pressure, heart tones are strong, no JVD, good peripheral perfusion. Will continue remainder of medications. Midodrine for orthostasis. PRN NTG. Monitor BG. Will need ongoing evaluation due to severe weight loss with unclear origin at some point in the near future. D/W Dr. Espitia and RN at multiple points throughout the day. Plan: 01/08/18 Elevated Troponin overnoc, now trending slowly down. HC planned today. NPO. Gentle IVF. Some faint crackles- will give Lasix x 1 now, Decrease IVF a bit. Heart tones are strong, no JVD. Pulse pressures at baseline. No evidence of tamponade. Continue tele, ASA, Plavix. Patient states she is CP free. Will assess lipid panel and start statin- moderate dose. Continue remainder of medications, supportive care. Plan: 01/09/18 HC was negative for acute blockages. EF was 55% on HC, no evidence of tamponade reported. Clinical exam reveals normal heart tones, no JVD, no evidence of hypoperfusion. She does endorse some SOA- required fluid bolus yesterday. She did not get Lasix due to hypotension concerns in HC. Given the fact that she has crackles and endorses SOA, will give a single lower dose of Lasix. Continue Midodrine. Statin was started yesterday- will need to continue. Plan to dismiss to SNU today for ongoing strengthening. Will need to follow up with Dr. Mooney for monitoring of pericardial effusion.
[2018-01-09] MEDS ORDERED: FUROSEMIDE 20 MG/2 ML INJECTION IVP ONE (11:44)
--- NOTE | 2018-01-09 11:52 | Discharge Summary ---
Discharge Information Date of admission: 01/07/18 15:59 Anticipated date of discharge: 01/09/18 Attending Physician: Todd Espitia MD Primary care physician: Jose Blancas MD Consults: 01/07/18 16:55 Case Management Consult [CONS] Routine Reason For Exam: Optimization of medical comorbidities Dietary Consult [CONS] Routine Comment: Reason For Exam: protein calorie malnutrition Physician Consult [CONS] Routine Consulting Provider: Mykel Shepard Reason For Exam: Elevated troponin Ordering Provider has Notified Senior Ios Developer: Yes Physician Consult [CONS] Routine Consulting Provider: Mykel Shepard Reason For Exam: chest pain with pericardial effusion Ordering Provider has Notified Senior Ios Developer: Yes - Discharge Diagnosis (1) Acute coronary syndrome Status: Acute Impression: ACS with elevated Troponin Severe depression. Failure to thrive. Leukocytosis - not POA, resolved Pericardial effusion w/ no tamponade- likely chronic Anorexia. Diabetes mellitus, type II, insulin dependent. Gastroparesis. Constipation. CAD. Hypothyroidism. History of hypertension. History of orthostatic hypotension. Hyperlipidemia. - Procedures Procedures: CORONARY ANGIOGRAPHY Left main was free of significant lesions and bifurcated into left anterior descending and left circumflex arteries. Left anterior descending artery had an endovascular stent proximally across from the first diagonal. Endovascular stent was widely patent with no significant restenosis. Remaining course of LAD was free of significant lesions. First diagonal had about 70-75% ostial stenosis coming in middle of the stent. Left circumflex artery was nondominant with no significant lesions. Right coronary artery was dominant with an endovascular stent which was widely patent. Remaining course of RCA, PDA, and posterolateral arteries were free of significant lesions. Right femoral angiography showed patent common femoral, proximal SFA and profunda and therefore Mynx was used for hemostasis. IMPRESSION 1. Mild inferior hypokinesia with ejection fraction of about 55%. 2. Mild mitral regurgitation. 3. Coronary artery disease as described above with patent stents. 4. Successful Mynx deployment for hemostasis. PLAN Continue medical management. - Laboratory Labs: 01/09/18 03:54 01/09/18 03:54 - Radiology Radiology: CXR Impression: Small pleural effusions. No focal pneumonia. . History of Present Illness HPI: Izzy is a pleasant 72 yo female who has a known underlying history of CAD with stenting in April. She has been seen in [facility] since 12/24/17 due to severe depression, decreased appetite, FTT, and extensive weight loss. She has a known underlying pericardial effusion that was assessed by CT and echo. It was deemed to be moderate in size on echo without evidence of tamponade. She has been monitoring intermittently by the hospitalist service, and was seen yesterday. Labs were re-assessed and were fairly unremarkable. Today, she developed SOA and persistent chest pain. An EKG, CXR, and troponin were completed, and were found to be concerning for cardiac ischemia. She has been transferred to medical services for closer monitoring. Dr. Shepard has been consulted for further cardiac assessment (she follows with Dr. Mooney, who is not available at this facility). Dr. Espitia did see pt while she was in [facility] and did discuss her case with Dr. Shepard. Objective Vital signs: Temperature 95.8 F L 01/09/18 10:58 Pulse Rate 70 01/09/18 10:58 Respiratory Rate 16 01/09/18 10:58 Blood Pressure 103/63 01/09/18 10:58 Pulse Oximetry 96 01/09/18 10:58 Height/Weight/BMI: Height 1.6 m Weight 68.2 kg Body Mass Index 26.6 Comments: - Constitutional Present: no acute distress, cooperative - Routine HEENT Exam Head: Present: normocephalic, atraumatic Eye: Present: EOMI, PERRL, normal accommodation ENT: Present: mucous membranes moist - Routine Respiratory Exam Present: dyspnea (mild), crackles - Routine Cardiovascular Exam Present: S1, S2, murmur, irregular rhythm - Routine Abdominal Exam Present: soft, normoactive bowel sounds, non distended, non tender - Routine Extremities Exam Present: no edema, non tender - Routine Musculoskeletal Exam Musculoskeletal: Present: no clubbing or cyanosis, normal strength, moving extremities well - Routine Skin Exam Present: intact, dry, warm - Routine Neurological Exam Present: alert, oriented X3, CN II-XII intact, moving all extremities - Routine Psychiatric Exam Present: normal affect, cooperative, depressed Hospital Course This is a general summary of the patient's hospital course. For more details refer to the complete medical record. Hospital course: Impression: ACS with elevated Troponin Severe depression. Failure to thrive. Leukocytosis - not POA, resolved Pericardial effusion w/ no tamponade- likely chronic Anorexia. Diabetes mellitus, type II, insulin dependent. Gastroparesis. Constipation. CAD. Hypothyroidism. History of hypertension. History of orthostatic hypotension. Hyperlipidemia. Plan: 01/07/18 Admit, Inpatient with expected stay to exceed [address] Shepard- plan to due to high risk and concerning exam No evidence of acute cardiac tamponade- no change in pulse pressure, heart tones are strong, no JVD, good peripheral perfusion. Will continue remainder of medications. Midodrine for orthostasis. PRN NTG. Monitor BG. Will need ongoing evaluation due to severe weight loss with unclear origin at some point in the near future. D/W Dr. Espitia and RN at multiple points throughout the day. Plan: 01/08/18 Elevated Troponin overnoc, now trending slowly down. HC planned today. NPO. Gentle IVF. Some faint crackles- will give Lasix x 1 now, Decrease IVF a bit. Heart tones are strong, no JVD. Pulse pressures at baseline. No evidence of tamponade. Continue tele, ASA, Plavix. Patient states she is CP free. Will assess lipid panel and start statin- moderate dose. Continue remainder of medications, supportive care. Plan: 01/09/18 HC was negative for acute blockages. EF was 55% on HC, no evidence of tamponade reported. Clinical exam reveals normal heart tones, no JVD, no evidence of hypoperfusion. She does endorse some SOA- required fluid bolus yesterday. She did not get Lasix due to hypotension concerns in HC. Given the fact that she has crackles and endorses SOA, will give a single lower dose of Lasix. Continue Midodrine. Statin was started yesterday- will need to continue. Plan to dismiss to SNU today for ongoing strengthening. Will need to follow up with Dr. Mooney for monitoring of pericardial effusion. Time spent with patient: 25 - 35 minutes Resuscitation Status: Full Code Discharge Plan - Discharge Disposition Discharge Date: 01/09/18 Disposition: 03 To SNU Not [facility] (SNF) *Condition: Improved Reason For Visit (Visit label in EMR): elevated troponin - Discharge Medications *Discharge Medications: New Acetaminophen [Tylenol] 325 - 650 mg PO Q5H PRN tab PRN Reason: Pain Atorvastatin [Lipitor] 40 mg PO HS tab Mag-Al + Sim Oral Liq [Maalox Plus] 30 ml PO Q3H PRN udc PRN Reason: Indigestion Milk of Magnesia [Mom] 30 ml PO DAILY PRN udc PRN Reason: Constipation Nitroglycerin [Nitrostat] 0.4 mg SL Q5MIN3 PRN tab PRN Reason: Angina Continue Clopidogrel [Plavix] 75 mg PO DAILY Levothyroxine Sodium 75 mcg PO DAILY Isosorbide Mononitrate ER [Imdur] 30 mg PO DAILY Midodrine [Proamatine] 2.5 mg PO TID Aspirin Chewable [ASA] 81 mg PO DAILY Mirtazapine [Remeron] 15 mg PO HS 30 Days #30 tab Lactulose Bulk Oral Liq [Enulose] 45 ml PO 3XW Metoclopramide [Reglan] 10 mg PO TID Pantoprazole Sodium [Protonix] 40 mg PO DAILY Sucralfate [Carafate] 1,000 mg PO TID Discontinued Insulin Glargine,Hum.rec.anlog [Lantus Solostar] 8 units SQ HS Potassium Chloride [Klor-Con M10] 10 meq PO QID - Discharge Packet/Instructions *Diet: Resume heart healthy diet *Activity: Limit activity for 2 days. No lifting more than 10 pounds, no pushing or pulling for [address], operate machinery or drink alcohol for 2 days. Expect a phone call from Cardiac Rehab to schedule an appointment for you. If you have any questions, please contact Cardiac Rehab at: . New prescriptions: DO NOT STOP THESE MEDICATIONS WITHOUT AN ORDER FROM DR. SHEPARD *Pain Management/Treatment: Over the counter pain medication if needed. *Wound Care: Remove dressing after 24 hours. Keep site clean and dry. No tub baths or swimming for 1 week. You may shower. Additional Instructions: CBC, BMP on Friday. Supplement of choice TID. Accucheck BID. Notify provider if blood sugar is above 200 x 2 consecutive checks. *Expected Signs/Symptoms: Bruising and tenderness at the site. *Notify Physician if: Site is bleeding, abnormal drainage, increased pain or fever of 101.5 or more. *During Business Hours Contact: Call Dr. Shepard's office at [phone]. *After Business Hours Contact: Please call [phone] and have the spinning lathe operator page the physician. *Pending Lab/Results: Follow up w/Provider - Referrals/Follow Up *Referrals/Follow Up: Jose Blancas MD [Primary Care Provider] - 1 Week - Patient Handouts Patient Handouts: [facility] [place] Heart Cath, Myocardial Infarction (DC) - Dismissal Complete Discharge Instructions are:: Complete Physician Narrative - Narrative Attestation Narrative: Date: 01/09/18 Time: 1612 S: Pt doing well this am, denies any cp, sob, n/v/d, f/c. Pt reports she feels better and is ready to go home. O: Gen: AAOx3, no acute distress Cards: RRR without murmurs A/P: Pt was admitted d/t cp and mild trop elevation. saw pt and decided to do heart cath d/t significant hx of CAD. Heart cath was unremarkable and cardiology recommended discharge. Pt has an ongoing pericardial effusion that is being monitored and pt follows with . Pt stable to discharge and follow up as outpatient.
--- NOTE | 2018-01-09 14:04 | Extended Care Facility Orders ---
Admission Orders Admit to:: Care Home Allergies/Adverse Reactions: Allergies No Known Allergies Allergy (Verified 12/23/17 11:41) Admitting Diagnosis: elevated troponin Admitting Physician: Todd Espitia MD Attending Physician: Todd Espitia MD Code Status: Full Code Anticiapted Length of Stay: 30 days or less Rehab Potential: fair Rehab Prognosis: fair Diet: 01/08/18 Lunch Consistent Carbohydrate Diet [DIET] Calorie Level: 2000 Evaluations/Treatment: PT, OT, as needed Care Home Certification: I certify that SNF services are required to be given on an Inpatient basis because of the patients need for [facility] care on a continuing basis for the condition(s) for which he/she received inpatient hospital services prior to his/her transfer to the SNF. SNF inpatient care is necessary for the following reasons - Additional Information Referrals: Jose Blancas MD [Primary Care Provider] - 1 Week
[2018-01-09 14:29] VITALS: BP 110/73; PULSE 82; TEMP 96.6; O2SAT 98
== END 2018-01-09 15:35 | DRG 282 ==
LOC: MED 15:59
PROVIDERS: ADMIT Internal Medicine; ATTEND Internal Medicine